=== PATIENT | male | born 1980 | race Caucasian/White ===

== ENCOUNTER 2017-11-11 19:47 | Emergency (ER) | payer SELFPAY ==
[2017-11-11] MEDS ORDERED: Sodium Chloride 0.9% 1,000 ML IV ONE (21:09)
[2017-11-11] MEDS ORDERED: Aluminum Hydroxide/Magnesium Hydroxide Susp (30 mL) PO STA (21:09)
[2017-11-11] MEDS ORDERED: Sodium Chloride 0.9% 1,000 ML ONE (21:21)
[2017-11-11] MEDS ORDERED: Aluminum Hydroxide/Magnesium Hydroxide Susp (30 mL) ONE (21:22)
[2017-11-11 21:28] LABS: BASO % 0.7 % (0.0-2.0); EOS # 0.2 K/uL (0.0-0.7); LYMPH # 3.3 K/uL (1.0-4.3); LYMPH % 45.6 % (20.0-40.0); MEAN CELL VOLUME 88.6 fL (80.0-94.0); MEAN CORPUSCULAR HEMOGLOBIN 30.3 pg (27.0-31.0); MEAN CORPUSCULAR HGB CONC 34.2 g/dL (33.0-37.0); MEAN PLATELET VOLUME 7.3 fL (7.2-11.7); MONO # 0.5 K/uL (0.0-0.8); MONO % 6.7 % (0.0-10.0); NEUT # 3.2 K/uL (1.8-7.0); NRBC % 0.2 % (0.0-2.0); RBC 4.93 Mil/uL (4.40-5.90); RED CELL DISTRIBUTION WIDTH 13.3 % (11.5-14.5); WHITE BLOOD COUNT 7.3 K/uL (4.8-10.8)
[2017-11-11 21:41] LABS: ALB/GLOB RATIO 1.4 (1.0-2.1); ALBUMIN 4.3 g/dL (3.5-5.0); ALT/SGPT 163 U/L (21-72); AST/SGOT 75 U/L (17-59); BLOOD UREA NITROGEN 15 mg/dL (9-20); CALCIUM 8.8 mg/dl (8.6-10.4); GFR NON-AFRICAN AMERICAN > 60; LIPASE 83 U/L (23-300)
[2017-11-11 23:32] VITALS: BP 129/82; PULSE 62; RESP 20; TEMP 98.4; O2SAT 96
--- NOTE | 2017-11-12 03:38 | C.PDOC ---
History Of Present Illness 37 year old male presents to the ED for evaluation of epigastric abdominal pain which began 2 days ago. Patient reports mild nausea. He states he saw his PMD who prescribed medications, from which he found no relief. Patient denies fever , chills, change in appetite or vomiting. Chief Complaint (Nursing): Abdominal Pain History Per: Patient History/Exam Limitations: no limitations Onset/Duration Of Symptoms: Days (2) Current Symptoms Are (Timing): Still Present Location Of Pain/Discomfort: Epigastric Radiation Of Pain To:: None Quality Of Discomfort: "Pain" Associated Symptoms: Nausea. denies: Fever, Chills, Vomiting Additional History Per: Patient Past Medical History Reviewed: Historical Data, Nursing Documentation, Vital Signs Vital Signs: Last Vital Signs Temp 98.4 F 11/11/17 23:31 Pulse 62 11/11/17 23:31 Resp 20 11/11/17 23:31 BP 129/82 11/11/17 23:31 Pulse Ox 96 11/12/17 03:41 - Medical History PMH: No Chronic Diseases Surgical History: No Surg Hx Family History: States: Hypertension - Social History Hx Tobacco Use: Yes Hx Alcohol Use: Yes Hx Substance Use: No - Immunization History Hx Tetanus Toxoid Vaccination: No Hx Influenza Vaccination: No Hx Pneumococcal Vaccination: No Review Of Systems Constitutional: Negative for: Fever, Chills Gastrointestinal: Positive for: Nausea, Abdominal Pain (epigastric ). Negative for: Vomiting Physical Exam - Physical Exam Appears: Non-toxic, No Acute Distress Skin: Normal Color, Warm, Dry Head: Atraumatic, Normacephalic Eye(s): bilateral: Normal Inspection Oral Mucosa: Moist Neck: Supple Chest: Symmetrical, No Deformity, No Tenderness Cardiovascular: Rhythm Regular, No Murmur Respiratory: Normal Breath Sounds, No Rales, No Rhonchi, No Wheezing Gastrointestinal/Abdominal: Soft, Tenderness (epigastric ), No Guarding, No Rebound Extremity: Normal ROM, Capillary Refill (less than 2 seconds ) Neurological/Psych: Oriented x3, Normal Speech, Normal Cognition ED Course And Treatment - Laboratory Results Result Diagrams: 11/11/17 21:24 11/11/17 21:24 O2 Sat by Pulse Oximetry: 96 (on RA) Pulse Ox Interpretation: Normal - CT Scan/US abdomen ultrasound Other Rad Studies (CT/US): Read By Radiologist, Radiology Report Reviewed CT/US Interpretation: EXAM: US Abdomen Complete. CLINICAL HISTORY: 37 years old, male; Pain; Abdominal pain; Epigastric; Additional info: Epigastric pain with elevated. lft's. TECHNIQUE: Real-time ultrasound of the abdomen ( complete) with image documentation. COMPARISON: No relevant prior studies available. FINDINGS: Liver: The liver is normal in size. Diffuse increased hepatic parenchymal echogenicity. Normal. hepatic contour. The hyperechoic mass within the right hepatic lobe measuring 3.4 cm x 2.5 cm x 3.7. cm. No intrahepatic bile duct dilation. Gallbladder: Numerous echogenic foci fill the gallbladder lumen with confluent posterior acoustic. shadowing consistent with multiple gallstones. Normal gallbladder wall thickness at 2 mm. Clinic Physician Director reports a negative sonographic Roldan's sign. No evident pericholecystic fluid. Common bile duct: Normal caliber common bile duct measuring 4 mm in diameter. No stones. No. dilation. Pancreas: Limited evaluation of the proximal pancreas is unremarkable. The pancreatic body and. tail are obscured by overlying bowel gas. Kidneys: The right kidney is normal in size and echotexture without stone or hydronephrosis. measuring 11.4 cm in length. The and left kidney is normal in size and echotexture without stone or. hydronephrosis measuring 11.8 cm in length. Spleen: The spleen is normal in size and echotexture measuring 9.2 cm in length. Aorta: Normal appearance of the imaged aorta. No aneurysm. The proximal aorta measures 2.1 cm. in AP dimension. The mid and distal aorta is not well-seen secondary to overlying bowel gas. Inferior vena cava: Normal appearance of the imaged IVC. IMPRESSION : 1. Cholelithiasis with multiple gallstones in the gallbladder lumen. No sonographic evidence of acute. cholecystitis. 2. Hepatic steatosis. 3. Hyperechoic structure within the periphery of the right hepatic lobe which may represent an area. of focal fatty sparing or hyperechoic mass. RECOMMEND dedicated hepatic MRI for further. characterization, or three-phase liver CT if there is contraindication to MR. Medical Decision Making Medical Decision Making: Impression: 37 year old male with epigastric pain Progress: Bloodwork, Abdomen US ordered and reviewed. Maalox PO, Pepcid IVP, Zofran IVP, and IV Fluids given. Patient is notified that he has gallstones in his gallbladder. Patient is advised to follow up with his PMD within 1-2 days for further evaluation. Disposition - [facility] - Disposition: HOME/ ROUTINE Disposition Time: 23:00 Condition: IMPROVED Additional Instructions: JOVANI CASTILLO, thank you for letting us take care of you today. Your provider was Jayesh Donaldson DO and you were treated for STOMACH PAINS. The emergency medical care you received today was directed at your acute symptoms. If you were prescribed any medication, please fill it and take as directed. It may take several days for your symptoms to resolve. Return to the Emergency Department if your symptoms worsen, do not improve, or if you have any other problems. Please contact your doctor or call one of the physicians/clinics you have been referred to that are listed on the Patient Visit Information form that is included in your discharge packet. Bring any paperwork you were given at discharge with you along with any medications you are taking to your follow up visit. Our treatment cannot replace ongoing medical care by a primary care provider outside of the emergency department. Thank you for allowing the [facility] team to be part of your care today. Your ultrasound showed stones in your gallbladder. Follow up with your primary care doctor in 2-3 days for re-evaluation and further management. Prescriptions: Ranitidine HCl [Zantac] 150 mg PO BID #20 tablet Instructions: Gallstones (DC) Forms: [employer] (Martiniquais) - Clinical Impression Clinical Impression: Gallstones - Scribe Statement The provider has reviewed the documentation as recorded by the Scribe (Lexis Camp) Provider Attestation: All medical record entries made by the Scribe were at my direction and personally dictated by me. I have reviewed the chart and agree that the record accurately reflects my personal performance of the history, physical exam, medical decision making, and the department course for this patient. I have also personally directed, reviewed, and agree with the discharge instructions and disposition.
--- NOTE | 2017-11-12 08:16 | US ---
Abdominal ultrasound History: Epigastric abdominal pain. Elevated liver enzymes. Comparison: None available. Technique: Real-time sonography was performed through the abdomen. Findings: Liver: 18.5 centimeters in length. Increased echogenicity of the hepatic parenchymal cortex suggestive for fatty infiltration versus hepatic parenchymal disease. Clinical correlation. Lobulated hyperechoic mass within the right hepatic lobe measuring 3.4 x 2.5 x 3.7 centimeters. No intrahepatic biliary ductal dilatation. Gallbladder: Cholelithiasis. Normal gallbladder wall thickness of 2.4 millimeters. Negative sonographic Roldan's sign. Common bile duct measures 4 millimeters, within normal limits. Limited visualization of the pancreas. Spleen measures 9.2 centimeters in length, within normal limits. Visualized aorta and IVC are grossly preserved. Mid and distal aorta not well visualized. Right kidney: 11.4 x 4.4 x 4.6 centimeters. No calculi or hydronephrosis. Left Kidney: 11.8 x 5.7 x 6.0 centimeters. No calculi or hydronephrosis. Impression: Cholelithiasis with multiple gallstones in the gallbladder lumen. Normal gallbladder wall thickness of 2.4 millimeters. Negative sonographic Roldan's sign. Increased echogenicity of the hepatic parenchymal cortex suggestive for fatty infiltration versus hepatic parenchymal disease. Clinical correlation. Lobulated hyperechoic structure/lesion within the periphery of the right hepatic lobe measuring 3.4 x 2.5 x 3.7 centimeters. This is of uncertain clinical etiology. This may represent focal hemangioma versus hyperechoic mass versus additional etiology. Further evaluation with dedicated hepatic MRI for further characterization or three-phase liver CT is recommended if clinically indicated. These findings were preliminarily reported at 10:57 p.m. on 11/11/[address] Amador Loyd from [facility].
== END 2017-11-11 23:32 | disposition home or self-care (01) ==
LOC: C.ER 19:47
DX: K80.20 Calculus of gallbladder without cholecystitis without obstruction (principal); Z72.0 Tobacco use
CPT/HCPCS: 76700; 80053; 83690; 85025; 96361; 96374; 96375; 99285; J2405; J7030

== ENCOUNTER 2018-02-10 09:51 | Emergency (ER) | payer OTHER, SELFPAY ==
[2018-02-10 10:09] VITALS: TEMP 98.5
--- NOTE | 2018-02-10 10:52 | C.PDOC ---
History Of Present Illness 37 year old male presents to the ED for evaluation of epigastric abdominal pain and diarrhea which began around 4-5 days ago. Patient states symptoms have been intermittent and anything he eats goes right through him. Patient reports he feels very bloated and gassy. history of gallstones. Otherwise, he denies fever, chills, nausea, GI bleeding, vomiting, constipation. Time Seen by Provider: 02/10/18 10:18 Chief Complaint (Nursing): Abdominal Pain History Per: Patient History/Exam Limitations: no limitations Onset/Duration Of Symptoms: Days (4-5) Current Symptoms Are (Timing): Still Present Location Of Pain/Discomfort: Epigastric Radiation Of Pain To:: None Quality Of Discomfort: "Pain", Gas Associated Symptoms: Diarrhea. denies: Fever, Chills, Nausea, Vomiting, Constipation Additional History Per: Patient Past Medical History Reviewed: Historical Data, Nursing Documentation, Vital Signs Vital Signs: Last Vital Signs Temp 98.5 F 02/10/18 10:04 Pulse 73 02/10/18 10:04 Resp 18 02/10/18 10:04 BP 124/88 02/10/18 10:04 Pulse Ox 97 02/10/18 10:04 - Medical History PMH: No Chronic Diseases Surgical History: No Surg Hx Family History: States: Hypertension - Social History Hx Tobacco Use: Yes Hx Alcohol Use: Yes Hx Substance Use: No - Immunization History Hx Tetanus Toxoid Vaccination: No Hx Influenza Vaccination: No Hx Pneumococcal Vaccination: No Review Of Systems Constitutional: Negative for: Fever, Chills Gastrointestinal: Positive for: Abdominal Pain, Diarrhea. Negative for: Nausea, Vomiting, Constipation Musculoskeletal: Positive for: Back Pain (chronic ) Physical Exam - Physical Exam Appears: Non-toxic, No Acute Distress Skin: Normal Color, Warm, Dry, No Rash Head: Atraumatic, Normacephalic Eye(s): bilateral: Normal Inspection Oral Mucosa: Moist Throat: No Erythema, No Exudate Neck: Normal ROM, Supple Chest: Symmetrical, No Deformity, No Tenderness Cardiovascular: Rhythm Regular, No Murmur Respiratory: Normal Breath Sounds, No Rales, No Rhonchi Gastrointestinal/Abdominal: Bowel Sounds (active), Soft, Tenderness (epigastric ), No Guarding, No Rebound Back: Normal Inspection, No CVA Tenderness Extremity: Normal ROM, Capillary Refill (less than 2 seconds ), No Swelling Neurological/Psych: Oriented x3, Normal Speech, Normal Cognition, Normal Motor ED Course And Treatment - Laboratory Results Result Diagrams: 02/10/18 11:09 02/10/18 11:09 O2 Sat by Pulse Oximetry: 97 (on RA) Pulse Ox Interpretation: Normal - Other Rad CXR X-Ray: Viewed By Me, Read By Radiologist Interpretation: Chest x-ray single frontal view. HISTORY: Pain. Comparison: None available. FINDINGS: No focal infiltrate or effusion. Heart size within normal limits. Tortuous ectatic aorta. Bibasilar breast and nipple shadows. Nodular density at the right lung base likely represents nipple shadow. Impression: No focal infiltrate or effusion. - CT Scan/US Abdomen US Other Rad Studies (CT/US): Read By Radiologist, Radiology Report Reviewed CT/US Interpretation: Date of service: 02/10/2018. HISTORY: epigas, RUQ pain. COMPARISON: Abdominal ultrasound performed 11/11/17. TECHNIQUE: Sonographic evaluation of the right upper quadrant of the abdomen. FINDINGS: LIVER: Measures 17.7 cm in length. Echogenic liver may be seen in setting of hepatic parenchymal disease or fatty infiltration. 3.1 x 2.8 x 3.9 cm hyperechoic focus within the right hepatic lobe, indeterminate; this finding previously measured approximately 3.4 x 2.5 x 3.7 cm. The main portal vein appears patent with normal directional flow. No intrahepatic bile duct dilatation. GALLBLADDER: Gallstones. No gallbladder wall thickening or pericholecystic edema. Negative sonographic Roldan's sign as assessed by the family law legal assistant. COMMON BILE DUCT: Measures 3 mm. PANCREAS: Not well-visualized. RIGHT KIDNEY: Measures approximately 12.4 x 4.5 x 5.1 cm. No obstructing calculus or hydronephrosis identified. AORTA: Limited visualization appears grossly unremarkable. IVC: Limited visualization appears grossly unremarkable. OTHER FINDINGS: None . IMPRESSION: Echogenic liver may be seen in setting of hepatic parenchymal disease or fatty infiltration. 3.1 x 2.8 x 3.9 cm echogenic focus within the right hepatic lobe, indeterminate. Further evaluation with dedicated three-phase MRI of the liver may be considered for further evaluation if indicated. Cholelithiasis. Medical Decision Making Medical Decision Making: Progress: Bloodwork, urinalysis, US Abdomen, CXR ordered and reviewed. Toradol IVP and IV Fluids given. On re-exam, the patient is resting comfortably and improvement of symptoms. Lungs are CTA, heart is RRR, abdomen is soft, non-tender and tolerating PO well. Follow up with the medical doctor within 1-2 days. Return if worsened. Disposition - Disposition Referrals: [facility] [Outside] Disposition: HOME/ ROUTINE Disposition Time: 14:00 Condition: STABLE Additional Instructions: Follow up with the medical doctor within 1-2 days. Return if worsened. Prescriptions: Famotidine [Pepcid] 20 mg PO BID #20 tab Naproxen [Naprosyn] 500 mg PO BID #20 tab Instructions: Gallstones Forms: [employer] (Colombian), Work Excuse Print Language: WALLISIAN - Clinical Impression Clinical Impression: Diarrhea, Gallstones - PA / EXTENDER / Resident Statement MD/DO has reviewed & agrees with the documentation as recorded. - Scribe Statement The provider has reviewed the documentation as recorded by the Scribe (Lexis Camp) All medical record entries made by the Scribe were at my direction and personally dictated by me. I have reviewed the chart and agree that the record accurately reflects my personal performance of the history, physical exam, medical decision making, and the department course for this patient. I have also personally directed, reviewed, and agree with the discharge instructions and disposition.
[2018-02-10] MEDS ORDERED: Sodium Chloride 0.9% 500 ML IV ONE ×2 (10:55→11:33)
[2018-02-10 11:14] LABS: BASO # 0.1 K/uL (0.0-0.2); BASO % 1.3 % (0.0-2.0); EOS # 0.5 K/uL (0.0-0.7); EOS % 5.5 % (0.0-4.0); HEMOGLOBIN 15.7 g/dL (12.0-18.0); LYMPH # 2.6 K/uL (1.0-4.3); LYMPH % 28.7 % (20.0-40.0); MEAN CELL VOLUME 89.6 fL (80.0-94.0); MEAN CORPUSCULAR HEMOGLOBIN 30.4 pg (27.0-31.0); MEAN CORPUSCULAR HGB CONC 33.9 g/dL (33.0-37.0); MEAN PLATELET VOLUME 7.5 fL (7.2-11.7); MONO # 0.8 K/uL (0.0-0.8); MONO % 9.1 % (0.0-10.0); NEUT % 55.4 % (50.0-75.0); NRBC % 0.1 % (0.0-2.0); RBC 5.16 Mil/uL (4.40-5.90); RED CELL DISTRIBUTION WIDTH 12.9 % (11.5-14.5); WHITE BLOOD COUNT 8.9 K/uL (4.8-10.8)
[2018-02-10 11:33] LABS: ALB/GLOB RATIO 1.4 (1.0-2.1); ALBUMIN 4.6 g/dL (3.5-5.0); ALT/SGPT 39 U/L (21-72); AST/SGOT 39 U/L (17-59); BLOOD UREA NITROGEN 15 mg/dL (9-20); CALCIUM 8.9 mg/dl (8.6-10.4); GFR NON-AFRICAN AMERICAN > 60; LIPASE 43 U/L (23-300)
--- NOTE | 2018-02-10 12:50 | RAD ---
Chest x-ray single frontal view HISTORY: Pain. Comparison: None available. FINDINGS: No focal infiltrate or effusion. Heart size within normal limits. Tortuous ectatic aorta. Bibasilar breast and nipple shadows. Nodular density at the right lung base likely represents nipple shadow. Impression: No focal infiltrate or effusion.
[2018-02-10 13:10] LABS: URINE BILIRUBIN NEGATIVE (NEGATIVE); URINE BLOOD NEGATIVE (NEGATIVE); URINE CLARITY Clear (Clear); URINE COLOR Yellow (YELLOW); URINE GLUCOSE (UA) NORMAL (Normal); URINE LEUKOCYTE ESTERASE NEG Leu/uL (Negative); URINE PROTEIN NEGATIVE (NEGATIVE); URINE UROBILINOGEN NORMAL mg/dL (0.2-1.0)
--- NOTE | 2018-02-10 13:45 | US ---
Date of service: 02/10/2018 HISTORY: epigas, RUQ pain COMPARISON: Abdominal ultrasound performed 11/11/17 TECHNIQUE: Sonographic evaluation of the right upper quadrant of the abdomen. FINDINGS: LIVER: Measures 17.7 cm in length. Echogenic liver may be seen in setting of hepatic parenchymal disease or fatty infiltration. 3.1 x 2.8 x 3.9 cm hyperechoic focus within the right hepatic lobe, indeterminate; this finding previously measured approximately 3.4 x 2.5 x 3.7 cm. The main portal vein appears patent with normal directional flow. No intrahepatic bile duct dilatation. GALLBLADDER: Gallstones. No gallbladder wall thickening or pericholecystic edema. Negative sonographic Roldan's sign as assessed by the e m assembler. COMMON BILE DUCT: Measures 3 mm. PANCREAS: Not well-visualized. RIGHT KIDNEY: Measures approximately 12.4 x 4.5 x 5.1 cm. No obstructing calculus or hydronephrosis identified. AORTA: Limited visualization appears grossly unremarkable. IVC: Limited visualization appears grossly unremarkable. OTHER FINDINGS: None . IMPRESSION: Echogenic liver may be seen in setting of hepatic parenchymal disease or fatty infiltration. 3.1 x 2.8 x 3.9 cm echogenic focus within the right hepatic lobe, indeterminate. Further evaluation with dedicated three-phase MRI of the liver may be considered for further evaluation if indicated. Cholelithiasis.
[2018-02-10 14:19] VITALS: BP 127/80; PULSE 80; RESP 16
[2018-02-10 15:38] VITALS: O2SAT 97
== END 2018-02-10 14:22 | disposition home or self-care (01) ==
LOC: C.ER 09:51
DX: K80.20 Calculus of gallbladder without cholecystitis without obstruction (principal); R19.7 Diarrhea, unspecified
CPT/HCPCS: 71045; 76705; 80053; 81001; 83690; 85025; 96374; 99285; J1885; J7040

== ENCOUNTER 2018-02-25 19:29 | Emergency (ER) | payer OTHER ==
[2018-02-25 19:40] VITALS: RESP 16
--- NOTE | 2018-02-25 20:19 | C.PDOC ---
History Of Present Illness 42 y/o male presents to the ED complaining of generalized abdominal pain with diarrhea for 2 weeks. Patient was seen here 1 week ago but has not followed up with his PMD since. He denies any fever, chills, vomiting, or dysuria. States he has diarrhea after every meal, which is watery and non-bloody. Time Seen by Provider: 02/25/18 19:46 Chief Complaint (Nursing): Abdominal Pain History Per: Patient History/Exam Limitations: no limitations Onset/Duration Of Symptoms: Days Current Symptoms Are (Timing): Still Present Associated Symptoms: Diarrhea Past Medical History Reviewed: Historical Data, Nursing Documentation, Vital Signs Vital Signs: Last Vital Signs Temp 98.2 F 02/25/18 19:37 Pulse 59 L 02/25/18 19:37 Resp 16 02/25/18 19:37 BP 131/86 02/25/18 19:37 Pulse Ox 98 02/25/18 19:37 Surgical History: No Surg Hx Family History: States: Hypertension - Social History Hx Tobacco Use: Yes Hx Alcohol Use: Yes Hx Substance Use: No - Immunization History Hx Tetanus Toxoid Vaccination: No Hx Influenza Vaccination: No Hx Pneumococcal Vaccination: No Review Of Systems Constitutional: Negative for: Fever, Chills, Sweats Eyes: Negative for: Vision Change Cardiovascular: Negative for: Palpitations Respiratory: Negative for: Shortness of Breath Gastrointestinal: Positive for: Abdominal Pain, Diarrhea. Negative for: Nausea, Vomiting, Hematochezia Genitourinary: Negative for: Dysuria, Hematuria Neurological: Negative for: Weakness, Dizziness Physical Exam - Physical Exam Appears: Non-toxic, No Acute Distress Skin: Warm, Dry Head: Atraumatic, Normacephalic Eye(s): bilateral: Normal Inspection, PERRL, EOMI Oral Mucosa: Moist Neck: Normal ROM Chest: Symmetrical Cardiovascular: Rhythm Regular, No Murmur Respiratory: Normal Breath Sounds, No Rales, No Rhonchi, No Wheezing Gastrointestinal/Abdominal: Soft, No Tenderness, No Distention, No Guarding, No Rebound Back: No CVA Tenderness Extremity: Bilateral: Atraumatic, Normal Color And Temperature Neurological/Psych: Oriented x3 ED Course And Treatment - Laboratory Results Result Diagrams: 02/25/18 20:17 02/25/18 20:17 O2 Sat by Pulse Oximetry: 98 (RA) Pulse Ox Interpretation: Normal Medical Decision Making Medical Decision Making: Impression: Abdominal pain, Diarrhea Plan: --CMP --Magnesium --Phosphorous --CBC Lab results were unremarkable. Discussed this with patient. Advised outpatient followup for further evaluation. Patient stable throughout ED course. Disposition - Disposition Disposition: HOME/ ROUTINE Disposition Time: 21:28 Condition: GOOD Additional Instructions: JOVANI CASTILLO, thank you for letting us take care of you today. Your provider was Sena Valdez MD and you were treated for STOMACH PAINS. The emergency medical care you received today was directed at your acute symptoms. If you were prescribed any medication, please fill it and take as directed. It may take several days for your symptoms to resolve. Return to the Emergency Department if your symptoms worsen, do not improve, or if you have any other problems. Please contact your doctor or call one of the physicians/clinics you have been referred to that are listed on the Patient Visit Information form that is included in your discharge packet. Bring any paperwork you were given at [facility] with you along with any medications you are taking to your follow up visit. Our treatment cannot replace ongoing medical care by a primary care provider outside of the emergency department. Thank you for allowing the [facility] team to be part of your care today. If you had an X-Ray or CT scan: A Radiologist will review the ED reading if any change in treatment is needed we will contact you. If you had a blood, urine, or wound culture: It will take several days for the results, if any change in treatment is needed we will contact you. If you had an STI test: It will take 48 hours for the results. Please call after 1 week if you have not heard back. Instructions: Diarrhea and Traveler's Diarrhea, Adult (DC) Forms: [employer] ([employer]) Print Language: CROATIAN - Clinical Impression Clinical Impression: Abdominal pain, Diarrhea - Scribe Statement The provider has reviewed the documentation as recorded by the David Montelongo Provider Attestation: All medical record entries made by the David were at my direction and personally dictated by me. I have reviewed the chart and agree that the record accurately reflects my personal performance of the history, physical exam, medical decision making, and the department course for this patient. I have also personally directed, reviewed, and agree with the discharge instructions and disposition.
[2018-02-25 20:31] LABS: BASO % 0.4 % (0.0-2.0); EOS # 0.2 K/uL (0.0-0.7); EOS % 2.2 % (0.0-4.0); LYMPH # 2.8 K/uL (1.0-4.3); LYMPH % 34.5 % (20.0-40.0); MEAN CORPUSCULAR HEMOGLOBIN 30.6 pg (27.0-31.0); MEAN CORPUSCULAR HGB CONC 33.7 g/dL (33.0-37.0); MEAN PLATELET VOLUME 8.1 fL (7.2-11.7); MONO # 0.5 K/uL (0.0-0.8); MONO % 6.7 % (0.0-10.0); NEUT # 4.5 K/uL (1.8-7.0); NEUT % 56.2 % (50.0-75.0); NRBC % 0.1 % (0.0-2.0); RBC 4.9 Mil/uL (4.40-5.90); RED CELL DISTRIBUTION WIDTH 13.1 % (11.5-14.5)
[2018-02-25 21:03] LABS: ALB/GLOB RATIO 1.5 (1.0-2.1); ALBUMIN 4.6 g/dL (3.5-5.0); ALT/SGPT 38 U/L (21-72); AST/SGOT 43 U/L (17-59); BLOOD UREA NITROGEN 22 mg/dL (9-20); CALCIUM 8.6 mg/dl (8.6-10.4); GFR NON-AFRICAN AMERICAN > 60
[2018-02-25 21:59] VITALS: BP 125/80; PULSE 60; TEMP 98.1
[2018-02-25 23:40] VITALS: O2SAT 98
== END 2018-02-25 21:53 | disposition home or self-care (01) ==
LOC: C.ER 19:29
DX: R10.84 Generalized abdominal pain (principal); R19.7 Diarrhea, unspecified

== ENCOUNTER 2018-03-16 10:40 | Observation (INO) | payer OTHER ==
--- NOTE | 2018-03-16 12:58 | RAD ---
HISTORY: burning chest/epigastric pain COMPARISON: Chest x-ray performed 02/10/18 TECHNIQUE: Chest, one view. FINDINGS: LUNGS: No focal consolidation. Please note that chest x-ray has limited sensitivity for the detection of pulmonary masses. PLEURA: No significant pleural effusion identified. No definite pneumothorax . CARDIOVASCULAR: Heart size appears within normal limits. No significant atherosclerotic calcification present. OSSEOUS STRUCTURES: No acute osseous abnormality identified. VISUALIZED UPPER ABDOMEN: Unremarkable. OTHER FINDINGS: None. IMPRESSION: No focal consolidation.
--- NOTE | 2018-03-16 13:03 | C.PDOC ---
History Of Present Illness 37 years old male presents to ED for evaluation of diarrhea that began months ago. Patient states he went to his PMD and was told all the labs are fine, however patient states symptoms were not resolved. Patient also reports associa ekta epigastric abdominal pain that radiates to the chest that began 3-4 days ago. Denies SOB, or any other complaint. Time Seen by Provider: 03/16/18 11:14 Chief Complaint (Nursing): Chest Pain History Per: Patient History/Exam Limitations: no limitations Onset/Duration Of Symptoms: Hrs Current Symptoms Are (Timing): Still Present Location Of Pain/Discomfort: Epigastric Radiation Of Pain To:: Chest Associated Symptoms: Diarrhea. denies: Fever, Chills, Nausea, Vomiting Exacerbating Factors: None Alleviating Factors: None Last Bowel Movement: Today Recent travel outside of the [place]: No Past Medical History Reviewed: Historical Data, Nursing Documentation, Vital Signs Vital Signs: Last Vital Signs Temp 98.1 F 03/16/18 10:55 Pulse 67 03/16/18 10:55 Resp 17 03/16/18 10:55 BP 127/87 03/16/18 10:55 Pulse Ox 99 03/16/18 10:55 - Medical History PMH: No Chronic Diseases Surgical History: No Surg Hx Family History: States: No Known Family Hx, Hypertension - Social History Hx Tobacco Use: Yes Hx Alcohol Use: Yes Hx Substance Use: No - Immunization History Hx Tetanus Toxoid Vaccination: No Hx Influenza Vaccination: No Hx Pneumococcal Vaccination: No Review Of Systems Constitutional: Negative for: Fever, Chills Gastrointestinal: Positive for: Abdominal Pain (Epigastric ), Diarrhea. Negative for: Nausea, Vomiting, Constipation Skin: Negative for: Rash Neurological: Negative for: Weakness, Numbness Physical Exam - Physical Exam Appears: Non-toxic, No Acute Distress Skin: Normal Color, Warm, Dry, No Rash Head: Atraumatic, Normacephalic Eye(s): bilateral: Normal Inspection, PERRL, EOMI Oral Mucosa: Moist Neck: Normal ROM, Supple Chest: Symmetrical, No Tenderness Cardiovascular: Rhythm Regular, No Murmur Respiratory: Normal Breath Sounds, No Rales, No Rhonchi, No Wheezing Gastrointestinal/Abdominal: Soft, Tenderness (Epigastric ) Extremity: Normal ROM Extremity: Bilateral: Atraumatic, Normal Color And Temperature, Normal ROM Pulses: Left Radial: Normal, Right Radial: Normal Neurological/Psych: Oriented x3, Normal Speech Gait: Steady ED Course And Treatment - Laboratory Results Result Diagrams: 03/16/18 14:29 03/16/18 14:29 O2 Sat by Pulse Oximetry: 99 (RA) Pulse Ox Interpretation: Normal - Other Rad CXR X-Ray: Viewed By Me, Read By Radiologist Interpretation: HISTORY: burning chest/epigastric pain. COMPARISON: Chest x- ray performed 02/10/18. TECHNIQUE: Chest, one view. FINDINGS: LUNGS: No focal consolidation. Please note that chest x-ray has limited sensitivity for the detection of pulmonary masses. PLEURA: No significant pleural effusion identified. No definite pneumothorax . CARDIOVASCULAR: Heart size appears within normal limits. No significant atherosclerotic calcification present. OSSEOUS STRUCTURES: No acute osseous abnormality identified. VISUALIZED UPPER ABDOMEN: Unremarkable. OTHER FINDINGS: None. IMPRESSION: No focal consolidation. - CT Scan/US Abdomen US Other Rad Studies (CT/US): Read By Radiologist, Radiology Report Reviewed CT/US Interpretation: Date of service: 03/16/2018. HISTORY: epigastric burning. COMPARISON: Limited abdominal ultrasound performed 02/10/18. TECHNIQUE: Sonographic evaluation of the right upper quadrant of the abdomen. FINDINGS: LIVER: Measures 16.7 cm in length. Echogenic liver may be seen in setting of hepatic parenchymal disease or fatty infiltration. Lobulated 3.9 x 2.2 x 3.8 cm echogenic region/mass within the right hepatic lobe, indeterminate. The main portal vein appears patent with normal directional flow. No intrahepatic bile duct dilatation. GALLBLADDER: Gallstones. Gallbladder sludge. No gallbladder wall thickening or pericholecystic edema. Negative sonographic Roldan's sign as assessed by the optical technician. COMMON BILE DUCT: Measures 3 mm. PANCREAS: Not well-visualized. RIGHT KIDNEY: Measures approximately 12.8 x 5.4 x 5.8 cm. No obstructing calculus or hydronephrosis identified. AORTA: Limited visualization appears grossly unremarkable. IVC: Limited visualization appears grossly unremarkable. OTHER FINDINGS: None . IMPRESSION: Lobulated 3.9 x 2.2 x 3.8 cm echogenic region/mass within the right hepatic lobe, indeterminate. If indicated, recommend further evaluation with three-phase dedicated cross-sectional imaging of the liver. Cholelithiasis. Echogenic liver may be seen in setting of hepatic parenchymal disease or fatty infiltration. Progress Note: Ordered EKG, blood work, CXR, urinalysis, and Abdomen US. Disposition - Disposition Disposition: HOSPITALIZED Disposition Time: 15:39 Condition: FAIR Forms: [facility] ([place]ian) - Clinical Impression Clinical Impression: Chest pain, Diarrhea, Liver mass - PA / LATHE SPOTTER / Resident Statement MD/DO has reviewed & agrees with the documentation as recorded. - Scribe Statement The provider has reviewed the documentation as recorded by the Mauricioibandre Petit All medical record entries made by the Mauricioibandre were at my direction and personally dictated by me. I have reviewed the chart and agree that the record accurately reflects my personal performance of the history, physical exam, medical decision making, and the department course for this patient. I have also personally directed, reviewed, and agree with the discharge instructions and disposition. Decision To Admit - Pt Status Changed To: Hospital Disposition Of: Observation - . Bed Request Type: Telemetry Admitting Physician: Makayla Messer Patient Diagnosis: Chest pain, Diarrhea, Liver mass
--- NOTE | 2018-03-16 13:33 | US ---
Date of service: 03/16/2018 HISTORY: epigastric burning COMPARISON: Limited abdominal ultrasound performed 02/10/18 TECHNIQUE: Sonographic evaluation of the right upper quadrant of the abdomen. FINDINGS: LIVER: Measures 16.7 cm in length. Echogenic liver may be seen in setting of hepatic parenchymal disease or fatty infiltration. Lobulated 3.9 x 2.2 x 3.8 cm echogenic region/mass within the right hepatic lobe, indeterminate. The main portal vein appears patent with normal directional flow. No intrahepatic bile duct dilatation. GALLBLADDER: Gallstones. Gallbladder sludge. No gallbladder wall thickening or pericholecystic edema. Negative sonographic Roldan's sign as assessed by the electrical products engineer. COMMON BILE DUCT: Measures 3 mm. PANCREAS: Not well-visualized. RIGHT KIDNEY: Measures approximately 12.8 x 5.4 x 5.8 cm. No obstructing calculus or hydronephrosis identified. AORTA: Limited visualization appears grossly unremarkable. IVC: Limited visualization appears grossly unremarkable. OTHER FINDINGS: None . IMPRESSION: Lobulated 3.9 x 2.2 x 3.8 cm echogenic region/mass within the right hepatic lobe, indeterminate. If indicated, recommend further evaluation with three-phase dedicated cross-sectional imaging of the liver. Cholelithiasis. Echogenic liver may be seen in setting of hepatic parenchymal disease or fatty infiltration.
[2018-03-16 14:38] LABS: INR 1.1; PROTHROMBIN TIME 11.9 SECONDS (9.7-12.2)
[2018-03-16 14:43] LABS: BASO # 0.1 K/uL (0.0-0.2); BASO % 0.6 % (0.0-2.0); EOS # 0.3 K/uL (0.0-0.7); EOS % 3.5 % (0.0-4.0); HEMOGLOBIN 16.3 g/dL (12.0-18.0); LYMPH # 2.9 K/uL (1.0-4.3); MEAN CELL VOLUME 91.1 fL (80.0-94.0); MEAN CORPUSCULAR HEMOGLOBIN 30.4 pg (27.0-31.0); MEAN CORPUSCULAR HGB CONC 33.4 g/dL (33.0-37.0); MONO # 0.5 K/uL (0.0-0.8); MONO % 5.2 % (0.0-10.0); NEUT % 57.7 % (50.0-75.0); NRBC % 0.1 % (0.0-2.0); RBC 5.37 Mil/uL (4.40-5.90); RED CELL DISTRIBUTION WIDTH 13.4 % (11.5-14.5); WHITE BLOOD COUNT 8.7 K/uL (4.8-10.8)
[2018-03-16 14:51] LABS: URINE BILIRUBIN NEGATIVE (NEGATIVE); URINE CLARITY Clear (Clear); URINE COLOR YELLOW (YELLOW); URINE GLUCOSE (UA) Normal (Normal)
[2018-03-16 14:52] LABS: URINE BLOOD NEGATIVE (NEGATIVE); URINE PROTEIN NEGATIVE (NEGATIVE)
[2018-03-16 14:53] LABS: ALB/GLOB RATIO 1.4 (1.0-2.1); ALBUMIN 4.9 g/dL (3.5-5.0); ALT/SGPT 44 U/L (21-72); AMYLASE 93 U/L (30-110); AST/SGOT 38 U/L (17-59); BLOOD UREA NITROGEN 18 mg/dL (9-20); CALCIUM 9.1 mg/dl (8.6-10.4); GFR NON-AFRICAN AMERICAN > 60; LIPASE 39 U/L (23-300); SQUAMOUS EPITHIAL < 1 /hpf (0-5); URINE LEUKOCYTE ESTERASE NEG Leu/uL (Negative); URINE UROBILINOGEN Normal mg/dL (0.2-1.0)
[2018-03-16 15:01] LABS: CK-MB 0.62 ng/mL (0.0-3.38)
--- NOTE | 2018-03-16 16:33 | CP.PCM.HP ---
<GilaTomi miranda - Last Filed: 03/16/18 17:50> History of Present Illness - History of Present Illness History of Present Illness: PGY-1 History and Physical [address]. Messer Patient is a 36 year old male with no PMHx who presents with 2 months of diarrhea and abdominal pain. Patient states that he began having diarrhea around 2 months ago and did initially go to see his primary doctor and he was given some medicine which helped with the diarrhea. He states that while medication has temporarily helped, he has continued to have diarrhea and epigastric pain and so came to the ED. The pain also radiates to the chest but not to the back or shoulders. His BMs right now are soft but not watery, non- bloody. Denies any travel outside of the country since symptoms. Does state recent antibiotic use, however he is unsure the name of the medication. Denies history hepatitis, denies illicilt/IV drug abuse, and states he is not currently sexually active. Patient denies any other cardiac symptoms including palpitations, lightheadedness, shortness of breath. Medical history: No known medical history Surgeries: Denies Allergies: NKA Social: Denies alcohol, tobacco, or drug use. Not currently sexually active. Hospitalizations: Denies Family history: No known Medications: No daily medications PMD: Dr. Vela Present on Admission - Present on Admission Any Indicators Present on Admission: No Review of Systems - Constitutional Constitutional: absent: Fatigue, Fever - EENT Eyes: Other (left eye redness/left eyelid occasional tic). absent: Blurred Vision - Cardiovascular Cardiovascular: Chest Pain (radiating from abdomen to chest). absent: Dyspnea, Edema, Pain Radiating to Arm/Neck/Jaw, Palpitations, Radiating Pain - Respiratory Respiratory: absent: Cough, Dyspnea - Gastrointestinal Gastrointestinal: Abdominal Pain (epigastric radiating to chest) - Genitourinary Genitourinary: absent: Dysuria, Flank Pain - Musculoskeletal Musculoskeletal: absent: Back Pain, Neck Pain - Neurological Neurological: absent: Dizziness, Numbness, Headaches, Sensory Deficit - Psychiatric Psychiatric: absent: Anxiety, Depression Past Patient History - Infectious Disease Hx of Infectious Diseases: None - Past Social History Smoking Status: Never Smoked - PSYCHIATRIC Hx Substance Use: No - SURGICAL HISTORY Hx Surgeries: No - ANESTHESIA Hx Anesthesia: No Hx Anesthesia Reactions: No Meds Allergies/Adverse Reactions: Allergies Allergy/AdvReac Type Severity Reaction Status Date / Time No Known Allergies Allergy Verified 03/16/18 11:01 Physical Exam - Constitutional Appears: Non-toxic, No Acute Distress - Head Exam Head Exam: ATRAUMATIC, NORMAL INSPECTION - Eye Exam Eye Exam: EOMI Additional comments: pterygium b/l - ENT Exam ENT Exam: Mucous Membranes Moist - Respiratory Exam Respiratory Exam: Clear to Auscultation Bilateral, NORMAL BREATHING PATTERN. absent: Rhonchi, Wheezes - Cardiovascular Exam Cardiovascular Exam: REGULAR RHYTHM, +S1, +S2 - GI/Abdominal Exam GI & Abdominal Exam: Normal Bowel Sounds, Soft, Tenderness (mild epigastric tenderness). absent: Distended, Hernia, Rebound, Rigid - Rectal Exam Rectal Exam: NORMAL INSPECTION. absent: Black Stool, Bloody Stool, Hemorrhoids - Extremities Exam Extremities exam: Positive for: pedal pulses present. Negative for: pedal edema, tenderness - Neurological Exam Neurological exam: Alert, CN II-XII Intact, Oriented x3 - Psychiatric Exam Psychiatric exam: Normal Affect, Normal Mood - Skin Skin Exam: Dry, Intact, Normal Color, Warm Results - Vital Signs Recent Vital Signs: Last Vital Signs Temp 98.1 F 03/16/18 10:55 Pulse 72 03/16/18 13:25 Resp 18 03/16/18 13:25 BP 126/89 03/16/18 13:25 Pulse Ox 99 03/16/18 15:40 - Labs Result Diagrams: 03/16/18 14:29 03/16/18 14:29 Labs: Laboratory Results - last 24 hr 03/16/18 03/16/18 03/16/18 14:29 14:29 14:29 WBC 8.7 RBC 5.37 Hgb 16.3 Hct 48.9 MCV 91.1 MCH 30.4 MCHC 33.4 RDW 13.4 Plt Count 382 MPV 8.0 Neut % (Auto) 57.7 Lymph % (Auto) 33.0 [place] % (Auto) 5.2 Eos % (Auto) 3.5 Baso % (Auto) 0.6 Neut # (Auto) 5.0 Lymph # (Auto) 2.9 [place] # (Auto) 0.5 Eos # (Auto) 0.3 Baso # (Auto) 0.1 PT 11.9 INR 1.1 APTT 34 Sodium Potassium Chloride Carbon Dioxide Anion Gap BUN Creatinine Est GFR ( Amer) Est GFR (Non-Af Amer) Random Glucose Calcium Magnesium Total Bilirubin AST ALT Alkaline Phosphatase Total Creatine Kinase CK-MB (Mass) Total Protein Albumin Globulin Albumin/Globulin Ratio Amylase Lipase Urine Color Yellow Urine Clarity Clear Urine pH 5.0 Ur Specific [place] 1.028 Urine Protein Negative Urine Glucose (UA) Normal Urine Ketones Negative Urine Blood Negative Urine Nitrate Negative Urine Bilirubin Negative Urine Urobilinogen Normal Ur Leukocyte Esterase Neg Urine WBC (Auto) 1 Urine RBC (Auto) 1 Ur Squamous Epith Cells < 1 03/16/18 14:29 WBC RBC Hgb Hct MCV MCH MCHC RDW Plt Count MPV Neut % (Auto) Lymph % (Auto) [place] % (Auto) Eos % (Auto) Baso % (Auto) Neut # (Auto) Lymph # (Auto) [place] # (Auto) Eos # (Auto) Baso # (Auto) PT INR APTT Sodium 139 Potassium 3.7 Chloride 101 Carbon Dioxide 24 Anion Gap 18 BUN 18 Creatinine 0.9 Est GFR ( Amer) > 60 Est GFR (Non-Af Amer) > 60 Random Glucose 91 Calcium 9.1 Magnesium 2.3 Total Bilirubin 0.7 AST 38 ALT 44 Alkaline Phosphatase 137 H Total Creatine Kinase 63 CK-MB (Mass) 0.62 Total Protein 8.3 Albumin 4.9 Globulin 3.4 Albumin/Globulin Ratio 1.4 Amylase 93 Lipase 39 Urine Color Urine Clarity Urine pH Ur Specific [place] Urine Protein Urine Glucose (UA) Urine Ketones Urine Blood Urine Nitrate Urine Bilirubin Urine Urobilinogen Ur Leukocyte Esterase Urine WBC (Auto) Urine RBC (Auto) Ur Squamous Epith Cells Assessment & Plan - Assessment and Plan (Free Text) Assessment: 37 year old male with no PMHx presents with 2 months of continuous diarrhea and abdominal pain radiating to chest with echogenic liver mass on US and mildly elevated alk phos. Plan: Diarrhea/Abdominal Pain/Echogenic liver mass US - Imaging: - -CXR 03/16/18: IMPRESSION: No focal consolidation. - -Abdominal US 03/16/18: Lobulated 3.9 x 2.2 x 3.8 cm echogenic region/mass within the right hepatic lobe, indeterminate. If indicated, recommend further evaluation with three-phase dedicated cross-sectional imaging of the liver. Cholelithiasis. Echogenic liver may be seen in setting of hepatic parenchymal disease or fatty infiltration. - CT abd/pelvis with IV and PO - f/u - No fevers or white count - H and H stable - Lipase WNL - Alk Phos 137 - Initial EKG normal sinus with no ST or T changes - Hepatitis panel - f/u - Stool Ova and parasites - f/u - Stool leukocytes - f/u - Stool culture - f/u - C diff toxin - f/u - D5/.45 NS @ 100 cc/hr - GI consult - Dr. Echols - f/u recs Assessment and Plan discussed with Dr. Gui Roman, PGY-1 <Makayla Messer V - Last Filed: 03/18/18 07:30> Results - Vital Signs Recent Vital Signs: Last Vital Signs Temp 97.9 F 03/17/18 23:40 Pulse 71 03/17/18 23:40 Resp 20 03/17/18 23:40 BP 109/70 03/17/18 23:40 Pulse Ox 96 03/17/18 23:40 - Labs Result Diagrams: 03/17/18 07:15 03/17/18 07:15 Labs: Laboratory Results - last 24 hr 03/17/18 03/17/18 03/17/18 07:15 07:15 07:15 WBC 7.7 RBC 5.12 Hgb 15.9 Hct 46.4 MCV 90.5 MCH 31.0 MCHC 34.2 RDW 13.0 Plt Count 372 MPV 7.5 Neut % (Auto) 51.3 Lymph % (Auto) 36.0 [place] % (Auto) 7.1 Eos % (Auto) 4.7 H Baso % (Auto) 0.9 Neut # (Auto) 4.0 Lymph # (Auto) 2.8 [place] # (Auto) 0.5 Eos # (Auto) 0.4 Baso # (Auto) 0.1 Sodium 137 Potassium 3.7 Chloride 99 Carbon Dioxide 27 Anion Gap 15 BUN 14 Creatinine 0.9 Est GFR ( Amer) > 60 Est GFR (Non-Af Amer) > 60 Random Glucose 96 Calcium 9.0 Total Bilirubin 0.9 AST 46 ALT 54 Alkaline Phosphatase 120 Total Protein 7.6 Albumin 4.5 Globulin 3.1 Albumin/Globulin Ratio 1.4 Hepatitis A IgM Ab Negative Hep Bs Antigen Negative Hep B Core IgM Ab Negative Hepatitis C Antibody Negative Attending/Attestation - Attestation I have personally seen and examined this patient.: Yes I have fully participated in the care of the patient.: Yes I have reviewed all pertinent clinical information: Yes Notes (Text): This is a late computer entry for March 16, 2018. Patient seen, examined, case discussed with medical planner at time of admission. Patient comes with months of chronic diarrhea reports that he has used an antibiotic and a second medication to attempt to stop diarrhea however it has not abated. Discussed with emergency room physician abdominal ultrasound noted for a loculated type of mass over the liver. Patient does not report any history of any GI disorders in the family patient denies smoking. Patient has not seen a GI doctor nor has a primary care physician. Discussed admitting orders with the resident at time of admission. We will follow up the CT abdomen pelvis with p.o. and IV contrast We will collect stool samples to rule out infectious etiology for diarrhea. We will collect hepatitis to rule out any type of infectious etiology to liver mass. We will consult GI for further assistance. Patient placed on gentle IV hydration. We will advance diet as tolerated
[2018-03-16] MEDS: Dextrose 5%/0.45% NS 1,000 ML IV SCH (18:38)
[2018-03-16] MEDS ORDERED: Iohexol 240 (50 ml) PO ONE (18:45)
[2018-03-16] MEDS ORDERED: Iodixanol 320 MG/ML 100 ML BOTTLE IV ONE (19:30)
[2018-03-16 21:22] LABS: FECAL LEUKOCYTES NEGATIVE (NEGATIVE)
[2018-03-16 22:29] LABS: C DIFF TOXIN A B NEGATIVE (NEGATIVE)
[2018-03-17 03:54] VITALS: RESP 20
[2018-03-17] MEDS: Dextrose 5%/0.45% NS 1,000 ML IV SCH ×2 (05:25→16:12)
[2018-03-17 07:27] LABS: BASO # 0.1 K/uL (0.0-0.2); BASO % 0.9 % (0.0-2.0); EOS # 0.4 K/uL (0.0-0.7); EOS % 4.7 % (0.0-4.0); HEMOGLOBIN 15.9 g/dL (12.0-18.0); LYMPH # 2.8 K/uL (1.0-4.3); MEAN CELL VOLUME 90.5 fL (80.0-94.0); MEAN CORPUSCULAR HGB CONC 34.2 g/dL (33.0-37.0); MEAN PLATELET VOLUME 7.5 fL (7.2-11.7); MONO # 0.5 K/uL (0.0-0.8); MONO % 7.1 % (0.0-10.0); NEUT % 51.3 % (50.0-75.0); RBC 5.12 Mil/uL (4.40-5.90); WHITE BLOOD COUNT 7.7 K/uL (4.8-10.8)
[2018-03-17 07:52] LABS: ALB/GLOB RATIO 1.4 (1.0-2.1); ALBUMIN 4.5 g/dL (3.5-5.0); ALT/SGPT 54 U/L (21-72); AST/SGOT 46 U/L (17-59); BLOOD UREA NITROGEN 14 mg/dL (9-20); GFR NON-AFRICAN AMERICAN > 60
[2018-03-17 08:08] LABS: HEPATITIS B SURFACE AG Negative (NEGATIVE)
[2018-03-17 08:13] LABS: HEPATITIS A IGM NEGATIVE (NEGATIVE); HEPATITIS B CORE AB NEGATIVE (NEGATIVE)
[2018-03-17 08:25] LABS: HEPATITIS C ANTIBODY NEGATIVE (NEGATIVE)
--- NOTE | 2018-03-17 10:08 | CP.PCM.PN ---
<Tomi Roman - Last Filed: 03/17/18 12:37> Subjective - Date & Time of Evaluation Date of Evaluation: 03/17/18 Time of Evaluation: 10:14 - Subjective Subjective: PGY-[address] Messer Patient seen and examined at bedside. No acute events overnight. Patient had one small bout of watery diarrhea. He states his abdominal pain has gone away since he was started on fluids. Patient would like to try advancing diet and we will advance as tolerated. Note that CT of the abdomen/pelvis with IV/PO contrast shows a poorly defined hypodense lesion - possible benign hemangioma, will require follow up multiphasic MRI for sufficient evaluation. Cholelithiasis "Limited colitis not excluded involving the splenic flexure and descending colon as per above, potentially more proximal involvement as well." We are awaiting further lab results, but so far C diff toxin, stool leukocytes, hep panel, FOBT all negative. Objective - Vital Signs/Intake and Output Vital Signs (last 24 hours): Temp Pulse Resp BP Pulse Ox 97.3 F L 74 20 118/78 96 03/17/18 08:00 03/17/18 08:00 03/17/18 08:00 03/17/18 08:00 03/17/18 08:00 Intake and Output: 03/17/18 03/17/18 06:59 18:59 Intake Total 800 Balance 800 - Medications Medications: Current Medications Dextrose/Sodium Chloride (Dextrose 5%/0.45% Ns 1000 Ml) 1,000 mls @ 100 mls/hr IV .Q10H DACIA Last Admin: 03/17/18 05:25 Dose: 100 mls/hr - Labs Labs: 03/17/18 07:15 03/17/18 07:15 PT 11.9 SECONDS (9.7-12.2) 03/16/18 14:29 INR 1.1 03/16/18 14:29 APTT 34 SECONDS (21-34) 03/16/18 14:29 - Constitutional Appears: Non-toxic, No Acute Distress - Head Exam Head Exam: ATRAUMATIC, NORMOCEPHALIC - Eye Exam Eye Exam: EOMI, Normal appearance - ENT Exam ENT Exam: Mucous Membranes Moist - Respiratory Exam Respiratory Exam: Clear to Ausculation Bilateral, NORMAL BREATHING PATTERN. absent: Rhonchi, Wheezes - Cardiovascular Exam Cardiovascular Exam: REGULAR RHYTHM, +S1, +S2 - GI/Abdominal Exam GI & Abdominal Exam: Soft, Normal Bowel Sounds. absent: Tenderness Additional comments: Improved abdominal exam - minimal to absent epigastric tenderness - Extremities Exam Extremities Exam: Normal Inspection. absent: Pedal Edema, Tenderness - Neurological Exam Neurological Exam: Alert, Awake, Oriented x3 - Psychiatric Exam Psychiatric exam: Normal Affect, Normal Mood - Skin Skin Exam: Dry, Intact, Normal Color Assessment and Plan - Assessment and Plan (Free Text) Assessment: 37 year old male with no PMHx presents with 2 months of continuous diarrhea and abdominal pain radiating to chest with echogenic liver mass on US and mildly renny vated alk phos. CT of the chest shows poorly defined hypodense lesion that will require multiphase MRI, as well as colitis. Plan: Diarrhea/Abdominal Pain/Echogenic liver mass US - Imaging: - -CXR 03/16/18: IMPRESSION: No focal consolidation. - -Abdominal US 03/16/18: Lobulated 3.9 x 2.2 x 3.8 cm echogenic region/mass within the right hepatic lobe, indeterminate. If indicated, recommend further evaluation with three-phase dedicated cross-sectional imaging of the liver. Cholelithiasis. Echogenic liver may be seen in setting of hepatic parenchymal disease or fatty infiltration. - CT abd/pelvis with IV and PO 03/16/18 1) A poorly defined hypodense lesion is seen at the R lobe liver in the periphery which appears to correspond to the same location of the hyperechoic mass on prior ultrasound exams noted above. Triple phase liver CT is required for adequate evaluation of a patent masses. Multiphasic MRI of the liver is recommended including preliminary noncontrast series followed by multiphasic postcontrast enhanced series for definitive characterization of this probable benign hemangioma. The remainder liver remains unremarkable 2) Limited colitis not excluded involving the splenic flexure and descending colon as per above, potentially more proximal involvement as well. 3) Cholelithiasis less well appreciated than seen by US likely due to fatty gallstones. - No fevers or white count - H and H stable - Lipase WNL - Alk Phos 120 - Initial EKG normal sinus with no ST or T changes - Hepatitis panel - negative - Stool Ova and parasites - f/u - Stool leukocytes - negative - Stool culture - f/u - C diff toxin - negative - D5/.45 NS @ 100 cc/hr - Clear liquid diet - GI consult - Dr. Echols - f/u recs Assessment and Plan discussed with Dr. Gui Roman, PGY-1 <Makayla Messer V - Last Filed: 03/18/18 07:34> Objective - Vital Signs/Intake and Output Vital Signs (last 24 hours): Temp Pulse Resp BP Pulse Ox 97.9 F 71 20 109/70 96 03/17/18 23:40 03/17/18 23:40 03/17/18 23:40 03/17/18 23:40 03/17/18 23:40 Intake and Output: 03/18/18 03/18/18 06:59 18:59 Intake Total 1900 Balance 1900 - Medications Medications: Current Medications Dextrose/Sodium Chloride (Dextrose 5%/0.45% Ns 1000 Ml) 1,000 mls @ 100 mls/hr IV .Q10H DACIA Last Admin: 03/18/18 02:09 Dose: 100 mls/hr - Labs Labs: 03/17/18 07:15 03/17/18 07:15 PT 11.9 SECONDS (9.7-12.2) 03/16/18 14:29 INR 1.1 03/16/18 14:29 APTT 34 SECONDS (21-34) 03/16/18 14:29 Attending/Attestation - Attestation I have personally seen and examined this patient.: Yes I have fully participated in the care of the patient.: Yes I have reviewed all pertinent clinical information, including history, physical exam and plan: Yes Notes (Text): This is a late computer entry for March 17, 2018. Patient seen, examined, case discussed with medical assistant float. Patient reports diarrhea is less, patient reports abdominal pain is resolved. CT abdomen pelvis with p.o. and IV contrast noting for poorly defined hypodense lesion seen in the right lobe liver which corresponds to the same location of the hyperechoic mass on the ultrasound. Recommended for either further evaluation by CT or multiphasic MRI. There is limited colitis but not occluding or involving the splenic flexure and descending colon. Also noted for cholelithiasis which is less appreciated on ultrasound sonography. GI has seen and evaluated patient recommended for outpatient colonoscopy and have ordered further studies as well as an MRI to characterize the liver mass. We will follow-up the MRI of the liver mass. We will initiate discharge planning and help set up patient for the [facility] where and he will need a GI referral to set up for outpatient colonoscopy. Electrolytes remained stable blood work is relatively benign. Stool leukocytes are negative C. difficile is negative stool occult blood is negative pending stool culture. Hepatitis panel negative.
--- NOTE | 2018-03-17 11:35 | CT ---
Date of service: 03/16/2018 PROCEDURE: CT Abdomen and Pelvis with contrast HISTORY: Liver Mass on US COMPARISON: Limited abdomen ultrasound 02/10/2018 and complete abdomen 11/11/2017. TECHNIQUE: Following the intravenous administration of iodinated contrast material, a CT examination of the abdomen and pelvis performed from the domes of the diaphragms to the symphysis pubis with reformatted datasets provided in axial, sagittal and coronal planes. Oral contrast was not administered as per referring physician request. Coronal and sagittal reformats were generated. Contrast dose: Visipaque 320, 100 cc Radiation dose: Total exam DLP = 963.01 mGy-cm. This CT exam was performed using one or more of the following dose reduction techniques: Automated exposure control, adjustment of the mA and/or kV according to patient size, and/or use of iterative reconstruction technique. FINDINGS: LOWER THORAX: Unremarkable. LIVER: This monophasic CT examination through the abdomen rather than multiphasic enhancement protocol demonstrates an air lucency at the periphery of the right lobe corresponding to the hyperechoic liver finding on prior ultrasound exam is noted above. This is poorly marginated and is nearly isodense to the surrounding liver liver at the phase of enhancement captured by this exam. No peripheral enhancement is appreciated at the time of the exam and this lesion cannot be differentiated from malignancy though likely represents a benign hemangioma based on prior ultrasonography. Accordingly, follow-up MRI with and without contrast is recommended including multiphasic contrast enhanced imaging through the liver. Liver otherwise appears normal in the CT exam exclusive of this right lobe lesion measuring approximately 3.1 x 2.3 x 1.9 cm, likely under measured given its poor peripheral margins. GALLBLADDER AND BILE DUCTS: Gallbladder only appears mildly distended likely radiolucent calculi in the lumen at which were more obvious in prior ultrasound exams showing extensive posterior acoustic shadowing. No suspicious acute findings related to the gallbladder with the common bile duct normal in caliber throughout. PANCREAS: Unremarkable. No gross lesion or ductal dilatation. SPLEEN: Unremarkable. ADRENALS: Unremarkable. No mass. KIDNEYS AND URETERS: No obstructive uropathy bilaterally or perinephric reaction. No radiodense urolithiasis associated bilaterally. 1.5 x 1.8 cm cyst is seen at the medial upper pole left kidney with left kidney otherwise unremarkable. VASCULATURE: Unremarkable. No aortic aneurysm. No aortic atherosclerotic calcification or mural plaque present. BOWEL: While there is no bowel obstruction throughout the small large-bowel, there is mild thickening at the left hemicolon including the splenic flexure in a pattern that may reflect infectious or inflammatory colitis. Other etiologies are possible. Clinically correlate further. No ascites or prominent pericolic reaction. APPENDIX: Upper limits normal caliber appendix (6 mm) with gas in the lumen. No acute appendicitis pattern appreciated. PERITONEUM: Unremarkable. No free fluid. No free air. LYMPH NODES: Unremarkable. No enlarged lymph nodes. BLADDER: Unremarkable. REPRODUCTIVE: Unremarkable. BONES: No acute fracture. OTHER FINDINGS: None. IMPRESSION: 1. A poorly defined hypodense lesion is seen at the right lobe liver in the periphery which appears to correspond to the same location of the hyperechoic mass on prior ultrasound exams noted above. Triple phase liver CT is required for adequate evaluation of a patent masses. Multiphasic MRI of the liver is recommended including preliminary noncontrast series followed by multiphasic postcontrast enhanced series for definitive characterization of this probable benign hemangioma. The remainder liver remains unremarkable. 2. Limited colitis not excluded involving the splenic flexure and descending colon as per above, potentially more proximal involvement as well. 3. Cholelithiasis less well appreciated than seen by ultrasonography likey due to fatty gall stones. Discordant with [facility] report 03/16/2018 09:20pm regarding liver evaluation. Findings discussed with Nurse Rincon with written down and read back verification 03/17/2017 11:20 a.m..
--- NOTE | 2018-03-17 15:03 | CP.PCM.CON ---
History of Present Illness - History of Present Illness History of Present Illness: This is a 37 year old man with diarrhea and abdominal pain. Patient was seen in the ER for diarrhea and abdominal pain on 02/10/18, 02/25/18 and 03/16/17. The diarrhea is characterized as watery, and occurs after eating. He also complained of abdominal pain in the epigastric area and then diffusely. He denies having fever and traveling recently. He thinks he was prescribed an antibiotic by his PCP. He denies having nausea, vomiting. He thinks he has lost weight over the past two months but cannot quantify the weight loss. He denies having constipation and rectal bleeding. He was evaluated in the ER, and ultrasound suggested a lobulated, hyperechoic mass in the right hepatic lobe, as well as gallstones. CT scan showed a poorly defined hypolucency in the periphery of the liver; mild thickening at the left colon; gallstones. Stool leukocytes, occult blood and C diff toxin were negative. Review of Systems - Review of Systems All systems: reviewed and no additional remarkable complaints except - Constitutional Constitutional: absent: Fatigue, Fever - Cardiovascular Cardiovascular: Chest Pain. absent: Dyspnea, Edema - Respiratory Respiratory: absent: Cough, Dyspnea - Gastrointestinal Gastrointestinal: Abdominal Pain, Diarrhea. absent: Constipation, Hematochezia, Nausea, Vomiting - Genitourinary Genitourinary: absent: Dysuria Past Patient History - Infectious Disease Hx of Infectious Diseases: None - Past Social History Smoking Status: Never Smoked - PSYCHIATRIC Hx Substance Use: No - SURGICAL HISTORY Hx Surgeries: No - ANESTHESIA Hx Anesthesia: No Hx Anesthesia Reactions: No Meds Allergies/Adverse Reactions: Allergies Allergy/AdvReac Type Severity Reaction Status Date / Time No Known Allergies Allergy Verified 03/16/18 11:01 - Medications Medications: Current Medications Dextrose/Sodium Chloride (Dextrose 5%/0.45% Ns 1000 Ml) 1,000 mls @ 100 mls/hr IV .Q10H DACIA Last Admin: 03/17/18 05:25 Dose: 100 mls/hr Physical Exam - Constitutional Appears: No Acute Distress - Head Exam Head Exam: ATRAUMATIC, NORMOCEPHALIC - Eye Exam Eye Exam: EOMI, PERRL - Neck Exam Neck exam: Negative for: Lymphadenopathy, Thyromegaly - Respiratory Exam Respiratory Exam: NORMAL BREATHING PATTERN. absent: Rales, Rhonchi, Wheezes - Cardiovascular Exam Cardiovascular Exam: REGULAR RHYTHM, +S1, +S2. absent: Gallop, Rubs, Systolic Murmur - GI/Abdominal Exam GI & Abdominal Exam: Normal Bowel Sounds, Soft. absent: Mass, Organomegaly, Tenderness - Rectal Exam Rectal Exam: Deferred - Extremities Exam Extremities exam: Negative for: calf tenderness, pedal edema Results - Vital Signs Recent Vital Signs: Last Vital Signs Temp 97.3 F L 03/17/18 08:00 Pulse 74 03/17/18 08:00 Resp 20 03/17/18 08:00 BP 118/78 03/17/18 08:00 Pulse Ox 96 03/17/18 08:00 - Labs Result Diagrams: 03/17/18 07:15 03/17/18 07:15 Labs: Laboratory Results - last 24 hr 03/16/18 03/16/18 03/16/18 14:29 17:57 18:57 WBC RBC Hgb Hct MCV MCH MCHC RDW Plt Count MPV Neut % (Auto) Lymph % (Auto) [place] % (Auto) Eos % (Auto) Baso % (Auto) Neut # (Auto) Lymph # (Auto) [place] # (Auto) Eos # (Auto) Baso # (Auto) Sodium Potassium Chloride Carbon Dioxide Anion Gap BUN Creatinine Est GFR ( Amer) Est GFR (Non-Af Amer) Random Glucose Calcium Total Bilirubin AST ALT Alkaline Phosphatase CK-MB (Mass) 0.62 Total Protein Albumin Globulin Albumin/Globulin Ratio Stool Occult Blood Negative Stool Leukocytes, Qual Negative C. difficile Ag & Toxin Negative Hepatitis A IgM Ab Hep Bs Antigen Hep B Core IgM Ab Hepatitis C Antibody 03/17/18 03/17/18 03/17/18 07:15 07:15 07:15 WBC 7.7 RBC 5.12 Hgb 15.9 Hct 46.4 MCV 90.5 MCH 31.0 MCHC 34.2 RDW 13.0 Plt Count 372 MPV 7.5 Neut % (Auto) 51.3 Lymph % (Auto) 36.0 [place] % (Auto) 7.1 Eos % (Auto) 4.7 H Baso % (Auto) 0.9 Neut # (Auto) 4.0 Lymph # (Auto) 2.8 [place] # (Auto) 0.5 Eos # (Auto) 0.4 Baso # (Auto) 0.1 Sodium 137 Potassium 3.7 Chloride 99 Carbon Dioxide 27 Anion Gap 15 BUN 14 Creatinine 0.9 Est GFR ( Amer) > 60 Est GFR (Non-Af Amer) > 60 Random Glucose 96 Calcium 9.0 Total Bilirubin 0.9 AST 46 ALT 54 Alkaline Phosphatase 120 CK-MB (Mass) Total Protein 7.6 Albumin 4.5 Globulin 3.1 Albumin/Globulin Ratio 1.4 Stool Occult Blood Stool Leukocytes, Qual C. difficile Ag & Toxin Hepatitis A IgM Ab Negative Hep Bs Antigen Negative Hep B Core IgM Ab Negative Hepatitis C Antibody Negative Assessment & Plan (1) Diarrhea Assessment and Plan: Patient has complained of diarrhea for the past two months. Although occult blood and leukocytes are negative, colonoscopy should be performed. This can be done as an outpatient. Status: Acute
--- NOTE | 2018-03-17 23:23 | CARD ---
APPROVED REPORT Date of service: 03/16/2018 EKG Measurement Heart [id number] <Conclusion> Normal sinus rhythm Normal ECG
[2018-03-18] MEDS: Dextrose 5%/0.45% NS 1,000 ML IV SCH (02:09)
--- NOTE | 2018-03-18 07:17 | CP.PCM.DIS ---
Provider - Provider Date of Admission: 03/16/18 15:40 Attending physician: Makayla Messer DO Consults: 03/16/18 17:35 Gastroenterology Consult Routine Comment: Consulting Provider: Onel Echols Consulting Physician: Onel Echols Reason for Consult: Chronic diarrhea and liver mass on US Time Spent in preparation of Discharge (in minutes): 40 Hospital Course - Lab Results Lab Results: Most Recent Lab Values WBC 7.7 K/uL (4.8-10.8) 03/17/18 07:15 RBC 5.12 Mil/uL (4.40-5.90) 03/17/18 07:15 Hgb 15.9 g/dL (12.0-18.0) 03/17/18 07:15 Hct 46.4 % (35.0-51.0) 03/17/18 07:15 MCV 90.5 fL (80.0-94.0) 03/17/18 07:15 MCH 31.0 pg (27.0-31.0) 03/17/18 07:15 MCHC 34.2 g/dL (33.0-37.0) 03/17/18 07:15 RDW 13.0 % (11.5-14.5) 03/17/18 07:15 Plt Count 372 K/uL (130-400) 03/17/18 07:15 MPV 7.5 fL (7.2-11.7) 03/17/18 07:15 Neut % (Auto) 51.3 % (50.0-75.0) 03/17/18 07:15 Lymph % (Auto) 36.0 % (20.0-40.0) 03/17/18 07:15 [place] % (Auto) 7.1 % (0.0-10.0) 03/17/18 07:15 Eos % (Auto) 4.7 % (0.0-4.0) H 03/17/18 07:15 Baso % (Auto) 0.9 % (0.0-2.0) 03/17/18 07:15 Neut # (Auto) 4.0 K/uL (1.8-7.0) 03/17/18 07:15 Lymph # (Auto) 2.8 K/uL (1.0-4.3) 03/17/18 07:15 [place] # (Auto) 0.5 K/uL (0.0-0.8) 03/17/18 07:15 Eos # (Auto) 0.4 K/uL (0.0-0.7) 03/17/18 07:15 Baso # (Auto) 0.1 K/uL (0.0-0.2) 03/17/18 07:15 PT 11.9 SECONDS (9.7-12.2) 03/16/18 14:29 INR 1.1 03/16/18 14:29 APTT 34 SECONDS (21-34) 03/16/18 14:29 Sodium 137 mmol/L (132-148) 03/17/18 07:15 Potassium 3.7 mmol/L (3.6-5.2) 03/17/18 07:15 Chloride 99 mmol/L (98-107) 03/17/18 07:15 Carbon Dioxide 27 mmol/L (22-30) 03/17/18 07:15 Anion Gap 15 (10-20) 03/17/18 07:15 BUN 14 mg/dL (9-20) 03/17/18 07:15 Creatinine 0.9 mg/dL (0.8-1.5) 03/17/18 07:15 Est GFR ( Amer) > 60 03/17/18 07:15 Est GFR (Non-Af Amer) > 60 03/17/18 07:15 Random Glucose 96 mg/dL (75-110) 03/17/18 07:15 Calcium 9.0 mg/dl (8.6-10.4) 03/17/18 07:15 Magnesium 2.3 mg/dL (1.6-2.3) 03/16/18 14:29 Total Bilirubin 0.9 mg/dL (0.2-1.3) 03/17/18 07:15 AST 46 U/L (17-59) 03/17/18 07:15 ALT 54 U/L (21-72) 03/17/18 07:15 Alkaline Phosphatase 120 U/L (38-126) 03/17/18 07:15 Total Creatine Kinase 63 U/L (55-170) 03/16/18 14:29 CK-MB (Mass) 0.62 ng/mL (0.0-3.38) 03/16/18 14:29 Total Protein 7.6 g/dL (6.3-8.3) 03/17/18 07:15 Albumin 4.5 g/dL (3.5-5.0) 03/17/18 07:15 Globulin 3.1 gm/dL (2.2-3.9) 03/17/18 07:15 Albumin/Globulin Ratio 1.4 (1.0-2.1) 03/17/18 07:15 Amylase 93 U/L (30-110) 03/16/18 14:29 Lipase 39 U/L (23-300) 03/16/18 14:29 Urine Color Yellow (YELLOW) 03/16/18 14:29 Urine Clarity Clear (Clear) 03/16/18 14:29 Urine pH 5.0 (5.0-8.0) 03/16/18 14:29 Ur Specific [place] 1.028 (1.003-1.030) 03/16/18 14:29 Urine Protein Negative mg/dL (NEGATIVE) 03/16/18 14:29 Urine Glucose (UA) Normal mg/dL (Normal) 03/16/18 14:29 Urine Ketones Negative mg/dL (NEGATIVE) 03/16/18 14:29 Urine Blood Negative (NEGATIVE) 03/16/18 14:29 Urine Nitrate Negative (NEGATIVE) 03/16/18 14:29 Urine Bilirubin Negative (NEGATIVE) 03/16/18 14:29 Urine Urobilinogen Normal mg/dL (0.2-1.0) 03/16/18 14:29 Ur Leukocyte Esterase Neg Tommy/uL (Negative) 03/16/18 14:29 Urine WBC (Auto) 1 /hpf (0-5) 03/16/18 14:29 Urine RBC (Auto) 1 /hpf (0-3) 03/16/18 14:29 Ur Squamous Epith Cells < 1 /hpf (0-5) 03/16/18 14:29 Stool Occult Blood Negative (NEGATIVE) 03/16/18 17:57 Stool Leukocytes, Qual Negative (NEGATIVE) 03/16/18 18:57 C. difficile Ag & Toxin Negative (NEGATIVE) 03/16/18 18:57 Hepatitis A IgM Ab Negative (NEGATIVE) 03/17/18 07:15 Hep Bs Antigen Negative (NEGATIVE) 03/17/18 07:15 Hep B Core IgM Ab Negative (NEGATIVE) 03/17/18 07:15 Hepatitis C Antibody Negative (NEGATIVE) 03/17/18 07:15 - Hospital Course Hospital Course: HPI: Patient is a 36 year old male with no significant past medical history who presents with 2 months of diarrhea and abdominal pain. Patient states that he began having diarrhea around 2 months ago and did initially go to see his primary doctor and he was given some medicine which helped with the diarrhea. He states that while medication has temporarily helped, he has continued to have diarrhea and epigastric pain and so came to the ED. The pain also radiates to the chest but not to the back or shoulders. His BMs right now are soft but not watery, non-bloody. Denies any travel outside of the country since symptoms. Does state recent antibiotic use, however he is unsure the name of the medication. Denies history hepatitis, denies illicit/IV drug abuse, and states he is not currently sexually active. Patient denies any other cardiac symptoms including palpitations, lightheadedness, shortness of breath. During the course of admission: Patient was started on a clear liquid diet and given IV fluids. Chest X-ray demonstrated no acute findings. Abdominal ultrasound showed an indeterminate lobulated 3.9 x 2.2 x 3.8 cm echogenic region/mass within the right hepatic lobe as well as cholelithiasis. Follow-up CT abdomen/pelvis with IV and PO contrast showed a poorly defined hypodense lesion is seen at the R lobe liver in the periphery which appears to correspond to the same location of the hyperechoic mass on prior ultrasound exam. Limited colitis not excluded involving the splenic flexure and descending colon. GI was consulted (Dr. Eugene) who recommended patient follow-up outpatient for colonoscopy, as patient has had history of chronic diarrhea. MRI abdomen was ordered, demonstrating cholelithiasis without wall thickening or pericholecystic fluid. Previous noted liver abnormality in R hepatic lobe probably represents focal fatty infiltration. No abnormal enhancement or discrete mass. Patient remained afebrile with no leukocytosis noted during hospital course. Bloodwork was stable, lipase level was within normal limits. Hepatitis panel, c. diff toxin, stool ova & parasites/leukocytes/culture all returned negative. Patient is medically cleared for discharge, as per Dr. Messer. Please follow up with [facility] within 5-7 days of discharge for continued care. Contact information has been provided below, please call to schedule appointment: [place] [address] Patient will need referral for GI at clinic visit. If symptoms worsen or recur, return to the ED immediately. The following is a summary of hospital course. For full detail, please refer to EMR. - Date & Time of H&P Date of H&P: 03/18/18 Time of H&P: 07:09 Discharge Exam - Head Exam Head Exam: ATRAUMATIC, NORMAL INSPECTION, NORMOCEPHALIC - Eye Exam Eye Exam: EOMI, Normal appearance Pupil Exam: NORMAL ACCOMODATION - ENT Exam ENT Exam: Mucous Membranes Moist, Normal Exam - Neck Exam Neck exam: Full Rom, Normal Inspection - Respiratory Exam Respiratory Exam: Clear to PA & Lateral, NORMAL BREATHING PATTERN, UNREMARKABLE. absent: Accessory Muscle Use, Rales, Rhonchi, Wheezes, Respiratory Distress, Stridor - Cardiovascular Exam Cardiovascular Exam: REGULAR RHYTHM, +S1, +S2 - GI/Abdominal Exam GI & Abdominal Exam: Normal Bowel Sounds, Soft, Unremarkable. absent: Distended, Firm, Guarding, Hernia, Rebound, Rigid, Tenderness - Extremities Exam Extremities exam: full ROM, normal capillary refill, normal inspection, pedal pulses present - Back Exam Back exam: NORMAL INSPECTION - Neurological Exam Neurological exam: Alert, CN II-XII Intact, Oriented x3 - Psychiatric Exam Psychiatric exam: Normal Affect, Normal Mood - Skin Skin Exam: Dry, Intact, Normal Color, Warm Discharge Plan - Discharge Medications Prescriptions: Ciprofloxacin HCl [Cipro] 500 mg PO BID #10 tablet Metronidazole [Flagyl] 500 mg PO BID #10 tablet - Follow Up Plan Condition: FAIR Disposition: HOME/ ROUTINE Additional Instructions: Patient is medically cleared for discharge, as per Dr. Messer. Patient is instructed take medications as prescribed. Please follow up with [facility] within 5-7 days of discharge for continued care. Contact information has been provided below, please call to schedule appointment: [place] [address] Patient will need referral for GI at clinic visit. If symptoms worsen or recur, return to the ED immediately.
--- NOTE | 2018-03-18 07:45 | CP.PCM.PN ---
Subjective - Date & Time of Evaluation Date of Evaluation: 03/18/18 Time of Evaluation: 07:42 - Subjective Subjective: Patient reports having three bowel movements which were somewhat more formed yesterday; these were accompanied by epigastric pain. Objective - Vital Signs/Intake and Output Vital Signs (last 24 hours): Temp Pulse Resp BP Pulse Ox 97.9 F 71 20 109/70 96 03/17/18 23:40 03/17/18 23:40 03/17/18 23:40 03/17/18 23:40 03/17/18 23:40 Intake and Output: 03/18/18 03/18/18 06:59 18:59 Intake Total 1900 Balance 1900 - Medications Medications: Current Medications Dextrose/Sodium Chloride (Dextrose 5%/0.45% Ns 1000 Ml) 1,000 mls @ 100 mls/hr IV .Q10H DACIA Last Admin: 03/18/18 02:09 Dose: 100 mls/hr - Labs Labs: 03/17/18 07:15 03/17/18 07:15 PT 11.9 SECONDS (9.7-12.2) 03/16/18 14:29 INR 1.1 03/16/18 14:29 APTT 34 SECONDS (21-34) 03/16/18 14:29 - Constitutional Appears: No Acute Distress - Head Exam Head Exam: ATRAUMATIC, NORMOCEPHALIC - Eye Exam Eye Exam: EOMI, PERRL - Neck Exam Neck Exam: absent: Lymphadenopathy, Thyromegaly - Respiratory Exam Respiratory Exam: NORMAL BREATHING PATTERN. absent: Rales, Rhonchi, Wheezes - Cardiovascular Exam Cardiovascular Exam: REGULAR RHYTHM, +S1, +S2. absent: Gallop, Rubs, Murmur - GI/Abdominal Exam GI & Abdominal Exam: Soft, Normal Bowel Sounds. absent: Tenderness, Organomegaly - Rectal Exam Rectal Exam: Deferred - Extremities Exam Extremities Exam: absent: Calf Tenderness, Pedal Edema Assessment and Plan (1) Diarrhea Assessment & Plan: Diarrhea has improved somewhat. Stool for Giardia antigen and qualitative fecal fat is pending. Plan is for colonoscopy as an outpatient. Status: Acute (2) Liver mass Assessment & Plan: Poorly defined mass was seen in the periphery of the right lobe on sonogram and CT scan, possibly hemangioma. MRI was recommended; the study has been ordered but not yet performed. Status: Acute
[2018-03-18 07:49] LABS: BASO # 0.1 K/uL (0.0-0.2); BASO % 0.8 % (0.0-2.0); EOS # 0.5 K/uL (0.0-0.7); EOS % 6.9 % (0.0-4.0); HEMOGLOBIN 15.3 g/dL (12.0-18.0); LYMPH % 39.1 % (20.0-40.0); MEAN CELL VOLUME 90.7 fL (80.0-94.0); MEAN CORPUSCULAR HEMOGLOBIN 31.3 pg (27.0-31.0); MEAN CORPUSCULAR HGB CONC 34.5 g/dL (33.0-37.0); MEAN PLATELET VOLUME 7.7 fL (7.2-11.7); MONO # 0.6 K/uL (0.0-0.8); MONO % 7.4 % (0.0-10.0); NEUT # 3.5 K/uL (1.8-7.0); NEUT % 45.8 % (50.0-75.0); NRBC % 0.1 % (0.0-2.0); RBC 4.89 Mil/uL (4.40-5.90); WHITE BLOOD COUNT 7.7 K/uL (4.8-10.8)
[2018-03-18 07:53] VITALS: BP 122/78; PULSE 73; TEMP 97.8
[2018-03-18 08:18] LABS: ALB/GLOB RATIO 1.4 (1.0-2.1); ALBUMIN 4.1 g/dL (3.5-5.0); ALT/SGPT 48 U/L (21-72); AST/SGOT 34 U/L (17-59); BLOOD UREA NITROGEN 10 mg/dL (9-20); CALCIUM 8.9 mg/dl (8.6-10.4); GFR NON-AFRICAN AMERICAN > 60
[2018-03-18] MEDS ORDERED: Gadodiamide 287 mg/ml 20 ml IV ONE (10:25)
--- NOTE | 2018-03-18 11:34 | MRI ---
Date of service: 03/18/2018 PROCEDURE: MRI Abdomen with and without contrast HISTORY: COMPARISON: 03/16/2018 CT scan. TECHNIQUE: Multisequence, multiplanar MR images of the abdomen with and without gadolinium contrast enhancement. FINDINGS: LIVER: Previous noted liver abnormality in the right hepatic lobe is only evident on out of phase gradient echo imaging and appears somewhat hypodense. This probably presents focal fatty infiltration. No abnormal enhancement or discrete mass is observed. GALLBLADDER: Cholelithiasis without wall thickening or pericholecystic fluid. SPLEEN: Unremarkable. PANCREAS: Unremarkable. ADRENALS: Unremarkable. KIDNEYS: 1 centimeter left upper pole renal cyst. AORTA: No aneurysm. ASCITES: None. PERITONEUM: Unremarkable. LYMPH NODES: Unremarkable. OTHER FINDINGS: None. IMPRESSION: Cholelithiasis without wall thickening or pericholecystic fluid.Previous noted liver abnormality in the right hepatic lobe is only evident on out of phase gradient echo imaging and appears somewhat hypodense. This probably presents focal fatty infiltration. No abnormal enhancement or discrete mass is observed.
[2018-03-18 18:25] VITALS: O2SAT 99
== END 2018-03-18 17:14 | disposition home or self-care (01) ==
LOC: C.ER 10:40 → C.9E 15:40 → C.6T 16:35
PROVIDERS: ADMIT Hospitalist; ATTEND Hospitalist
DX: R07.9 Chest pain, unspecified (principal); K76.9 Liver disease, unspecified; R19.7 Diarrhea, unspecified; K80.20 Calculus of gallbladder without cholecystitis without obstruction; K52.9 Noninfective gastroenteritis and colitis, unspecified
CPT/HCPCS: 36415; 71045; 74177; 74183; 76705; 80053; 80074; 81001; 82105; 82150; 82378; 82438; 82550; 82553; 82705; 83690; 83735; 83993; 84100; 84302; 84311; 85025; 85610; 85730; 86140; 87230; 87329; 89055; 93005; 96374; 99285; A9579; C9113; G0328; G0378; J7042; Q9966; Q9967

== ENCOUNTER 2018-06-06 00:18 | Inpatient (IN) | payer MEDICAID, OTHER ==
[2018-06-06] MEDS ORDERED: Sodium Chloride 0.9% 1,000 ML IV ONE (01:05)
[2018-06-06 01:25] LABS: BASO # 0.1 K/uL (0.0-0.2); BASO % 0.7 % (0.0-2.0); EOS # 0.2 K/uL (0.0-0.7); HEMOGLOBIN 15.3 g/dL (12.0-18.0); LYMPH # 3.4 K/uL (1.0-4.3); LYMPH % 34.8 % (20.0-40.0); MEAN CELL VOLUME 91.3 fL (80.0-94.0); MEAN CORPUSCULAR HEMOGLOBIN 30.7 pg (27.0-31.0); MEAN CORPUSCULAR HGB CONC 33.7 g/dL (33.0-37.0); MEAN PLATELET VOLUME 7.7 fL (7.2-11.7); MONO # 0.6 K/uL (0.0-0.8); MONO % 6.4 % (0.0-10.0); NEUT # 5.5 K/uL (1.8-7.0); NEUT % 56.1 % (50.0-75.0); RBC 4.96 Mil/uL (4.40-5.90); RED CELL DISTRIBUTION WIDTH 13.1 % (11.5-14.5); WHITE BLOOD COUNT 9.9 K/uL (4.8-10.8)
[2018-06-06 01:29] LABS: ALB/GLOB RATIO 1.5 (1.0-2.1); ALBUMIN 4.6 g/dL (3.5-5.0); ALT/SGPT 22 U/L (21-72); AST/SGOT 29 U/L (17-59); BLOOD UREA NITROGEN 22 mg/dL (9-20); CALCIUM 9.2 mg/dl (8.6-10.4); GFR NON-AFRICAN AMERICAN > 60; LIPASE 61 U/L (23-300)
[2018-06-06 01:40] LABS: URINE AMORPHOUS SEDIMENT RARE /ul (<OCC); URINE BILIRUBIN NEGATIVE (NEGATIVE); URINE BLOOD NEGATIVE (NEGATIVE); URINE CLARITY Hazy (Clear); URINE COLOR Yellow (YELLOW); URINE GLUCOSE (UA) NORMAL (Normal); URINE LEUKOCYTE ESTERASE NEG Leu/uL (Negative); URINE PROTEIN NEGATIVE (NEGATIVE); URINE UROBILINOGEN NORMAL mg/dL (0.2-1.0)
--- NOTE | 2018-06-06 01:50 | C.PDOC ---
History Of Present Illness 37 year old male, whose past medical history includes cholelithiasis, presents to the ED for evaluation of epigastric abdominal pain that has been constant for one week. Patient also reports chills. He denies fever, chest pain, shortness of breath, nausea, vomiting. Time Seen by Provider: 06/06/18 00:33 Chief Complaint (Nursing): Abdominal Pain History Per: Patient History/Exam Limitations: no limitations Onset/Duration Of Symptoms: Hrs Current Symptoms Are (Timing): Still Present Location Of Pain/Discomfort: Epigastric Associated Symptoms: Chills. denies: Vomiting, Diarrhea, Chest Pain Additional History Per: Patient Past Medical History Reviewed: Historical Data, Nursing Documentation, Vital Signs Vital Signs: Last Vital Signs Temp 97.9 F 06/06/18 01:36 Pulse 59 L 06/06/18 01:36 Resp 16 06/06/18 01:36 BP 146/89 06/06/18 01:36 Pulse Ox 100 06/06/18 01:36 - Medical History PMH: Gall Bladder Disease (Cholelithiasis) Surgical History: No Surg Hx Family History: States: Hypertension - Social History Hx Tobacco Use: Yes Hx Alcohol Use: Yes Hx Substance Use: No - Immunization History Hx Tetanus Toxoid Vaccination: No Hx Influenza Vaccination: No Hx Pneumococcal Vaccination: No Review Of Systems Constitutional: Positive for: Fever Cardiovascular: Negative for: Chest Pain Respiratory: Negative for: Shortness of Breath Gastrointestinal: Positive for: Abdominal Pain (epigastric ). Negative for: Vomiting, Diarrhea Physical Exam - Physical Exam Appears: Non-toxic, No Acute Distress Skin: Normal Color, Warm, Dry Head: Atraumatic, Normacephalic Eye(s): bilateral: Normal Inspection Oral Mucosa: Moist Neck: Supple Chest: Symmetrical, No Deformity, No Tenderness Cardiovascular: Rhythm Regular, No Murmur Respiratory: Normal Breath Sounds, No Rales, No Rhonchi, No Wheezing Gastrointestinal/Abdominal: Soft, Tenderness (epigastric and RUQ (greater in RUQ)), No Guarding, No Rebound Extremity: Normal ROM, Capillary Refill (less than 2 seconds ) Neurological/Psych: Oriented x3, Normal Speech, Normal Cognition ED Course And Treatment - Laboratory Results Result Diagrams: 06/06/18 01:14 06/06/18 01:14 Lab Results: Total Bilirubin 0.3 mg/dL (0.2-1.3) 06/06/18 01:14 AST 29 U/L (17-59) 06/06/18 01:14 ALT 22 U/L (21-72) 06/06/18 01:14 Alkaline Phosphatase 139 U/L (38-126) H D 06/06/18 01:14 Total Protein 7.6 g/dL (6.3-8.3) 06/06/18 01:14 Albumin 4.6 g/dL (3.5-5.0) 06/06/18 01:14 Globulin 3.0 gm/dL (2.2-3.9) 06/06/18 01:14 Albumin/Globulin Ratio 1.5 (1.0-2.1) 06/06/18 01:14 Lipase 61 U/L (23-300) 06/06/18 01:14 ECG Rhythm: Sinus Bradycardia Rate From EC O2 Sat by Pulse Oximetry: 100 (on RA ) Pulse Ox Interpretation: Normal - Radiology CXR: Interpreted by La CXR Interpretation: Yes: Other (negative ) - CT Scan/US US Abdomen Other Rad Studies (CT/US): Read By Radiologist, Radiology Report Reviewed CT/US Interpretation: Ultrasound of the abdomen, complete. Indication: Right upper quadrant pain. History of cholelithiasis. Comparison: 03/16/2018. Real- time ultrasound images were obtained. The liver is mildly enlarged measuring 17.3 cm with diffusely increased echogenicity suggestive of hepatic steatosis. Well defined focal area of increased focal echogenicity of the liver measuring 3.9 cm and the right hepatic lobe. This may represent focal fat infiltration and/or uncomplicated hemangioma. Nondilated common bile duct measuring 4.5 mm. Unremarkable spleen measuring 8.2 cm. Cholelithiasis. Diffuse thickening of the gallbladder measuring 4.5 mm. Sludge is noted in the gallbladder. Unremarkable kidneys. Impression: Acute calculus cholecystitis. Reassessment Condition: Improved Medical Decision Making Medical Decision Making: Progress: Bloodwork, urinalysis, CXR, EKG, and US abdomen ordered and reviewed. Morphine IVP, Zofran IVP and IV Fluids given. US abdomen ordered, Shows Acute calculus cholecystitis. 0455: Case was discussed with surgical services asst, who will come to evaluate the patient at bedside. Disposition - Disposition Disposition: HOSPITALIZED Disposition Time: 05:02 Condition: STABLE Forms: Parse (Romansh) - Clinical Impression Clinical Impression: Cholecystitis, acute - Scribe Statement The provider has reviewed the documentation as recorded by the Scribe (Lexis Camp) Provider Attestation: All medical record entries made by the Scribe were at my direction and personally dictated by me. I have reviewed the chart and agree that the record accurately reflects my personal performance of the history, physical exam, medi prashant decision making, and the department course for this patient. I have also personally directed, reviewed, and agree with the discharge instructions and disposition.
[2018-06-06] MEDS ORDERED: Potassium Chloride 20 mEq ER Tab PO STA (01:57)
[2018-06-06] MEDS ORDERED: Potassium Chloride 20 mEq ER Tab PO ONE (02:07)
--- NOTE | 2018-06-06 05:14 | CP.PCM.HP ---
History of Present Illness - History of Present Illness History of Present Illness: SURGERY H&P FOR DR. OLIAV 37M presents with abdominal pain that began yesterday. Pain is currently in the epigastric and RUQ region. He states he had pain like this last week but it is much severe now. Pain not controlled with medication. He admits to nausea and vomiting with pain. He denies fevers or chills and admits to anorexia also. PMH: Denies PSH: Denies Social: denies tobacco, but admits to alcohol use socially, denies illicit drugs Allergies: NKDA Present on Admission - Present on Admission Any Indicators Present on Admission: No Past Patient History - Infectious Disease Hx of Infectious Diseases: None - Past Social History Smoking Status: Never Smoked - GASTROINTESTINAL Hx Gall Bladder Disease: Yes (Cholelithiasis) - PSYCHIATRIC Hx Substance Use: No - SURGICAL HISTORY Hx Surgeries: No - ANESTHESIA Hx Anesthesia: No Hx Anesthesia Reactions: No Meds Allergies/Adverse Reactions: Allergies Allergy/AdvReac Type Severity Reaction Status Date / Time No Known Allergies Allergy Verified 03/16/18 11:01 Physical Exam - Constitutional Appears: Non-toxic, No Acute Distress - Eye Exam Eye Exam: EOMI, PERRL - ENT Exam ENT Exam: Mucous Membranes Moist - Respiratory Exam Respiratory Exam: Clear to Auscultation Bilateral, NORMAL BREATHING PATTERN - Cardiovascular Exam Cardiovascular Exam: REGULAR RHYTHM, +S1, +S2 - GI/Abdominal Exam GI & Abdominal Exam: Soft, Tenderness (Mod- severe epigastric/RUQ). absent: Distended, Firm, Guarding, Rebound, Rigid - Extremities Exam Extremities exam: Negative for: pedal edema, tenderness - Neurological Exam Neurological exam: Alert, Oriented x3 - Skin Skin Exam: Dry, Intact, Normal Color, Warm Results - Vital Signs Recent Vital Signs: Last Vital Signs Temp 97.9 F 06/06/18 01:36 Pulse 59 L 06/06/18 01:36 Resp 16 06/06/18 01:36 BP 146/89 06/06/18 01:36 Pulse Ox 100 06/06/18 05:02 - Labs Result Diagrams: 06/06/18 01:14 06/06/18 01:14 Labs: Laboratory Results - last 24 hr 06/06/18 06/06/18 06/06/18 01:14 01:14 01:28 WBC 9.9 RBC 4.96 Hgb 15.3 Hct 45.3 MCV 91.3 MCH 30.7 MCHC 33.7 RDW 13.1 Plt Count 384 MPV 7.7 Neut % (Auto) 56.1 Lymph % (Auto) 34.8 [place] % (Auto) 6.4 Eos % (Auto) 2.0 Baso % (Auto) 0.7 Neut # (Auto) 5.5 Lymph # (Auto) 3.4 [place] # (Auto) 0.6 Eos # (Auto) 0.2 Baso # (Auto) 0.1 Sodium 138 Potassium 3.2 L Chloride 98 Carbon Dioxide 32 H Anion Gap 11 BUN 22 H Creatinine 1.0 Est GFR ( Amer) > 60 Est GFR (Non-Af Amer) > 60 Random Glucose 119 H D Calcium 9.2 Total Bilirubin 0.3 AST 29 ALT 22 Alkaline Phosphatase 139 H D Troponin I < 0.0120 Total Protein 7.6 Albumin 4.6 Globulin 3.0 Albumin/Globulin Ratio 1.5 Lipase 61 Urine Color Yellow Urine Clarity Hazy Urine pH 6.0 Ur Specific [place] 1.018 Urine Protein Negative Urine Glucose (UA) Normal Urine Ketones Negative Urine Blood Negative Urine Nitrate Negative Urine Bilirubin Negative Urine Urobilinogen Normal Ur Leukocyte Esterase Neg Urine WBC (Auto) < 1 Urine RBC (Auto) 2 Amorphous Sediment Rare H Assessment & Plan - Assessment and Plan (Free Text) Assessment: 37M with acute cholecystitis Plan: - NPO - IVF - Pain control - Anti emetic - Pre-Op labs - Plan for Operation Further recs per Dr. Jocelin Sylvester, PGY3
[2018-06-06] MEDS ORDERED: Piperacillin/Tazobact 3.375 GM in Sodium Chloride 100 ML IVPB SCH (05:30)
[2018-06-06] MEDS: Sodium Chloride 0.9% 1,000 ML IV SCH ×3 (05:50→12:25)
[2018-06-06 06:13] LABS: INR 1.1; PROTHROMBIN TIME 12.5 SECONDS (9.7-12.2)
[2018-06-06] MEDS: HYDROmorphone 0.5 mg/0.5 ml ISec IVP PRN ×4 (08:18→20:26)
[2018-06-06 08:23] LABS: BLOOD UREA NITROGEN 14 mg/dL (9-20); GFR NON-AFRICAN AMERICAN > 60
--- NOTE | 2018-06-06 08:52 | RAD ---
Date of service: 06/06/2018 HISTORY: epigastric pain COMPARISON: Comparison made with chest radiograph 03/16/2018 TECHNIQUE: 1 view obtained. FINDINGS: LUNGS: No active pulmonary disease. PLEURA: No significant pleural effusion identified, no pneumothorax apparent. CARDIOVASCULAR: No aortic atherosclerotic calcification present. Normal cardiac size. No pulmonary vascular congestion. OSSEOUS STRUCTURES: No significant abnormalities. VISUALIZED UPPER ABDOMEN: Normal. OTHER FINDINGS: None. IMPRESSION: No active disease.
--- NOTE | 2018-06-06 09:02 | US ---
Date of service: 06/06/2018 HISTORY: RUQ pain, h/o cholelithiasis COMPARISON: None. TECHNIQUE: Grayscale imaging was performed. FINDINGS: LIVER: Measures 17.3 cm. There is mild diffuse increased echogenicity of the liver parenchyma. There is a 3.8 x 2.5 x 2.9 cm well-circumscribed round homogeneously hyperechoic lesion in the anterior right hepatic lobe.. No intrahepatic bile duct dilatation. GALLBLADDER: The gallbladder is distended, there are multiple gallstones and diffuse gallbladder thickening. No evidence for pericholecystic fluid or positive sonographic Roldan's sign COMMON BILE DUCT: Measures 4.5 mm. No stones. No dilatation. PANCREAS: Unremarkable as visualized. No mass. No ductal dilatation. RIGHT KIDNEY: Measures 12.0cm. Normal echogenicity. No calculus, mass, or hydronephrosis. LEFT KIDNEY: Measures 12.2cm. Normal echogenicity. No calculus, mass, or hydronephrosis. SPLEEN: Normal in size and contour. No mass. AORTA: No aneurysmal dilatation. IVC: Unremarkable. OTHER FINDINGS: None. IMPRESSION: 1. Distended gallbladder, diffuse wall thickening and multiple gallstones may represent acute cholecystitis in the appropriate clinical setting. Clinical follow-up is advised. 2. Mild hepatomegaly and fatty liver. 3. 3.8 x 2.5 x 2.9 cm mass in the anterior right hepatic lobe previously proven to be benign presumable focal fatty infiltration. A preliminary report was provided by [facility].
[2018-06-06] MEDS: Piperacillin/Tazobact 3.375 GM in Sodium Chloride 100 ML IVPB SCH ×3 (10:08→21:25)
[2018-06-07] MEDS: Sodium Chloride 0.9% 1,000 ML IV SCH ×4 (02:32→21:11)
[2018-06-07] MEDS: HYDROmorphone 0.5 mg/0.5 ml ISec IVP PRN (02:39)
[2018-06-07] MEDS: Piperacillin/Tazobact 3.375 GM in Sodium Chloride 100 ML IVPB SCH ×4 (03:08→21:10)
[2018-06-07 07:45] LABS: ALB/GLOB RATIO 1.3 (1.0-2.1); ALT/SGPT 317 U/L (21-72); AST/SGOT 306 U/L (17-59); BLOOD UREA NITROGEN 9 mg/dL (9-20); CALCIUM 8.4 mg/dl (8.6-10.4); GFR NON-AFRICAN AMERICAN > 60
[2018-06-07] MEDS ORDERED: Bupivacaine-Epi 0.5%-1:200,000 PF Inj ONE (09:44)
[2018-06-07] MEDS ORDERED: Gadodiamide 287 MG/ML VIAL (15ML) IV ONE (12:15)
--- NOTE | 2018-06-07 13:33 | MRI ---
MRI abdomen without/with IV contrast MRCP Indication: r/o choledocholithiasis Technique: Multiplanar, multi sequence magnetic resonance images of the abdomen were obtained without and with the administration of intravenous gadolinium using a multi phase abdomen protocol. Rotating maximum intensity projection images of the biliary system were generated. A total of 1079 images submitted for review Comparison: Abdominal ultrasound performed 06/06/18 Findings: Cholelithiasis. Gallbladder wall thickening/pericholecystic edema. There is no intrahepatic biliary ductal dilatation. The common bile duct appears within normal limits in caliber and tapers distally. The pancreatic duct appears within normal limits of caliber. No filling defects are seen in the common bile duct or pancreatic duct. Hepatomegaly. Mild hepatic steatosis. The kidneys enhance symmetrically. No hydronephrosis or obstructing calculus identified. 15 mm T2 hyperintense T1 hypo intense nonenhancing lesion within the left kidney consistent with cyst. The spleen, pancreas, and adrenal glands appear unremarkable. No bulky adenopathy identified. Limited views of the inferior thorax demonstrates bibasilar atelectasis. Impression: Cholelithiasis. Gallbladder wall thickening/pericholecystic edema. Appearance concerning for acute cholecystitis. Correlate clinically. The common bile duct appears within normal limits of caliber without focal filling defect evident. Left renal cyst. Hepatomegaly. Mild hepatic steatosis. Bibasilar atelectasis.
[2018-06-08] MEDS: Piperacillin/Tazobact 3.375 GM in Sodium Chloride 100 ML IVPB SCH ×4 (03:53→21:22)
[2018-06-08] MEDS: Sodium Chloride 0.9% 1,000 ML IV SCH ×2 (03:54→17:56)
[2018-06-08 07:37] LABS: BASO # 0.1 K/uL (0.0-0.2); BASO % 0.6 % (0.0-2.0); EOS # 0.4 K/uL (0.0-0.7); LYMPH # 2.1 K/uL (1.0-4.3); LYMPH % 15.1 % (20.0-40.0); MEAN CELL VOLUME 93.2 fL (80.0-94.0); MEAN CORPUSCULAR HEMOGLOBIN 31.5 pg (27.0-31.0); MEAN CORPUSCULAR HGB CONC 33.8 g/dL (33.0-37.0); MONO # 1.2 K/uL (0.0-0.8); MONO % 8.9 % (0.0-10.0); NEUT % 72.4 % (50.0-75.0); NRBC % 0.1 % (0.0-2.0); RBC 4.46 Mil/uL (4.40-5.90); RED CELL DISTRIBUTION WIDTH 13.2 % (11.5-14.5); WHITE BLOOD COUNT 13.9 K/uL (4.8-10.8)
[2018-06-08 07:45] LABS: ALB/GLOB RATIO 1.2 (1.0-2.1); ALBUMIN 3.7 g/dL (3.5-5.0); ALT/SGPT 172 U/L (21-72); AST/SGOT 74 U/L (17-59); BLOOD UREA NITROGEN 8 mg/dL (9-20); CALCIUM 8.4 mg/dl (8.6-10.4); GFR NON-AFRICAN AMERICAN > 60
[2018-06-08 08:18] LABS: HEPATITIS B SURFACE AG Negative (NEGATIVE)
[2018-06-08 08:24] LABS: HEPATITIS A IGM NEGATIVE (NEGATIVE)
[2018-06-08 09:10] LABS: HEPATITIS B CORE AB NEGATIVE (NEGATIVE)
[2018-06-08 09:22] LABS: HEPATITIS C ANTIBODY NEGATIVE (NEGATIVE)
[2018-06-08] MEDS ORDERED: Bupivacaine-Epi 0.5%-1:200,000 PF Inj ONE (12:21)
[2018-06-08] MEDS ORDERED: Midazolam 2 MG/2 ML VIAL ONE (12:47)
[2018-06-08] MEDS ORDERED: Succinylcholine Chloride 20 mg/ml Syr (5 ml) IV ONE (12:47)
[2018-06-08] MEDS ORDERED: Rocuronium 10 mg/ml (5 ml) ONE ×2 (12:47→13:34)
[2018-06-08] MEDS ORDERED: Propofol 10 mg/ml Inj (20 ML) ONE (12:47)
[2018-06-08] MEDS ORDERED: Neostigmine 1:1000 (1 mg/ml) Inj ONE (13:23)
--- NOTE | 2018-06-08 14:56 | PCM.SURG1 ---
Surgeon's Initial Post Op Note - Surgeon's Notes Surgeon: Dr. Monreal Reverse Engineer: Dr. Hall PGY4 Type of Anesthesia: General Endo Anesthesia Administered By: Edwin Pre-Operative Diagnosis: Acute Cholecystitis Operative Findings: same Post-Operative Diagnosis: same Operation Performed: Laparoscopic Cholecystectomy Specimen/Specimens Removed: gallbladder Estimated Blood Loss: EBL {In ML}: 100 Blood Products Given: N/A Drains Used: Hussein Post-Op Condition: Good Date of Surgery/Procedure: 06/08/18 Time of Surgery/Procedure: 14:55
[2018-06-08] MEDS ORDERED: HYDROmorphone 0.5 mg/0.5 ml ISec ONE (15:15)
[2018-06-08] MEDS: HYDROmorphone 0.5 mg/0.5 ml ISec IVP PRN ×3 (15:15→19:17)
--- NOTE | 2018-06-08 21:43 | CARD ---
APPROVED REPORT Date of service: 06/06/2018 EKG Measurement Heart [id number] <Conclusion> Sinus bradycardia Otherwise normal ECG
[2018-06-09] MEDS: HYDROmorphone 0.5 mg/0.5 ml ISec IVP PRN ×2 (00:05→03:00)
[2018-06-09] MEDS: Sodium Chloride 0.9% 1,000 ML IV SCH ×4 (00:10→22:26)
[2018-06-09] MEDS: Piperacillin/Tazobact 3.375 GM in Sodium Chloride 100 ML IVPB SCH ×4 (03:00→22:24)
[2018-06-09 07:37] LABS: BASO % 0.1 % (0.0-2.0); HEMOGLOBIN 13.4 g/dL (12.0-18.0); LYMPH # 0.6 K/uL (1.0-4.3); LYMPH % 8.3 % (20.0-40.0); MEAN CELL VOLUME 92.5 fL (80.0-94.0); MEAN CORPUSCULAR HEMOGLOBIN 31.7 pg (27.0-31.0); MEAN CORPUSCULAR HGB CONC 34.2 g/dL (33.0-37.0); MONO # 0.6 K/uL (0.0-0.8); MONO % 7.9 % (0.0-10.0); NEUT # 6.3 K/uL (1.8-7.0); NEUT % 83.7 % (50.0-75.0); PLATELET COUNT 373 K/uL (130-400); RBC 4.24 Mil/uL (4.40-5.90); RED CELL DISTRIBUTION WIDTH 13.1 % (11.5-14.5); WHITE BLOOD COUNT 7.5 K/uL (4.8-10.8)
--- NOTE | 2018-06-09 07:41 | CP.PCM.PN ---
Subjective - Date & Time of Evaluation Date of Evaluation: 06/09/18 Time of Evaluation: 07:38 - Subjective Subjective: General Surgery - DR. Monreal Pt S&E. Last night pt was noted to have a change in color of his drain output to bilious tinged fluid around 3am. Pt also was reported to have an episode of vomiting but he describes this as spitting up phlegm after drinking orange juice. He complains of acid reflux and mild abdominal pain at the incisions. He deneis any fevers/chills, Nausea/Vomiting, SOB or chest pain. Objective - Vital Signs/Intake and Output Vital Signs (last 24 hours): Temp Pulse Resp BP Pulse Ox 98.3 F 92 H 20 117/76 95 06/09/18 00:00 06/09/18 00:00 06/09/18 00:00 06/09/18 00:00 06/09/18 04:00 Intake and Output: 06/09/18 06/09/18 06:59 18:59 Intake Total 300 1210 Output Total 370 190 Balance -70 1020 - Medications Medications: Current Medications Hydromorphone HCl (Dilaudid) 1 mg IVP Q3H PRN PRN Reason: Pain, severe (8-10) Sodium Chloride (Sodium Chloride 0.9%) 1,000 mls @ 150 mls/hr IV .Q6H40M DACIA Last Admin: 06/09/18 03:30 Dose: 150 mls/hr Piperacillin Sod/Tazobactam (Sod 3.375 gm/ Sodium Chloride) 100 mls @ 200 mls/hr IVPB Q6H DACIA; Protocol Last Admin: 06/09/18 03:00 Dose: 200 mls/hr Influenza Virus Vaccine (Flucelvax Quad [id number] Syr) 60 mcg IM .ONCE ONE Stop: 06/09/18 10:01 Metoclopramide HCl (Reglan) 10 mg IVP Q8H DACIA Last Admin: 06/09/18 04:10 Dose: 10 mg Ondansetron HCl (Zofran Inj) 4 mg IVP Q4H PRN PRN Reason: Nausea/Vomiting Pantoprazole Sodium (Protonix Inj) 40 mg IVP DAILY [facility] Pneumococcal Polyvalent Vaccine (Pneumovax 23 Vaccine) 0.5 ml IM .ONCE ONE Stop: 03/28/19 10:01 - Labs Labs: 06/08/18 07:19 06/08/18 07:19 PT 12.5 SECONDS (9.7-12.2) H 06/06/18 05:51 INR 1.1 06/06/18 05:51 APTT 30 SECONDS (21-34) 06/06/18 05:51 - Constitutional Appears: No Acute Distress - Head Exam Head Exam: ATRAUMATIC, NORMAL INSPECTION, NORMOCEPHALIC - Eye Exam Eye Exam: Normal appearance - Respiratory Exam Respiratory Exam: NORMAL BREATHING PATTERN. absent: Respiratory Distress - Cardiovascular Exam Cardiovascular Exam: REGULAR RHYTHM - GI/Abdominal Exam GI & Abdominal Exam: Soft. absent: Distended, Firm, Guarding, Rigid, Tender ness, Rebound Additional comments: murtaza drain with bile tinged serous fluid - Neurological Exam Neurological Exam: Alert, Oriented x3 - Psychiatric Exam Psychiatric exam: Normal Affect, Normal Mood - Skin Skin Exam: Dry, Intact Assessment and Plan - Assessment and Plan (Free Text) Assessment: 37 yo M w/ acute cholecystits s/p lap cholecystectomy, POD 1 -HIDA scan this morning to evaluate for bile leak d/t bile tinged drainage overnight -NPO until after HIDA scan -Continue IVF -Continue Pain control prn -Protonix, SCDs DW DR Jocelin Hall PGY4
[2018-06-09 07:50] LABS: ALB/GLOB RATIO 1.2 (1.0-2.1); ALBUMIN 3.3 g/dL (3.5-5.0); ALT/SGPT 131 U/L (21-72); AST/SGOT 53 U/L (17-59); BLOOD UREA NITROGEN 13 mg/dL (9-20); CALCIUM 8.3 mg/dl (8.6-10.4); GFR NON-AFRICAN AMERICAN > 60
[2018-06-09 08:50] LABS: BANDS 9 % (0-2); LYMPHOCYTE 11 % (20-40); MONOCYTE 8 % (0-10); NEUTROPHIL 70 % (50-75); PLATELET ESTIMATE NORMAL (NORMAL); REACTIVE LYMPHOCYTES 2 % (0-0); TOTAL CELLS COUNTED 100
[2018-06-09] MEDS ORDERED: Pneumococcal 23-Valent Vaccine IM ONE (10:00)
[2018-06-09] MEDS ORDERED: Influenza Vaccine 60 mcg/0.5 mL SYR (4YR UP) IM ONE (10:00)
--- NOTE | 2018-06-09 10:34 | RAD ---
Date of service: 06/09/2018 HISTORY: bile leak; vomiting COMPARISON: CT abdomen pelvis with contrast performed 03/16/18 TECHNIQUE: Three images obtained. FINDINGS: BOWEL: Cholecystectomy clips. Nonobstructive bowel gas pattern. No definite free air. BONES: Osseous demineralization. Degenerative changes. OTHER FINDINGS: None. IMPRESSION: Cholecystectomy clips.
[2018-06-09] MEDS: HYDROmorphone 1 mg/ml ISec IVP PRN ×2 (11:46→22:33)
--- NOTE | 2018-06-09 12:02 | NM ---
Date of service: 06/09/2018 PROCEDURE: Nuclear Medicine Hepatobiliary Scan HISTORY: bile leak s/p lap kevin COMPARISON: 06/06/2018 abdominal ultrasound. 06/07/2018 MRCP. TECHNIQUE: 6.3 mCi of technetium 99m Mebrofenin was administered intravenously. Planar images of the abdomen were obtained at 5 min intervals to 60 mins. Delayed images were also obtained. FINDINGS: LIVER: Timely and homogenous uptake. COMMON BILE DUCT: identified at 15 mins. GALLBLADDER: Status post cholecystectomy. No visible bile leak. SMALL BOWEL: Identified at 20 mins. IMPRESSION: Status post cholecystectomy. No evidence of bile leak. Expected accumulation of radionuclide in the liver, secretion into the biliary system and small bowel.
--- NOTE | 2018-06-09 18:19 | CP.PCM.PN ---
Subjective - Date & Time of Evaluation Date of Evaluation: 06/09/18 Time of Evaluation: 18:16 - Subjective Subjective: patient is afebrile and ambulatory. complainng of abdominal pain. lab results are normal. my concern is the abdomen which demonstrate some guarding on pe. drainage is scanty and is serous in nature, not bilious. wii get a ct of abdomen and pelvis in am, and keep npo for now. Objective - Vital Signs/Intake and Output Vital Signs (last 24 hours): Temp Pulse Resp BP Pulse Ox 98.7 F 103 H 20 126/80 95 06/09/18 16:00 06/09/18 16:00 06/09/18 16:00 06/09/18 16:00 06/09/18 16:00 Intake and Output: 06/09/18 06/09/18 06:59 18:59 Intake Total 300 2960 Output Total 370 210 Balance -70 2750 - Medications Medications: Current Medications Hydromorphone HCl (Dilaudid) 1 mg IVP Q3H PRN PRN Reason: Pain, severe (8-10) Last Admin: 06/09/18 11:46 Dose: 1 mg Sodium Chloride (Sodium Chloride 0.9%) 1,000 mls @ 150 mls/hr IV .Q6H40M DACIA Last Admin: 06/09/18 14:28 Dose: 150 mls/hr Piperacillin Sod/Tazobactam (Sod 3.375 gm/ Sodium Chloride) 100 mls @ 200 mls/hr IVPB Q6H DACIA; Protocol Last Admin: 06/09/18 16:53 Dose: 200 mls/hr Metoclopramide HCl (Reglan) 10 mg IVP Q8H DACIA Last Admin: 06/09/18 11:44 Dose: 10 mg Ondansetron HCl (Zofran Inj) 4 mg IVP Q4H PRN PRN Reason: Nausea/Vomiting Pantoprazole Sodium (Protonix Inj) 40 mg IVP DAILY [facility] Last Admin: 06/09/18 10:12 Dose: 40 mg - Labs Labs: 06/09/18 07:18 06/09/18 07:18 PT 12.5 SECONDS (9.7-12.2) H 06/06/18 05:51 INR 1.1 06/06/18 05:51 APTT 30 SECONDS (21-34) 06/06/18 05:51
[2018-06-10] MEDS: HYDROmorphone 1 mg/ml ISec IVP PRN ×2 (01:39→15:03)
[2018-06-10] MEDS: Sodium Chloride 0.9% 1,000 ML IV SCH ×2 (03:00→04:08)
[2018-06-10] MEDS: Piperacillin/Tazobact 3.375 GM in Sodium Chloride 100 ML IVPB SCH ×4 (03:47→21:34)
--- NOTE | 2018-06-10 08:16 | CP.PCM.PN ---
Subjective - Date & Time of Evaluation Date of Evaluation: 06/10/18 Time of Evaluation: 08:13 - Subjective Subjective: General surgery - Dr. Monreal Pt S&E. ELBA. PT complains of abdominal pain around the umbilical incision. Worse with moving and urinating. He denies any fevers/chills, nausea/vomiting, sob/chest pain. Pt states he is hungry and wants to eat. Aware he is NPO for CT scan today. Drain output 40cc serosanguinous. Objective - Vital Signs/Intake and Output Vital Signs (last 24 hours): Temp Pulse Resp BP Pulse Ox 98.8 F 105 H 20 117/68 95 06/10/18 07:43 06/10/18 07:43 06/10/18 07:43 06/10/18 07:43 06/10/18 07:43 Intake and Output: 06/10/18 06/10/18 06:59 18:59 Intake Total 2200 Output Total 320 Balance 1880 - Medications Medications: Current Medications Hydromorphone HCl (Dilaudid) 1 mg IVP Q3H PRN PRN Reason: Pain, severe (8-10) Last Admin: 06/10/18 01:39 Dose: 1 mg Sodium Chloride (Sodium Chloride 0.9%) 1,000 mls @ 150 mls/hr IV .Q6H40M DACIA Last Admin: 06/10/18 04:08 Dose: 150 mls/hr Piperacillin Sod/Tazobactam (Sod 3.375 gm/ Sodium Chloride) 100 mls @ 200 mls/hr IVPB Q6H DACIA; Protocol Last Admin: 06/10/18 03:47 Dose: 200 mls/hr Metoclopramide HCl (Reglan) 10 mg IVP Q8H DACIA Last Admin: 06/10/18 03:48 Dose: 10 mg Ondansetron HCl (Zofran Inj) 4 mg IVP Q4H PRN PRN Reason: Nausea/Vomiting Last Admin: 06/10/18 01:39 Dose: 4 mg Pantoprazole Sodium (Protonix Inj) 40 mg IVP DAILY [facility] Last Admin: 06/09/18 10:12 Dose: 40 mg - Labs Labs: 06/09/18 07:18 06/09/18 07:18 PT 12.5 SECONDS (9.7-12.2) H 06/06/18 05:51 INR 1.1 06/06/18 05:51 APTT 30 SECONDS (21-34) 06/06/18 05:51 - Constitutional Appears: No Acute Distress - Head Exam Head Exam: ATRAUMATIC, NORMAL INSPECTION, NORMOCEPHALIC - Eye Exam Eye Exam: Normal appearance - Respiratory Exam Respiratory Exam: NORMAL BREATHING PATTERN. absent: Respiratory Distress - Cardiovascular Exam Cardiovascular Exam: REGULAR RHYTHM - GI/Abdominal Exam GI & Abdominal Exam: Guarding (volunatry), Soft, Tenderness (umbilical w/ ecchymosis). absent: Distended, Firm, Rigid, Mass, Rebound - Neurological Exam Neurological Exam: Alert, Awake, Oriented x3 - Psychiatric Exam Psychiatric exam: Normal Affect, Normal Mood - Skin Skin Exam: Dry, Intact Assessment and Plan - Assessment and Plan (Free Text) Assessment: 37 yo M w/ acute cholecystits s/p lap cholecystectomy, POD 2 -HIDA negative for leak -Pt still complaining of pain, will order CT scan to r/o other pathology or bowel injury -NPO until CT scan done -If CT negative will resume diet and possible DC later today -Encourage OOB and ambulation -Pain control prn -Protonix, SCDs DW DR Jocelin Hall PGY4
[2018-06-10] MEDS ORDERED: Iohexol 240 (50 ml) PO ONE (09:00)
[2018-06-10] MEDS ORDERED: Iodixanol 320 MG/ML 100 ML BOTTLE IV ONE (10:19)
--- NOTE | 2018-06-10 12:07 | CT ---
Date of service: 06/10/2018 PROCEDURE: CT Abdomen and Pelvis with contrast HISTORY: Eval for bowel perforation, collections COMPARISON: Comparison is made with the previous study dated 03/16/2018 previous MRCP images dated 06/07/2018 TECHNIQUE: Contrast dose: 100 mL of Visipaque 320 intravenously. Axial and reformatted coronal and sagittal CT images of the abdomen and pelvis were obtained after IV and oral contrast administration. Radiation dose: Total exam DLP = 1047.6 mGy-cm. This CT exam was performed using one or more of the following dose reduction techniques: Automated exposure control, adjustment of the mA and/or kV according to patient size, and/or use of iterative reconstruction technique. FINDINGS: LOWER THORAX: There are airspace consolidation seen at the lung bases likely represent atelectasis. The possibility of pneumonia or aspiration cannot be totally excluded. There is a small left pleural effusion noted. The heart is normal in size. There is small amount of contrast noted in the distal esophagus which is likely due to gastroesophageal reflux LIVER: Mild hepatomegaly with heterogeneous enhancement of the liver is again noted. Previously mentioned possible mass at the peripheral right liver lobe in the previous exam is not clearly seen in the current study. GALLBLADDER AND BILE DUCTS: Status post cholecystectomy. There is a small amount of fluid and small droplet of air noted at the gallbladder fossa. No definite CT evidence of discrete abscess formation noted in the gallbladder fossa. PANCREAS: Unremarkable. No gross lesion or ductal dilatation. SPLEEN: Unremarkable. ADRENALS: Unremarkable. No mass. KIDNEYS AND URETERS: Again noted is 1.5 centimeters cyst at the mid to upper pole left kidney. The kidneys enhance symmetrically without evidence of hydronephrosis or solid enhancing mass. VASCULATURE: Unremarkable. No aortic aneurysm. No aortic atherosclerotic calcification or mural plaque present. BOWEL: The stomach is mildly distended demonstrate diffuse wall thickening. There are amswjw-ne-csqjgykpga dilated small bowel loops at the mid and upper abdomen demonstrate ufee-ns-uebbmvtz diffuse wall thickening. Findings are nonspecific and the differential consideration includes bowel ileus versus low grade bowel obstruction. No evidence of oral contrast extravasation in the upper abdomen to suggest bowel perforation. The distal small bowel loops and the large bowel are partially collapse. APPENDIX: No evidence of appendicitis in this study. PERITONEUM: There is small amount of free fluid in the upper abdomen. There is diffuse mesenteric edema and stranding noted at the mid and upper abdomen. LYMPH NODES: Unremarkable. No enlarged lymph nodes. BLADDER: Exsy-ay-ffcizsov circumferential urinary bladder wall thickening is noted. REPRODUCTIVE: Unremarkable. BONES: No acute fracture. OTHER FINDINGS: There is a surgical drainage a extending for from the mid abdomen to gallbladder fossa. There is periumbilical subcutaneous density and small droplet of air likely represent postsurgical changes. There are also adjacent to surgical rodrigo in the left paraumbilical region. IMPRESSION: Small amount of free fluid in the mid and upper abdomen as well as in the pelvis associated with diffuse mesenteric stranding and edema. Small amount of fluid in the gallbladder fossa in addition to small droplet of air. Small droplet of air also noted anterior to the right liver lobe. Findings may represent postsurgical changes. No CT evidence of discrete abscess formation. No evidence of oral contrast extravasation to suggest bowel perforation. If clinically warranted follow-up reassessment is suggested. Bilateral lung bases atelectasis and small left pleural effusion noted.
[2018-06-11] MEDS: Piperacillin/Tazobact 3.375 GM in Sodium Chloride 100 ML IVPB SCH ×4 (04:01→21:52)
--- NOTE | 2018-06-11 07:21 | CP.PCM.PN ---
Subjective - Date & Time of Evaluation Date of Evaluation: 06/11/18 Time of Evaluation: 07:19 - Subjective Subjective: General surgery - Dr. Monreal Pt S&E. OVernight pt has been spitting up green colored sputum. He is drinking clear liquids and tolerating. He denies any nausea or vomiting but states that he has persistent phlegm. His pain is well controlled and he has ambulated in the halls. He denies any BM yet. Drain with 80cc serosanguinous drainage past 24hrs. Objective - Vital Signs/Intake and Output Vital Signs (last 24 hours): Temp Pulse Resp BP Pulse Ox 99.1 F 102 H 20 129/78 96 06/11/18 00:00 06/11/18 00:00 06/11/18 00:00 06/11/18 00:00 06/11/18 00:00 Intake and Output: 06/11/18 06/11/18 06:59 18:59 Intake Total 1450 Output Total 72 Balance 1378 - Medications Medications: Current Medications Benzocaine/Menthol (Cepacol Sore Throat) 1 sarah MT Q2H [facility] Docusate Sodium (Colace) 100 mg PO TID [facility] Piperacillin Sod/Tazobactam (Sod 3.375 gm/ Sodium Chloride) 100 mls @ 200 mls/hr IVPB Q6H [facility]; Protocol Last Admin: 06/11/18 04:01 Dose: 200 mls/hr Influenza Virus Vaccine (Flucelvax Quad 1171-5467 Syr) 60 mcg IM .ONCE ONE Stop: 06/11/18 10:01 Ketorolac Tromethamine (Toradol) 30 mg IVP Q6 PRN PRN Reason: Pain, moderate (4-7) Metoclopramide HCl (Reglan) 10 mg IVP Q8H [facility] Last Admin: 06/11/18 04:02 Dose: 10 mg Ondansetron HCl (Zofran Inj) 4 mg IVP Q4H PRN PRN Reason: Nausea/Vomiting Last Admin: 06/11/18 00:52 Dose: 4 mg Pantoprazole Sodium (Protonix Inj) 40 mg IVP DAILY [facility] Last Admin: 06/10/18 09:16 Dose: 40 mg Pneumococcal Polyvalent Vaccine (Pneumovax 23 Vaccine) 0.5 ml IM .ONCE ONE Stop: 06/11/18 10:01 - Labs Labs: 06/09/18 07:18 06/09/18 07:18 PT 12.5 SECONDS (9.7-12.2) H 06/06/18 05:51 INR 1.1 06/06/18 05:51 APTT 30 SECONDS (21-34) 06/06/18 05:51 - Constitutional Appears: No Acute Distress - Head Exam Head Exam: ATRAUMATIC, NORMAL INSPECTION, NORMOCEPHALIC - Eye Exam Eye Exam: Normal appearance - Respiratory Exam Respiratory Exam: NORMAL BREATHING PATTERN. absent: Respiratory Distress - Cardiovascular Exam Cardiovascular Exam: REGULAR RHYTHM - GI/Abdominal Exam GI & Abdominal Exam: Distended, Soft, Tenderness (periumbilical). absent: Firm, Guarding, Rigid, Rebound - Neurological Exam Neurological Exam: Alert, Oriented x3 - Psychiatric Exam Psychiatric exam: Normal Affect, Normal Mood - Skin Skin Exam: Dry, Intact Assessment and Plan - Assessment and Plan (Free Text) Assessment: 37 yo M w/ acute cholecystits s/p lap cholecystectomy, POD 3 -HIDA negative for leak -CT with post-op changes, no acute findings -Pt with persistent spitting up of green phlegm overnight -Abdominal distension and still no Bowel function -F/U Abdominal Xray to evaluate contrast progression -Suspect Ileus, Maintain NPO with ice chips, Lozanges, and Chewing Gum for now to promote bowel motility -Encourage OOB/Ambulation DW Dr Jocelin Hall PGY4
[2018-06-11] MEDS ORDERED: Benzocaine/Menthol (Cepacol) Lozenge MT PRN (07:30)
[2018-06-11] MEDS: Influenza Vaccine 60 mcg/0.5 mL SYR (4YR UP) IM ONE ×2 (10:09→10:16)
[2018-06-11] MEDS: Pneumococcal 23-Valent Vaccine IM ONE ×2 (10:09→10:16)
--- NOTE | 2018-06-11 11:12 | RAD ---
Date of service: 06/11/2018 HISTORY: eval for ileus/obstruction COMPARISON: None available. TECHNIQUE: 1 view obtained. FINDINGS: BOWEL: Slightly dilated small bowel loops may represent bowel ileus . no radiographic evidence of high-grade bowel obstruction. BONES: Normal. OTHER FINDINGS: None. IMPRESSION: Mildly dilated small bowel loops may represent bowel ileus. Follow-up exam is suggested.
[2018-06-11] MEDS: Oxycodone/Acetaminophen 5/325 mg Tab PO PRN (18:53)
[2018-06-12] MEDS: Piperacillin/Tazobact 3.375 GM in Sodium Chloride 100 ML IVPB SCH ×4 (04:00→21:43)
[2018-06-12 08:55] LABS: BASO % 0.2 % (0.0-2.0); EOS % 0.2 % (0.0-4.0); HEMOGLOBIN 13.6 g/dL (12.0-18.0); LYMPH % 5.2 % (20.0-40.0); MEAN CELL VOLUME 93.6 fL (80.0-94.0); MEAN CORPUSCULAR HEMOGLOBIN 31.4 pg (27.0-31.0); MEAN CORPUSCULAR HGB CONC 33.5 g/dL (33.0-37.0); MEAN PLATELET VOLUME 8.4 fL (7.2-11.7); MONO # 0.8 K/uL (0.0-0.8); MONO % 4.1 % (0.0-10.0); NEUT # 17.2 K/uL (1.8-7.0); NEUT % 90.3 % (50.0-75.0); RBC 4.34 Mil/uL (4.40-5.90); RED CELL DISTRIBUTION WIDTH 13.6 % (11.5-14.5)
[2018-06-12 08:57] LABS: AST/SGOT 50 U/L (17-59); PLATELET COUNT 479 K/uL (130-400); WHITE BLOOD COUNT 19.1 K/uL (4.8-10.8)
[2018-06-12 08:58] LABS: ALBUMIN 2.9 g/dL (3.5-5.0); ALT/SGPT 46 U/L (21-72); BLOOD UREA NITROGEN 20 mg/dL (9-20); CALCIUM 7.8 mg/dl (8.6-10.4); GFR NON-AFRICAN AMERICAN > 60
--- NOTE | 2018-06-12 09:34 | CP.PCM.DIS ---
Provider - Provider Date of Admission: 06/09/18 14:39 Attending physician: Danie Monreal MD Hospital Course - Lab Results Lab Results: Micro Results 06/08/18 15:54 Bile Gram Stain - Final 06/08/18 15:54 Bile Body Fluid Culture - Final No growth. 06/06/18 05:15 Blood Blood Culture - Final NO GROWTH AFTER 5 DAYS 06/06/18 05:15 Blood Gram Stain - Final TEST NOT PERFORMED 06/06/18 05:15 Blood Blood Culture - Final NO GROWTH AFTER 5 DAYS 06/06/18 05:15 Blood Gram Stain - Final TEST NOT PERFORMED Most Recent Lab Values WBC 19.1 K/uL (4.8-10.8) H D 06/12/18 08:15 RBC 4.34 Mil/uL (4.40-5.90) L 06/12/18 08:15 Hgb 13.6 g/dL (12.0-18.0) 06/12/18 08:15 Hct 40.6 % (35.0-51.0) 06/12/18 08:15 MCV 93.6 fL (80.0-94.0) 06/12/18 08:15 MCH 31.4 pg (27.0-31.0) H 06/12/18 08:15 MCHC 33.5 g/dL (33.0-37.0) 06/12/18 08:15 RDW 13.6 % (11.5-14.5) 06/12/18 08:15 Plt Count 479 K/uL (130-400) H D 06/12/18 08:15 MPV 8.4 fL (7.2-11.7) 06/12/18 08:15 Neut % (Auto) 90.3 % (50.0-75.0) H 06/12/18 08:15 Lymph % (Auto) 5.2 % (20.0-40.0) L 06/12/18 08:15 [place] % (Auto) 4.1 % (0.0-10.0) 06/12/18 08:15 Eos % (Auto) 0.2 % (0.0-4.0) 06/12/18 08:15 Baso % (Auto) 0.2 % (0.0-2.0) 06/12/18 08:15 Neut # (Auto) 17.2 K/uL (1.8-7.0) H 06/12/18 08:15 Lymph # (Auto) 1.0 K/uL (1.0-4.3) 06/12/18 08:15 [place] # (Auto) 0.8 K/uL (0.0-0.8) 06/12/18 08:15 Eos # (Auto) 0.0 K/uL (0.0-0.7) 06/12/18 08:15 Baso # (Auto) 0.0 K/uL (0.0-0.2) 06/12/18 08:15 Neutrophils % (Manual) 70 % (50-75) 06/09/18 07:18 Band Neutrophils % 9 % (0-2) H 06/09/18 07:18 Lymphocytes % (Manual) 11 % (20-40) L 06/09/18 07:18 Reactive Lymphs % 2 % (0-0) H 06/09/18 07:18 Monocytes % (Manual) 8 % (0-10) 06/09/18 07:18 Platelet Estimate Normal (NORMAL) 06/09/18 07:18 RBC Morphology Normal 06/09/18 07:18 PT 12.5 SECONDS (9.7-12.2) H 06/06/18 05:51 INR 1.1 06/06/18 05:51 APTT 30 SECONDS (21-34) 06/06/18 05:51 Sodium 134 mmol/L (132-148) 06/12/18 08:15 Potassium 3.8 mmol/L (3.6-5.2) 06/12/18 08:15 Chloride 99 mmol/L (98-107) 06/12/18 08:15 Carbon Dioxide 25 mmol/L (22-30) 06/12/18 08:15 Anion Gap 14 (10-20) 06/12/18 08:15 BUN 20 mg/dL (9-20) 06/12/18 08:15 Creatinine 0.9 mg/dL (0.8-1.5) 06/12/18 08:15 Est GFR ( Amer) > 60 06/12/18 08:15 Est GFR (Non-Af Amer) > 60 06/12/18 08:15 POC Glucose (mg/dL) 117 mg/dL (65-110) H 06/10/18 16:13 Random Glucose 98 mg/dL (75-110) D 06/12/18 08:15 Calcium 7.8 mg/dl (8.6-10.4) L 06/12/18 08:15 Phosphorus 3.3 mg/dL (2.5-4.5) 06/12/18 08:15 Magnesium 2.5 mg/dL (1.6-2.3) H 06/12/18 08:15 Total Bilirubin 1.7 mg/dL (0.2-1.3) H 06/12/18 08:15 AST 50 U/L (17-59) 06/12/18 08:15 ALT 46 U/L (21-72) 06/12/18 08:15 Alkaline Phosphatase 249 U/L (38-126) H D 06/12/18 08:15 Troponin I < 0.0120 ng/mL (0.00-0.120) 06/06/18 01:14 Total Protein 5.7 g/dL (6.3-8.3) L 06/12/18 08:15 Albumin 2.9 g/dL (3.5-5.0) L 06/12/18 08:15 Globulin 2.8 gm/dL (2.2-3.9) 06/12/18 08:15 Albumin/Globulin Ratio 1.0 (1.0-2.1) 06/12/18 08:15 Lipase 61 U/L (23-300) 06/06/18 01:14 Urine Color Yellow (YELLOW) 06/06/18 01:28 Urine Clarity Hazy (Clear) 06/06/18 01:28 Urine pH 6.0 (5.0-8.0) 06/06/18 01:28 Ur Specific [place] 1.018 (1.003-1.030) 06/06/18 01:28 Urine Protein Negative mg/dL (NEGATIVE) 06/06/18 01:28 Urine Glucose (UA) Normal mg/dL (Normal) 06/06/18 01:28 Urine Ketones Negative mg/dL (NEGATIVE) 06/06/18 01:28 Urine Blood Negative (NEGATIVE) 06/06/18 01:28 Urine Nitrate Negative (NEGATIVE) 06/06/18 01:28 Urine Bilirubin Negative (NEGATIVE) 06/06/18 01:28 Urine Urobilinogen Normal mg/dL (0.2-1.0) 06/06/18 01:28 Ur Leukocyte Esterase Neg Tommy/uL (Negative) 06/06/18 01:28 Urine WBC (Auto) < 1 /hpf (0-5) 06/06/18 01:28 Urine RBC (Auto) 2 /hpf (0-3) 06/06/18 01:28 Amorphous Sediment Rare /ul (<OCC) H 06/06/18 01:28 Hepatitis A IgM Ab Negative (NEGATIVE) 06/08/18 07:19 Hep Bs Antigen Negative (NEGATIVE) 06/08/18 07:19 Hep B Core IgM Ab Negative (NEGATIVE) 06/08/18 07:19 Hepatitis C Antibody Negative (NEGATIVE) 06/08/18 07:19 Discharge Exam - Head Exam Head Exam: ATRAUMATIC, NORMAL INSPECTION, NORMOCEPHALIC Discharge Plan - Follow Up Plan Condition: STABLE Disposition: HOME/ ROUTINE Instructions: Hair-Castaneda Drain, Cholecystectomy, Laparoscopic Surgery, Cholecystitis (DC), Cholecystitis (GEN) Additional Instructions: Follow up w/ Dr. Monreal in 7-10 days, call to make an appointment Pt may take Tylenol/Ibuprofen for pain No dietary restrictions No heavy lifting for 4-6weeks (nothing heavier than 10lbs) Pt may shower however do not scrub/soak incisions No pools, tubs, baths Monitor drain output, Dr. Monreal will remove the drain in the office Call Dr. Monreal, return to the ED if fever >101, redness, swelling, drainage of incisions Referrals: Danie Monreal MD [Staff Provider] -
[2018-06-12 10:43] LABS: BANDS 9 % (0-2); LYMPHOCYTE 15 % (20-40); MONOCYTE 3 % (0-10); NEUTROPHIL 72 % (50-75); PLASMACYTES 1 (0-0); PLATELET ESTIMATE SLIGHTLY INCREASED (NORMAL); TOTAL CELLS COUNTED 100
--- NOTE | 2018-06-12 12:05 | CP.PCM.PN ---
Subjective - Date & Time of Evaluation Date of Evaluation: 06/12/18 Time of Evaluation: 10:00 - Subjective Subjective: General Surgery Dr. Monreal Pt seen and examined @bedside. No acute events overnight. Pt has no complaints this AM. denies F/C, N/V, D/C. tolerating CLD. (+)Flatus (-)BM Hussein 40mL x24hrs Objective - Vital Signs/Intake and Output Vital Signs (last 24 hours): Temp Pulse Resp BP Pulse Ox 98.0 F 77 20 121/74 95 06/12/18 08:00 06/12/18 08:00 06/12/18 08:00 06/12/18 08:00 06/12/18 08:00 Intake and Output: 06/12/18 06/12/18 06:59 18:59 Intake Total 615 Output Total 40 Balance 575 - Medications Medications: Current Medications Benzocaine/Menthol (Cepacol Sore Throat) 1 sarah MT Q2H PRN PRN Reason: Sore Throat Docusate Sodium (Colace) 100 mg PO TID [facility] Last Admin: 06/12/18 09:51 Dose: 100 mg Piperacillin Sod/Tazobactam (Sod 3.375 gm/ Sodium Chloride) 100 mls @ 200 mls/hr IVPB Q6H [facility]; Protocol Last Admin: 06/12/18 09:58 Dose: 200 mls/hr Ketorolac Tromethamine (Toradol) 30 mg IVP Q6 PRN PRN Reason: Pain, moderate (4-7) Last Admin: 06/11/18 22:45 Dose: 30 mg Metoclopramide HCl (Reglan) 10 mg IVP Q8H [facility] Last Admin: 06/12/18 04:00 Dose: 10 mg Ondansetron HCl (Zofran Inj) 4 mg IVP Q4H PRN PRN Reason: Nausea/Vomiting Last Admin: 06/11/18 00:52 Dose: 4 mg Oxycodone/Acetaminophen (Percocet 5/325 Mg Tab) 1 tab PO Q6H PRN PRN Reason: Pain, severe (8-10) Stop: 06/14/18 18:44 Last Admin: 06/11/18 18:53 Dose: 1 tab Pantoprazole Sodium (Protonix Inj) 40 mg IVP DAILY [facility] Last Admin: 06/12/18 09:51 Dose: 40 mg - Labs Labs: 06/12/18 08:15 06/12/18 08:15 PT 12.5 SECONDS (9.7-12.2) H 06/06/18 05:51 INR 1.1 06/06/18 05:51 APTT 30 SECONDS (21-34) 06/06/18 05:51 - Constitutional Appears: Non-toxic, No Acute Distress - Head Exam Head Exam: NORMAL INSPECTION - Eye Exam Eye Exam: Normal appearance - ENT Exam ENT Exam: Mucous Membranes Moist - Respiratory Exam Respiratory Exam: NORMAL BREATHING PATTERN. absent: Accessory Muscle Use, Respiratory Distress - Cardiovascular Exam Cardiovascular Exam: REGULAR RHYTHM. absent: Bradycardia, Tachycardia - GI/Abdominal Exam GI & Abdominal Exam: Soft, Tenderness (appropriate TTP). absent: Distended, Firm, Guarding, Rigid Additional comments: incisions c/d/i hussein in place - Extremities Exam Extremities Exam: Normal Inspection - Neurological Exam Neurological Exam: Alert, Awake, Oriented x3 - Psychiatric Exam Psychiatric exam: Normal Affect, Normal Mood - Skin Skin Exam: Dry, Intact, Normal Color, Warm Assessment and Plan - Assessment and Plan (Free Text) Assessment: 37 y/o M w/ acute cholecystits POD#4 s/p lap cholecystectomy, w/ worsening leukocytosis Plan: - HIDA negative for leak - CT with post-op changes, no acute findings - ADAT - bowel regimen - cont Lozanges, and Chewing Gum to promote bowel motility - Encourage OOB/Ambulation - aggressive IS use Pt discussed w/ Dr Jocelin Shankar DO PGY3
--- NOTE | 2018-06-12 15:32 | OP ---
PROCEDURE DATE: 06/08/2018 SURGEON: Danie Monreal MD CLERK GENERAL OFFICE: Fatou Hall DO, PGY-4 ANESTHESIA: General. PREOPERATIVE DIAGNOSIS: Acute cholecystitis. POSTOPERATIVE DIAGNOSIS: Acute on chronic cholecystitis. OPERATION PERFORMED: Laparoscopic cholecystectomy. INDICATIONS FOR OPERATION: This is a 37-year-old male who presented to the hospital on 06/06/2018 with right upper quadrant abdominal pain, was found to have acute cholecystitis with elevated liver enzymes. He was worked up to find that there was no stones in the common bile duct and the liver enzymes gradually trended down in the following two days. He was then taken to the operating room for laparoscopic cholecystectomy. DESCRIPTION OF PROCEDURE: The patient was placed on the operating table in the supine position. General anesthesia was induced. A timeout was completed, verifying correct patient, procedure, site, positioning, and special equipment prior to beginning the procedure. Nasogastric tube was placed. The abdomen was prepped and draped in usual sterile fashion. An incision was made in the natural skin line, just below the umbilicus. The fascia was elevated in the Veress needle inserted. Appropriate position was confirmed and the abdomen was insufflated with carbon dioxide to a pressure of 15 mmHg. The patient tolerated the insufflation well. A 10-mm trocar was then inserted. The laparoscope was inserted and the abdomen inspected. No injuries from initial trocar placement were noted. Additional trocar was then inserted in the following locations. A 5-mm trocar in the epigastrium and a 5-mm trocar in the right costal margin. The abdomen was inspected and no abnormalities were found. Table was placed in a reverse Trendelenburg position with the right side up. Dense adhesions between the gallbladder and omentum were bluntly dissected down using the suction car customizer. The dome of the gallbladder was grasped with an atraumatic grasper and passed through the lateral port and retracted over the dome of the liver. Further dissection was continued down the length of the gallbladder dividing the omentum from the gallbladder using blunt dissection. The gallbladder was acutely inflamed and the wall of the gallbladder was hemorrhagic. Bleeding was controlled using electrocautery. Upon attempting to re-grasp the gallbladder, it was found to be quite distended, and therefore, the Veress needle was placed through the skin and using a 50 mL syringe, approximately 70 mL of dark bile was suctioned from the gallbladder and sent for culture. The gallbladder was then re-grasped towards the infundibulum with an atraumatic grasper and retracted towards the right lower quadrant, exposing the region of Calot's triangle. The peritoneum overlying the gallbladder infundibulum was gently dissected until the cystic duct was visualized. The cystic duct and cystic artery were identified and circumferentially dissected. An additional branch of the artery was found posteriorly and was also circumferentially dissected. The cystic duct and cystic arteries were triply clipped and divided close to the gallbladder. The gallbladder was then dissected from its peritoneal attachments by electrocautery. Hemostasis was checked, and the gallbladder and contained stones were placed into the endoscopic retrieval bag through the umbilical port. Further irrigation was performed through the liver bed and right upper quadrant with saline and hemostasis was obtained. There was no evidence of bleeding from the gallbladder fossa or cystic artery or leakage of bile from the cystic duct. A closed suction drain was placed in the gallbladder fossa and brought out through the lateral port site. Attention was then directed towards the gallbladder, which at this time was within the endoscopic retrieval bag, just beneath the umbilical port and within the abdomen. The umbilical port was extended in an attempt to remove the gallbladder from the abdomen. The gallbladder was quite large and the incision was extended an additional approximately 2 to 3 cm on each side. The bag was torn in the process; however, the gallbladder was able to be removed entirely shortly thereafter through the umbilical incision. The fascia of the umbilical incision was then closed with a running 0-Vicryl suture. All trocars were removed. The abdomen was allowed to collapse. The skin was closed with subcuticular sutures of 4-0 Monocryl and topical skin adhesive was applied. The nasogastric tube was removed. The patient tolerated the procedure well and was taken to the postanesthesia care unit in stable condition. Fatou Hall DO Danie Monreal MD
[2018-06-12] MEDS: Oxycodone/Acetaminophen 5/325 mg Tab PO PRN (17:21)
[2018-06-13] MEDS: Oxycodone/Acetaminophen 5/325 mg Tab PO PRN ×3 (01:05→18:12)
[2018-06-13] MEDS: Piperacillin/Tazobact 3.375 GM in Sodium Chloride 100 ML IVPB SCH ×2 (03:26→09:34)
[2018-06-13 07:29] LABS: BASO # 0.1 K/uL (0.0-0.2); BASO % 0.4 % (0.0-2.0); EOS # 0.3 K/uL (0.0-0.7); EOS % 1.2 % (0.0-4.0); HEMOGLOBIN 11.7 g/dL (12.0-18.0); LYMPH # 1.2 K/uL (1.0-4.3); LYMPH % 4.6 % (20.0-40.0); MEAN CORPUSCULAR HEMOGLOBIN 30.4 pg (27.0-31.0); MEAN CORPUSCULAR HGB CONC 33.1 g/dL (33.0-37.0); MEAN PLATELET VOLUME 8.1 fL (7.2-11.7); MONO # 2.4 K/uL (0.0-0.8); MONO % 9.1 % (0.0-10.0); NEUT # 22.3 K/uL (1.8-7.0); NEUT % 84.7 % (50.0-75.0); PLATELET COUNT 422 K/uL (130-400); RBC 3.86 Mil/uL (4.40-5.90); RED CELL DISTRIBUTION WIDTH 13.6 % (11.5-14.5)
[2018-06-13 07:31] LABS: WHITE BLOOD COUNT 26.3 K/uL (4.8-10.8)
[2018-06-13 07:42] LABS: ALB/GLOB RATIO 0.9 (1.0-2.1); ALBUMIN 2.6 g/dL (3.5-5.0); ALT/SGPT 50 U/L (21-72); AST/SGOT 42 U/L (17-59); BLOOD UREA NITROGEN 15 mg/dL (9-20); CALCIUM 7.5 mg/dl (8.6-10.4); GFR NON-AFRICAN AMERICAN > 60
--- NOTE | 2018-06-13 07:56 | CP.PCM.PN ---
Subjective - Date & Time of Evaluation Date of Evaluation: 06/13/18 Time of Evaluation: 07:15 - Subjective Subjective: General Surgery progress note for Dr. Monreal Patient seen and examined this am at bedside. Pt states he is feeling well, abdominal pain improved and denies n/v, f/c. Pt states he has been able to move around his room and has been using the incentive spirometer. 80 cc seropurulent fluid out over 24 hrs. endorses soft BM and flatus. Utilized retail training manager to discuss results of imaging and plan going forward with the patient and his fathe r. All questions answered. Objective - Vital Signs/Intake and Output Vital Signs (last 24 hours): Temp Pulse Resp BP Pulse Ox 98.4 F 104 H 20 130/82 95 06/13/18 00:00 06/13/18 00:00 06/13/18 00:00 06/13/18 00:00 06/13/18 00:00 Intake and Output: 06/13/18 06/13/18 06:59 18:59 Intake Total 590 Output Total 440 Balance 150 - Medications Medications: Current Medications Benzocaine/Menthol (Cepacol Sore Throat) 1 sarah MT Q2H PRN PRN Reason: Sore Throat Docusate Sodium (Colace) 100 mg PO TID [facility] Last Admin: 06/12/18 17:21 Dose: 100 mg Piperacillin Sod/Tazobactam (Sod 3.375 gm/ Sodium Chloride) 100 mls @ 200 mls/h r IVPB Q6H [facility]; Protocol Last Admin: 06/13/18 03:26 Dose: 200 mls/hr Metoclopramide HCl (Reglan) 10 mg IVP Q8H [facility] Last Admin: 06/13/18 03:26 Dose: 10 mg Ondansetron HCl (Zofran Inj) 4 mg IVP Q4H PRN PRN Reason: Nausea/Vomiting Last Admin: 06/11/18 00:52 Dose: 4 mg Oxycodone/Acetaminophen (Percocet 5/325 Mg Tab) 1 tab PO Q6H PRN PRN Reason: Pain, severe (8-10) Stop: 06/14/18 18:44 Last Admin: 06/13/18 06:53 Dose: 1 tab Pantoprazole Sodium (Protonix Inj) 40 mg IVP DAILY [facility] Last Admin: 06/12/18 09:51 Dose: 40 mg - Labs Labs: 06/13/18 07:09 06/13/18 07:09 PT 12.5 SECONDS (9.7-12.2) H 06/06/18 05:51 INR 1.1 06/06/18 05:51 APTT 30 SECONDS (21-34) 06/06/18 05:51 - Constitutional Appears: Well, Non-toxic, No Acute Distress - Head Exam Head Exam: ATRAUMATIC, NORMOCEPHALIC - Eye Exam Eye Exam: EOMI - ENT Exam ENT Exam: Mucous Membranes Moist - Respiratory Exam Respiratory Exam: NORMAL BREATHING PATTERN - Cardiovascular Exam Cardiovascular Exam: REGULAR RHYTHM - GI/Abdominal Exam GI & Abdominal Exam: Soft. absent: Guarding, Tenderness, Rebound Additional comments: incisions cdi, drain site dressing saturated with bile tinged fluid, dressing changed, drain site clean without erythema - Neurological Exam Neurological Exam: Alert, Awake, Oriented x3 - Psychiatric Exam Psychiatric exam: Normal Affect, Normal Mood - Skin Skin Exam: Dry, Intact, Normal Color, Warm Assessment and Plan - Assessment and Plan (Free Text) Assessment: 37 M with no significant PMH s/p laparoscopic cholecystetomy POD5, WBC increased to 26 and CXR with LLL infiltrate Plan: - stool, urine, sputum and blood cultures ordered - CT a/p with PO ordered - abx switched to Rocephin and flagyl - encourage ambulation and IS use - electrolytes repleted - pt seen and discussed with Dr. Jocelin Luther, PGY 1
--- NOTE | 2018-06-13 09:21 | RAD ---
Date of service: 06/13/2018 HISTORY: leukocystosis post-op COMPARISON: No prior. FINDINGS: LUNGS: Worsening confluent consolidative opacification in the left mid to lower lung zone. PLEURA: Small to moderate left pleural effusion. CARDIOVASCULAR: Enlarged ectatic aorta. Cardiomegaly. OSSEOUS STRUCTURES: No significant abnormalities. VISUALIZED UPPER ABDOMEN: Normal. OTHER FINDINGS: None. IMPRESSION: New consolidative opacity in the left mid to lower lung zone with associated left pleural effusion.
[2018-06-13] MEDS ORDERED: Azithromycin 500 MG in Sodium Chloride 0.9% 250 ML IVPB SCH (10:00)
[2018-06-13] MEDS ORDERED: Potassium Chloride 20 mEq ER Tab PO ONE (10:00)
[2018-06-13 11:55] LABS: BANDS 7 % (0-2); EOSINOPHIL 3 % (0-4); LYMPHOCYTE 4 % (20-40); MONOCYTE 4 % (0-10); NEUTROPHIL 82 % (50-75); TOTAL CELLS COUNTED 100
[2018-06-13 11:56] LABS: PLATELET ESTIMATE NORMAL (NORMAL)
[2018-06-13] MEDS ORDERED: Iohexol 240 (50 ml) PO ONE ×2 (14:45)
[2018-06-13] MEDS: Simethicone 80 mg Chewtab PO PRN (14:52)
[2018-06-13] MEDS ORDERED: Sodium Chloride 0.9% 1,000 ML IV SCH (16:00)
--- NOTE | 2018-06-13 18:58 | CT ---
Date of service: 06/13/2018 PROCEDURE: CT Abdomen and Pelvis with contrast HISTORY: r/o abdominal pathology source COMPARISON: 06/10/2018. CT abdomen and pelvis. 06/09/2018 a paddle biliary scan to assess the possibility of bile leak following cholecystectomy. TECHNIQUE: Intravenous contrast dose: Radiation dose: Total exam DLP = <inf_radiation_dlp> mGy-cm. This CT exam was performed using one or more of the following dose reduction techniques: Automated exposure control, adjustment of the mA and/or kV according to patient size, and/or use of iterative reconstruction technique. FINDINGS: LOWER THORAX: Persistent atelectasis both lower lobes left greater than right. Trace right pleural effusion. LIVER: Unremarkable. No gross lesion or ductal dilatation. GALLBLADDER AND BILE DUCTS: Status post cholecystectomy. No abnormality is seen in the gallbladder fossa. Surgical drain identified entering the abdominal cavity inferior to the liver. PANCREAS: Unremarkable. No gross lesion or ductal dilatation. SPLEEN: Unremarkable. ADRENALS: Unremarkable. No mass. KIDNEYS AND URETERS: Unremarkable. No hydronephrosis. No solid mass. VASCULATURE: Unremarkable. No aortic aneurysm. No atherosclerotic calcification or mural plaque present. BOWEL: Interval improvement in dilatation of small bowel. Contrast noted in isolated bowel which appears to have herniated through the rectus muscle to the left of the midline. A small focal extravasation or leak is not excluded but not likely based on overall appearance and affected similar findings were seen previously. APPENDIX: Unremarkable appendix. PERITONEUM: Increase in intra-abdominal fluid primarily upper abdomen, right upper quadrant extending to the left of the midline, left upper quadrant. Mean Hounsfield unit values of fluid in the pelvis are considerably higher than that seen in the abdomen suggesting complex or perhaps debris/hemorrhagic fluid. Similar findings noted on the prior study with respect to the composition of fluid both in the abdomen and the pelvis. Inflammatory changes the peritoneum suggests a component of peritonitis. These are similar to that seen previously LYMPH NODES: Unremarkable. No enlarged lymph nodes. BLADDER: Thickening of the wall of the bladder again identified suggesting cystitis. REPRODUCTIVE: Unremarkable. BONES: No acute fracture. OTHER FINDINGS: None. IMPRESSION: 1. Increase in volume of intra-abdominal and pelvic ascites. 2. Streaking of the peritoneal fat and mesentery consistent with infectious/inflammatory process. 3. Stable position of surgical drain status post cholecystectomy. No accumulation of fluid in the gallbladder fossa identified. 4. Interval improvement in distention of small bowel seen previously. 5. Stable thickening of the bladder wall. 6. Redemonstration of isolated loop of small bowel herniating through the rectus muscle periumbilical location to the left of the midline. This appears at the site of surgical clips. Less likely consideration would be focal extravasation of contrast.
[2018-06-13] MEDS: metroNIDAZOLE IV 500 mg/100 ml 500 MG/100 ML BAG IVPB SCH (20:19)
[2018-06-14] MEDS: metroNIDAZOLE IV 500 mg/100 ml 500 MG/100 ML BAG IVPB SCH ×3 (00:16→16:41)
[2018-06-14] MEDS: Oxycodone/Acetaminophen 5/325 mg Tab PO PRN ×4 (00:23→22:55)
[2018-06-14 07:24] LABS: BASO % 0.2 % (0.0-2.0); EOS # 0.4 K/uL (0.0-0.7); EOS % 1.5 % (0.0-4.0); HEMOGLOBIN 12.3 g/dL (12.0-18.0); LYMPH # 1.4 K/uL (1.0-4.3); LYMPH % 5.1 % (20.0-40.0); MEAN CELL VOLUME 92.8 fL (80.0-94.0); MEAN CORPUSCULAR HEMOGLOBIN 30.9 pg (27.0-31.0); MEAN CORPUSCULAR HGB CONC 33.4 g/dL (33.0-37.0); MEAN PLATELET VOLUME 8.3 fL (7.2-11.7); MONO # 2.1 K/uL (0.0-0.8); NEUT # 22.8 K/uL (1.8-7.0); NEUT % 85.2 % (50.0-75.0); NRBC % 0.1 % (0.0-2.0); PLATELET COUNT 478 K/uL (130-400); RBC 3.97 Mil/uL (4.40-5.90); RED CELL DISTRIBUTION WIDTH 13.8 % (11.5-14.5); WHITE BLOOD COUNT 26.7 K/uL (4.8-10.8)
[2018-06-14 08:15] LABS: ALBUMIN 2.8 g/dL (3.5-5.0); ALT/SGPT 34 U/L (21-72); AST/SGOT 40 U/L (17-59); BLOOD UREA NITROGEN 11 mg/dL (9-20); CALCIUM 7.7 mg/dl (8.6-10.4); GFR NON-AFRICAN AMERICAN > 60
[2018-06-14 09:04] LABS: BANDS 2 % (0-2); EOSINOPHIL 1 % (0-4); LYMPHOCYTE 7 % (20-40); MONOCYTE 8 % (0-10); MYELOCYTE 2 % (0-0); NEUTROPHIL 80 % (50-75); TOTAL CELLS COUNTED 100
[2018-06-14 09:05] LABS: PLATELET ESTIMATE SLIGHTLY INCREASED (NORMAL)
[2018-06-14 09:11] LABS: HYPOCHROMIC SLIGHT; POLYCHROMIC SLIGHT
[2018-06-14] MEDS: Piperacillin/Tazobact 3.375 GM in Sodium Chloride 100 ML IVPB SCH ×3 (10:18→20:54)
--- NOTE | 2018-06-14 10:41 | PCM.IRP ---
History of Present Illness - History of Present Illness History of Present Illness: IR requested to evaluate abdominal collections. CT reviewed. Pt has at least 5 small pockets of fluid collection within his abdomen. None of these collections are complex or organized to suggest abscess. Objective - Vital Signs/Intake and Output Vital Signs (last 24 hours): Vital Signs - 24 hr 06/13/18 06/14/18 06/14/18 16:00 00:00 08:02 Temperature 98.8 F 98.3 F 97.7 F Pulse Rate 101 H 100 H 77 Respiratory 20 20 20 Rate Blood Pressure 136/79 130/80 124/80 O2 Sat by Pulse 20 L 94 L 97 Oximetry Intake and Output (last 12 hours): Intake & Output 06/13/18 06/14/18 06/14/18 18:59 06:59 18:59 Intake Total 1975 Output Total 40 Balance 1935 Intake: Intake, IV Amount 1175 Right Antecubital 1175 Oral 800 Output: Drainage 40 Medial Abdomen 40 Other: # Voids Urine, Voided 2 # Bowel Movements 2 - Medications Medications: Current Medications Benzocaine/Menthol (Cepacol Sore Throat) 1 sarah MT Q2H PRN PRN Reason: Sore Throat Docusate Sodium (Colace) 100 mg PO TID [facility] Last Admin: 06/14/18 10:19 Dose: 100 mg Metronidazole (Flagyl) 500 mg in 100 mls @ 100 mls/hr IVPB Q8H [facility]; Protocol Last Admin: 06/14/18 08:39 Dose: 100 mls/hr Piperacillin Sod/Tazobactam (Sod 3.375 gm/ Sodium Chloride) 100 mls @ 200 mls/hr IVPB Q6H [facility]; Protocol Last Admin: 06/14/18 10:18 Dose: 200 mls/hr Metoclopramide HCl (Reglan) 10 mg IVP Q8H [facility] Last Admin: 06/14/18 03:38 Dose: 10 mg Ondansetron HCl (Zofran Inj) 4 mg IVP Q4H PRN PRN Reason: Nausea/Vomiting Last Admin: 06/11/18 00:52 Dose: 4 mg Oxycodone/Acetaminophen (Percocet 5/325 Mg Tab) 1 tab PO Q6H PRN PRN Reason: Pain, severe (8-10) Stop: 04/02/19 18:44 Last Admin: 06/14/18 06:17 Dose: 1 tab Pantoprazole Sodium (Protonix Inj) 40 mg IVP DAILY [facility] Last Admin: 06/14/18 10:19 Dose: 40 mg Simethicone (Mylicon Chew Tab) 80 mg PO DAILY PRN PRN Reason: GI distress Last Admin: 06/13/18 14:52 Dose: 80 mg - Labs Labs (last 24 hours): Laboratory Results - last 24 hr 06/13/18 06/14/18 06/14/18 07:09 07:04 07:04 WBC 26.7 H RBC 3.97 L Hgb 12.3 Hct 36.8 MCV 92.8 MCH 30.9 MCHC 33.4 RDW 13.8 Plt Count 478 H MPV 8.3 Neut % (Auto) 85.2 H Lymph % (Auto) 5.1 L Bertie % (Auto) 8.0 Eos % (Auto) 1.5 Baso % (Auto) 0.2 Neut # (Auto) 22.8 H Lymph # (Auto) 1.4 Bertie # (Auto) 2.1 H Eos # (Auto) 0.4 Baso # (Auto) 0.0 Neutrophils % (Manual) 82 H 80 H Band Neutrophils % 7 H 2 Lymphocytes % (Manual) 4 L 7 L Monocytes % (Manual) 4 8 Eosinophils % (Manual) 3 1 Myelocytes % 2 H Platelet Estimate Normal Slightly increased H RBC Morphology Normal Polychromasia Slight Hypochromasia (manual) Slight Sodium 129 L Potassium 3.7 Chloride 94 L Carbon Dioxide 28 Anion Gap 11 BUN 11 Creatinine 0.7 L Est GFR ( Amer) > 60 Est GFR (Non-Af Amer) > 60 Random Glucose 87 Calcium 7.7 L Phosphorus 2.7 Magnesium 2.4 H Total Bilirubin 0.9 AST 40 ALT 34 Alkaline Phosphatase 249 H Total Protein 5.6 L Albumin 2.8 L Globulin 2.8 Albumin/Globulin Ratio 1.0
--- NOTE | 2018-06-14 11:49 | CP.PCM.PN ---
Subjective - Date & Time of Evaluation Date of Evaluation: 06/14/18 Time of Evaluation: 06:35 - Subjective Subjective: Surgery Progress note- Dr. Monreal Patient seen and examined. Abdominal pain improved. Tolerating regular diet. + Flatus and BM. Hussein drain in place 80cc serosang fluid. CT scan yesterday showed small pockets of fluid collection. Left lower lobe infiltrate. Denies fevers, chills, chest pain, shortness of breath. Objective - Vital Signs/Intake and Output Vital Signs (last 24 hours): Temp Pulse Resp BP Pulse Ox 97.7 F 77 20 124/80 97 06/14/18 08:02 06/14/18 08:02 06/14/18 08:02 06/14/18 08:02 06/14/18 08:02 Intake and Output: 06/14/18 06/14/18 06:59 18:59 Intake Total 1975 Output Total 40 Balance 1935 - Medications Medications: Current Medications Benzocaine/Menthol (Cepacol Sore Throat) 1 sarah MT Q2H PRN PRN Reason: Sore Throat Docusate Sodium (Colace) 100 mg PO TID [facility] Last Admin: 06/14/18 10:19 Dose: 100 mg Metronidazole (Flagyl) 500 mg in 100 mls @ 100 mls/hr IVPB Q8H [facility]; Protocol Last Admin: 06/14/18 08:39 Dose: 100 mls/hr Piperacillin Sod/Tazobactam (Sod 3.375 gm/ Sodium Chloride) 100 mls @ 200 mls/hr IVPB Q6H [facility]; Protocol Last Admin: 06/14/18 10:18 Dose: 200 mls/hr Sodium Chloride (Sodium Chloride 0.9%) 1,000 mls @ 100 mls/hr IV .Q10H [facility] Metoclopramide HCl (Reglan) 10 mg IVP Q8H [facility] Last Admin: 06/14/18 11:46 Dose: 10 mg Ondansetron HCl (Zofran Inj) 4 mg IVP Q4H PRN PRN Reason: Nausea/Vomiting Last Admin: 06/11/18 00:52 Dose: 4 mg Oxycodone/Acetaminophen (Percocet 5/325 Mg Tab) 1 tab PO Q6H PRN PRN Reason: Pain, severe (8-10) Stop: 06/14/18 18:44 Last Admin: 06/14/18 06:17 Dose: 1 tab Pantoprazole Sodium (Protonix Inj) 40 mg IVP DAILY [facility] Last Admin: 06/14/18 10:19 Dose: 40 mg Simethicone (Mylicon Chew Tab) 80 mg PO DAILY PRN PRN Reason: GI distress Last Admin: 06/13/18 14:52 Dose: 80 mg - Labs Labs: 06/14/18 07:04 06/14/18 07:04 PT 12.5 SECONDS (9.7-12.2) H 06/06/18 05:51 INR 1.1 06/06/18 05:51 APTT 30 SECONDS (21-34) 06/06/18 05:51 - Constitutional Appears: Non-toxic, No Acute Distress - Head Exam Head Exam: ATRAUMATIC - Eye Exam Eye Exam: EOMI. absent: Scleral icterus - ENT Exam ENT Exam: Mucous Membranes Moist - Respiratory Exam Respiratory Exam: NORMAL BREATHING PATTERN. absent: Accessory Muscle Use, Respiratory Distress - Cardiovascular Exam Cardiovascular Exam: REGULAR RHYTHM. absent: Bradycardia, Tachycardia - GI/Abdominal Exam GI & Abdominal Exam: Soft, Tenderness (midly tender to deep palpation over incisions). absent: Distended, Firm, Guarding, Rigid - Extremities Exam Extremities Exam: absent: Calf Tenderness - Neurological Exam Neurological Exam: Alert, Awake, Oriented x3 - Psychiatric Exam Psychiatric exam: Normal Affect - Skin Skin Exam: Intact, Warm Assessment and Plan - Assessment and Plan (Free Text) Assessment: 37M s/p lap kevin pod #6, with increasing leukocytosis Plan: - repeat CBC - start on NS for hyponatremia - c/w Abx; will consult ID - for fluid will consult IR for possible drainage - will review CT scan - discussed w/ Surgical attending PGY2
--- NOTE | 2018-06-14 15:05 | CP.PCM.CON ---
History of Present Illness - History of Present Illness History of Present Illness: dictated Past Patient History - Infectious Disease Hx of Infectious Diseases: None - Past Medical History & Family History Past Medical History?: Yes - Past Social History Smoking Status: Never Smoked - MUSCULOSKELETAL/RHEUMATOLOGICAL Hx Falls: No - GASTROINTESTINAL Hx Gall Bladder Disease: Yes (Cholelithiasis) - PSYCHIATRIC Hx Substance Use: No - SURGICAL HISTORY Hx Surgeries: No - ANESTHESIA Hx Anesthesia: No Hx Anesthesia Reactions: No Meds Home Medications: Home Medication List Medication Instructions Recorded Confirmed Type Acetaminophen [Tylenol 325mg tab] 975 mg PO Q8 tab 06/12/18 Rx Docusate [Colace] 100 mg PO TID cap 06/12/18 Rx Allergies/Adverse Reactions: Allergies Allergy/AdvReac Type Severity Reaction Status Date / Time No Known Allergies Allergy Verified 03/16/18 11:01 - Medications Medications: Current Medications Benzocaine/Menthol (Cepacol Sore Throat) 1 sarah MT Q2H PRN PRN Reason: Sore Throat Docusate Sodium (Colace) 100 mg PO TID [facility] Last Admin: 06/14/18 13:59 Dose: 100 mg Metronidazole (Flagyl) 500 mg in 100 mls @ 100 mls/hr IVPB Q8H [facility]; Protocol Last Admin: 06/14/18 08:39 Dose: 100 mls/hr Piperacillin Sod/Tazobactam (Sod 3.375 gm/ Sodium Chloride) 100 mls @ 200 mls/hr IVPB Q6H [facility]; Protocol Last Admin: 06/14/18 10:18 Dose: 200 mls/hr Sodium Chloride (Sodium Chloride 0.9%) 1,000 mls @ 100 mls/hr IV .Q10H [facility] Vancomycin/Sodium Chloride (Vancomycin 1 Gm/Ns 200 Ml) 1 gm in 200 mls @ 133 mls/hr IVPB Q12H [facility]; Protocol Stop: 06/19/18 16:01 Metoclopramide HCl (Reglan) 10 mg IVP Q8H [facility] Last Admin: 06/14/18 11:46 Dose: 10 mg Ondansetron HCl (Zofran Inj) 4 mg IVP Q4H PRN PRN Reason: Nausea/Vomiting Last Admin: 06/11/18 00:52 Dose: 4 mg Oxycodone/Acetaminophen (Percocet 5/325 Mg Tab) 1 tab PO Q6H PRN PRN Reason: Pain, severe (8-10) Stop: 06/14/18 18:44 Last Admin: 06/14/18 06:17 Dose: 1 tab Pantoprazole Sodium (Protonix Inj) 40 mg IVP DAILY [facility] Last Admin: 06/14/18 10:19 Dose: 40 mg Simethicone (Mylicon Chew Tab) 80 mg PO DAILY PRN PRN Reason: GI distress Last Admin: 06/13/18 14:52 Dose: 80 mg Results - Vital Signs Recent Vital Signs: Last Vital Signs Temp 97.7 F 06/14/18 08:02 Pulse 77 06/14/18 08:02 Resp 20 06/14/18 08:02 BP 124/80 06/14/18 08:02 Pulse Ox 97 06/14/18 08:02 - Labs Result Diagrams: 06/14/18 07:04 06/14/18 07:04 Labs: Laboratory Results - last 24 hr 06/14/18 06/14/18 07:04 07:04 WBC 26.7 H RBC 3.97 L Hgb 12.3 Hct 36.8 MCV 92.8 MCH 30.9 MCHC 33.4 RDW 13.8 Plt Count 478 H MPV 8.3 Neut % (Auto) 85.2 H Lymph % (Auto) 5.1 L Lander % (Auto) 8.0 Eos % (Auto) 1.5 Baso % (Auto) 0.2 Neut # (Auto) 22.8 H Lymph # (Auto) 1.4 Lander # (Auto) 2.1 H Eos # (Auto) 0.4 Baso # (Auto) 0.0 Neutrophils % (Manual) 80 H Band Neutrophils % 2 Lymphocytes % (Manual) 7 L Monocytes % (Manual) 8 Eosinophils % (Manual) 1 Myelocytes % 2 H Platelet Estimate Slightly increased H Polychromasia Slight Hypochromasia (manual) Slight Sodium 129 L Potassium 3.7 Chloride 94 L Carbon Dioxide 28 Anion Gap 11 BUN 11 Creatinine 0.7 L Est GFR ( Amer) > 60 Est GFR (Non-Af Amer) > 60 Random Glucose 87 Calcium 7.7 L Phosphorus 2.7 Magnesium 2.4 H Total Bilirubin 0.9 AST 40 ALT 34 Alkaline Phosphatase 249 H Total Protein 5.6 L Albumin 2.8 L Globulin 2.8 Albumin/Globulin Ratio 1.0
[2018-06-14] MEDS ORDERED: Potassium Chloride 20 mEq ER Tab PO ONE (16:35)
[2018-06-14] MEDS ORDERED: Potassium & Sodium Phosphate PO ONE (16:35)
[2018-06-14] MEDS: Sodium Chloride 0.9% 1,000 ML IV SCH ×2 (16:45→21:46)
[2018-06-14] MEDS: Vancomycin 1 gm/NS 200 ml 1 GM/200 ML BAG IVPB SCH (17:50)
[2018-06-15] MEDS: metroNIDAZOLE IV 500 mg/100 ml 500 MG/100 ML BAG IVPB SCH ×3 (00:44→17:39)
[2018-06-15] MEDS: Piperacillin/Tazobact 3.375 GM in Sodium Chloride 100 ML IVPB SCH ×3 (02:00→21:41)
[2018-06-15] MEDS: Vancomycin 1 gm/NS 200 ml 1 GM/200 ML BAG IVPB SCH ×2 (03:17→16:25)
[2018-06-15] MEDS: Oxycodone/Acetaminophen 5/325 mg Tab PO PRN ×2 (04:34→17:38)
--- NOTE | 2018-06-15 06:02 | CON ---
DATE: 06/14/2018 INFECTIOUS DISEASE CONSULTATION REQUESTED BY: Danie Monreal MD HISTORY OF PRESENT ILLNESS: This patient is a 37-year-old male. He was admitted on 06/06/2018. He came in with epigastric and right upper quadrant pain. He has had this kind of pain one week ago, but this time it was very severe. He said he drank two beers at that day and started to have pain. He admitted to nausea and vomiting. He had no fever. No chills. He drinks on weekends six to seven beers, almost doing that for 10 years. He denies any drug abuse. 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 He is not allergic to any medicine. I was called in because of severe leukocytosis. He was on Rocephin before which was discontinued. He is started on Zosyn and Flagyl, and I have added vancomycin at this time. He has no past medical history. He has no pneumonia in past. SOCIAL HISTORY: Negative for smoking. He smoked occasionally one cigarette per day few years ago. Denies any substance abuse. PAST SURGICAL HISTORY: Denies any surgeries. No anesthesia in the past. ALLERGIES: HE IS NOT ALLERGIC TO ANY MEDICINE. He did say he does not have a girlfriend, but he was sexually active with a male member day before coming to this hospital, and he said this was his first encounter and he used a protection condom. As I asked him about his HIV status, he says three months ago he did do a HIV test which was negative. REVIEW OF SYSTEMS: At this time, he does feel little warm. Denies any headache. Denies any nausea or vomiting. He did tolerate foods. He said he is passing flatus and he did have a BM. He went for a CAT scan. He does complain of mild abdominal pain which is expected at this time. He does complain when he takes a deep breath, it hurts in his epigastrium. He knows he has to do incentive spirometry.he denies urinary symptoms He denies any urinary complaints. Denies any bowel complaints. Does have mild abdominal pain. Has some breathing difficulty. He has never had pneumonia in the past. He did not get a flu shot. PHYSICAL EXAMINATION: VITAL SIGNS: I find his T-max is 99.6 most of the time; it today was 99, so he is afebrile. Heart rate of 106, blood pressure 105/68, respirations are 20, and saturation 94%. GENERAL: He is awake and alert, oriented x3. HEENT: Head is atraumatic, normocephalic. Pupils are reacting to light. Tongue is dry. NECK: Supple. JVP is flat. CHEST WALL: Symmetrical. No crackles or rales heard. Decreased breath sounds on left lung base. HEART: S1 and S2 are regular. No murmurs appreciated. ABDOMEN: He has a marked induration on the lower abdomen with ecchymosis, and skin appears battered because of ecchymosis although it is not warm to touch, but does have signs of inflammation. He also has a TONY drain. Otherwise the abdomen, bowel sounds are present. EXTREMITIES: Have no edema, clubbing or cyanosis. TONY drain has serosanguineous fluid. LABORATORY DATA: Labs are noted. Labs show that the white count has increased. He had 7.5 on 06/09/2018; it was 19.1 on 06/12/2018; on 06/13/2018, it was 26.3; and now it is 26.7. Hemoglobin 12.3, hematocrit 36.8, platelet count is 478. Neutrophils are 85. Bands are 2. He had 9 bands earlier yesterday. Sodium remains low at 129, potassium 3.7, chlorides are 94, so he is hyponatremic. BUN is 11, creatinine 0.7, calcium is 7.7, magnesium is 2.4. His alk phos is 249, albumin is 2.8, so LFTs are not that bad. AST is normal, ALT is normal. On his further reports, he had an abdominal and a pelvic CT done at 0411 hours yesterday which shows increased volume of intra-abdominal and pelvic ascites, streaking of peritoneal fat in mesentery consistent with infectious or inflammatory process, stable position of surgical drains, status post cholecystectomy, no accumulation of fluid in the gallbladder fossa, interval improvement of distention of small bowel seen previously, stable thickening of the bladder wall, and then re-demonstration of isolated loop of small bowel herniating through the rectus muscle periumbilical location to the left of the midline. There is a small bowel herniation. This appears to be at the site of the surgical clip, less likely consideration would be focal extravasation of contrast. We do not know if he is having herniation of small bowel and may be forming adhesions, but he did have a bowel movement that I understood. Chest x-ray shows new consolidative opacity in left mid to lower lung zone with associated left pleural effusion, so he has a new consolidation on left lung with pleural effusion. IMPRESSION: He has postoperative pneumonia with effusion. Also has some ascites. I noted the note from Dr. Gar which shows there are five small pockets of fluid collection, none of these collections are complex organized to suggest abscess. PLAN: So at this time, we will continue with broad-spectrum IV antibiotics. Repeat the labs tomorrow. Repeat ESR. We will get a HIV test. As I discussed with him, hepatitis profile was done. I think they did the hepatitis profile A and B. B surface antigen, B core IgM, and hep C are negative. The patient is hyponatremic and still has high alkaline phosphatase and with findings of pneumonia with effusion and we will follow. Also get an ESR tomorrow and also get CPK level as he has diffuse area of skin inflammation and infection to rule out panniculitis. We will follow. Vernon Hendricks MD MTDD
[2018-06-15 07:02] LABS: BASO # 0.1 K/uL (0.0-0.2); BASO % 0.2 % (0.0-2.0); EOS # 0.5 K/uL (0.0-0.7); EOS % 1.9 % (0.0-4.0); HEMOGLOBIN 11.6 g/dL (12.0-18.0); LYMPH # 0.9 K/uL (1.0-4.3); LYMPH % 3.7 % (20.0-40.0); MEAN CELL VOLUME 92.6 fL (80.0-94.0); MEAN CORPUSCULAR HEMOGLOBIN 30.5 pg (27.0-31.0); MEAN CORPUSCULAR HGB CONC 32.9 g/dL (33.0-37.0); MEAN PLATELET VOLUME 8.2 fL (7.2-11.7); MONO # 1.7 K/uL (0.0-0.8); MONO % 6.9 % (0.0-10.0); NEUT # 21.7 K/uL (1.8-7.0); NEUT % 87.3 % (50.0-75.0); PLATELET COUNT 484 K/uL (130-400); RBC 3.81 Mil/uL (4.40-5.90); RED CELL DISTRIBUTION WIDTH 13.6 % (11.5-14.5); WHITE BLOOD COUNT 24.9 K/uL (4.8-10.8)
[2018-06-15 07:39] LABS: ALB/GLOB RATIO 0.9 (1.0-2.1); ALBUMIN 2.5 g/dL (3.5-5.0); ALT/SGPT 29 U/L (21-72); AST/SGOT 32 U/L (17-59); BLOOD UREA NITROGEN 8 mg/dL (9-20); CALCIUM 7.3 mg/dl (8.6-10.4); GFR NON-AFRICAN AMERICAN > 60
[2018-06-15] MEDS ORDERED: Potassium Chloride 20 mEq ER Tab PO ONE (08:15)
[2018-06-15 08:50] LABS: BANDS 6 % (0-2); EOSINOPHIL 2 % (0-4); LYMPHOCYTE 8 % (20-40); MONOCYTE 6 % (0-10); NEUTROPHIL 78 % (50-75); TOTAL CELLS COUNTED 100
[2018-06-15 08:51] LABS: PLATELET ESTIMATE INCREASED (NORMAL)
[2018-06-15 08:52] LABS: HYPOCHROMIC SLIGHT; POLYCHROMIC SLIGHT
[2018-06-15 10:27] LABS: ERYTHROCYTE SEDIMENTATION RATE 55 mm/hr (0-15)
--- NOTE | 2018-06-15 11:41 | CP.PCM.PN ---
Subjective - Date & Time of Evaluation Date of Evaluation: 06/15/18 Time of Evaluation: 11:39 - Subjective Subjective: large but non tender perumbilical massisprobably a hematoma not a hernia, as evienced by a large ecchymosis around the area. no surgical interventiom at prsent Objective - Vital Signs/Intake and Output Vital Signs (last 24 hours): Temp Pulse Resp BP Pulse Ox 98.9 F 90 20 144/88 95 06/15/18 07:00 06/15/18 07:00 06/15/18 07:00 06/15/18 07:00 06/15/18 07:00 Intake and Output: 06/15/18 06/15/18 06:59 18:59 Intake Total 2250 Output Total 1045 Balance 1205 - Medications Medications: Current Medications Benzocaine/Menthol (Cepacol Sore Throat) 1 sarah MT Q2H PRN PRN Reason: Sore Throat Docusate Sodium (Colace) 100 mg PO TID [facility] Last Admin: 06/15/18 09:42 Dose: 100 mg Enoxaparin Sodium (Lovenox) 30 mg SC DAILY [facility] Metronidazole (Flagyl) 500 mg in 100 mls @ 100 mls/hr IVPB Q8H [facility]; Protocol Last Admin: 06/15/18 09:42 Dose: 100 mls/hr Piperacillin Sod/Tazobactam (Sod 3.375 gm/ Sodium Chloride) 100 mls @ 200 mls/hr IVPB Q6H [facility]; Protocol Last Admin: 06/15/18 11:25 Dose: 200 mls/hr Sodium Chloride (Sodium Chloride 0.9%) 1,000 mls @ 100 mls/hr IV .Q10H [facility] Last Admin: 06/14/18 21:46 Dose: Not Given Vancomycin/Sodium Chloride (Vancomycin 1 Gm/Ns 200 Ml) 1 gm in 200 mls @ 133 mls/hr IVPB Q12H [facility]; Protocol Stop: 06/19/18 16:01 Last Admin: 06/15/18 03:17 Dose: 133 mls/hr Metoclopramide HCl (Reglan) 10 mg IVP Q8H [facility] Last Admin: 06/15/18 03:17 Dose: 10 mg Ondansetron HCl (Zofran Inj) 4 mg IVP Q4H PRN PRN Reason: Nausea/Vomiting Last Admin: 06/11/18 00:52 Dose: 4 mg Oxycodone/Acetaminophen (Percocet 5/325 Mg Tab) 1 tab PO Q4H PRN PRN Reason: Pain, moderate (4-7) Stop: 06/17/18 21:20 Last Admin: 06/15/18 04:34 Dose: 1 tab Pantoprazole Sodium (Protonix Inj) 40 mg IVP DAILY [facility] Last Admin: 06/15/18 09:42 Dose: 40 mg Simethicone (Mylicon Chew Tab) 80 mg PO DAILY PRN PRN Reason: GI distress Last Admin: 06/13/18 14:52 Dose: 80 mg - Labs Labs: 06/15/18 06:30 06/15/18 06:30 PT 12.5 SECONDS (9.7-12.2) H 06/06/18 05:51 INR 1.1 06/06/18 05:51 APTT 30 SECONDS (21-34) 06/06/18 05:51
[2018-06-15] MEDS: Sodium Chloride 0.9% 1,000 ML IV SCH (12:30)
[2018-06-15] MEDS ORDERED: Enoxaparin 40 mg Syringe SC SCH (16:00)
[2018-06-15] MEDS: Enoxaparin 40 mg Syringe SC SCH (17:38)
[2018-06-16] MEDS: Oxycodone/Acetaminophen 5/325 mg Tab PO PRN ×4 (00:04→23:12)
[2018-06-16] MEDS: metroNIDAZOLE IV 500 mg/100 ml 500 MG/100 ML BAG IVPB SCH ×3 (00:15→18:03)
[2018-06-16] MEDS: Piperacillin/Tazobact 3.375 GM in Sodium Chloride 100 ML IVPB SCH ×2 (02:57→02:59)
[2018-06-16 06:22] LABS: BASO # 0.1 K/uL (0.0-0.2); BASO % 0.2 % (0.0-2.0); EOS # 0.3 K/uL (0.0-0.7); EOS % 0.8 % (0.0-4.0); HEMOGLOBIN 12.2 g/dL (12.0-18.0); LYMPH % 2.7 % (20.0-40.0); MEAN CELL VOLUME 90.9 fL (80.0-94.0); MEAN CORPUSCULAR HEMOGLOBIN 30.8 pg (27.0-31.0); MEAN CORPUSCULAR HGB CONC 33.8 g/dL (33.0-37.0); MEAN PLATELET VOLUME 8.1 fL (7.2-11.7); MONO # 1.9 K/uL (0.0-0.8); MONO % 5.1 % (0.0-10.0); NEUT % 91.2 % (50.0-75.0); PLATELET COUNT 518 K/uL (130-400); RBC 3.96 Mil/uL (4.40-5.90); RED CELL DISTRIBUTION WIDTH 13.6 % (11.5-14.5)
[2018-06-16 06:32] LABS: WHITE BLOOD COUNT 37.3 K/uL (4.8-10.8)
[2018-06-16 06:38] LABS: ALB/GLOB RATIO 0.9 (1.0-2.1); ALBUMIN 2.7 g/dL (3.5-5.0); ALT/SGPT 45 U/L (21-72); AST/SGOT 80 U/L (17-59); BLOOD UREA NITROGEN 8 mg/dL (9-20); CALCIUM 7.4 mg/dl (8.6-10.4); GFR NON-AFRICAN AMERICAN > 60
[2018-06-16 08:38] LABS: BANDS 8 % (0-2); EOSINOPHIL 2 % (0-4); LYMPHOCYTE 2 % (20-40); MONOCYTE 5 % (0-10); NEUTROPHIL 83 % (50-75); PLATELET ESTIMATE INCREASED (NORMAL); TOTAL CELLS COUNTED 100
[2018-06-16] MEDS: Meropenem 1 GM in Sodium Chloride 0.9% 100 ML IVPB SCH ×2 (08:49→16:41)
[2018-06-16] MEDS ORDERED: Fluconazole IV 200mg/100 ml NS 100 ML IVPB SCH ×2 (10:00→13:00)
[2018-06-16 10:04] LABS: URINE BILIRUBIN NEGATIVE (NEGATIVE); URINE BLOOD NEGATIVE (NEGATIVE); URINE CLARITY Hazy (Clear); URINE COLOR Amber (YELLOW); URINE GLUCOSE (UA) NORMAL (Normal); URINE LEUKOCYTE ESTERASE TRACE Leu/uL (Negative); URINE PROTEIN NEGATIVE (NEGATIVE)
[2018-06-16] MEDS ORDERED: Sodium Chloride 0.9% 1,000 ML IV ONE (10:14)
[2018-06-16] MEDS: Enoxaparin 40 mg Syringe SC SCH ×2 (10:24→11:00)
--- NOTE | 2018-06-16 11:13 | CP.PCM.PN ---
Subjective - Date & Time of Evaluation Date of Evaluation: 06/16/18 Time of Evaluation: 11:10 - Subjective Subjective: Progress Note for Dr. Monreal Patient seen and examined at bedside. He states he is feeling better today, but has lower extremity swelling. He is tolerating diet, passing stool and flatus without issues. Hussein output 60cc x24 hours Objective - Vital Signs/Intake and Output Vital Signs (last 24 hours): Temp Pulse Resp BP Pulse Ox 98.4 F 105 H 20 122/76 94 L 06/16/18 07:05 06/16/18 07:05 06/16/18 07:05 06/16/18 07:05 06/16/18 07:05 Intake and Output: 06/16/18 06/16/18 06:59 18:59 Intake Total 1500 600 Output Total 820 870 Balance 680 -270 - Medications Medications: Current Medications Benzocaine/Menthol (Cepacol Sore Throat) 1 sarah MT Q2H PRN PRN Reason: Sore Throat Docusate Sodium (Colace) 100 mg PO TID [facility] Last Admin: 06/16/18 10:25 Dose: 100 mg Enoxaparin Sodium (Lovenox) 40 mg SC DAILY [facility] Last Admin: 06/16/18 10:24 Dose: 40 mg Metronidazole (Flagyl) 500 mg in 100 mls @ 100 mls/hr IVPB Q8H [facility]; Protocol Last Admin: 06/16/18 00:15 Dose: 100 mls/hr Fluconazole 100 mg/ (Miscellaneous) 50 mls @ 100 mls/hr IVPB DAILY [facility]; Protocol Meropenem 1 gm/ Sodium (Chloride) 100 mls @ 100 mls/hr IVPB Q8H [facility]IA; Protocol Last Admin: 06/16/18 08:49 Dose: 100 mls/hr Vancomycin HCl 1,000 mg/ (Sodium Chloride) 250 mls @ 166.6 mls/hr IVPB Q12H [facility]IA ; Protocol Sodium Chloride (Sodium Chloride 0.9%) 1,000 mls @ 125 mls/hr IV .Q8H ONE Stop: 06/16/18 18:13 Metoclopramide HCl (Reglan) 10 mg IVP Q8H [facility]IA Last Admin: 06/16/18 04:37 Dose: 10 mg Ondansetron HCl (Zofran Inj) 4 mg IVP Q4H PRN PRN Reason: Nausea/Vomiting Last Admin: 06/11/18 00:52 Dose: 4 mg Oxycodone/Acetaminophen (Percocet 5/325 Mg Tab) 1 tab PO Q4H PRN PRN Reason: Pain, moderate (4-7) Stop: 06/17/18 21:20 Last Admin: 06/16/18 07:18 Dose: 1 tab Pantoprazole Sodium (Protonix Inj) 40 mg IVP DAILY [facility] Last Admin: 06/16/18 10:28 Dose: 40 mg Simethicone (Mylicon Chew Tab) 80 mg PO DAILY PRN PRN Reason: GI distress Last Admin: 06/13/18 14:52 Dose: 80 mg - Labs Labs: 06/16/18 06:10 06/16/18 06:10 PT 12.5 SECONDS (9.7-12.2) H 06/06/18 05:51 INR 1.1 06/06/18 05:51 APTT 30 SECONDS (21-34) 06/06/18 05:51 - Constitutional Appears: No Acute Distress - Head Exam Head Exam: ATRAUMATIC, NORMOCEPHALIC - Eye Exam Eye Exam: EOMI - ENT Exam ENT Exam: Mucous Membranes Moist - Neck Exam Neck Exam: Full ROM - Respiratory Exam Respiratory Exam: NORMAL BREATHING PATTERN - Cardiovascular Exam Cardiovascular Exam: REGULAR RHYTHM, +S1, +S2 - GI/Abdominal Exam GI & Abdominal Exam: Soft Additional comments: Large nontender periumbilical mass likely hematoma Hussein with serosanguineous output - Extremities Exam Extremities Exam: Pedal Edema - Neurological Exam Neurological Exam: Alert, Awake, Oriented x3 Assessment and Plan - Assessment and Plan (Free Text) Assessment: 37 year old male status post lap cholecystectomy POD 8, with worsening leuko cytosis Plan: Lower extremity dopplers prelim negative Repeat CT chest/abdomen/pelvis with contrast ordered and pending Lipase 507 serum lactic acid 2.1, WNL Antibiotics as per ID Wiper Blender consulted for hyponatremia ICU consulted for leukocytosis, and hyponatremia Not ICU candidate at this time. Ashley Tovar, PGY1
[2018-06-16 11:37] LABS: LIPASE 507 U/L (23-300)
--- NOTE | 2018-06-16 12:09 | CP.PCM.CON ---
<Gretchen Galdamez - Last Filed: 06/16/18 16:52> History of Present Illness - History of Present Illness History of Present Illness: ICU consult note for Dr. Camp Patient is a 37 year old male s/p lap cholecystectomy 2/2 acute cholecystitis, POD #8. ICU consulted for further evaluation of worsening leukocytosis and hyponatremia. Per reports, patient's surgery was complicated during GB extracti on. Currently patient reports abdominal pain well controlled with medication PRN. Patient tolerating liquid diet without nausea, confirms flatus/BMs. Patient complains of shallow breaths 2/2 abdominal distension. Patient reported an episode of dizziness with ambulation this morning, prompting him to stay in bed. Review of Systems - Constitutional Constitutional: absent: Anorexia - Cardiovascular Cardiovascular: Lightheadedness. absent: Chest Pain - Respiratory Respiratory: absent: Pain on Inspiration - Gastrointestinal Gastrointestinal: Abdominal Pain. absent: Constipation, Nausea, Vomiting Additional comments: Distension Past Patient History - Infectious Disease Hx of Infectious Diseases: None - Past Medical History & Family History Past Medical History?: Yes - Past Social History Smoking Status: Never Smoked - MUSCULOSKELETAL/RHEUMATOLOGICAL Hx Falls: No - GASTROINTESTINAL Hx Gall Bladder Disease: Yes (Cholelithiasis) - PSYCHIATRIC Hx Substance Use: No - SURGICAL HISTORY Hx Surgeries: No - ANESTHESIA Hx Anesthesia: No Hx Anesthesia Reactions: No Meds Home Medications: Home Medication List Medication Instructions Recorded Confirmed Type Acetaminophen [Tylenol 325mg tab] 975 mg PO Q8 tab 06/12/18 Rx Docusate [Colace] 100 mg PO TID cap 06/12/18 Rx Allergies/Adverse Reactions: Allergies Allergy/AdvReac Type Severity Reaction Status Date / Time No Known Allergies Allergy Verified 03/16/18 11:01 - Medications Medications: Current Medications Benzocaine/Menthol (Cepacol Sore Throat) 1 sarah MT Q2H PRN PRN Reason: Sore Throat Docusate Sodium (Colace) 100 mg PO TID [facility] Last Admin: 06/16/18 10:25 Dose: 100 mg Enoxaparin Sodium (Lovenox) 40 mg SC DAILY [facility] Last Admin: 06/16/18 10:24 Dose: 40 mg Metronidazole (Flagyl) 500 mg in 100 mls @ 100 mls/hr IVPB Q8H [facility]; Protocol Last Admin: 06/16/18 00:15 Dose: 100 mls/hr Fluconazole 100 mg/ (Miscellaneous) 50 mls @ 100 mls/hr IVPB DAILY [facility]; Protocol Meropenem 1 gm/ Sodium (Chloride) 100 mls @ 100 mls/hr IVPB Q8H [facility]; Protocol Last Admin: 06/16/18 08:49 Dose: 100 mls/hr Vancomycin HCl 1,000 mg/ (Sodium Chloride) 250 mls @ 166.6 mls/hr IVPB Q12H [facility]; Protocol Sodium Chloride (Sodium Chloride 0.9%) 1,000 mls @ 125 mls/hr IV .Q8H ONE Stop: 06/16/18 18:13 Metoclopramide HCl (Reglan) 10 mg IVP Q8H [facility] Last Admin: 06/16/18 04:37 Dose: 10 mg Ondansetron HCl (Zofran Inj) 4 mg IVP Q4H PRN PRN Reason: Nausea/Vomiting Last Admin: 06/11/18 00:52 Dose: 4 mg Oxycodone/Acetaminophen (Percocet 5/325 Mg Tab) 1 tab PO Q4H PRN PRN Reason: Pain, moderate (4-7) Stop: 06/17/18 21:20 Last Admin: 06/16/18 07:18 Dose: 1 tab Pantoprazole Sodium (Protonix Inj) 40 mg IVP DAILY [facility] Last Admin: 06/16/18 10:28 Dose: 40 mg Simethicone (Mylicon Chew Tab) 80 mg PO DAILY PRN PRN Reason: GI distress Last Admin: 06/13/18 14:52 Dose: 80 mg Physical Exam - Constitutional Appears: Non-toxic, No Acute Distress - Head Exam Head Exam: ATRAUMATIC, NORMAL INSPECTION, NORMOCEPHALIC - Eye Exam Eye Exam: EOMI - ENT Exam ENT Exam: Mucous Membranes Moist, Normal Exam - Neck Exam Neck exam: Positive for: Normal Inspection - Respiratory Exam Respiratory Exam: NORMAL BREATHING PATTERN. absent: Respiratory Distress - Cardiovascular Exam Cardiovascular Exam: Tachycardia, REGULAR RHYTHM - GI/Abdominal Exam GI & Abdominal Exam: Soft. absent: Tenderness Additional comments: Suprapubic hematoma. Periumbilical mass Right murtaza with SS/purulent drainage - Extremities Exam Extremities exam: Positive for: pedal edema - Neurological Exam Neurological exam: Alert, Oriented x3 - Psychiatric Exam Psychiatric exam: Normal Affect, Normal Mood - Skin Skin Exam: Dry, Normal Color, Warm Results - Vital Signs Recent Vital Signs: Last Vital Signs Temp 98.4 F 06/16/18 07:05 Pulse 105 H 06/16/18 07:05 Resp 20 06/16/18 07:05 BP 122/76 06/16/18 07:05 Pulse Ox 94 L 06/16/18 07:05 - Labs Result Diagrams: 06/16/18 06:10 06/16/18 06:10 Labs: Laboratory Results - last 24 hr 06/16/18 06/16/18 06/16/18 06:10 06:10 08:21 WBC 37.3 H* RBC 3.96 L Hgb 12.2 Hct 36.0 MCV 90.9 MCH 30.8 MCHC 33.8 RDW 13.6 Plt Count 518 H MPV 8.1 Neut % (Auto) 91.2 H Lymph % (Auto) 2.7 L Potter % (Auto) 5.1 Eos % (Auto) 0.8 Baso % (Auto) 0.2 Neut # (Auto) 34.0 H Lymph # (Auto) 1.0 Potter # (Auto) 1.9 H Eos # (Auto) 0.3 Baso # (Auto) 0.1 Neutrophils % (Manual) 83 H Band Neutrophils % 8 H Lymphocytes % (Manual) 2 L Monocytes % (Manual) 5 Eosinophils % (Manual) 2 Platelet Estimate Increased H RBC Morphology Normal D-Dimer, Quantitative Sodium 126 L Potassium 3.6 Chloride 96 L Carbon Dioxide 23 Anion Gap 11 BUN 8 L Creatinine 0.6 L Est GFR ( Amer) > 60 Est GFR (Non-Af Amer) > 60 POC Glucose (mg/dL) 161 H Random Glucose 93 Lactic Acid Calcium 7.4 L Phosphorus 2.8 Magnesium 2.2 Total Bilirubin 0.9 AST 80 H D ALT 45 Alkaline Phosphatase 361 H D Total Protein 5.5 L Albumin 2.7 L Globulin 2.9 Albumin/Globulin Ratio 0.9 L Lipase 507 H Urine Color Urine Clarity Urine pH Ur Specific Alto Urine Protein Urine Glucose (UA) Urine Ketones Urine Blood Urine Nitrate Urine Bilirubin Urine Urobilinogen Ur Leukocyte Esterase Urine WBC (Auto) Urine RBC (Auto) Hyaline Casts Urine Osmolality Ur Random Sodium Ur Random Potassium 06/16/18 06/16/18 06/16/18 09:46 09:46 09:46 WBC RBC Hgb Hct MCV MCH MCHC RDW Plt Count MPV Neut % (Auto) Lymph % (Auto) Potter % (Auto) Eos % (Auto) Baso % (Auto) Neut # (Auto) Lymph # (Auto) Potter # (Auto) Eos # (Auto) Baso # (Auto) Neutrophils % (Manual) Band Neutrophils % Lymphocytes % (Manual) Monocytes % (Manual) Eosinophils % (Manual) Platelet Estimate RBC Morphology D-Dimer, Quantitative Sodium Potassium Chloride Carbon Dioxide Anion Gap BUN Creatinine Est GFR ( Amer) Est GFR (Non-Af Amer) POC Glucose (mg/dL) Random Glucose Lactic Acid Calcium Phosphorus Magnesium Total Bilirubin AST ALT Alkaline Phosphatase Total Protein Albumin Globulin Albumin/Globulin Ratio Lipase Urine Color Mckenna Urine Clarity Hazy Urine pH 6.0 Ur Specific Alto 1.020 Urine Protein Negative Urine Glucose (UA) Normal Urine Ketones 1+ H Urine Blood Negative Urine Nitrate Negative Urine Bilirubin Negative Urine Urobilinogen 2.0 Ur Leukocyte Esterase Trace Urine WBC (Auto) 2 Urine RBC (Auto) 1 Hyaline Casts 3-5 H Urine Osmolality 629 Ur Random Sodium 39 Ur Random Potassium 38.6 06/16/18 06/16/18 11:06 11:06 WBC RBC Hgb Hct MCV MCH MCHC RDW Plt Count MPV Neut % (Auto) Lymph % (Auto) Potter % (Auto) Eos % (Auto) Baso % (Auto) Neut # (Auto) Lymph # (Auto) Potter # (Auto) Eos # (Auto) Baso # (Auto) Neutrophils % (Manual) Band Neutrophils % Lymphocytes % (Manual) Monocytes % (Manual) Eosinophils % (Manual) Platelet Estimate RBC Morphology D-Dimer, Quantitative 3849 H Sodium Potassium Chloride Carbon Dioxide Anion Gap BUN Creatinine Est GFR ( Amer) Est GFR (Non-Af Amer) POC Glucose (mg/dL) Random Glucose Lactic Acid 2.1 Calcium Phosphorus Magnesium Total Bilirubin AST ALT Alkaline Phosphatase Total Protein Albumin Globulin Albumin/Globulin Ratio Lipase Urine Color Urine Clarity Urine pH Ur Specific Alto Urine Protein Urine Glucose (UA) Urine Ketones Urine Blood Urine Nitrate Urine Bilirubin Urine Urobilinogen Ur Leukocyte Esterase Urine WBC (Auto) Urine RBC (Auto) Hyaline Casts Urine Osmolality Ur Random Sodium Ur Random Potassium Assessment & Plan - Assessment and Plan (Free Text) Assessment: Patient is a 37 year old male s/p lap kevin, POD #8 Plan: Sepsis Leukocytosis 37.3; HR 105; mesenteric/peritoneal fat stranding on A/P CT Lactate WNL Hemodynamically stable Abx per ID Recommend repeat CT Hyponatremia Per nephro ICU management not indicated at this time Discussed w/ Dr. Camp -Gretchen Galdamez, PGY-1 <José Miguel Camp - Last Filed: 06/16/18 17:18> Meds - Medications Medications: Current Medications Benzocaine/Menthol (Cepacol Sore Throat) 1 sarah MT Q2H PRN PRN Reason: Sore Throat Docusate Sodium (Colace) 100 mg PO TID [facility] Last Admin: 06/16/18 14:32 Dose: 100 mg Enoxaparin Sodium (Lovenox) 40 mg SC DAILY [facility] Last Admin: 06/16/18 11:00 Dose: 40 mg Metronidazole (Flagyl) 500 mg in 100 mls @ 100 mls/hr IVPB Q8H [facility]; Protocol Last Admin: 06/16/18 10:00 Dose: 100 mls/hr Fluconazole 100 mg/ (Miscellaneous) 50 mls @ 100 mls/hr IVPB DAILY [facility]; Protocol Meropenem 1 gm/ Sodium (Chloride) 100 mls @ 100 mls/hr IVPB Q8H [facility]; Protocol Last Admin: 06/16/18 16:41 Dose: 100 mls/hr Sodium Chloride (Sodium Chloride 0.9%) 1,000 mls @ 125 mls/hr IV .Q8H ONE Stop: 06/16/18 18:13 Last Admin: 06/16/18 10:45 Dose: 125 mls/hr Vancomycin HCl 1,000 mg/ (Sodium Chloride) 250 mls @ 166.6 mls/hr IVPB Q12H [facility]; Protocol Metoclopramide HCl (Reglan) 10 mg IVP Q8H [facility] Last Admin: 06/16/18 12:23 Dose: 10 mg Ondansetron HCl (Zofran Inj) 4 mg IVP Q4H PRN PRN Reason: Nausea/Vomiting Last Admin: 06/11/18 00:52 Dose: 4 mg Oxycodone/Acetaminophen (Percocet 5/325 Mg Tab) 1 tab PO Q4H PRN PRN Reason: Pain, moderate (4-7) Stop: 06/17/18 21:20 Last Admin: 06/16/18 07:18 Dose: 1 tab Pantoprazole Sodium (Protonix Inj) 40 mg IVP DAILY [facility] Last Admin: 06/16/18 10:28 Dose: 40 mg Simethicone (Mylicon Chew Tab) 80 mg PO DAILY PRN PRN Reason: GI distress Last Admin: 06/13/18 14:52 Dose: 80 mg Results - Vital Signs Recent Vital Signs: Last Vital Signs Temp 99.6 F 06/16/18 16:00 Pulse 111 H 06/16/18 16:00 Resp 20 06/16/18 16:00 BP 122/74 06/16/18 16:00 Pulse Ox 97 06/16/18 16:00 - Labs Result Diagrams: 06/16/18 06:10 06/16/18 06:10 Labs: Laboratory Results - last 24 hr 06/15/18 06/16/18 06/16/18 06:30 06:10 06:10 WBC 37.3 H* RBC 3.96 L Hgb 12.2 Hct 36.0 MCV 90.9 MCH 30.8 MCHC 33.8 RDW 13.6 Plt Count 518 H MPV 8.1 Neut % (Auto) 91.2 H Lymph % (Auto) 2.7 L Potter % (Auto) 5.1 Eos % (Auto) 0.8 Baso % (Auto) 0.2 Neut # (Auto) 34.0 H Lymph # (Auto) 1.0 Potter # (Auto) 1.9 H Eos # (Auto) 0.3 Baso # (Auto) 0.1 Neutrophils % (Manual) 83 H Band Neutrophils % 8 H Lymphocytes % (Manual) 2 L Monocytes % (Manual) 5 Eosinophils % (Manual) 2 Platelet Estimate Increased H RBC Morphology Normal D-Dimer, Quantitative Sodium 126 L Potassium 3.6 Chloride 96 L Carbon Dioxide 23 Anion Gap 11 BUN 8 L Creatinine 0.6 L Est GFR ( Amer) > 60 Est GFR (Non-Af Amer) > 60 POC Glucose (mg/dL) Random Glucose 93 Serum Osmolality Lactic Acid Calcium 7.4 L Phosphorus 2.8 Magnesium 2.2 Total Bilirubin 0.9 AST 80 H D ALT 45 Alkaline Phosphatase 361 H D Total Protein 5.5 L Albumin 2.7 L Globulin 2.9 Albumin/Globulin Ratio 0.9 L Lipase 507 H Urine Color Urine Clarity Urine pH Ur Specific Alto Urine Protein Urine Glucose (UA) Urine Ketones Urine Blood Urine Nitrate Urine Bilirubin Urine Urobilinogen Ur Leukocyte Esterase Urine WBC (Auto) Urine RBC (Auto) Hyaline Casts Urine Osmolality Ur Random Sodium Ur Random Potassium HIV 1&2 Ag/Ab, 4th Gen Nonreactive Ur L.pneumophila Ag 06/16/18 06/16/18 06/16/18 08:21 09:46 09:46 WBC RBC Hgb Hct MCV MCH MCHC RDW Plt Count MPV Neut % (Auto) Lymph % (Auto) Potter % (Auto) Eos % (Auto) Baso % (Auto) Neut # (Auto) Lymph # (Auto) Potter # (Auto) Eos # (Auto) Baso # (Auto) Neutrophils % (Manual) Band Neutrophils % Lymphocytes % (Manual) Monocytes % (Manual) Eosinophils % (Manual) Platelet Estimate RBC Morphology D-Dimer, Quantitative Sodium Potassium Chloride Carbon Dioxide Anion Gap BUN Creatinine Est GFR ( Amer) Est GFR (Non-Af Amer) POC Glucose (mg/dL) 161 H Random Glucose Serum Osmolality Lactic Acid Calcium Phosphorus Magnesium Total Bilirubin AST ALT Alkaline Phosphatase Total Protein Albumin Globulin Albumin/Globulin Ratio Lipase Urine Color Mckenna Urine Clarity Hazy Urine pH 6.0 Ur Specific Alto 1.020 Urine Protein Negative Urine Glucose (UA) Normal Urine Ketones 1+ H Urine Blood Negative Urine Nitrate Negative Urine Bilirubin Negative Urine Urobilinogen 2.0 Ur Leukocyte Esterase Trace Urine WBC (Auto) 2 Urine RBC (Auto) 1 Hyaline Casts 3-5 H Urine Osmolality Ur Random Sodium Ur Random Potassium HIV 1&2 Ag/Ab, 4th Gen Ur L.pneumophila Ag Negative 06/16/18 06/16/18 06/16/18 09:46 09:46 11:06 WBC RBC Hgb Hct MCV MCH MCHC RDW Plt Count MPV Neut % (Auto) Lymph % (Auto) Potter % (Auto) Eos % (Auto) Baso % (Auto) Neut # (Auto) Lymph # (Auto) Potter # (Auto) Eos # (Auto) Baso # (Auto) Neutrophils % (Manual) Band Neutrophils % Lymphocytes % (Manual) Monocytes % (Manual) Eosinophils % (Manual) Platelet Estimate RBC Morphology D-Dimer, Quantitative 3849 H Sodium Potassium Chloride Carbon Dioxide Anion Gap BUN Creatinine Est GFR ( Amer) Est GFR (Non-Af Amer) POC Glucose (mg/dL) Random Glucose Serum Osmolality Lactic Acid Calcium Phosphorus Magnesium Total Bilirubin AST ALT Alkaline Phosphatase Total Protein Albumin Globulin Albumin/Globulin Ratio Lipase Urine Color Urine Clarity Urine pH Ur Specific Alto Urine Protein Urine Glucose (UA) Urine Ketones Urine Blood Urine Nitrate Urine Bilirubin Urine Urobilinogen Ur Leukocyte Esterase Urine WBC (Auto) Urine RBC (Auto) Hyaline Casts Urine Osmolality 629 Ur Random Sodium 39 Ur Random Potassium 38.6 HIV 1&2 Ag/Ab, 4th Gen Ur L.pneumophila Ag 06/16/18 06/16/18 11:06 13:54 WBC RBC Hgb Hct MCV MCH MCHC RDW Plt Count MPV Neut % (Auto) Lymph % (Auto) Potter % (Auto) Eos % (Auto) Baso % (Auto) Neut # (Auto) Lymph # (Auto) Potter # (Auto) Eos # (Auto) Baso # (Auto) Neutrophils % (Manual) Band Neutrophils % Lymphocytes % (Manual) Monocytes % (Manual) Eosinophils % (Manual) Platelet Estimate RBC Morphology D-Dimer, Quantitative Sodium Potassium Chloride Carbon Dioxide Anion Gap BUN Creatinine Est GFR ( Amer) Est GFR (Non-Af Amer) POC Glucose (mg/dL) Random Glucose Serum Osmolality 264 L Lactic Acid 2.1 Calcium Phosphorus Magnesium Total Bilirubin AST ALT Alkaline Phosphatase Total Protein Albumin Globulin Albumin/Globulin Ratio Lipase Urine Color Urine Clarity Urine pH Ur Specific Alto Urine Protein Urine Glucose (UA) Urine Ketones Urine Blood Urine Nitrate Urine Bilirubin Urine Urobilinogen Ur Leukocyte Esterase Urine WBC (Auto) Urine RBC (Auto) Hyaline Casts Urine Osmolality Ur Random Sodium Ur Random Potassium HIV 1&2 Ag/Ab, 4th Gen Ur L.pneumophila Ag Assessment & Plan - Assessment and Plan (Free Text) Plan: Patient seen and examined at bedside. PAtient remains afebrile, not in shock, not hypotensive. (+)flatus, (+)BM abd:soft slight tenderness near endoscopy site -lactic normal -continue abx as per ID -Patient will benefit from tele monitoring -Patient remains hemodynamically stable -continue gentle hydration -Please call ICU if patient's clinical status worsens. - Date & Time Date: 06/16/18 Time: 17:18
--- NOTE | 2018-06-16 13:29 | CP.PCM.PN ---
Subjective - Date & Time of Evaluation Date of Evaluation: 06/16/18 Time of Evaluation: 13:25 - Subjective Subjective: dictated Objective - Vital Signs/Intake and Output Vital Signs (last 24 hours): Temp Pulse Resp BP Pulse Ox 98.4 F 105 H 20 122/76 94 L 06/16/18 07:05 06/16/18 07:05 06/16/18 07:05 06/16/18 07:05 06/16/18 07:05 Intake and Output: 06/16/18 06/16/18 06:59 18:59 Intake Total 1500 600 Output Total 820 870 Balance 680 -270 - Medications Medications: Current Medications Benzocaine/Menthol (Cepacol Sore Throat) 1 sarah MT Q2H PRN PRN Reason: Sore Throat Docusate Sodium (Colace) 100 mg PO TID [facility] Last Admin: 06/16/18 10:25 Dose: 100 mg Enoxaparin Sodium (Lovenox) 40 mg SC DAILY [facility] Last Admin: 06/16/18 11:00 Dose: 40 mg Metronidazole (Flagyl) 500 mg in 100 mls @ 100 mls/hr IVPB Q8H [facility]; Protocol Last Admin: 06/16/18 10:00 Dose: 100 mls/hr Fluconazole 100 mg/ (Miscellaneous) 50 mls @ 100 mls/hr IVPB DAILY [facility]; Protocol Meropenem 1 gm/ Sodium (Chloride) 100 mls @ 100 mls/hr IVPB Q8H [facility]; Protocol Last Admin: 06/16/18 08:49 Dose: 100 mls/hr Vancomycin HCl 1,000 mg/ (Sodium Chloride) 250 mls @ 166.6 mls/hr IVPB Q12H [facility]; Protocol Sodium Chloride (Sodium Chloride 0.9%) 1,000 mls @ 125 mls/hr IV .Q8H ONE Stop: 06/16/18 18:13 Last Admin: 06/16/18 10:45 Dose: 125 mls/hr Fluconazole (Diflucan Iv 200 Mg/100 Ml Ns) 100 mls @ 100 mls/hr IVPB DAILY [facility]; Protocol Stop: 06/16/18 13:59 Metoclopramide HCl (Reglan) 10 mg IVP Q8H [facility] Last Admin: 06/16/18 12:23 Dose: 10 mg Ondansetron HCl (Zofran Inj) 4 mg IVP Q4H PRN PRN Reason: Nausea/Vomiting Last Admin: 06/11/18 00:52 Dose: 4 mg Oxycodone/Acetaminophen (Percocet 5/325 Mg Tab) 1 tab PO Q4H PRN PRN Reason: Pain, moderate (4-7) Stop: 06/17/18 21:20 Last Admin: 06/16/18 07:18 Dose: 1 tab Pantoprazole Sodium (Protonix Inj) 40 mg IVP DAILY [facility] Last Admin: 06/16/18 10:28 Dose: 40 mg Simethicone (Mylicon Chew Tab) 80 mg PO DAILY PRN PRN Reason: GI distress Last Admin: 06/13/18 14:52 Dose: 80 mg - Labs Labs: 06/16/18 06:10 06/16/18 06:10 PT 12.5 SECONDS (9.7-12.2) H 06/06/18 05:51 INR 1.1 06/06/18 05:51 APTT 30 SECONDS (21-34) 06/06/18 05:51
[2018-06-16] MEDS ORDERED: Iohexol 240 (50 ml) PO ONE (14:00)
[2018-06-16] MEDS ORDERED: Iodixanol 320 MG/ML 100 ML BOTTLE IV ONE (15:50)
--- NOTE | 2018-06-16 15:57 | PN ---
DATE: 06/16/2018 INFECTIOUS DISEASE FOLLOWUP SUBJECTIVE: Yesterday, his white count was coming down however, today the resident Rc who is rotating through Surgery, reported to me that his white count has gone up and so I came to see him and we made some changes in the IV antibiotics, vancomycin was somehow discontinued, so I renewed it. He has no problems with the antibiotics. He did say that this morning he was a little dizzy and nauseous. His T-max is 99.8 and this happened yesterday. He does complain of abdominal pain which is 4/10. He is waiting to get CAT scans done as his white count went up dramatically. He did have two BMs yesterday. He said they were normal and he has no leg pains. Does complain of mild abdominal pain. He does say that when he takes a deep breath, abdomen hurts and otherwise he is comfortable at this time. I told him to be n.p.o. as he is going for a CT scan and not to take the food and his medication list we have added. He is on Colace, Lovenox was added on 06/15/2018, fluconazole we just added, he is going to get the first dose today. He is on Merrem now 1 g every 8 hours ordered at 08:30 this morning and he is on Reglan, Flagyl, Zofran, Percocet for pain, Protonix, Mylicon, sodium chloride. Vancomycin was discontinued, we added it back at this time. The Zosyn was discontinued and changed to meropenem, as the white count has increased, on my recommendation. PHYSICAL EXAMINATION: VITAL SIGNS: Today he is afebrile. Incidentally he has been afebrile all along, heart rate is 105, blood pressure 122.76, respirations are 20, saturation 94%. On examination, vitals are stable except that he is a little tachycardic. GENERAL: He is alert, oriented x3. He denies any nausea and vomiting. HEENT: Head is atraumatic, normocephalic. Tongue is still dry. He is getting IV fluids. NECK: Supple. LUNGS: Clear. Decreased breath sounds bilaterally on both bases, especially left. HEART: S1, S2 is tachy. ABDOMEN: Remains at this time mild distention and no guarding, no rigidity. He has severe induration and ecchymosis in the lower abdomen which seems to be less indurated, but there is some induration at the lower skin and where they have introduced the trocar, there is some induration around that surgical scar. EXTREMITIES: Remain without edema and swelling. LABORATORY DATA: Labs are noted. White count is 37.3, hemoglobin 12.2, hematocrit 36, platelet count is 518, bands are 8 today, and platelets have increased. His D-dimers were 38, 49. We ordered Dopplers also so that he do a complete workup. UA came out to be WBC 2, RBC 1, hyaline cast 3-5. Nephrology has been called in and I also did a urine osmolality which is 629 and serum osmolality needs to be done. Lactic acid is 2.1. Also ordered HIV test which is nonreactive. Urine Legionella is negative. I also ordered a procalcitonin level. His hepatitis profile is negative. So at this time the other reports, we had Dopplers and he is going to get abdominal CT done again and we have called in an ICU eval as his white count is also increasing. He did have effusion on the left lung last time with pneumonia developing. We will need to see what the pay station department manager recommends and at this time, waiting for the CT scan. note from 06/15/2018 is noted. He writes large but not tender periumbilical mass, probably a hematoma not a hernia as evident by a large ecchymosis around the area and no surgical intervention. But at this time since white count has gone up, we are waiting for further results and to continue all these antibiotics at this time. Repeating the septic workup again and incentive spirometry and also in follow-up procalcitonin level. Surprisingly, the patient is not having that much reaction; he is not having any fevers in spite of having this high white count, so I am wondering if he is developing C diff also. If he continues to have, we will see what the CT scan reveals and there is Flagyl on board for now, so we will follow. IMPRESSION: Postop leukocytosis with hematoma, ecchymosis of the lower abdominal wall and status post abdominal surgery with left lung infiltrate and effusion. Vernon Hendricks MD [facility] # [id number]
[2018-06-16] MEDS: Sodium Chloride 0.9% 1,000 ML IV SCH (23:11)
[2018-06-17] MEDS: Meropenem 1 GM in Sodium Chloride 0.9% 100 ML IVPB SCH ×3 (00:15→18:05)
[2018-06-17] MEDS: metroNIDAZOLE IV 500 mg/100 ml 500 MG/100 ML BAG IVPB SCH ×3 (01:48→17:05)
[2018-06-17] MEDS: Oxycodone/Acetaminophen 5/325 mg Tab PO PRN (03:48)
[2018-06-17 07:28] LABS: BASO # 0.1 K/uL (0.0-0.2); BASO % 0.3 % (0.0-2.0); EOS # 0.2 K/uL (0.0-0.7); EOS % 0.5 % (0.0-4.0); HEMOGLOBIN 11.2 g/dL (12.0-18.0); LYMPH # 1.2 K/uL (1.0-4.3); MEAN CELL VOLUME 91.8 fL (80.0-94.0); MEAN CORPUSCULAR HGB CONC 33.8 g/dL (33.0-37.0); MEAN PLATELET VOLUME 8.4 fL (7.2-11.7); MONO # 1.5 K/uL (0.0-0.8); MONO % 3.9 % (0.0-10.0); NEUT # 36.5 K/uL (1.8-7.0); NEUT % 92.3 % (50.0-75.0); PLATELET COUNT 526 K/uL (130-400); RBC 3.61 Mil/uL (4.40-5.90); RED CELL DISTRIBUTION WIDTH 13.9 % (11.5-14.5)
[2018-06-17 07:40] LABS: WHITE BLOOD COUNT 39.5 K/uL (4.8-10.8)
[2018-06-17 07:55] LABS: ALB/GLOB RATIO 0.8 (1.0-2.1); ALBUMIN 2.3 g/dL (3.5-5.0); ALT/SGPT 63 U/L (21-72); AST/SGOT 80 U/L (17-59); BLOOD UREA NITROGEN 7 mg/dL (9-20); GFR NON-AFRICAN AMERICAN > 60
[2018-06-17 08:39] LABS: BANDS 7 % (0-2); EOSINOPHIL 1 % (0-4); LYMPHOCYTE 2 % (20-40); MONOCYTE 2 % (0-10); NEUTROPHIL 87 % (50-75); REACTIVE LYMPHOCYTES 1 % (0-0); TOTAL CELLS COUNTED 100
[2018-06-17 08:40] LABS: ANISOCYTOSIS SLIGHT; HYPOCHROMIC SLIGHT; LARGE PLATELETS PRESENT; PLATELET ESTIMATE INCREASED (NORMAL); POIKILOCYTOSIS SLIGHT
[2018-06-17] MEDS: Sodium Chloride 0.9% 1,000 ML IV SCH ×3 (10:01→22:23)
[2018-06-17] MEDS: Fluconazole IV 200mg/100 ml NS 100 MG in Premixed IV 1 EA IVPB SCH (10:30)
[2018-06-17] MEDS ORDERED: Midazolam 2 MG/2 ML VIAL ONE (10:44)
[2018-06-17] MEDS ORDERED: Propofol 10 mg/ml Inj (20 ML) ONE (10:44)
[2018-06-17] MEDS ORDERED: Succinylcholine Chloride 20 mg/ml Syr (5 ml) IV ONE (10:45)
[2018-06-17] MEDS ORDERED: Rocuronium 10 mg/ml (10 ml) ONE (11:00)
[2018-06-17] MEDS ORDERED: Neostigmine 1:1000 (1 mg/ml) Inj ONE (12:02)
[2018-06-17] MEDS ORDERED: Dexamethasone 4 mg/1 ml IVP PRN (12:46)
[2018-06-17] MEDS: HYDROmorphone 0.5 mg/0.5 ml ISec IVP PRN ×6 (12:47→22:28)
[2018-06-17] MEDS ORDERED: HYDROmorphone 0.5 mg/0.5 ml ISec ONE (12:48)
[2018-06-17] MEDS ORDERED: Lactated Ringer's 1,000 ML IV SCH (13:00)
--- NOTE | 2018-06-17 13:16 | VASCLAB ---
Date of service: 06/16/2018 PROCEDURE: Lower Extremity Venous Duplex Exam. HISTORY: LE swelling. PRIORS: None. TECHNIQUE: Bilateral common femoral, femoral, popliteal and posterior tibial, peroneal and great saphenous veins were evaluated. Flow was assessed with color Doppler, compressibility, assessment of phasic flow and augmentation response. Report prepared by Dhaval Wong, BS, RVT FINDINGS: RIGHT: 1. Common Femoral Vein: 1.1. Compressibility - Fully compressible: Thrombus - None : Flow - Phasic: Augmentation -Normal: Reflux - None. 2. Femoral Vein: 2.1. Compressibility - Fully compressible: Thrombus - None : Flow - Phasic: Augmentation -Normal: Reflux - None. 3. Popliteal Vein: 3.1. Compressibility - Fully compressible: Thrombus - None : Flow - Phasic: Augmentation -Normal: Reflux - None. 4. Posterior Tibial Vein: 4.1. Compressibility - Fully compressible: Thrombus - None: Flow - Phasic: Augmentation -Normal: Reflux - None. 5. Peroneal Vein: 5.1. Compressibility - Fully compressible: Thrombus - None: Flow - Phasic: Augmentation -Normal: Reflux - None. 6. Great Saphenous Vein: 6.1. Compressibility - Fully compressible: Thrombus - None: Flow - Phasic: Augmentation - Normal: Reflux - None. LEFT: 1. Common Femoral Vein: 1.1. Compressibility - Fully compressible: Thrombus - None: Flow - Phasic: Augmentation -Normal: Reflux - None. 2. Femoral Vein: 2.1. Compressibility - Fully compressible: Thrombus - None: Flow - Phasic: Augmentation -Normal: Reflux - None. 3. Popliteal Vein: 3.1. Compressibility - Fully compressible: Thrombus - None : Flow - Phasic: Augmentation -Normal: Reflux - None. 4. Posterior Tibial Vein: 4.1. Compressibility - Fully compressible: Thrombus - None: Flow - Phasic: Augmentation -Normal: Reflux - None. 5. Peroneal Vein: 5.1. Compressibility - Fully compressible: Thrombus - None: Flow - Phasic: Augmentation -Normal: Reflux - None. 6. Great Saphenous Vein: 6.1. Compressibility - Fully compressible: Thrombus - None: Flow - Phasic: Augmentation - Normal: Reflux - None. OTHER FINDINGS: None significant. IMPRESSION: Right: No evidence of deep or superficial vein thrombosis of the right lower extremity. Normal valve function noted of the right side. Left: No evidence of deep or superficial vein thrombosis of the left lower extremity. Normal valve function noted of the left side.
--- NOTE | 2018-06-17 13:38 | PCM.SURG1 ---
Surgeon's Initial Post Op Note - Surgeon's Notes Surgeon: Dr. Monreal Warp Scouring Vat Tender: Dr. Greco, Dr. Luther Type of Anesthesia: General Endo Pre-Operative Diagnosis: intra-abdominal sepsis Operative Findings: intra-abdominal abscesses, subcutaneous abscess and sucus, bowel perforation as well as bowel incorporation into prior fascial closure Post-Operative Diagnosis: bowel perforation, intra-abdominal abscesses Operation Performed: exploratory laparotomy, lysis of dense adhesions, evacuation of intra-abdominal and subcutaneous abscesses, staple enterorrhaphy of a large small bowel perforation, abdominal wash out with Aricept irrigation Specimen/Specimens Removed: portion of small bowel Estimated Blood Loss: EBL {In ML}: 100 Blood Products Given: N/A Drains Used: No Drains Date of Surgery/Procedure: 06/17/18 Time of Surgery/Procedure: 12:30
[2018-06-17 13:57] LABS: BASO # 0.1 K/uL (0.0-0.2); BASO % 0.2 % (0.0-2.0); EOS # 0.1 K/uL (0.0-0.7); EOS % 0.3 % (0.0-4.0); HEMOGLOBIN 11.3 g/dL (12.0-18.0); LYMPH # 0.8 K/uL (1.0-4.3); LYMPH % 2.2 % (20.0-40.0); MEAN CELL VOLUME 90.9 fL (80.0-94.0); MEAN CORPUSCULAR HGB CONC 32.9 g/dL (33.0-37.0); MEAN PLATELET VOLUME 7.9 fL (7.2-11.7); MONO # 1.5 K/uL (0.0-0.8); MONO % 4.1 % (0.0-10.0); NEUT # 33.8 K/uL (1.8-7.0); NEUT % 93.2 % (50.0-75.0); PLATELET COUNT 548 K/uL (130-400); RBC 3.76 Mil/uL (4.40-5.90); RED CELL DISTRIBUTION WIDTH 13.9 % (11.5-14.5); WHITE BLOOD COUNT 36.3 K/uL (4.8-10.8)
[2018-06-17 14:18] LABS: BANDS 8 % (0-2); LYMPHOCYTE 2 % (20-40); MONOCYTE 4 % (0-10); NEUTROPHIL 85 % (50-75); PLATELET ESTIMATE INCREASED (NORMAL); REACTIVE LYMPHOCYTES 1 % (0-0); TOTAL CELLS COUNTED 100
[2018-06-17 14:19] LABS: LARGE PLATELETS PRESENT
--- NOTE | 2018-06-17 14:26 | CT ---
Date of service: 06/16/2018 PROCEDURE: CT Chest, Abdomen and Pelvis with intravenous contrast HISTORY: r/o abd path, r/o pna COMPARISON: None available. TECHNIQUE: IV dose administered: 100 mL Visipaque 320 Radiation dose: Total exam DLP = 1159.16 mGy-cm. This CT exam was performed using one or more of the following dose reduction techniques: Automated exposure control, adjustment of the mA and/or kV according to patient size, and/or use of iterative reconstruction technique. FINDINGS: CT CHEST WITH CONTRAST: LUNGS: Bilateral lower lobe subsegmental atelectasis, left greater than right. Small left pleural effusion. No right pleural effusion. MEDIASTINUM: Mild elevation of the left hemidiaphragm. There is some shift of the heart and mediastinum towards the right side. LYMPH NODES: Unremarkable. PLEURA: Small left pleural effusion. No pneumothorax. BONES: Unremarkable. OTHER FINDINGS: None. CT ABDOMEN AND PELVIS: LIVER: The liver is normal in size. There is a collection of low-density material along the left lateral aspect of the left hepatic lobe. Given the speed with which this has appeared since the examination of 06/10/2018, this likely represents loculated ascites, likely secondary to adhesions from prior surgery. No biliary ductal dilatation. Smooth contour. GALLBLADDER AND BILE DUCTS: Cholecystectomy. Trace fluid in gallbladder fossa. PANCREAS: Unremarkable. No gross lesion or ductal dilatation. SPLEEN: Normal size. The contour of the spleen is abnormal as it is being compressed from multiple sites by loculated fluid likely a result of intraperitoneal adhesions. Alternatively, this could represent mucin but the repeatedly with which this has appeared since examination of 06/10/2018 suggests that this is unlikely. ADRENALS: Unremarkable. No mass. KIDNEYS AND URETERS: Stable 1.7 cm rounded low-density mass in the upper pole left kidney. No other mass. No calculus or hydronephrosis. VASCULATURE: There is atherosclerotic calcification of the abdominal aorta. No aortic aneurysm. BOWEL: No bowel obstruction. There is a loop of small bowel adjacent to the left anterior abdominal wall. Adjacent to this loop of bowel there is soft tissue density with a small amorphous collection of oral contrast material extending into the abdominal wall, consistent with a fistula or sinus tract arising from this loop of small bowel. There is a surgical clips seen precisely at the site of this collection. Possible small abscess in this location. There is gas seen in the most inferior aspect of this soft tissue density along the anterior abdominal wall. APPENDIX: Normal appendix. PERITONEUM: Loculated fluid collections in the upper abdomen with mass effect upon the left lobe of the liver and upon the spleen in a fashion suggesting a possible subcapsular component. However, more likely, since this extends beyond the confines of the affected viscera, these represent loculated collections secondary to intraperitoneal adhesions. There is a small collection along the anterior aspect of the left hepatic lobe. There is a collection along the left anterior abdominal wall. There are several mesenteric collections. There is no generalized ascites. There is a surgical drain in the right abdomen. LYMPH NODES: Shotty retroperitoneal and pelvic lymph nodes. No significant bulky retroperitoneal or pelvic lymphadenopathy. BLADDER: Unremarkable. REPRODUCTIVE: Normal prostate BONES: No acute fracture. OTHER FINDINGS: None. IMPRESSION: Bilateral lower lobe subsegmental atelectasis, left greater than right. Small left pleural effusion. Elevated left hemidiaphragm with mild shift of heart and mediastinum towards the right. Tense loculated fluid collections in the upper abdomen adjacent to the liver, around the spleen, along the left anterior abdominal wall and multiple smaller mesenteric collections are identified. These are likely loculated collections secondary to intra-abdominal adhesions. Unlikely that these represent abscesses. There is a sinus tract or fistula from a loop of small bowel along the left anterior abdominal wall with associated soft tissue density extending into the left rectus muscle and a small amount of gas, likely reflecting an acute infectious process, possibly phlegmon or abscess. These findings were discussed by telephone with Dr. Alexander ross at 2:10 p.m. on 06/17/2018. The preliminary findings for this examination were reported by [facility] at 8:07 p.m. on 06/16/2018. There is discordance of this report with the preliminary findings. Unlikely that these fluid collections in the peritoneal cavity represent abscesses. Sinus tract or fistula in the left anterior abdominal wall rather than herniated small bowel loop. No evidence of gastroenteritis.
[2018-06-17 14:34] LABS: ALB/GLOB RATIO 0.9 (1.0-2.1); ALBUMIN 2.4 g/dL (3.5-5.0); ALT/SGPT 57 U/L (21-72); AST/SGOT 83 U/L (17-59); BLOOD UREA NITROGEN 8 mg/dL (9-20); CALCIUM 7.1 mg/dl (8.6-10.4); GFR NON-AFRICAN AMERICAN > 60
[2018-06-17] MEDS: HYDROmorphone 1 mg/ml ISec IVP PRN (20:39)
[2018-06-18] MEDS: Meropenem 1 GM in Sodium Chloride 0.9% 100 ML IVPB SCH ×3 (00:55→17:07)
[2018-06-18] MEDS: metroNIDAZOLE IV 500 mg/100 ml 500 MG/100 ML BAG IVPB SCH ×3 (02:17→17:08)
[2018-06-18] MEDS: HYDROmorphone 0.5 mg/0.5 ml ISec IVP PRN (05:26)
[2018-06-18] MEDS: Sodium Chloride 0.9% 1,000 ML IV SCH ×3 (07:05→22:14)
[2018-06-18 07:08] LABS: BASO # 0.1 K/uL (0.0-0.2); BASO % 0.2 % (0.0-2.0); EOS # 0.1 K/uL (0.0-0.7); EOS % 0.2 % (0.0-4.0); LYMPH # 1.4 K/uL (1.0-4.3); LYMPH % 3.6 % (20.0-40.0); MEAN CELL VOLUME 91.6 fL (80.0-94.0); MEAN CORPUSCULAR HEMOGLOBIN 30.4 pg (27.0-31.0); MEAN CORPUSCULAR HGB CONC 33.1 g/dL (33.0-37.0); MEAN PLATELET VOLUME 8.6 fL (7.2-11.7); MONO # 1.8 K/uL (0.0-0.8); MONO % 4.6 % (0.0-10.0); NEUT # 35.6 K/uL (1.8-7.0); NEUT % 91.4 % (50.0-75.0); PLATELET COUNT 576 K/uL (130-400); RBC 3.61 Mil/uL (4.40-5.90)
[2018-06-18 07:30] LABS: ALB/GLOB RATIO 0.8 (1.0-2.1); ALBUMIN 2.2 g/dL (3.5-5.0); ALT/SGPT 44 U/L (21-72); AST/SGOT 56 U/L (17-59); BLOOD UREA NITROGEN 9 mg/dL (9-20); CALCIUM 6.7 mg/dl (8.6-10.4); GFR NON-AFRICAN AMERICAN > 60
[2018-06-18] MEDS: HYDROmorphone 1 mg/ml ISec IVP PRN ×3 (08:24→20:16)
--- NOTE | 2018-06-18 08:47 | CP.PCM.PN ---
Subjective - Date & Time of Evaluation Date of Evaluation: 06/18/18 Time of Evaluation: 06:55 - Subjective Subjective: General Surgery progress note for Dr. Monreal Patient seen and examined this am. states he feels much better than prior to surgery. UOP adequate overnight, no fevers. Pt otherwise denies BUENROSTRO, CP, SOB, n/v, f/c. Objective - Vital Signs/Intake and Output Vital Signs (last 24 hours): Temp Pulse Resp BP Pulse Ox 98.4 F 119 H 20 115/81 95 06/17/18 23:15 06/17/18 23:47 06/17/18 23:15 06/17/18 23:15 06/17/18 23:15 - Medications Medications: Current Medications Benzocaine/Menthol (Cepacol Sore Throat) 1 sarah MT Q2H PRN PRN Reason: Sore Throat Docusate Sodium (Colace) 100 mg PO TID [facility] Last Admin: 06/17/18 20:36 Dose: 100 mg Enoxaparin Sodium (Lovenox) 40 mg SC DAILY [facility] Hydromorphone HCl (Dilaudid) 0.5 mg IVP Q4H PRN PRN Reason: Pain, moderate (4-7) Last Admin: 06/18/18 05:26 Dose: 0.5 mg Hydromorphone HCl (Dilaudid) 1 mg IVP Q4H PRN PRN Reason: Pain, severe (8-10) Last Admin: 06/18/18 08:24 Dose: 1 mg Metronidazole (Flagyl) 500 mg in 100 mls @ 100 mls/hr IVPB Q8H [facility]; Protocol Last Admin: 06/18/18 02:17 Dose: 100 mls/hr Fluconazole 100 mg/ (Miscellaneous) 50 mls @ 100 mls/hr IVPB DAILY [facility]; Protocol Last Admin: 06/17/18 10:30 Dose: 100 mls Meropenem 1 gm/ Sodium (Chloride) 100 mls @ 100 mls/hr IVPB Q8H [facility]; Protocol Last Admin: 06/18/18 00:55 Dose: 100 mls/hr Sodium Chloride (Sodium Chloride 0.9%) 1,000 mls @ 125 mls/hr IV .Q8H [facility] Last Admin: 06/18/18 07:05 Dose: 125 mls/hr Vancomycin HCl 1,000 mg/ (Sodium Chloride) 250 mls @ 166.6 mls/hr IVPB Q12H [facility]; Protocol Last Admin: 06/18/18 07:03 Dose: 166.6 mls/hr Lactated Ringer's (Lactated Ringer's) 1,000 mls @ 100 mls/hr IV .Q10H [facility] Last Admin: 06/18/18 00:18 Dose: Not Given Metoclopramide HCl (Reglan) 10 mg IVP Q8H [facility] Last Admin: 06/18/18 04:22 Dose: 10 mg Ondansetron HCl (Zofran Inj) 4 mg IVP Q4H PRN PRN Reason: Nausea/Vomiting Last Admin: 06/11/18 00:52 Dose: 4 mg Pantoprazole Sodium (Protonix Inj) 40 mg IVP DAILY [facility] Last Admin: 06/17/18 10:09 Dose: Not Given Simethicone (Mylicon Chew Tab) 80 mg PO DAILY PRN PRN Reason: GI distress Last Admin: 06/13/18 14:52 Dose: 80 mg - Labs Labs: 06/18/18 06:54 06/18/18 06:54 PT 12.5 SECONDS (9.7-12.2) H 06/06/18 05:51 INR 1.1 06/06/18 05:51 APTT 30 SECONDS (21-34) 06/06/18 05:51 - Constitutional Appears: Well, Non-toxic, No Acute Distress - Head Exam Head Exam: ATRAUMATIC, NORMOCEPHALIC - Eye Exam Eye Exam: EOMI - ENT Exam ENT Exam: Mucous Membranes Moist - Respiratory Exam Respiratory Exam: NORMAL BREATHING PATTERN - Cardiovascular Exam Cardiovascular Exam: REGULAR RHYTHM - GI/Abdominal Exam GI & Abdominal Exam: Soft, Tenderness (appropriate). absent: Guarding Additional comments: dressings cdi over incision, dressing ocer prior drain site with moderate strikethrough - Extremities Exam Extremities Exam: absent: Calf Tenderness, Pedal Edema - Neurological Exam Neurological Exam: Alert, Awake, Oriented x3 - Psychiatric Exam Psychiatric exam: Normal Affect, Normal Mood - Skin Skin Exam: Dry, Intact, Normal Color, Warm Assessment and Plan - Assessment and Plan (Free Text) Assessment: 37 yr old male s/p Laparoscopic cholecystectomy 06/08, POD 10 and exploratory laparotomy POD 1 for fluid collections in abdomen and persistent leukocytosis Plan: - CBC, CMP this am - continue abx per ID recs - d/c barker - electrolytes repleted - encourage OOBTC - encourage IS use - encourage work with PT - will discuss with Dr. Jocelin Luther, PGY1
[2018-06-18] MEDS: Simethicone 80 mg Chewtab PO PRN (09:27)
[2018-06-18] MEDS: Potassium Chloride 20 mEq ER Tab PO SCH (09:27)
[2018-06-18] MEDS ORDERED: Enoxaparin 40 mg Syringe SC SCH (10:00)
[2018-06-18 10:41] LABS: BANDS 2 % (0-2); LYMPHOCYTE 7 % (20-40); MONOCYTE 5 % (0-10); NEUTROPHIL 86 % (50-75); TOTAL CELLS COUNTED 100
[2018-06-18 10:42] LABS: ANISOCYTOSIS SLIGHT; LARGE PLATELETS PRESENT; PLATELET ESTIMATE INCREASED (NORMAL)
[2018-06-18 10:43] LABS: HYPOCHROMIC SLIGHT; POLYCHROMIC SLIGHT
[2018-06-18 10:44] LABS: GIANT PLATELETS PRESENT
[2018-06-18 10:45] LABS: TOXIC GRANULATION PRESENT
[2018-06-18] MEDS: Fluconazole IV 200mg/100 ml NS 100 MG in Premixed IV 1 EA IVPB SCH (12:16)
--- NOTE | 2018-06-18 14:04 | CP.PCM.PN ---
Subjective - Date & Time of Evaluation Date of Evaluation: 06/18/18 Time of Evaluation: 14:03 - Subjective Subjective: Markedly distended and tympaniticwill julio npo for now and give some peristaltic agents Objective - Vital Signs/Intake and Output Vital Signs (last 24 hours): Temp Pulse Resp BP Pulse Ox 98.2 F 111 H 20 145/76 95 06/18/18 09:50 06/18/18 09:46 06/18/18 09:46 06/18/18 09:46 06/18/18 09:46 - Medications Medications: Current Medications Benzocaine/Menthol (Cepacol Sore Throat) 1 sarah MT Q2H PRN PRN Reason: Sore Throat Docusate Sodium (Colace) 100 mg PO TID [facility] Last Admin: 06/18/18 09:27 Dose: 100 mg Enoxaparin Sodium (Lovenox) 40 mg SC DAILY [facility] Last Admin: 06/18/18 09:28 Dose: 40 mg Hydromorphone HCl (Dilaudid) 0.5 mg IVP Q4H PRN PRN Reason: Pain, moderate (4-7) Last Admin: 06/18/18 05:26 Dose: 0.5 mg Hydromorphone HCl (Dilaudid) 1 mg IVP Q4H PRN PRN Reason: Pain, severe (8-10) Last Admin: 06/18/18 13:58 Dose: 1 mg Metronidazole (Flagyl) 500 mg in 100 mls @ 100 mls/hr IVPB Q8H [facility]; Protocol Last Admin: 06/18/18 10:55 Dose: 100 mls/hr Fluconazole 100 mg/ (Miscellaneous) 50 mls @ 100 mls/hr IVPB DAILY [facility]; Protocol Last Admin: 06/18/18 12:16 Dose: 100 mls/hr Meropenem 1 gm/ Sodium (Chloride) 100 mls @ 100 mls/hr IVPB Q8H [facility]; Protocol Last Admin: 06/18/18 09:25 Dose: 100 mls/hr Sodium Chloride (Sodium Chloride 0.9%) 1,000 mls @ 125 mls/hr IV .Q8H [facility] Last Admin: 06/18/18 07:05 Dose: 125 mls/hr Vancomycin HCl 1,000 mg/ (Sodium Chloride) 250 mls @ 166.6 mls/hr IVPB Q12H [facility]; Protocol Last Admin: 06/18/18 07:03 Dose: 166.6 mls/hr Metoclopramide HCl (Reglan) 10 mg IVP Q8H [facility] Last Admin: 06/18/18 12:25 Dose: 10 mg Ondansetron HCl (Zofran Inj) 4 mg IVP Q4H PRN PRN Reason: Nausea/Vomiting Last Admin: 06/11/18 00:52 Dose: 4 mg Pantoprazole Sodium (Protonix Inj) 40 mg IVP DAILY [facility] Last Admin: 06/18/18 09:27 Dose: 40 mg Potassium Chloride (K-Dur 20 Meq Er Tab) 40 meq PO DAILY [facility] Last Admin: 06/18/18 09:27 Dose: 40 meq Simethicone (Mylicon Chew Tab) 80 mg PO DAILY PRN PRN Reason: GI distress Last Admin: 06/18/18 09:27 Dose: 80 mg - Labs Labs: 06/18/18 06:54 06/18/18 06:54 PT 12.5 SECONDS (9.7-12.2) H 06/06/18 05:51 INR 1.1 06/06/18 05:51 APTT 30 SECONDS (21-34) 06/06/18 05:51
--- NOTE | 2018-06-18 14:38 | CP.PCM.PN ---
Subjective - Date & Time of Evaluation Date of Evaluation: 06/18/18 Time of Evaluation: 14:25 - Subjective Subjective: dictated Objective - Vital Signs/Intake and Output Vital Signs (last 24 hours): Temp Pulse Resp BP Pulse Ox 98.2 F 111 H 20 145/76 95 06/18/18 09:50 06/18/18 09:46 06/18/18 09:46 06/18/18 09:46 06/18/18 09:46 - Medications Medications: Current Medications Benzocaine/Menthol (Cepacol Sore Throat) 1 sarah MT Q2H PRN PRN Reason: Sore Throat Docusate Sodium (Colace) 100 mg PO TID [facility] Last Admin: 06/18/18 09:27 Dose: 100 mg Enoxaparin Sodium (Lovenox) 40 mg SC DAILY [facility] Last Admin: 06/18/18 09:28 Dose: 40 mg Hydromorphone HCl (Dilaudid) 0.5 mg IVP Q4H PRN PRN Reason: Pain, moderate (4-7) Last Admin: 06/18/18 05:26 Dose: 0.5 mg Hydromorphone HCl (Dilaudid) 1 mg IVP Q4H PRN PRN Reason: Pain, severe (8-10) Last Admin: 06/18/18 13:58 Dose: 1 mg Metronidazole (Flagyl) 500 mg in 100 mls @ 100 mls/hr IVPB Q8H [facility]; Protocol Last Admin: 06/18/18 10:55 Dose: 100 mls/hr Fluconazole 100 mg/ (Miscellaneous) 50 mls @ 100 mls/hr IVPB DAILY [facility]; Protocol Last Admin: 06/18/18 12:16 Dose: 100 mls/hr Meropenem 1 gm/ Sodium (Chloride) 100 mls @ 100 mls/hr IVPB Q8H [facility]; Protocol Last Admin: 06/18/18 09:25 Dose: 100 mls/hr Sodium Chloride (Sodium Chloride 0.9%) 1,000 mls @ 125 mls/hr IV .Q8H [facility] Last Admin: 06/18/18 07:05 Dose: 125 mls/hr Vancomycin HCl 1,400 mg/ (Sodium Chloride) 250 mls @ 166.6 mls/hr IVPB Q12H [facility]; Protocol Metoclopramide HCl (Reglan) 10 mg IVP Q8H [facility] Last Admin: 06/18/18 12:25 Dose: 10 mg Ondansetron HCl (Zofran Inj) 4 mg IVP Q4H PRN PRN Reason: Nausea/Vomiting Last Admin: 06/11/18 00:52 Dose: 4 mg Pantoprazole Sodium (Protonix Inj) 40 mg IVP DAILY [facility] Last Admin: 06/18/18 09:27 Dose: 40 mg Potassium Chloride (K-Dur 20 Meq Er Tab) 40 meq PO DAILY [facility] Last Admin: 06/18/18 09:27 Dose: 40 meq Simethicone (Mylicon Chew Tab) 80 mg PO DAILY PRN PRN Reason: GI distress Last Admin: 06/18/18 09:27 Dose: 80 mg - Labs Labs: 06/18/18 06:54 06/18/18 06:54 PT 12.5 SECONDS (9.7-12.2) H 06/06/18 05:51 INR 1.1 06/06/18 05:51 APTT 30 SECONDS (21-34) 06/06/18 05:51
--- NOTE | 2018-06-18 14:53 | RAD ---
Date of service: 06/18/2018 HISTORY: Post op COMPARISON: Comparison is made with 06/13/2018 TECHNIQUE: 1 view obtained. FINDINGS: LUNGS: Persistent hazy opacity at the left lower lung may represent atelectasis or infiltrate. PLEURA: Left pleural effusion is again noted. CARDIOVASCULAR: No aortic atherosclerotic calcification present. Normal cardiac size. No pulmonary vascular congestion. OSSEOUS STRUCTURES: No significant abnormalities. VISUALIZED UPPER ABDOMEN: Normal. OTHER FINDINGS: None. IMPRESSION: Persistent opacity at the left lower lung associated with left pleural effusion.
[2018-06-18] MEDS ORDERED: Iohexol 240 (50 ml) PO ONE (19:52)
[2018-06-18] MEDS ORDERED: Iodixanol 320 MG/ML 100 ML BOTTLE IV ONE (21:33)
--- NOTE | 2018-06-18 21:40 | CP.PCM.PN ---
Subjective - Date & Time of Evaluation Date of Evaluation: 06/18/18 Time of Evaluation: 21:38 - Subjective Subjective: marked distention remains. large amount of ilious drainage from wound suggestind anastomotic leak. will cancel ct scan and schedule for urgent laparotomy Objective - Vital Signs/Intake and Output Vital Signs (last 24 hours): Temp Pulse Resp BP Pulse Ox 99.4 F 115 H 22 120/70 96 06/18/18 15:00 06/18/18 18:57 06/18/18 15:00 06/18/18 15:00 06/18/18 15:00 - Medications Medications: Current Medications Benzocaine/Menthol (Cepacol Sore Throat) 1 sarah MT Q2H PRN PRN Reason: Sore Throat Docusate Sodium (Colace) 100 mg PO TID [facility] Last Admin: 06/18/18 17:21 Dose: Not Given Enoxaparin Sodium (Lovenox) 40 mg SC DAILY [facility] Last Admin: 06/18/18 09:28 Dose: 40 mg Hydromorphone HCl (Dilaudid) 0.5 mg IVP Q4H PRN PRN Reason: Pain, moderate (4-7) Last Admin: 06/18/18 05:26 Dose: 0.5 mg Hydromorphone HCl (Dilaudid) 1 mg IVP Q4H PRN PRN Reason: Pain, severe (8-10) Last Admin: 06/18/18 20:16 Dose: 1 mg Metronidazole (Flagyl) 500 mg in 100 mls @ 100 mls/hr IVPB Q8H [facility]; Protocol Last Admin: 06/18/18 17:08 Dose: 100 mls/hr Fluconazole 100 mg/ (Miscellaneous) 50 mls @ 100 mls/hr IVPB DAILY [facility]; Protocol Last Admin: 06/18/18 12:16 Dose: 100 mls/hr Meropenem 1 gm/ Sodium (Chloride) 100 mls @ 100 mls/hr IVPB Q8H [facility]; Protocol Last Admin: 06/18/18 17:07 Dose: 100 mls/hr Sodium Chloride (Sodium Chloride 0.9%) 1,000 mls @ 125 mls/hr IV .Q8H [facility] Last Admin: 06/18/18 14:49 Dose: Not Given Vancomycin HCl 1,400 mg/ (Sodium Chloride) 500 mls @ 166.6 mls/hr IVPB Q12H [facility]; Protocol Last Admin: 06/18/18 20:23 Dose: 166.6 mls/hr Ondansetron HCl (Zofran Inj) 4 mg IVP Q4H PRN PRN Reason: Nausea/Vomiting Last Admin: 06/18/18 20:21 Dose: 4 mg Pantoprazole Sodium (Protonix Inj) 40 mg IVP DAILY [facility] Last Admin: 06/18/18 09:27 Dose: 40 mg Potassium Chloride (K-Dur 20 Meq Er Tab) 40 meq PO DAILY [facility] Last Admin: 06/18/18 09:27 Dose: 40 meq Simethicone (Mylicon Chew Tab) 80 mg PO DAILY PRN PRN Reason: GI distress Last Admin: 06/18/18 09:27 Dose: 80 mg - Labs Labs: 06/18/18 06:54 06/18/18 06:54 PT 12.5 SECONDS (9.7-12.2) H 06/06/18 05:51 INR 1.1 06/06/18 05:51 APTT 30 SECONDS (21-34) 06/06/18 05:51
[2018-06-18 22:10] LABS: ARTERIAL BLOOD GAS HCO3 21.1 mmol/L (21-28); ARTERIAL BLOOD GAS O2 SAT 99.7 % (95-98); ARTERIAL BLOOD GAS PCO2 23 mm/Hg (35-45); ARTERIAL BLOOD GAS PH 7.47 (7.35-7.45); ARTERIAL BLOOD GAS PO2 114 mm/Hg (80-100); ARTERIAL BLOOD GAS TCO2 17.4 mmol/L (22-28)
--- NOTE | 2018-06-18 22:16 | PN ---
DATE: 06/18/2018 INFECTIOUS DISEASE FOLLOWUP NOTE. SUBJECTIVE: I called in yesterday and found out that he was in the OR. He was operated yesterday. He had operative findings, which are written here by Dr. Luther as intra-abdominal abscesses, subcutaneous abscess, bowel perforation as well as bowel incorporation into prior fascial closure and bowel perforation. Postoperative diagnosis is intra-abdominal abscesses. He had accelerated labs with lysis of dense adhesions, evacuation of intra-abdominal and subcutaneous abscesses, of large small bowel perforation, abdominal washout with Irrisept irrigation. So, these are what I read from the postop note. The patient was seen today. The nurse called me. He had a temp of 100.2. Hence, I went to see him. He is on four antibiotics at this time. He denied any pain when I saw him, but he was concerned about abdominal distention. His pain was controlled with the pain medications. He was seen by Dr. Monreal earlier. PHYSICAL EXAMINATION: VITAL SIGNS: His T-max was 100.2 today, heart rate of 120, blood pressure 120/70, and respirations 22. HEENT: Head is atraumatic and normocephalic. NECK: Supple. LUNGS: Clear, but decreased breath sounds on both bases. HEART: S1 and S2, tachycardic. ABDOMEN: Remains distended. There is no TONY drain now. There is a surgical scar, midline with a dressing. Abdomen remains distended. Bowel sounds, I could not hear much. EXTREMITIES: Have no edema, clubbing, or cyanosis. He did have Venodyne boots on. LABORATORY DATA: Labs noted. Labs show white count is 39, hemoglobin 11, hematocrit 33.1, platelet count is 576, it remains elevated, and his neutrophils are 86 and bands were 2 today. The wound culture came on yeast species. Blood culture is negative. Urine culture is negative from 06/16/2018 and 06/17/2018. The cultures are showing yeast species, but on gram stain, it was polymorphic wbcs, moderate yeast, few . So, he did have perforation. He is on antibiotics. His LFTs show AST is 56, ALT is 44, and alk phos is 231. ASSESSMENT AND PLAN: So, at this time, we will continue present antibiotics, hoping for him to recuperate well. He did have intra-abdominal abscesses and intestinal perforation and is status post laparoscopic cholecystectomy. He did have subcutaneous edema of his abdominal wall and distention. We will follow and repeat the labs tomorrow and need to be followed closely by surgical team. Vernon Hendricks MD
[2018-06-18] MEDS ORDERED: Sodium Chloride 0.9% 1,000 ML IV ONE ×2 (23:00→23:10)
[2018-06-18] MEDS ORDERED: Lactated Ringer's 1,000 ML IV ONE (23:15)
[2018-06-19] MEDS ORDERED: Midazolam 2 MG/2 ML VIAL ONE (00:13)
[2018-06-19 00:41] LABS: PROTHROMBIN TIME 21.5 SECONDS (9.7-12.2)
--- NOTE | 2018-06-19 01:11 | PCM.SURG1 ---
Surgeon's Initial Post Op Note - Surgeon's Notes Surgeon: Dr. Monreal Letter Carrier: Amina PGY2 Type of Anesthesia: General Endo Anesthesia Administered By: Dr. Leger Pre-Operative Diagnosis: Sepsis, suspected anastomotic leak Operative Findings: anastomotic leak, bilious intraperitoneal fluids, inflammed small bowel and colon Post-Operative Diagnosis: Anastomotic leak, sepsis Operation Performed: exploratory laparotomy, resection of previous small bowel anastomosis, primary small bowel anastomosis, lysis of adhesions, washout Specimen/Specimens Removed: small bowel Estimated Blood Loss: EBL {In ML}: 150 Blood Products Given: N/A Drains Used: No Drains Post-Op Condition: Fair Date of Surgery/Procedure: 06/19/18 Time of Surgery/Procedure: 01:24
[2018-06-19] MEDS ORDERED: Sodium Chloride 0.9% 1,000 ML IV ONE (01:12)
[2018-06-19 01:25] LABS: BLOOD UREA NITROGEN 13 mg/dL (9-20); GFR NON-AFRICAN AMERICAN > 60
[2018-06-19] MEDS ORDERED: Propofol 10 mg/ml Inj (20 ML) IV ONE (01:33)
[2018-06-19] MEDS: Propofol 10 mg/ml 1,000 MG/100 ML VIAL IV PRN ×3 (01:45→11:34)
[2018-06-19] MEDS: Meropenem 1 GM in Sodium Chloride 0.9% 100 ML IVPB SCH ×3 (03:00→15:58)
[2018-06-19] MEDS: metroNIDAZOLE IV 500 mg/100 ml 500 MG/100 ML BAG IVPB SCH ×3 (03:00→19:23)
--- NOTE | 2018-06-19 03:16 | CP.PCM.CON ---
History of Present Illness - History of Present Illness History of Present Illness: 37 y/o male admitted 06/06/18 with abdominal pain.Had laparoscopic Cholecystectomy 06/08 .Surgery complicated during GB extraction.s/p surgery for bowel perforation and intra-abdominal abscesses 06/17/18.Taken to OR 06/18/18 for anastomotic leak,exploratory laparotomy, resection of previous small bowel anastomosis, primary small bowel anastomosis, lysis of adhesions, washout.Intubated transferred to ICU. patient sedated Review of Systems - Review of Systems Review of Systems: sedated Past Patient History - Infectious Disease Hx of Infectious Diseases: None - Past Medical History & Family History Past Medical History?: Yes - Past Social History Smoking Status: Never Smoked - MUSCULOSKELETAL/RHEUMATOLOGICAL Hx Falls: No - GASTROINTESTINAL Hx Gall Bladder Disease: Yes (Cholelithiasis) - PSYCHIATRIC Hx Substance Use: No - SURGICAL HISTORY Hx Surgeries: No - ANESTHESIA Hx Anesthesia: No Hx Anesthesia Reactions: No Meds Home Medications: Home Medication List Medication Instructions Recorded Confirmed Type RX: Acetaminophen [Tylenol 325mg 975 mg PO Q8 tab 06/12/18 Rx tab] RX: Docusate [Colace] 100 mg PO TID cap 06/12/18 Rx Allergies/Adverse Reactions: Allergies Allergy/AdvReac Type Severity Reaction Status Date / Time No Known Allergies Allergy Verified 03/16/18 11:01 - Medications Medications: Current Medications Docusate Sodium (Colace) 100 mg PO TID [facility] Last Admin: 06/18/18 17:21 Dose: Not Given Enoxaparin Sodium (Lovenox) 40 mg SC DAILY [facility] Last Admin: 06/18/18 09:28 Dose: 40 mg Hydromorphone HCl (Dilaudid) 1 mg IVP Q4H PRN PRN Reason: Pain, severe (8-10) Last Admin: 06/18/18 20:16 Dose: 1 mg Metronidazole (Flagyl) 500 mg in 100 mls @ 100 mls/hr IVPB Q8H [facility]; Protocol Last Admin: 06/18/18 17:08 Dose: 100 mls/hr Fluconazole 100 mg/ (Miscellaneous) 50 mls @ 100 mls/hr IVPB DAILY [facility]; Protocol Last Admin: 06/18/18 12:16 Dose: 100 mls/hr Meropenem 1 gm/ Sodium (Chloride) 100 mls @ 100 mls/hr IVPB Q8H [facility]; Protocol Last Admin: 06/18/18 17:07 Dose: 100 mls/hr Sodium Chloride (Sodium Chloride 0.9%) 1,000 mls @ 125 mls/hr IV .Q8H [facility] Last Admin: 06/18/18 22:14 Dose: Not Given Vancomycin HCl 1,400 mg/ (Sodium Chloride) 500 mls @ 166.6 mls/hr IVPB Q12H [facility]; Protocol Last Admin: 06/18/18 20:23 Dose: 166.6 mls/hr Calcium Gluconate 2,000 mg/ (Sodium Chloride) 270 mls @ 90 mls/hr IVPB ONCE ONE Stop: 06/19/18 04:11 Propofol (Diprivan) 1,000 mg in 100 mls @ 2.313 mls/hr IV .Q24H [facility]; Protocol PRN Reason: TITRATE PER MD ORDER Last Titration: 06/19/18 02:51 Dose: 45 mcg/kg/min, 20.82 mls/hr Fentanyl Citrate 2,500 mcg/ (Sodium Chloride) 250 mls @ 15.42 mls/hr IV .[id number] [facility]; Protocol Last Admin: 06/19/18 02:44 Dose: 2 mcg/kg/hr, 15.42 mls/hr Ondansetron HCl (Zofran Inj) 4 mg IVP Q4H PRN PRN Reason: Nausea/Vomiting Last Admin: 06/18/18 20:21 Dose: 4 mg Pantoprazole Sodium (Protonix Inj) 40 mg IVP DAILY [facility] Last Admin: 06/18/18 09:27 Dose: 40 mg Potassium Chloride (K-Dur 20 Meq Er Tab) 40 meq PO DAILY [facility] Last Admin: 06/18/18 09:27 Dose: 40 meq Simethicone (Mylicon Chew Tab) 80 mg PO DAILY PRN PRN Reason: GI distress Last Admin: 06/18/18 09:27 Dose: 80 mg Physical Exam - Constitutional Additional comments: Orally intubated,sedated - Head Exam Head Exam: ATRAUMATIC, NORMAL INSPECTION, NORMOCEPHALIC - Eye Exam Eye Exam: absent: Scleral icterus Pupil Exam: Miosis - ENT Exam ENT Exam: Mucous Membranes Moist - Neck Exam Neck exam: Positive for: Normal Inspection - Respiratory Exam Respiratory Exam: Clear to Auscultation Bilateral - Cardiovascular Exam Cardiovascular Exam: REGULAR RHYTHM. absent: JVD - GI/Abdominal Exam GI & Abdominal Exam: Firm. absent: Normal Bowel Sounds Additional comments: dressing with drains - Extremities Exam Extremities exam: Positive for: normal inspection, pedal pulses present Additional comments: trace bilateral leg edema - Skin Skin Exam: Normal Color, Warm Results - Vital Signs Recent Vital Signs: Last Vital Signs Temp 100.0 F H 06/18/18 19:00 Pulse 115 H 06/18/18 19:00 Resp 20 06/18/18 19:00 BP 120/80 06/18/18 19:00 Pulse Ox 96 06/18/18 19:00 - Labs Result Diagrams: 06/19/18 03:31 06/19/18 00:24 Labs: Laboratory Results - last 24 hr 06/18/18 06/18/18 06/18/18 06:54 06:54 11:25 WBC 39.0 H* RBC 3.61 L Hgb 11.0 L Hct 33.1 L MCV 91.6 MCH 30.4 MCHC 33.1 RDW 14.0 Plt Count 576 H MPV 8.6 Neut % (Auto) 91.4 H Lymph % (Auto) 3.6 L [place] % (Auto) 4.6 Eos % (Auto) 0.2 Baso % (Auto) 0.2 Neut # (Auto) 35.6 H Lymph # (Auto) 1.4 [place] # (Auto) 1.8 H Eos # (Auto) 0.1 Baso # (Auto) 0.1 Neutrophils % (Manual) 86 H Band Neutrophils % 2 Lymphocytes % (Manual) 7 L Monocytes % (Manual) 5 Toxic Granulation Present Platelet Estimate Increased H Large Platelets Present Giant Platelets Present Polychromasia Slight Hypochromasia (manual) Slight Anisocytosis (manual) Slight PT INR APTT Puncture Site pCO2 pO2 HCO3 ABG pH ABG Total CO2 ABG O2 Saturation ABG Base Excess Abe Test ABG Potassium Glucose Lactate Sodium 126 L Potassium 3.5 L Chloride 95 L Carbon Dioxide 25 Anion Gap 9 L BUN 9 Creatinine 0.6 L Est GFR ( Amer) > 60 Est GFR (Non-Af Amer) > 60 Random Glucose 93 Calcium 6.7 L Phosphorus 2.6 Magnesium 2.2 Total Bilirubin 0.4 AST 56 ALT 44 Alkaline Phosphatase 231 H D Total Protein 4.8 L Albumin 2.2 L Globulin 2.6 Albumin/Globulin Ratio 0.8 L Arterial Blood Potassium Vancomycin Peak 10.2 L 06/18/18 06/19/18 06/19/18 22:04 00:24 00:24 WBC RBC Hgb Hct MCV MCH MCHC RDW Plt Count MPV Neut % (Auto) Lymph % (Auto) [place] % (Auto) Eos % (Auto) Baso % (Auto) Neut # (Auto) Lymph # (Auto) [place] # (Auto) Eos # (Auto) Baso # (Auto) Neutrophils % (Manual) Band Neutrophils % Lymphocytes % (Manual) Monocytes % (Manual) Toxic Granulation Platelet Estimate Large Platelets Giant Platelets Polychromasia Hypochromasia (manual) Anisocytosis (manual) PT 21.5 H INR 2.0 APTT 31 Puncture Site Lr pCO2 23 L pO2 114 H HCO3 21.1 ABG pH 7.47 H ABG Total CO2 17.4 L ABG O2 Saturation 99.7 H ABG Base Excess -5.0 L Abe Test ABG Potassium 2.9 L Glucose 92 Lactate 1.4 Sodium 135.0 127 L Potassium 3.9 Chloride 110.0 H 102 Carbon Dioxide 22 Anion Gap 7 L BUN 13 Creatinine 0.6 L Est GFR ( Amer) > 60 Est GFR (Non-Af Amer) > 60 Random Glucose 104 Calcium 6.0 L* Phosphorus Magnesium Total Bilirubin AST ALT Alkaline Phosphatase Total Protein Albumin Globulin Albumin/Globulin Ratio Arterial Blood Potassium 2.9 L Vancomycin Peak - Imaging and Cardiology Chest x-ray Status: Image reviewed by me Assessment & Plan - Assessment and Plan (Free Text) Assessment: Patient is a 37 year old male s/p kayla schwarze, POD #11,repair of anatomotic leak 4/6 Sepsis Leukocytosis 39 Hemodynamically stable Abx per ID Electrolyte imbalance-Hyponatremia/Hypocalcemia calcium replaced,f/u lytes Anemia Hb 9.7,decreased from 11 f/u Hb Coagulopathy INR 2,received 2 units FFP
[2018-06-19 03:34] LABS: BASO # 0.1 K/uL (0.0-0.2); BASO % 0.3 % (0.0-2.0); EOS % 0.1 % (0.0-4.0); HEMOGLOBIN 9.7 g/dL (12.0-18.0); LYMPH # 1.6 K/uL (1.0-4.3); LYMPH % 4.2 % (20.0-40.0); MEAN CELL VOLUME 91.3 fL (80.0-94.0); MEAN CORPUSCULAR HEMOGLOBIN 30.7 pg (27.0-31.0); MEAN CORPUSCULAR HGB CONC 33.6 g/dL (33.0-37.0); MEAN PLATELET VOLUME 8.1 fL (7.2-11.7); MONO # 1.7 K/uL (0.0-0.8); MONO % 4.4 % (0.0-10.0); NEUT # 35.3 K/uL (1.8-7.0); PLATELET COUNT 519 K/uL (130-400); RBC 3.14 Mil/uL (4.40-5.90); RED CELL DISTRIBUTION WIDTH 13.9 % (11.5-14.5)
[2018-06-19 03:42] LABS: WHITE BLOOD COUNT 38.8 K/uL (4.8-10.8)
[2018-06-19 04:29] LABS: BANDS 1 % (0-2); LYMPHOCYTE 3 % (20-40); MONOCYTE 4 % (0-10); NEUTROPHIL 92 % (50-75); PLATELET ESTIMATE NORMAL (NORMAL); TOTAL CELLS COUNTED 100
[2018-06-19 06:30] LABS: ARTERIAL BLOOD GAS HCO3 24.3 mmol/L (21-28); ARTERIAL BLOOD GAS HEMOGLOBIN 8.6 g/dL (11.7-17.4); ARTERIAL BLOOD GAS O2 SAT 100.1 % (95-98); ARTERIAL BLOOD GAS PCO2 34 mm/Hg (35-45); ARTERIAL BLOOD GAS PH 7.44 (7.35-7.45); ARTERIAL BLOOD GAS PO2 181 mm/Hg (80-100); ARTERIAL BLOOD GAS TCO2 24.1 mmol/L (22-28)
[2018-06-19] MEDS: Sodium Chloride 0.9% 1,000 ML IV SCH (07:00)
[2018-06-19 07:50] LABS: ALB/GLOB RATIO 0.8 (1.0-2.1); ALBUMIN 1.8 g/dL (3.5-5.0); ALT/SGPT 28 U/L (21-72); AST/SGOT 33 U/L (17-59); BLOOD UREA NITROGEN 13 mg/dL (9-20); CALCIUM 6.5 mg/dl (8.6-10.4); GFR NON-AFRICAN AMERICAN > 60
[2018-06-19] MEDS: Potassium Chloride 20 mEq ER Tab PO SCH (09:45)
[2018-06-19] MEDS: Acetaminophen 650mg/20.3ml solution UD PO PRN ×2 (09:45→16:45)
[2018-06-19 09:53] LABS: INR 1.5; PROTHROMBIN TIME 16.9 SECONDS (9.7-12.2)
--- NOTE | 2018-06-19 10:52 | RAD ---
Date of service: 06/19/2018 HISTORY: intubated COMPARISON: Comparison is made with 06/18/2018 TECHNIQUE: 1 view obtained. FINDINGS: LUNGS: Diffuse haziness in the left chest likely due to left pleural effusion. Opacity at the left lung base is noted likely atelectasis. The right lung is clear. The ET tube tip is seen above the jonathan. PLEURA: Suspicious for left pleural effusion. CARDIOVASCULAR: No aortic atherosclerotic calcification present. Normal cardiac size. Mild pulmonary vascular congestion. OSSEOUS STRUCTURES: No significant abnormalities. VISUALIZED UPPER ABDOMEN: NG tube seen extending to the abdomen. OTHER FINDINGS: None. IMPRESSION: Interval mild improvement in the left lung since the previous exam.
[2018-06-19] MEDS: Lactated Ringer's 1,000 ML IV SCH (11:35)
[2018-06-19] MEDS: Fluconazole IV 200mg/100 ml NS 100 MG in Premixed IV 1 EA IVPB SCH (12:42)
--- NOTE | 2018-06-19 13:59 | CP.PCM.PN ---
Subjective - Date & Time of Evaluation Date of Evaluation: 06/19/18 Time of Evaluation: 13:57 - Subjective Subjective: General Surgery Note for Dr. Monreal Patient seen and examined this AM. Patient is s/p ex-lap SBR and primary anastomosis POD#0. Patient had bile coming from [facility] last night and was taken to OR. patient remained intubated after procedure. patient had 2100cc in barker. Hussein drain put out ~ 50cc of serosanguinous fluid. Objective - Vital Signs/Intake and Output Vital Signs (last 24 hours): Temp Pulse Resp BP Pulse Ox 99.6 F 109 H 22 113/64 96 06/19/18 12:00 06/19/18 13:00 06/19/18 13:00 06/19/18 12:52 06/19/18 13:00 Intake and Output: 06/19/18 06/19/18 06:59 18:59 Intake Total 3835.4 1252.6 Output Total 1090 325 Balance 2745.4 927.6 - Medications Medications: Current Medications Acetaminophen (Tylenol 650mg/20.3ml Solution Ud) 650 mg PO Q6 PRN PRN Reason: Temperature Last Admin: 06/19/18 09:45 Dose: 650 mg Hydromorphone HCl (Dilaudid) 1 mg IVP Q4H PRN PRN Reason: Pain, severe (8-10) Last Admin: 06/18/18 20:16 Dose: 1 mg Metronidazole (Flagyl) 500 mg in 100 mls @ 100 mls/hr IVPB Q8H [facility]; Protocol Last Admin: 06/19/18 13:26 Dose: 100 mls/hr Fluconazole 100 mg/ (Miscellaneous) 50 mls @ 100 mls/hr IVPB DAILY [facility]; Protocol Last Admin: 06/19/18 12:42 Dose: 100 mls/hr Meropenem 1 gm/ Sodium (Chloride) 100 mls @ 100 mls/hr IVPB Q8H [facility]; Protocol Last Admin: 06/19/18 08:34 Dose: 100 mls/hr Vancomycin HCl 1,400 mg/ (Sodium Chloride) 500 mls @ 166.6 mls/hr IVPB Q12H [facility]; Protocol Last Admin: 06/19/18 08:19 Dose: 166.6 mls/hr Propofol (Diprivan) 1,000 mg in 100 mls @ 2.313 mls/hr IV .Q24H [facility]; Protocol PRN Reason: TITRATE PER MD ORDER Last Titration: 06/19/18 13:29 Dose: 5 mcg/kg/min, 2.313 mls/hr Fentanyl Citrate 2,500 mcg/ (Sodium Chloride) 250 mls @ 15.42 mls/hr IV .[id number] [facility]; Protocol Last Titration: 06/19/18 12:44 Dose: 3.1 mcg/kg/hr, 23.9 mls/hr Lactated Ringer's (Lactated Ringer's) 1,000 mls @ 75 mls/hr IV .[id number] [facility] Last Admin: 06/19/18 11:35 Dose: 75 mls/hr Ondansetron HCl (Zofran Inj) 4 mg IVP Q4H PRN PRN Reason: Nausea/Vomiting Last Admin: 06/18/18 20:21 Dose: 4 mg Pantoprazole Sodium (Protonix Inj) 40 mg IVP DAILY [facility] Last Admin: 06/19/18 11:21 Dose: 40 mg Potassium Chloride (K-Dur 20 Meq Er Tab) 40 meq PO DAILY [facility] Last Admin: 06/19/18 09:45 Dose: 40 meq - Labs Labs: 06/19/18 03:31 06/19/18 07:04 PT 16.9 SECONDS (9.7-12.2) H 06/19/18 09:34 INR 1.5 D 06/19/18 09:34 APTT 31 SECONDS (21-34) 06/19/18 09:34 - Constitutional Appears: Other (intubated and sedate) - Head Exam Head Exam: ATRAUMATIC, NORMOCEPHALIC - Eye Exam Eye Exam: EOMI, Normal appearance Pupil Exam: PERRL - ENT Exam Additional comments: ETT in place NGT in place - Respiratory Exam Additional comments: intubated and on PRVC - Cardiovascular Exam Cardiovascular Exam: Tachycardia - GI/Abdominal Exam GI & Abdominal Exam: Distended, Soft Additional comments: midline incision with rodrigo, dressing clean and dry hussein drain in place - Extremities Exam Extremities Exam: Normal Capillary Refill - Neurological Exam Neurological Exam: Altered Additional comments: [id number] - Psychiatric Exam Psychiatric exam: Flat Affect - Skin Skin Exam: Dry, Intact, Warm Assessment and Plan - Assessment and Plan (Free Text) Assessment: 37 M s/p ex-lap SBR and primary anastomosis after anastomotic leak Plan: -NGT to suction -Strict I's & O's -IVF -IV abx -pain control -Sedation -wean from vent -possible thoracentesis -Parenteral nutrition -serial abd exams -monitor drain output color -Discussed with Dr. Jocelin Huynh PGY2
[2018-06-19 14:44] LABS: INR 1.7; PROTHROMBIN TIME 18.1 SECONDS (9.7-12.2)
--- NOTE | 2018-06-19 17:25 | PCM.PROC ---
Procedures Attestation:: I certify that I have explained the specified Operation(s) or Procedure(s), risks, benefits and reasonable alternatives to the Patient and/or other person responsible. The opportunity was given to ask questions and all questions answered - Central Line Placement Right Internal Jugular Triple Lumen Catheter Aseptic technique was employed throughout the procedure: Hand Hygiene done prior to procedure, Full sterile barriers (mask, hair cover, sterile gown, sterile gloves), Full body sterile drape, Chloraprep Antiseptic: 30 second prep for IJ or SC sites CVP Time Out Performed: Yes Pt. Placed on Pulse Ox Monitor: Yes Central Line Prep: Chlorhexidine-Alcohol Combination Local Anesthesia Used: Lidocaine 1% Amount of Anesthesia Used (mls): 3 Ultrasound Used for Placement: Yes Central Line Lumen Inserted: triple Central Line Length: 16 cm Post Procedure: Sutured in Place, Good Blood Return, All Ports Aspirated, Flushed, Capped, Sterile Dressing Applied Secured by: Suture Post procedure dressing: Clear vapor permeable, Chlorhexidine disc (Biopatch) Post Procedure X-Ray: Yes Patient Tolerated Procedure: No Complications Immediate Complications: None
--- NOTE | 2018-06-19 18:05 | RAD ---
Date of service: 06/19/2018 HISTORY: s/p TLC placement COMPARISON: Comparison is made with 06/19/2018 TECHNIQUE: 1 view obtained. FINDINGS: LUNGS: Interval worsening of diffuse hazy opacity at the left chest likely due to large pleural effusion. The ET tube is seen at appropriate position. The right lung is small in size likely due to partial atelectasis. PLEURA: Suspicious for large left pleural effusion. CARDIOVASCULAR: No aortic atherosclerotic calcification present. Normal cardiac size. Possible [id number] pulmonary vascular congestion. OSSEOUS STRUCTURES: No significant abnormalities. VISUALIZED UPPER ABDOMEN: Normal. OTHER FINDINGS: Right jugular central line seen in place. NG tube extending to the stomach. IMPRESSION: As above.
[2018-06-19] MEDS: Micafungin 100 MG in Sodium Chloride 0.9% 100 ML IV SCH (23:01)
[2018-06-20] MEDS: Lactated Ringer's 1,000 ML IV SCH (00:47)
[2018-06-20] MEDS: metroNIDAZOLE IV 500 mg/100 ml 500 MG/100 ML BAG IVPB SCH ×3 (00:47→16:43)
[2018-06-20] MEDS: Acetaminophen 650mg/20.3ml solution UD PO PRN (01:21)
[2018-06-20 06:16] LABS: ARTERIAL BLOOD GAS HCO3 24.1 mmol/L (21-28); ARTERIAL BLOOD GAS HEMOGLOBIN 10.4 g/dL (11.7-17.4); ARTERIAL BLOOD GAS O2 SAT 98.5 % (95-98); ARTERIAL BLOOD GAS PCO2 42 mm/Hg (35-45); ARTERIAL BLOOD GAS PH 7.37 (7.35-7.45); ARTERIAL BLOOD GAS PO2 85 mm/Hg (80-100); ARTERIAL BLOOD GAS TCO2 25.6 mmol/L (22-28)
[2018-06-20 06:21] LABS: BASO # 0.1 K/uL (0.0-0.2); BASO % 0.3 % (0.0-2.0); EOS # 0.2 K/uL (0.0-0.7); EOS % 0.4 % (0.0-4.0); HEMOGLOBIN 8.4 g/dL (12.0-18.0); LYMPH # 1.9 K/uL (1.0-4.3); LYMPH % 4.4 % (20.0-40.0); MEAN CELL VOLUME 92.6 fL (80.0-94.0); MEAN CORPUSCULAR HEMOGLOBIN 29.9 pg (27.0-31.0); MEAN CORPUSCULAR HGB CONC 32.2 g/dL (33.0-37.0); MEAN PLATELET VOLUME 8.2 fL (7.2-11.7); MONO # 2.1 K/uL (0.0-0.8); MONO % 4.8 % (0.0-10.0); NEUT # 39.4 K/uL (1.8-7.0); NEUT % 90.1 % (50.0-75.0); PLATELET COUNT 538 K/uL (130-400); RBC 2.82 Mil/uL (4.40-5.90); RED CELL DISTRIBUTION WIDTH 14.3 % (11.5-14.5)
[2018-06-20 06:25] LABS: WHITE BLOOD COUNT 43.8 K/uL (4.8-10.8)
[2018-06-20 06:39] LABS: ALB/GLOB RATIO 0.8 (1.0-2.1); ALBUMIN 2.1 g/dL (3.5-5.0); ALT/SGPT 30 U/L (21-72); AST/SGOT 46 U/L (17-59); BLOOD UREA NITROGEN 10 mg/dL (9-20); CALCIUM 6.4 mg/dl (8.6-10.4); GFR NON-AFRICAN AMERICAN > 60
--- NOTE | 2018-06-20 07:33 | CP.PCM.PN ---
Subjective - Date & Time of Evaluation Date of Evaluation: 06/20/18 Time of Evaluation: 07:32 - Subjective Subjective: Surgery: Dr. Monreal Patient remains intubated overnight. Patient febrile to 102F, responds to tylenol. Micofungin added per ID. Per nursing, urine 1865cc/24hr, NGT 400cc 24/hr, TONY 200cc/24hrs. Objective - Vital Signs/Intake and Output Vital Signs (last 24 hours): Temp Pulse Resp BP Pulse Ox 97.8 F 114 H 13 93/71 L 96 06/20/18 04:00 06/20/18 06:00 06/20/18 06:00 06/20/18 06:00 06/20/18 06:00 Intake and Output: 06/20/18 06/20/18 06:59 18:59 Intake Total 2673.5 0 Output Total 1675 Balance 998.5 0 - Medications Medications: Current Medications Acetaminophen (Tylenol 650mg/20.3ml Solution Ud) 650 mg PO Q6 PRN PRN Reason: Temperature Last Admin: 06/20/18 01:21 Dose: 650 mg Enoxaparin Sodium (Lovenox) 40 mg SC DAILY [facility] Hydromorphone HCl (Dilaudid) 1 mg IVP Q4H PRN PRN Reason: Pain, severe (8-10) Last Admin: 06/18/18 20:16 Dose: 1 mg Metronidazole (Flagyl) 500 mg in 100 mls @ 100 mls/hr IVPB Q8H [facility]; Protocol Last Admin: 06/20/18 00:47 Dose: 100 mls/hr Meropenem 1 gm/ Sodium (Chloride) 100 mls @ 100 mls/hr IVPB Q8H [facility]; Protocol Last Admin: 06/20/18 00:00 Dose: 100 mls/hr Vancomycin HCl 1,400 mg/ (Sodium Chloride) 500 mls @ 166.6 mls/hr IVPB Q12H [facility]; Protocol Last Admin: 06/20/18 07:14 Dose: 166.6 mls/hr Propofol (Diprivan) 1,000 mg in 100 mls @ 2.313 mls/hr IV .Q24H [facility]; Protocol PRN Reason: TITRATE PER MD ORDER Last Titration: 06/19/18 14:26 Dose: 0 mcg/kg/min, 0 mls/hr Fentanyl Citrate 2,500 mcg/ (Sodium Chloride) 250 mls @ 15.42 mls/hr IV .[id number] [facility]; Protocol Last Titration: 06/20/18 07:30 Dose: 4 mcg/kg/hr, 30.84 mls/hr Lactated Ringer's (Lactated Ringer's) 1,000 mls @ 75 mls/hr IV .[id number] [facility] Last Admin: 06/20/18 00:47 Dose: Not Given Micafungin Sodium 100 mg/ (Sodium Chloride) 100 mls @ 100 mls/hr IV Q24H [facility]; Protocol Last Admin: 06/19/18 23:01 Dose: 100 mls/hr Metoclopramide HCl (Reglan) 10 mg IVP Q6 [facility] Stop: 06/21/18 06:01 Ondansetron HCl (Zofran Inj) 4 mg IVP Q4H PRN PRN Reason: Nausea/Vomiting Last Admin: 06/18/18 20:21 Dose: 4 mg Pantoprazole Sodium (Protonix Inj) 40 mg IVP DAILY [facility] Last Admin: 06/19/18 11:21 Dose: 40 mg Potassium Chloride (K-Dur 20 Meq Er Tab) 40 meq PO DAILY [facility] Last Admin: 06/19/18 09:45 Dose: 40 meq - Labs Labs: 06/20/18 06:15 06/20/18 06:14 PT 18.1 SECONDS (9.7-12.2) H 06/19/18 14:28 INR 1.7 06/19/18 14:28 APTT 29 SECONDS (21-34) 06/19/18 14:28 - Constitutional Appears: No Acute Distress - Head Exam Head Exam: ATRAUMATIC, NORMOCEPHALIC Additional comments: ETT and NGT in place - Eye Exam Eye Exam: EOMI, Normal appearance - ENT Exam ENT Exam: Mucous Membranes Dry - Respiratory Exam Respiratory Exam: NORMAL BREATHING PATTERN Additional comments: Mechanical vent: 500/12/60/5 - Cardiovascular Exam Cardiovascular Exam: Tachycardia, REGULAR RHYTHM - GI/Abdominal Exam GI & Abdominal Exam: Distended. absent: Guarding Additional comments: incision with serous drainage from wound, retention suture and rodrigo in place Hussein in the suprapubic region, serous output some erythema around the wound near periumbilical site - Extremities Exam Extremities Exam: Normal Inspection. absent: Calf Tenderness - Neurological Exam Neurological Exam: Alert, Awake Additional comments: [id number] - Psychiatric Exam Psychiatric exam: Normal Affect - Skin Skin Exam: Dry, Warm Assessment and Plan - Assessment and Plan (Free Text) Assessment: 37 y/o male with intra-abdominal sepsis s/p ex lap x2 for bowel injury POD2 Plan: -start trickle feeds to promote gut immunity, do not advance past 10cc/hr -cont abx per ID -am labs -cont IVFs -vent management per ICU, wean to extubate -add reglan to promote gut mobilization -CXR: Left effusion, possible IR drainage today -start DVT ppx after procedure -cont A line for BP monitoring -cont barker for strict Is&Os -NGT for tube feeds, check residuals Q4hr and flush with 10cc sterile water Q4hr -monitor hussein output -appreciate linux consultant recs -d/w Dr. Jocelin Bustos PGY4
[2018-06-20] MEDS: Meropenem 1 GM in Sodium Chloride 0.9% 100 ML IVPB SCH ×4 (08:25→23:45)
--- NOTE | 2018-06-20 08:28 | RAD ---
Date of service: 06/20/2018 HISTORY: ETT COMPARISON: Portable chest 06/19/2018. TECHNIQUE: 1 view obtained. FINDINGS: LUNGS: Endotracheal and NG tube are not significantly changed as well as right central venous line. Limited patchy airspace disease in the right perihilar region with remainder of the right lung clear. Hazy opacity at the left hemithorax likely reflects mild pleural effusion with no air bronchograms appreciable test indicate diffuse infiltrate. Retrocardiac atelectasis or infiltrate persists at the left base. PLEURA: Mild left pleural effusion unchanged. No right pleural effusion or pneumothorax bilaterally. CARDIOVASCULAR: No aortic atherosclerotic calcification present. Stable cardiac size. No pulmonary vascular congestion. OSSEOUS STRUCTURES: No significant abnormalities. VISUALIZED UPPER ABDOMEN: Normal. OTHER FINDINGS: None. IMPRESSION: Improved aeration at the right lung with minimal residual patchy density at the right perihilar region with mild left pleural effusion unchanged as well as left basilar consolidation or atelectasis. No pulmonary vascular congestion.
[2018-06-20 08:29] LABS: ANISOCYTOSIS SLIGHT; BANDS 2 % (0-2); HYPOCHROMIC SLIGHT; LYMPHOCYTE 3 % (20-40); MONOCYTE 6 % (0-10); NEUTROPHIL 88 % (50-75); PLATELET ESTIMATE INCREASED (NORMAL); POIKILOCYTOSIS SLIGHT; REACTIVE LYMPHOCYTES 1 % (0-0); TOTAL CELLS COUNTED 100
[2018-06-20 08:31] LABS: LARGE PLATELETS PRESENT; TARGET CELLS SLIGHT
[2018-06-20] MEDS ORDERED: Dextrose 5%/0.9% NS 1,000 ML IV ONE (09:52)
[2018-06-20] MEDS ORDERED: Enoxaparin 40 mg Syringe SC SCH ×2 (10:00→17:45)
[2018-06-20] MEDS ORDERED: Lidocaine Hydrochloride 10 ML INJ ONE (10:59)
--- NOTE | 2018-06-20 11:18 | CP.PCM.PN ---
Subjective - Date & Time of Evaluation Date of Evaluation: 06/20/18 Time of Evaluation: 11:00 - Subjective Subjective: dictated Objective - Vital Signs/Intake and Output Vital Signs (last 24 hours): Temp Pulse Resp BP Pulse Ox 101.9 F H 116 H 13 124/71 98 06/20/18 08:00 06/20/18 10:00 06/20/18 10:00 06/20/18 09:52 06/20/18 10:00 Intake and Output: 06/20/18 06/20/18 06:59 18:59 Intake Total 2673.5 328.9 Output Total 1675 400 Balance 998.5 -71.1 - Medications Medications: Current Medications Enoxaparin Sodium (Lovenox) 40 mg SC DAILY [facility] Hydromorphone HCl (Dilaudid) 1 mg IVP Q4H PRN PRN Reason: Pain, severe (8-10) Last Admin: 06/18/18 20:16 Dose: 1 mg Metronidazole (Flagyl) 500 mg in 100 mls @ 100 mls/hr IVPB Q8H [facility]; Protocol Last Admin: 06/20/18 08:26 Dose: 100 mls/hr Meropenem 1 gm/ Sodium (Chloride) 100 mls @ 100 mls/hr IVPB Q8H [facility]; Protocol Last Admin: 06/20/18 08:25 Dose: 100 mls/hr Vancomycin HCl 1,400 mg/ (Sodium Chloride) 500 mls @ 166.6 mls/hr IVPB Q12H [facility]; Protocol Last Admin: 06/20/18 07:14 Dose: 166.6 mls/hr Propofol (Diprivan) 1,000 mg in 100 mls @ 2.313 mls/hr IV .Q24H [facility]; Protocol PRN Reason: TITRATE PER MD ORDER Last Titration: 06/19/18 14:26 Dose: 0 mcg/kg/min, 0 mls/hr Fentanyl Citrate 2,500 mcg/ (Sodium Chloride) 250 mls @ 15.42 mls/hr IV .[id number] [facility]; Protocol Last Titration: 06/20/18 10:00 Dose: 2 mcg/kg/hr, 15.42 mls/hr Micafungin Sodium 100 mg/ (Sodium Chloride) 100 mls @ 100 mls/hr IV Q24H [facility]; Protocol Last Admin: 06/19/18 23:01 Dose: 100 mls/hr Acetaminophen (Ofirmev) 100 mls @ 400 mls/hr IV Q6H [facility] Stop: 06/21/18 06:14 Dextrose/Sodium Chloride (Dextrose 5%/0.9% Ns 1000 Ml) 1,000 mls @ 75 mls/hr IV .[id number] [facility] Stop: 06/20/18 23:11 Last Admin: 06/20/18 10:27 Dose: 75 mls/hr Pantoprazole Sodium (Protonix Inj) 40 mg IVP DAILY [facility] Last Admin: 06/20/18 09:07 Dose: 40 mg - Labs Labs: 06/20/18 06:15 06/20/18 06:14 PT 18.1 SECONDS (9.7-12.2) H 06/19/18 14:28 INR 1.7 06/19/18 14:28 APTT 29 SECONDS (21-34) 06/19/18 14:28
[2018-06-20] MEDS ORDERED: Acetaminophen IV 1,000 MG in Premixed IV 1 EA IV SCH (12:00)
[2018-06-20] MEDS: ACETAMINOPHEN 1000 MG/100 ML IV SCH ×3 (12:08→23:32)
--- NOTE | 2018-06-20 12:21 | CP.CCUPN ---
CCU Subjective - Physician Review Subjective (Free Text): 06/20/18 13:25 Patient seen and examined at bedside, patient awake on vent, communicating with pad and paper. Patient offered additional propofol sedation, but he prefers to be awake at the moment. Denies chest pain, dizziness, n/v/d. Fever 101.9 tmax overnight. CCU Objective - Vital Signs / Intake & Output Vital Signs (Last 4 hours): Vital Signs Temp Pulse Resp BP BP Pulse Ox 06/20/18 12:00 101.7 F H 110 H 12 99 06/20/18 11:52 117 H 16 129/69 99 06/20/18 11:00 115 H 12 98 06/20/18 10:52 116 H 15 120/73 98 06/20/18 10:00 116 H 13 94/78 L 98 06/20/18 09:52 120 H 13 124/71 98 06/20/18 09:00 116 H 9 L 107/74 99 06/20/18 08:52 119 H 14 107/74 98 Intake and Output (Last 8hrs): Intake & Output 06/19/18 06/20/18 06/20/18 22:59 06:59 14:59 Intake Total 1254.2 1946.5 509.7 Output Total 905 1070 700 Balance 349.2 876.5 -190.3 Weight 169 lb 12.095 oz 170 lb Intake: IV 87.2 500 75 Intake, IV Amount 1167.0 1446.5 434.7 Left Wrist 294.0 346.5 Right Forearm 873 1100 Right Medial Port 350 Internal Jugular Right Proximal Port 84.7 Internal Jugular Oral 0 Output: Gastric Amount 300 100 Left Nares 300 100 Drainage 60 40 Medial Abdomen 60 40 Urine 545 930 700 Urethral (Dennison) 545 930 700 Emesis 0 Other: # Bowel Movements 0 - Physical Exam Head: Positive for: Atraumatic, Normocephalic, Other (NGT and ETT in place\) Pupils: Positive for: PERRL Extroacular Muscles: Positive for: EOMI Mouth: Positive for: Moist Mucous Membranes Neck: Positive for: Normal Range of Motion Respiratory/Chest: Positive for: Clear to Auscultation, Other (trach, on vent). Negative for: Accessory Muscle Use Cardiovascular: Positive for: Regular Rate and Rhythm, Normal S1, S2 Abdomen: Positive for: Other (Serous drainage from wound with dressings in place, c/d/i. Serous drainage from murtaza drain.) Lower Extremity: Positive for: NORMAL PULSES. Negative for: Edema Neurological: Positive for: GCS=15, CN II-XII Intact Skin: Positive for: Dry, Normal Color - Medications Active Medications: Active Medications Generic Name Dose Route Start Last Admin Trade Name Freq PRN Reason Stop Dose Admin Enoxaparin Sodium 40 mg 06/21/18 10:00 Lovenox SC DAILY DACIA Hydromorphone HCl 1 mg 06/17/18 12:30 06/18/18 20:16 Dilaudid IVP 1 mg Q4H PRN Administration Pain, severe (8-10) Metronidazole 500 mg in 100 mls @ 100 mls/hr 06/13/18 17:00 06/20/18 08:26 Flagyl IVPB 100 mls/hr Q8H DACIA Administration Protocol Meropenem 1 gm/ Sodium 100 mls @ 100 mls/hr 06/16/18 08:30 06/20/18 08:25 Chloride IVPB 100 mls/hr Q8H [facility]IA Administration Protocol Vancomycin HCl 1,400 mg/ 500 mls @ 166.6 mls/hr 06/18/18 19:00 06/20/18 07:14 Sodium Chloride IVPB 166.6 mls/hr Q12H [facility]IA Administration Protocol Propofol 1,000 mg in 100 mls @ 2.313 mls/hr 06/19/18 01:15 06/19/18 14:26 Diprivan IV 0 mcg/kg/min .Q24H PRN 0 mls/hr TITRATE PER MD ORDER Titration Protocol 5 MCG/KG/MIN Fentanyl Citrate 2,500 mcg/ 250 mls @ 15.42 mls/hr 06/19/18 02:30 06/20/18 10:00 Sodium Chloride IV 2 mcg/kg/hr .[id number] DACIA 15.42 mls/hr Titration Protocol 2 MCG/KG/HR Micafungin Sodium 100 mg/ 100 mls @ 100 mls/hr 06/19/18 21:45 06/19/18 23:01 Sodium Chloride IV 100 mls/hr Q24H [facility]IA Administration Protocol Acetaminophen 100 mls @ 400 mls/hr 06/20/18 12:00 06/20/18 12:08 Ofirmev IV 06/21/18 06:14 400 mls/hr Q6H [facility]IA Administration Dextrose/Sodium Chloride 1,000 mls @ 75 mls/hr 06/20/18 09:52 06/20/18 10:27 Dextrose 5%/0.9% Ns 1000 Ml IV 06/20/18 23:11 75 mls/hr .[id number] Administration Pantoprazole Sodium 40 mg 06/09/18 10:00 06/20/18 09:07 Protonix Inj IVP 40 mg DAILY DACIA Administration - Patient Studies Lab Studies: Microbiology Studies 06/16/18 10:15 Blood Culture - Preliminary Blood-Venous NO GROWTH AFTER 4 DAYS 06/16/18 09:00 Blood Culture - Preliminary Blood-Venous NO GROWTH AFTER 4 DAYS 06/17/18 15:33 Gram Stain - Final Abdomen Wound Culture - Final Liliana Albicans Lab Studies 06/20/18 06/20/18 06/20/18 Range/Units 06:15 06:14 05:20 WBC 43.8 H* (4.8-10.8) K/uL RBC 2.82 L (4.40-5.90) Mil/uL Hgb 8.4 L (12.0-18.0) g/dL Hct 26.1 L (35.0-51.0) % MCV 92.6 (80.0-94.0) fL MCH 29.9 (27.0-31.0) pg MCHC 32.2 L (33.0-37.0) g/dL RDW 14.3 (11.5-14.5) % Plt Count 538 H (130-400) K/uL MPV 8.2 (7.2-11.7) fL Neut % (Auto) 90.1 H (50.0-75.0) % Lymph % (Auto) 4.4 L (20.0-40.0) % Shannon % (Auto) 4.8 (0.0-10.0) % Eos % (Auto) 0.4 (0.0-4.0) % Baso % (Auto) 0.3 (0.0-2.0) % Neut # (Auto) 39.4 H (1.8-7.0) K/uL Lymph # (Auto) 1.9 (1.0-4.3) K/uL Shannon # (Auto) 2.1 H (0.0-0.8) K/uL Eos # (Auto) 0.2 (0.0-0.7) K/uL Baso # (Auto) 0.1 (0.0-0.2) K/uL Neutrophils % (Manual) 88 H (50-75) % Band Neutrophils % 2 (0-2) % Lymphocytes % (Manual) 3 L (20-40) % Reactive Lymphs % 1 H (0-0) % Monocytes % (Manual) 6 (0-10) % Platelet Estimate Increased H (NORMAL) Large Platelets Present Hypochromasia (manual) Slight Poikilocytosis (manual Slight Anisocytosis (manual) Slight Target Cells Slight PT (9.7-12.2) SECONDS INR APTT (21-34) SECONDS Puncture Site Mariana pCO2 42 (35-45) mm/Hg pO2 85 (80-100) mm/Hg HCO3 24.1 (21-28) mmol/L ABG pH 7.37 (7.35-7.45) ABG Total CO2 25.6 (22-28) mmol/L ABG O2 Saturation 98.5 H (95-98) % ABG Base Excess -1.0 (-2.0-3.0) mmol/L ABG Hemoglobin 10.4 L (11.7-17.4) g/dL ABG Carboxyhemoglobin 1.7 H (0.5-1.5) % POC ABG HHb (Measured) 1.5 (0.0-5.0) % ABG Methemoglobin 1.1 (0.0-3.0) % Abe Test Na A-a O2 Difference 290.0 mm/Hg Respiratory Index 3.4 Hgb O2 Saturation 95.7 (95.0-98.0) % Vent Mode Prvc Mechanical Rate 12 FiO2 60.0 % Tidal Volume 500 PEEP 5 Sodium 134 (132-148) mmol/L Potassium 4.0 (3.6-5.2) mmol/L Chloride 103 (98-107) mmol/L Carbon Dioxide 25 (22-30) mmol/L Anion Gap 11 (10-20) BUN 10 (9-20) mg/dL Creatinine 0.7 L (0.8-1.5) mg/dL Est GFR ( Amer) > 60 Est GFR (Non-Af Amer) > 60 Random Glucose 62 L D (75-110) mg/dL Calcium 6.4 L (8.6-10.4) mg/dl Phosphorus 2.7 (2.5-4.5) mg/dL Magnesium 2.4 H (1.6-2.3) mg/dL Total Bilirubin 0.4 (0.2-1.3) mg/dL AST 46 (17-59) U/L ALT 30 (21-72) U/L Alkaline Phosphatase 152 H D (38-126) U/L Total Protein 4.6 L (6.3-8.3) g/dL Albumin 2.1 L (3.5-5.0) g/dL Globulin 2.5 (2.2-3.9) gm/dL Albumin/Globulin Ratio 0.8 L (1.0-2.1) 06/19/18 Range/Units 14:28 WBC (4.8-10.8) K/uL RBC (4.40-5.90) Mil/uL Hgb (12.0-18.0) g/dL Hct (35.0-51.0) % MCV (80.0-94.0) fL MCH (27.0-31.0) pg MCHC (33.0-37.0) g/dL RDW (11.5-14.5) % Plt Count (130-400) K/uL MPV (7.2-11.7) fL Neut % (Auto) (50.0-75.0) % Lymph % (Auto) (20.0-40.0) % Shannon % (Auto) (0.0-10.0) % Eos % (Auto) (0.0-4.0) % Baso % (Auto) (0.0-2.0) % Neut # (Auto) (1.8-7.0) K/uL Lymph # (Auto) (1.0-4.3) K/uL Shannon # (Auto) (0.0-0.8) K/uL Eos # (Auto) (0.0-0.7) K/uL Baso # (Auto) (0.0-0.2) K/uL Neutrophils % (Manual) (50-75) % Band Neutrophils % (0-2) % Lymphocytes % (Manual) (20-40) % Reactive Lymphs % (0-0) % Monocytes % (Manual) (0-10) % Platelet Estimate (NORMAL) Large Platelets Hypochromasia (manual) Poikilocytosis (manual Anisocytosis (manual) Target Cells PT 18.1 H (9.7-12.2) SECONDS INR 1.7 APTT 29 (21-34) SECONDS Puncture Site pCO2 (35-45) mm/Hg pO2 (80-100) mm/Hg HCO3 (21-28) mmol/L ABG pH (7.35-7.45) ABG Total CO2 (22-28) mmol/L ABG O2 Saturation (95-98) % ABG Base Excess (-2.0-3.0) mmol/L ABG Hemoglobin (11.7-17.4) g/dL ABG Carboxyhemoglobin (0.5-1.5) % POC ABG HHb (Measured) (0.0-5.0) % ABG Methemoglobin (0.0-3.0) % Abe Test A-a O2 Difference mm/Hg Respiratory Index Hgb O2 Saturation (95.0-98.0) % Vent Mode Mechanical Rate FiO2 % Tidal Volume PEEP Sodium (132-148) mmol/L Potassium (3.6-5.2) mmol/L Chloride (98-107) mmol/L Carbon Dioxide (22-30) mmol/L Anion Gap (10-20) BUN (9-20) mg/dL Creatinine (0.8-1.5) mg/dL Est GFR ( Amer) Est GFR (Non-Af Amer) Random Glucose (75-110) mg/dL Calcium (8.6-10.4) mg/dl Phosphorus (2.5-4.5) mg/dL Magnesium (1.6-2.3) mg/dL Total Bilirubin (0.2-1.3) mg/dL AST (17-59) U/L ALT (21-72) U/L Alkaline Phosphatase (38-126) U/L Total Protein (6.3-8.3) g/dL Albumin (3.5-5.0) g/dL Globulin (2.2-3.9) gm/dL Albumin/Globulin Ratio (1.0-2.1) Laboratory Results - last 24 hr 06/19/18 06/20/18 06/20/18 14:28 05:20 06:14 WBC RBC Hgb Hct MCV MCH MCHC RDW Plt Count MPV Neut % (Auto) Lymph % (Auto) Shannon % (Auto) Eos % (Auto) Baso % (Auto) Neut # (Auto) Lymph # (Auto) Shannon # (Auto) Eos # (Auto) Baso # (Auto) Neutrophils % (Manual) Band Neutrophils % Lymphocytes % (Manual) Reactive Lymphs % Monocytes % (Manual) Platelet Estimate Large Platelets Hypochromasia (manual) Poikilocytosis (manual Anisocytosis (manual) Target Cells PT 18.1 H INR 1.7 APTT 29 Puncture Site Mariana pCO2 42 pO2 85 HCO3 24.1 ABG pH 7.37 ABG Total CO2 25.6 ABG O2 Saturation 98.5 H ABG Base Excess -1.0 ABG Hemoglobin 10.4 L ABG Carboxyhemoglobin 1.7 H POC ABG HHb (Measured) 1.5 ABG Methemoglobin 1.1 Abe Test Na A-a O2 Difference 290.0 Respiratory Index 3.4 Hgb O2 Saturation 95.7 Vent Mode Prvc Mechanical Rate 12 FiO2 60.0 Tidal Volume 500 PEEP 5 Sodium 134 Potassium 4.0 Chloride 103 Carbon Dioxide 25 Anion Gap 11 BUN 10 Creatinine 0.7 L Est GFR ( Amer) > 60 Est GFR (Non-Af Amer) > 60 Random Glucose 62 L D Calcium 6.4 L Phosphorus 2.7 Magnesium 2.4 H Total Bilirubin 0.4 AST 46 ALT 30 Alkaline Phosphatase 152 H D Total Protein 4.6 L Albumin 2.1 L Globulin 2.5 Albumin/Globulin Ratio 0.8 L 06/20/18 06:15 WBC 43.8 H* RBC 2.82 L Hgb 8.4 L Hct 26.1 L MCV 92.6 MCH 29.9 MCHC 32.2 L RDW 14.3 Plt Count 538 H MPV 8.2 Neut % (Auto) 90.1 H Lymph % (Auto) 4.4 L Shannon % (Auto) 4.8 Eos % (Auto) 0.4 Baso % (Auto) 0.3 Neut # (Auto) 39.4 H Lymph # (Auto) 1.9 Shannon # (Auto) 2.1 H Eos # (Auto) 0.2 Baso # (Auto) 0.1 Neutrophils % (Manual) 88 H Band Neutrophils % 2 Lymphocytes % (Manual) 3 L Reactive Lymphs % 1 H Monocytes % (Manual) 6 Platelet Estimate Increased H Large Platelets Present Hypochromasia (manual) Slight Poikilocytosis (manual Slight Anisocytosis (manual) Slight Target Cells Slight PT INR APTT Puncture Site pCO2 pO2 HCO3 ABG pH ABG Total CO2 ABG O2 Saturation ABG Base Excess ABG Hemoglobin ABG Carboxyhemoglobin POC ABG HHb (Measured) ABG Methemoglobin Abe Test A-a O2 Difference Respiratory Index Hgb O2 Saturation Vent Mode Mechanical Rate FiO2 Tidal Volume PEEP Sodium Potassium Chloride Carbon Dioxide Anion Gap BUN Creatinine Est GFR ( Amer) Est GFR (Non-Af Amer) Random Glucose Calcium Phosphorus Magnesium Total Bilirubin AST ALT Alkaline Phosphatase Total Protein Albumin Globulin Albumin/Globulin Ratio Radiology Impressions: Radiology Impressions Chest X-Ray 06/19/18 17:24 IMPRESSION: As above. Chest X-Ray 06/20/18 06:00 IMPRESSION: Improved aeration at the right lung with minimal residual patchy density at the right perihilar region with mild left pleural effusion unchanged as well as left basilar consolidation or atelectasis. No pulmonary vascular congestion. Fingerstick Blood Sugar Results: 85 Review of Systems - Review of Systems All systems: reviewed and no additional remarkable complaints except Critical Care Progress Note - Nutrition Nutrition: Nutrition Category Date Time Status NPO Diet [DIET] Diets 06/18/18 Lunch Active Assessment/Plan - Assessment and Plan (Free Text) Assessment: Patient is a 37 year old male s/p lap kevin complicated by perforation/abscess formation POD #11, repair of anastomotic leak 4/6 Neuro -A and O x3 -Communicating with pen/paper Cardiovascular -BP stable 120s/70s -Monitor for signs of shock -Consistently mildly tachycardic, pulse stable 110s Pulm -Intubated, on vent -Continue vent management -Wean with goal to extubate GI S/p repair of anastomotic leak on 4/6 POD #2, Lap kevin complicated by perforation/abscess formation with Dr. Monreal -Surgery following, Dr. Monreal - f/u recs -Monitor for BMs -Trickle feeds started -Dennison in place Heme Anemia -Hgb 8.4 decreased from 11 -f/u Hb Coagulopathy -INR 1.7, sp FFP x 2 units Nephro -Monitor Is and Os -Dennison in place Endo -Accuchecks ACHS -D5/.9 NS @ 75 ID Sepsis 2/2 Intrabdominal Infection -Leukocytosis 39 -Fever tmax 101.9 overnight -Hemodynamically stable -Abx per ID -Abd wound culture +Liliana Abx -Micofungin, Vanc, Flagyl Electrolyte imbalance-Hyponatremia/Hypocalcemia -Ca improved --> 6.4 -Monitor CMP PPx -DVT: Lovenox 40 mg SC daily -GI: Protonix 40 mg IV daily -Intubated, on vent -Tube feed management per surgery. Trickle feeds started. Assessment and plan d/w Dr. Kalani Roman, PGY-1
--- NOTE | 2018-06-20 14:50 | PN ---
DATE: 06/20/2018 SUBJECTIVE: Events noted. The patient had another surgery done over the weekend because of the leak from the anastomotic site. Now, he is intubated. He is in ICU. His white count has jumped to 43.8 today but he is awake, able to communicate with his signs as he is intubated, alert. He denies any abdominal pain. He is on pain medications at this time. PHYSICAL EXAMINATION: VITAL SIGNS: T-max is 102 today, so he is still febrile. Pulse is 119, saturations 97%, respirations are on the ventilator. He has an NG tube to suction which is draining bile at this time. His vitals are otherwise stable. HEAD: Atraumatic, normocephalic. He has a right internal jugular triple-lumen, intubated, NG tube. NECK: Supple. LUNGS: Coarse breath sounds otherwise clear. HEART: S1, S2, remains tachy. ABDOMEN: Distended with surgical scar, now has a TONY drain which has serous fluid in it. Bowel sounds are absent at this time. EXTREMITIES: Remain with Venodyne boots. LABORATORY DATA: Noted. Labs show white count is 43.8, hemoglobin 8.4, hematocrit 26.1, platelet count is 538. Hemoglobin was 9.7 yesterday, has dropped to 8.4. ABG is noted which is at 7.37, pO2 is 25.6, saturation 98.5. Bicarb is 24.1, creatinine is 0.7, BUN is 10, calcium is 6.4 is low, alk phos is 152, AST and ALT are all normal at this time. X-ray was done. X-ray shows improved aeration at the right lung with minimal residual patchy density of the right perihilar region with mid left pleural effusion unchanged as well as minimal residual patchy density at right perihilar region with mild left pleural effusion unchanged as well as left basilar consolidation or atelectasis, no pulmonary vascular congestion. His cultures came out, now the wound has Liliana albicans. Yesterday, it was yielding yeast and since he was febrile, I had changed it to Mycamine. Blood cultures have been negative. Urine culture is negative. Blood venous is negative. So, at this time, he has had another laparotomy, but he is now with respiratory failure but awake. He is on 4 antibiotics. Bands are 2. We will renew meropenem 1 g every 8 hours and continue Flagyl, Mycamine and vancomycin and we will try to get a vancomycin random trough in a.m. If remains high, we will need to see surgical input on this and his lungs, he probably has atelectatic changes as he did have distended abdominal recently and is status post multiple surgeries on the abdomen. Vernon Hendricks MD
--- NOTE | 2018-06-20 18:21 | CARD ---
APPROVED REPORT Date of service: 06/19/2018 EKG Measurement Heart [id number] <Conclusion> Sinus tachycardia Otherwise normal ECG
[2018-06-20] MEDS: Dextrose 5%/0.9% NS 1,000 ML IV SCH (19:39)
[2018-06-20] MEDS: Micafungin 100 MG in Sodium Chloride 0.9% 100 ML IV SCH (21:56)
[2018-06-21] MEDS: metroNIDAZOLE IV 500 mg/100 ml 500 MG/100 ML BAG IVPB SCH ×3 (00:58→17:51)
[2018-06-21 06:01] LABS: BASO % 0.1 % (0.0-2.0); EOS # 0.3 K/uL (0.0-0.7); EOS % 0.9 % (0.0-4.0); HEMOGLOBIN 8.3 g/dL (12.0-18.0); LYMPH # 1.2 K/uL (1.0-4.3); MEAN CELL VOLUME 92.1 fL (80.0-94.0); MEAN CORPUSCULAR HEMOGLOBIN 30.6 pg (27.0-31.0); MEAN CORPUSCULAR HGB CONC 33.2 g/dL (33.0-37.0); MEAN PLATELET VOLUME 8.2 fL (7.2-11.7); MONO # 1.2 K/uL (0.0-0.8); MONO % 3.8 % (0.0-10.0); NEUT # 27.8 K/uL (1.8-7.0); NEUT % 91.2 % (50.0-75.0); PLATELET COUNT 577 K/uL (130-400); RBC 2.71 Mil/uL (4.40-5.90); RED CELL DISTRIBUTION WIDTH 14.1 % (11.5-14.5); WHITE BLOOD COUNT 30.5 K/uL (4.8-10.8)
[2018-06-21 06:22] LABS: ALB/GLOB RATIO 0.8 (1.0-2.1); ALBUMIN 2.2 g/dL (3.5-5.0); ALT/SGPT 20 U/L (21-72); AST/SGOT 40 U/L (17-59); BLOOD UREA NITROGEN 8 mg/dL (9-20); CALCIUM 6.8 mg/dl (8.6-10.4); GFR NON-AFRICAN AMERICAN > 60
[2018-06-21 06:23] LABS: ARTERIAL BLOOD GAS HCO3 28.4 mmol/L (21-28); ARTERIAL BLOOD GAS HEMOGLOBIN 8.1 g/dL (11.7-17.4); ARTERIAL BLOOD GAS O2 SAT 100.1 % (95-98); ARTERIAL BLOOD GAS PCO2 39 mm/Hg (35-45); ARTERIAL BLOOD GAS PH 7.47 (7.35-7.45); ARTERIAL BLOOD GAS PO2 114 mm/Hg (80-100); ARTERIAL BLOOD GAS TCO2 29.6 mmol/L (22-28)
[2018-06-21] MEDS: ACETAMINOPHEN 1000 MG/100 ML IV SCH (06:23)
[2018-06-21] MEDS: Meropenem 1 GM in Sodium Chloride 0.9% 100 ML IVPB SCH ×3 (07:57→23:43)
--- NOTE | 2018-06-21 07:59 | CP.PCM.PN ---
Subjective - Date & Time of Evaluation Date of Evaluation: 06/21/18 Time of Evaluation: 07:25 - Subjective Subjective: Surgery: Dr. Monreal Patient remains intubated overnight. Afebrile overnight, tachycardia improved significantly. GCS 11T. Per nursing, urine 2925cc/24hr, NGT 75cc 24/hr, TONY 20cc/24hrs. Objective - Vital Signs/Intake and Output Vital Signs (last 24 hours): Temp Pulse Resp BP Pulse Ox 99.2 F 91 H 19 116/66 97 06/21/18 04:00 06/21/18 07:00 06/21/18 07:00 06/21/18 07:02 06/21/18 07:00 Intake and Output: 06/21/18 06/21/18 06:59 18:59 Intake Total 1730.1 267.7 Output Total 1370 100 Balance 360.1 167.7 - Medications Medications: Current Medications Enoxaparin Sodium (Lovenox) 40 mg SC DAILY [facility]IA Hydromorphone HCl (Dilaudid) 1 mg IVP Q4H PRN PRN Reason: Pain, severe (8-10) Last Admin: 06/18/18 20:16 Dose: 1 mg Metronidazole (Flagyl) 500 mg in 100 mls @ 100 mls/hr IVPB Q8H DACIA; Protocol Last Admin: 06/21/18 00:58 Dose: 100 mls/hr Meropenem 1 gm/ Sodium (Chloride) 100 mls @ 100 mls/hr IVPB Q8H [facility]IA; Protocol Last Admin: 06/20/18 23:45 Dose: 100 mls/hr Vancomycin HCl 1,400 mg/ (Sodium Chloride) 500 mls @ 166.6 mls/hr IVPB Q12H [facility]IA; Protocol Last Admin: 06/21/18 07:01 Dose: 166.6 mls/hr Propofol (Diprivan) 1,000 mg in 100 mls @ 2.313 mls/hr IV .Q24H PRN; Protocol PRN Reason: TITRATE PER MD ORDER Last Titration: 06/19/18 14:26 Dose: 0 mcg/kg/min, 0 mls/hr Fentanyl Citrate 2,500 mcg/ (Sodium Chloride) 250 mls @ 15.42 mls/hr IV .Q16 H13M DACIA; Protocol Last Admin: 06/21/18 06:25 Dose: 1 mcg/kg/hr, 7.71 mls/hr Micafungin Sodium 100 mg/ (Sodium Chloride) 100 mls @ 100 mls/hr IV Q24H [facility]; Protocol Last Admin: 06/20/18 21:56 Dose: 100 mls/hr Dextrose/Sodium Chloride (Dextrose 5%/0.9% Ns 1000 Ml) 1,000 mls @ 75 mls/hr IV .[id number] [facility] Last Admin: 06/20/18 19:39 Dose: Not Given Pantoprazole Sodium (Protonix Inj) 40 mg IVP DAILY [facility] Last Admin: 06/20/18 09:07 Dose: 40 mg - Labs Labs: 06/21/18 05:52 06/21/18 05:52 PT 18.1 SECONDS (9.7-12.2) H 06/19/18 14:28 INR 1.7 06/19/18 14:28 APTT 29 SECONDS (21-34) 06/19/18 14:28 - Constitutional Appears: Well, Non-toxic, No Acute Distress - Head Exam Head Exam: ATRAUMATIC, NORMOCEPHALIC - Eye Exam Eye Exam: EOMI - ENT Exam ENT Exam: Mucous Membranes Moist - Respiratory Exam Respiratory Exam: NORMAL BREATHING PATTERN Additional comments: intubated - Cardiovascular Exam Cardiovascular Exam: REGULAR RHYTHM. absent: Tachycardia (HR 88) - GI/Abdominal Exam GI & Abdominal Exam: Soft, Tenderness (appropriate midline incisional tenderne ss). absent: Guarding Additional comments: midline incision with retention sutures in place is clean and intact with serous drainage on dressings, dressings changed this am at bedside. - Extremities Exam Extremities Exam: Pedal Edema. absent: Calf Tenderness - Neurological Exam Neurological Exam: Alert (GCS 11T), Awake - Psychiatric Exam Psychiatric exam: Normal Affect, Normal Mood - Skin Skin Exam: Dry, Normal Color, Warm Assessment and Plan - Assessment and Plan (Free Text) Assessment: 37 y/o male with intra-abdominal sepsis s/p ex lap x2 for bowel injury POD3 Plan: -continue trickle feeds, monitor for bowel function -cont abx per ID -am labs -cont IVFs -vent management per ICU, wean to extubate -continue reglan to promote gut mobilization -CXR: improvement in left pleural effusion, possible IR drainage today -resume DVT ppx after procedure -cont A line for BP monitoring -cont barker for strict Is&Os -NGT for tube feeds, check residuals Q4hr and flush with 10cc sterile water Q4hr -monitor murtaza output -appreciate advisor consultant recs -d/w Dr. Jocelin Luther, PGY 1
[2018-06-21 08:25] LABS: BANDS 7 % (0-2); LYMPHOCYTE 3 % (20-40); MONOCYTE 2 % (0-10); NEUTROPHIL 88 % (50-75); TOTAL CELLS COUNTED 100
[2018-06-21 08:26] LABS: PLATELET ESTIMATE INCREASED (NORMAL)
[2018-06-21 08:27] LABS: ANISOCYTOSIS SLIGHT; HYPOCHROMIC SLIGHT; POIKILOCYTOSIS SLIGHT
[2018-06-21] MEDS ORDERED: Potassium Phosphate 15 MMOLE in Sodium Chloride 0.9% 250 ML IV ONE (09:29)
[2018-06-21] MEDS: Dextrose 5%/0.9% NS 1,000 ML IV SCH ×2 (09:41→13:25)
[2018-06-21] MEDS ORDERED: Enoxaparin 40 mg Syringe SC SCH (10:00)
--- NOTE | 2018-06-21 11:17 | RAD ---
Date of service: 06/21/2018 HISTORY: on vent COMPARISON: 06/20/2018 TECHNIQUE: 1 view obtained. FINDINGS: LUNGS: Extensive left-sided opacity sparing the apex. This is improved compared to the prior examination. Possible dependent pleural effusion with or without additional superimposed consolidation. Follow-up advised. No abnormal right-sided opacity. PLEURA: Moderate left pleural effusion. No right pleural effusion. No pneumothorax. CARDIOVASCULAR: ETT, NG tube and right IJ central venous catheter unchanged. Normal cardiac size. No pulmonary vascular congestion. OSSEOUS STRUCTURES: No significant abnormalities. VISUALIZED UPPER ABDOMEN: Normal. OTHER FINDINGS: None. IMPRESSION: Moderate left pleural effusion. Cannot exclude superimposed left-sided consolidation. Lines and tubes unchanged.
--- NOTE | 2018-06-21 11:52 | CP.CCUPN ---
<Tomi Roman - Last Filed: 06/21/18 11:54> CCU Subjective - Physician Review Subjective (Free Text): 06/20/18 13:25 Patient seen and examined at bedside, patient awake on vent. Denies chest pain, dizziness, n/v/d. Fever 100.3 tmax overnight. Patient improving clinically. CCU Objective - Vital Signs / Intake & Output Vital Signs (Last 4 hours): Vital Signs Temp Pulse Resp BP Pulse Ox 06/21/18 10:00 87 15 95 06/21/18 09:01 84 17 118/72 98 06/21/18 09:00 86 13 99 06/21/18 08:01 91 H 17 115/72 96 06/21/18 08:00 100.3 F H 92 H 18 96 Intake and Output (Last 8hrs): Intake & Output 06/20/18 06/21/18 06/21/18 22:59 06:59 14:59 Intake Total 1417.0 954.3 572.4 Output Total 785 970 225 Balance 632.0 -15.7 347.4 Weight 202 lb 6.15 oz Intake: IV 175 27 Intake, IV Amount 1152.0 844.3 515.4 Right Medial Port 1075 775 500 Internal Jugular Right Proximal Port 77.0 69.3 15.4 Internal Jugular Tube Feeding 80 90 20 Other 10 20 10 Output: Drainage 10 10 Medial Abdomen 10 10 Urine 775 960 225 Urethral (Dennison) 775 960 225 Other: # Bowel Movements 0 0 0 - Physical Exam Head: Positive for: Atraumatic, Normocephalic, Other (NGT and ETT in place\) Pupils: Positive for: PERRL Extroacular Muscles: Positive for: EOMI Mouth: Positive for: Moist Mucous Membranes Neck: Positive for: Normal Range of Motion Respiratory/Chest: Positive for: Clear to Auscultation, Other (trach, on vent). Negative for: Accessory Muscle Use Cardiovascular: Positive for: Regular Rate and Rhythm, Normal S1, S2 Abdomen: Positive for: Other (Serous drainage from wound with dressings in place, c/d/i. Serous drainage from murtaza drain.) Lower Extremity: Positive for: NORMAL PULSES. Negative for: Edema Neurological: Positive for: GCS=15, CN II-XII Intact Skin: Positive for: Dry, Normal Color Psychiatric: Positive for: Alert, Oriented x 3 - Medications Active Medications: Active Medications Generic Name Dose Route Start Last Admin Trade Name Freq PRN Reason Stop Dose Admin Enoxaparin Sodium 40 mg 06/21/18 10:00 Lovenox SC DAILY DACIA Hydromorphone HCl 1 mg 06/17/18 12:30 06/18/18 20:16 Dilaudid IVP 1 mg Q4H PRN Administration Pain, severe (8-10) Metronidazole 500 mg in 100 mls @ 100 mls/hr 06/13/18 17:00 06/21/18 09:18 Flagyl IVPB 100 mls/hr Q8H DACIA Administration Protocol Meropenem 1 gm/ Sodium 100 mls @ 100 mls/hr 06/16/18 08:30 06/21/18 07:57 Chloride IVPB 100 mls/hr Q8H DACIA Administration Protocol Vancomycin HCl 1,400 mg/ 500 mls @ 166.6 mls/hr 06/18/18 19:00 06/21/18 07:01 Sodium Chloride IVPB 166.6 mls/hr Q12H DACIA Administration Protocol Fentanyl Citrate 2,500 mcg/ 250 mls @ 15.42 mls/hr 06/19/18 02:30 06/21/18 10:02 Sodium Chloride IV 0 mcg/kg/hr .[id number] DACIA 0 mls/hr Titration Protocol 2 MCG/KG/HR Micafungin Sodium 100 mg/ 100 mls @ 100 mls/hr 06/19/18 21:45 06/20/18 21:56 Sodium Chloride IV 100 mls/hr Q24H DACIA Administration Protocol Dextrose/Sodium Chloride 1,000 mls @ 75 mls/hr 06/20/18 19:00 06/21/18 09:41 Dextrose 5%/0.9% Ns 1000 Ml IV Not Given .[id number] DACIA Potassium Phosphate 15 mmole/ 255 mls @ 63 mls/hr 06/21/18 09:29 06/21/18 10:06 Sodium Chloride IV 06/21/18 13:27 63 mls/hr ONCE ONE Administration Pantoprazole Sodium 40 mg 06/09/18 10:00 06/21/18 10:03 Protonix Inj IVP 40 mg DAILY [facility] Administration - Patient Studies Lab Studies: Microbiology Studies 06/16/18 10:15 Blood Culture - Final Blood-Venous NO GROWTH AFTER 5 DAYS Gram Stain - Final TEST NOT PERFORMED 06/16/18 09:00 Blood Culture - Final Blood-Venous NO GROWTH AFTER 5 DAYS Gram Stain - Final TEST NOT PERFORMED 06/17/18 15:33 Gram Stain - Final Abdomen Wound Culture - Final Liliana Albicans Lab Studies 06/21/18 06/21/18 06/21/18 Range/Units 05:52 05:52 05:21 WBC 30.5 H (4.8-10.8) K/uL RBC 2.71 L (4.40-5.90) Mil/uL Hgb 8.3 L (12.0-18.0) g/dL Hct 24.9 L (35.0-51.0) % MCV 92.1 (80.0-94.0) fL MCH 30.6 (27.0-31.0) pg MCHC 33.2 (33.0-37.0) g/dL RDW 14.1 (11.5-14.5) % Plt Count 577 H (130-400) K/uL MPV 8.2 (7.2-11.7) fL Neut % (Auto) 91.2 H (50.0-75.0) % Lymph % (Auto) 4.0 L (20.0-40.0) % Lanier % (Auto) 3.8 (0.0-10.0) % Eos % (Auto) 0.9 (0.0-4.0) % Baso % (Auto) 0.1 (0.0-2.0) % Neut # (Auto) 27.8 H (1.8-7.0) K/uL Lymph # (Auto) 1.2 (1.0-4.3) K/uL Lanier # (Auto) 1.2 H (0.0-0.8) K/uL Eos # (Auto) 0.3 (0.0-0.7) K/uL Baso # (Auto) 0.0 (0.0-0.2) K/uL Neutrophils % (Manual) 88 H (50-75) % Band Neutrophils % 7 H (0-2) % Lymphocytes % (Manual) 3 L (20-40) % Monocytes % (Manual) 2 (0-10) % Platelet Estimate Increased H (NORMAL) Hypochromasia (manual) Slight Poikilocytosis (manual Slight Anisocytosis (manual) Slight Puncture Site Rb pCO2 39 (35-45) mm/Hg pO2 114 H (80-100) mm/Hg HCO3 28.4 H (21-28) mmol/L ABG pH 7.47 H (7.35-7.45) ABG Total CO2 29.6 H (22-28) mmol/L ABG O2 Saturation 100.1 H (95-98) % ABG Base Excess 4.4 H (-2.0-3.0) mmol/L ABG Hemoglobin 8.1 L (11.7-17.4) g/dL ABG Carboxyhemoglobin 1.9 H (0.5-1.5) % POC ABG HHb (Measured) -0.1 L (0.0-5.0) % ABG Methemoglobin 1.3 (0.0-3.0) % Abe Test Na A-a O2 Difference 265.0 mm/Hg Respiratory Index 2.3 Hgb O2 Saturation 96.9 (95.0-98.0) % Vent Mode Prvc Mechanical Rate 12 FiO2 60.0 % Tidal Volume 500 PEEP 5 Sodium 134 (132-148) mmol/L Potassium 3.6 (3.6-5.2) mmol/L Chloride 101 (98-107) mmol/L Carbon Dioxide 31 H (22-30) mmol/L Anion Gap 6 L (10-20) BUN 8 L (9-20) mg/dL Creatinine 0.5 L (0.8-1.5) mg/dL Est GFR ( Amer) > 60 Est GFR (Non-Af Amer) > 60 Random Glucose 95 D (75-110) mg/dL Calcium 6.8 L (8.6-10.4) mg/dl Phosphorus 1.9 L (2.5-4.5) mg/dL Magnesium 2.4 H (1.6-2.3) mg/dL Total Bilirubin 0.4 (0.2-1.3) mg/dL AST 40 (17-59) U/L ALT 20 L D (21-72) U/L Alkaline Phosphatase 171 H (38-126) U/L Total Protein 4.9 L (6.3-8.3) g/dL Albumin 2.2 L (3.5-5.0) g/dL Globulin 2.7 (2.2-3.9) gm/dL Albumin/Globulin Ratio 0.8 L (1.0-2.1) Vancomycin Trough (5.0-10.0) ug/mL 06/20/18 Range/Units 16:59 WBC (4.8-10.8) K/uL RBC (4.40-5.90) Mil/uL Hgb (12.0-18.0) g/dL Hct (35.0-51.0) % MCV (80.0-94.0) fL MCH (27.0-31.0) pg MCHC (33.0-37.0) g/dL RDW (11.5-14.5) % Plt Count (130-400) K/uL MPV (7.2-11.7) fL Neut % (Auto) (50.0-75.0) % Lymph % (Auto) (20.0-40.0) % Lanier % (Auto) (0.0-10.0) % Eos % (Auto) (0.0-4.0) % Baso % (Auto) (0.0-2.0) % Neut # (Auto) (1.8-7.0) K/uL Lymph # (Auto) (1.0-4.3) K/uL Lanier # (Auto) (0.0-0.8) K/uL Eos # (Auto) (0.0-0.7) K/uL Baso # (Auto) (0.0-0.2) K/uL Neutrophils % (Manual) (50-75) % Band Neutrophils % (0-2) % Lymphocytes % (Manual) (20-40) % Monocytes % (Manual) (0-10) % Platelet Estimate (NORMAL) Hypochromasia (manual) Poikilocytosis (manual Anisocytosis (manual) Puncture Site pCO2 (35-45) mm/Hg pO2 (80-100) mm/Hg HCO3 (21-28) mmol/L ABG pH (7.35-7.45) ABG Total CO2 (22-28) mmol/L ABG O2 Saturation (95-98) % ABG Base Excess (-2.0-3.0) mmol/L ABG Hemoglobin (11.7-17.4) g/dL ABG Carboxyhemoglobin (0.5-1.5) % POC ABG HHb (Measured) (0.0-5.0) % ABG Methemoglobin (0.0-3.0) % Abe Test A-a O2 Difference mm/Hg Respiratory Index Hgb O2 Saturation (95.0-98.0) % Vent Mode Mechanical Rate FiO2 % Tidal Volume PEEP Sodium (132-148) mmol/L Potassium (3.6-5.2) mmol/L Chloride (98-107) mmol/L Carbon Dioxide (22-30) mmol/L Anion Gap (10-20) BUN (9-20) mg/dL Creatinine (0.8-1.5) mg/dL Est GFR ( Amer) Est GFR (Non-Af Amer) Random Glucose (75-110) mg/dL Calcium (8.6-10.4) mg/dl Phosphorus (2.5-4.5) mg/dL Magnesium (1.6-2.3) mg/dL Total Bilirubin (0.2-1.3) mg/dL AST (17-59) U/L ALT (21-72) U/L Alkaline Phosphatase (38-126) U/L Total Protein (6.3-8.3) g/dL Albumin (3.5-5.0) g/dL Globulin (2.2-3.9) gm/dL Albumin/Globulin Ratio (1.0-2.1) Vancomycin Trough 5.5 (5.0-10.0) ug/mL Laboratory Results - last 24 hr 06/20/18 06/21/18 06/21/18 16:59 05:21 05:52 WBC 30.5 H RBC 2.71 L Hgb 8.3 L Hct 24.9 L MCV 92.1 MCH 30.6 MCHC 33.2 RDW 14.1 Plt Count 577 H MPV 8.2 Neut % (Auto) 91.2 H Lymph % (Auto) 4.0 L Lanier % (Auto) 3.8 Eos % (Auto) 0.9 Baso % (Auto) 0.1 Neut # (Auto) 27.8 H Lymph # (Auto) 1.2 Lanier # (Auto) 1.2 H Eos # (Auto) 0.3 Baso # (Auto) 0.0 Neutrophils % (Manual) 88 H Band Neutrophils % 7 H Lymphocytes % (Manual) 3 L Monocytes % (Manual) 2 Platelet Estimate Increased H Hypochromasia (manual) Slight Poikilocytosis (manual Slight Anisocytosis (manual) Slight Puncture Site Rb pCO2 39 pO2 114 H HCO3 28.4 H ABG pH 7.47 H ABG Total CO2 29.6 H ABG O2 Saturation 100.1 H ABG Base Excess 4.4 H ABG Hemoglobin 8.1 L ABG Carboxyhemoglobin 1.9 H POC ABG HHb (Measured) -0.1 L ABG Methemoglobin 1.3 Abe Test Na A-a O2 Difference 265.0 Respiratory Index 2.3 Hgb O2 Saturation 96.9 Vent Mode Prvc Mechanical Rate 12 FiO2 60.0 Tidal Volume 500 PEEP 5 Sodium Potassium Chloride Carbon Dioxide Anion Gap BUN Creatinine Est GFR ( Amer) Est GFR (Non-Af Amer) Random Glucose Calcium Phosphorus Magnesium Total Bilirubin AST ALT Alkaline Phosphatase Total Protein Albumin Globulin Albumin/Globulin Ratio Vancomycin Trough 5.5 06/21/18 05:52 WBC RBC Hgb Hct MCV MCH MCHC RDW Plt Count MPV Neut % (Auto) Lymph % (Auto) Lanier % (Auto) Eos % (Auto) Baso % (Auto) Neut # (Auto) Lymph # (Auto) Lanier # (Auto) Eos # (Auto) Baso # (Auto) Neutrophils % (Manual) Band Neutrophils % Lymphocytes % (Manual) Monocytes % (Manual) Platelet Estimate Hypochromasia (manual) Poikilocytosis (manual Anisocytosis (manual) Puncture Site pCO2 pO2 HCO3 ABG pH ABG Total CO2 ABG O2 Saturation ABG Base Excess ABG Hemoglobin ABG Carboxyhemoglobin POC ABG HHb (Measured) ABG Methemoglobin Abe Test A-a O2 Difference Respiratory Index Hgb O2 Saturation Vent Mode Mechanical Rate FiO2 Tidal Volume PEEP Sodium 134 Potassium 3.6 Chloride 101 Carbon Dioxide 31 H Anion Gap 6 L BUN 8 L Creatinine 0.5 L Est GFR ( Amer) > 60 Est GFR (Non-Af Amer) > 60 Random Glucose 95 D Calcium 6.8 L Phosphorus 1.9 L Magnesium 2.4 H Total Bilirubin 0.4 AST 40 ALT 20 L D Alkaline Phosphatase 171 H Total Protein 4.9 L Albumin 2.2 L Globulin 2.7 Albumin/Globulin Ratio 0.8 L Vancomycin Trough Radiology Impressions: Radiology Impressions Chest X-Ray 06/21/18 06:00 IMPRESSION: Moderate left pleural effusion. Cannot exclude superimposed left-sided consolidation. Lines and tubes unchanged. Fingerstick Blood Sugar Results: 97 Review of Systems - Review of Systems All systems: reviewed and no additional remarkable complaints except Critical Care Progress Note - Nutrition Nutrition: Nutrition Category Date Time Status NPO Diet [DIET] Diets 06/18/18 Lunch Active Assessment/Plan - Assessment and Plan (Free Text) Assessment: Patient is a 37 year old male s/p lap kevin complicated by perforation/abscess formation POD #12, repair of anastomotic leak 4/6 Neuro -A and O x3 Cardiovascular -BP stable 120s/70s -Monitor for signs of shock -Consistently mildly tachycardic, pulse stable 110s Pulm -Intubated, on vent -Continue vent management -Weaning, for potential extubation GI S/p repair of anastomotic leak on 4/6 POD #2, Lap kevin complicated by perforation/abscess formation with Dr. Monreal -Surgery following, Dr. Monreal - f/u recs -BM today -Trickle feeds started -Dennison in place Heme Anemia -Hgb 8.3 -Continue trending Coagulopathy -INR 1.7, sp FFP x 2 units Nephro -Monitor Is and Os -Dennison in place Hypokalemia -Repleted -Monitor lytes Endo -Accuchecks ACHS -D5/.9 NS @ 75 ID Sepsis 2/2 Intrabdominal Infection -Leukocytosis 39 -Fever tmax 101.9 overnight -Hemodynamically stable -Abx per ID -Abd wound culture +Liliana Abx -Micofungin, Vanc, Flagyl PPx -DVT: Lovenox 40 mg SC daily -GI: Protonix 40 mg IV daily -Intubated, on vent -Tube feed management per surgery. Trickle feeds started. Assessment and plan d/w Dr. Lamberto Roman, PGY-1 <Migue Orantes S - Last Filed: 06/21/18 18:10> CCU Subjective - Physician Review Critical Care Time Spent (in minutes): 45 CCU Objective - Vital Signs / Intake & Output Vital Signs (Last 4 hours): Vital Signs Temp Pulse Resp BP Pulse Ox 06/21/18 17:02 113/75 06/21/18 17:00 94 H 15 94 L 06/21/18 16:02 91 H 18 122/77 95 06/21/18 16:00 99 F 06/21/18 15:02 93 H 13 118/72 95 06/21/18 15:00 94 H 17 95 Intake and Output (Last 8hrs): Intake & Output 06/21/18 06/21/18 06/21/18 06:59 14:59 22:59 Intake Total 954.3 1398.1 280 Output Total 970 1085 150 Balance -15.7 313.1 130 Weight 202 lb 6.15 oz Intake: IV 27 Intake, IV Amount 844.3 1271.1 250 Right Medial Port 775 1000 250 Internal Jugular Right Proximal Port 69.3 271.1 Internal Jugular Tube Feeding 90 80 30 Other 20 20 Output: Drainage 10 Medial Abdomen 10 Urine 960 1085 150 Urethral (Dennison) 960 1085 150 Other: # Bowel Movements 0 0 1 - Medications Active Medications: Active Medications Generic Name Dose Route Start Last Admin Trade Name Freq PRN Reason Stop Dose Admin Enoxaparin Sodium 40 mg 06/21/18 10:00 Lovenox SC DAILY DACIA Hydromorphone HCl 1 mg 06/17/18 12:30 06/21/18 16:45 Dilaudid IVP 1 mg Q4H PRN Administration Pain, severe (8-10) Metronidazole 500 mg in 100 mls @ 100 mls/hr 06/13/18 17:00 06/21/18 17:51 Flagyl IVPB 100 mls/hr Q8H DACIA Administration Protocol Meropenem 1 gm/ Sodium 100 mls @ 100 mls/hr 06/16/18 08:30 06/21/18 16:44 Chloride IVPB 100 mls/hr Q8H DACIA Administration Protocol Vancomycin HCl 1,400 mg/ 500 mls @ 166.6 mls/hr 06/18/18 19:00 06/21/18 07:01 Sodium Chloride IVPB 166.6 mls/hr Q12H DACIA Administration Protocol Fentanyl Citrate 2,500 mcg/ 250 mls @ 15.42 mls/hr 06/19/18 02:30 06/21/18 10:02 Sodium Chloride IV 0 mcg/kg/hr .[id number] DACIA 0 mls/hr Titration Protocol 2 MCG/KG/HR Micafungin Sodium 100 mg/ 100 mls @ 100 mls/hr 06/19/18 21:45 06/20/18 21:56 Sodium Chloride IV 100 mls/hr Q24H DACIA Administration Protocol Dextrose/Sodium Chloride 1,000 mls @ 75 mls/hr 06/20/18 19:00 06/21/18 13:25 Dextrose 5%/0.9% Ns 1000 Ml IV 75 mls/hr .[id number] DACIA Administration Pantoprazole Sodium 40 mg 06/09/18 10:00 06/21/18 10:03 Protonix Inj IVP 40 mg DAILY DACIA Administration - Patient Studies Lab Studies: Microbiology Studies 06/19/18 04:45 MRSA Culture (Admit) - Final Nose MRSA NOT DETECTED 06/16/18 10:15 Blood Culture - Final Blood-Venous NO GROWTH AFTER 5 DAYS Gram Stain - Final TEST NOT PERFORMED 06/16/18 09:00 Blood Culture - Final Blood-Venous NO GROWTH AFTER 5 DAYS Gram Stain - Final TEST NOT PERFORMED Lab Studies 06/21/18 06/21/18 06/21/18 Range/Units 11:25 11:17 05:52 WBC (4.8-10.8) K/uL RBC (4.40-5.90) Mil/uL Hgb (12.0-18.0) g/dL Hct (35.0-51.0) % MCV (80.0-94.0) fL MCH (27.0-31.0) pg MCHC (33.0-37.0) g/dL RDW (11.5-14.5) % Plt Count (130-400) K/uL MPV (7.2-11.7) fL Neut % (Auto) (50.0-75.0) % Lymph % (Auto) (20.0-40.0) % Lanier % (Auto) (0.0-10.0) % Eos % (Auto) (0.0-4.0) % Baso % (Auto) (0.0-2.0) % Neut # (Auto) (1.8-7.0) K/uL Lymph # (Auto) (1.0-4.3) K/uL Lanier # (Auto) (0.0-0.8) K/uL Eos # (Auto) (0.0-0.7) K/uL Baso # (Auto) (0.0-0.2) K/uL Neutrophils % (Manual) (50-75) % Band Neutrophils % (0-2) % Lymphocytes % (Manual) (20-40) % Monocytes % (Manual) (0-10) % Platelet Estimate (NORMAL) Hypochromasia (manual) Poikilocytosis (manual Anisocytosis (manual) Puncture Site pCO2 (35-45) mm/Hg pO2 (80-100) mm/Hg HCO3 (21-28) mmol/L ABG pH (7.35-7.45) ABG Total CO2 (22-28) mmol/L ABG O2 Saturation (95-98) % ABG Base Excess (-2.0-3.0) mmol/L ABG Hemoglobin (11.7-17.4) g/dL ABG Carboxyhemoglobin (0.5-1.5) % POC ABG HHb (Measured) (0.0-5.0) % ABG Methemoglobin (0.0-3.0) % Abe Test A-a O2 Difference mm/Hg Respiratory Index Hgb O2 Saturation (95.0-98.0) % Vent Mode Mechanical Rate FiO2 % Tidal Volume PEEP Sodium 134 (132-148) mmol/L Potassium 3.6 (3.6-5.2) mmol/L Chloride 101 (98-107) mmol/L Carbon Dioxide 31 H (22-30) mmol/L Anion Gap 6 L (10-20) BUN 8 L (9-20) mg/dL Creatinine 0.5 L (0.8-1.5) mg/dL Est GFR ( Amer) > 60 Est GFR (Non-Af Amer) > 60 POC Glucose (mg/dL) 112 H (65-110) mg/dL Random Glucose 95 D (75-110) mg/dL Calcium 6.8 L (8.6-10.4) mg/dl Phosphorus 1.9 L (2.5-4.5) mg/dL Magnesium 2.4 H (1.6-2.3) mg/dL Total Bilirubin 0.4 (0.2-1.3) mg/dL AST 40 (17-59) U/L ALT 20 L D (21-72) U/L Alkaline Phosphatase 171 H (38-126) U/L Total Protein 4.9 L (6.3-8.3) g/dL Albumin 2.2 L (3.5-5.0) g/dL Globulin 2.7 (2.2-3.9) gm/dL Albumin/Globulin Ratio 0.8 L (1.0-2.1) C. difficile Ag & Toxin Negative (NEGATIVE) 06/21/18 06/21/18 Range/Units 05:52 05:21 WBC 30.5 H (4.8-10.8) K/uL RBC 2.71 L (4.40-5.90) Mil/uL Hgb 8.3 L (12.0-18.0) g/dL Hct 24.9 L (35.0-51.0) % MCV 92.1 (80.0-94.0) fL MCH 30.6 (27.0-31.0) pg MCHC 33.2 (33.0-37.0) g/dL RDW 14.1 (11.5-14.5) % Plt Count 577 H (130-400) K/uL MPV 8.2 (7.2-11.7) fL Neut % (Auto) 91.2 H (50.0-75.0) % Lymph % (Auto) 4.0 L (20.0-40.0) % Lanier % (Auto) 3.8 (0.0-10.0) % Eos % (Auto) 0.9 (0.0-4.0) % Baso % (Auto) 0.1 (0.0-2.0) % Neut # (Auto) 27.8 H (1.8-7.0) K/uL Lymph # (Auto) 1.2 (1.0-4.3) K/uL Lanier # (Auto) 1.2 H (0.0-0.8) K/uL Eos # (Auto) 0.3 (0.0-0.7) K/uL Baso # (Auto) 0.0 (0.0-0.2) K/uL Neutrophils % (Manual) 88 H (50-75) % Band Neutrophils % 7 H (0-2) % Lymphocytes % (Manual) 3 L (20-40) % Monocytes % (Manual) 2 (0-10) % Platelet Estimate Increased H (NORMAL) Hypochromasia (manual) Slight Poikilocytosis (manual Slight Anisocytosis (manual) Slight Puncture Site Rb pCO2 39 (35-45) mm/Hg pO2 114 H (80-100) mm/Hg HCO3 28.4 H (21-28) mmol/L ABG pH 7.47 H (7.35-7.45) ABG Total CO2 29.6 H (22-28) mmol/L ABG O2 Saturation 100.1 H (95-98) % ABG Base Excess 4.4 H (-2.0-3.0) mmol/L ABG Hemoglobin 8.1 L (11.7-17.4) g/dL ABG Carboxyhemoglobin 1.9 H (0.5-1.5) % POC ABG HHb (Measured) -0.1 L (0.0-5.0) % ABG Methemoglobin 1.3 (0.0-3.0) % Abe Test Na A-a O2 Difference 265.0 mm/Hg Respiratory Index 2.3 Hgb O2 Saturation 96.9 (95.0-98.0) % Vent Mode Prvc Mechanical Rate 12 FiO2 60.0 % Tidal Volume 500 PEEP 5 Sodium (132-148) mmol/L Potassium (3.6-5.2) mmol/L Chloride (98-107) mmol/L Carbon Dioxide (22-30) mmol/L Anion Gap (10-20) BUN (9-20) mg/dL Creatinine (0.8-1.5) mg/dL Est GFR ( Amer) Est GFR (Non-Af Amer) POC Glucose (mg/dL) (65-110) mg/dL Random Glucose (75-110) mg/dL Calcium (8.6-10.4) mg/dl Phosphorus (2.5-4.5) mg/dL Magnesium (1.6-2.3) mg/dL Total Bilirubin (0.2-1.3) mg/dL AST (17-59) U/L ALT (21-72) U/L Alkaline Phosphatase (38-126) U/L Total Protein (6.3-8.3) g/dL Albumin (3.5-5.0) g/dL Globulin (2.2-3.9) gm/dL Albumin/Globulin Ratio (1.0-2.1) C. difficile Ag & Toxin (NEGATIVE) Laboratory Results - last 24 hr 06/21/18 06/21/18 06/21/18 05:21 05:52 05:52 WBC 30.5 H RBC 2.71 L Hgb 8.3 L Hct 24.9 L MCV 92.1 MCH 30.6 MCHC 33.2 RDW 14.1 Plt Count 577 H MPV 8.2 Neut % (Auto) 91.2 H Lymph % (Auto) 4.0 L Lanier % (Auto) 3.8 Eos % (Auto) 0.9 Baso % (Auto) 0.1 Neut # (Auto) 27.8 H Lymph # (Auto) 1.2 Lanier # (Auto) 1.2 H Eos # (Auto) 0.3 Baso # (Auto) 0.0 Neutrophils % (Manual) 88 H Band Neutrophils % 7 H Lymphocytes % (Manual) 3 L Monocytes % (Manual) 2 Platelet Estimate Increased H Hypochromasia (manual) Slight Poikilocytosis (manual Slight Anisocytosis (manual) Slight Puncture Site Rb pCO2 39 pO2 114 H HCO3 28.4 H ABG pH 7.47 H ABG Total CO2 29.6 H ABG O2 Saturation 100.1 H ABG Base Excess 4.4 H ABG Hemoglobin 8.1 L ABG Carboxyhemoglobin 1.9 H POC ABG HHb (Measured) -0.1 L ABG Methemoglobin 1.3 Abe Test Na A-a O2 Difference 265.0 Respiratory Index 2.3 Hgb O2 Saturation 96.9 Vent Mode Prvc Mechanical Rate 12 FiO2 60.0 Tidal Volume 500 PEEP 5 Sodium 134 Potassium 3.6 Chloride 101 Carbon Dioxide 31 H Anion Gap 6 L BUN 8 L Creatinine 0.5 L Est GFR ( Amer) > 60 Est GFR (Non-Af Amer) > 60 POC Glucose (mg/dL) Random Glucose 95 D Calcium 6.8 L Phosphorus 1.9 L Magnesium 2.4 H Total Bilirubin 0.4 AST 40 ALT 20 L D Alkaline Phosphatase 171 H Total Protein 4.9 L Albumin 2.2 L Globulin 2.7 Albumin/Globulin Ratio 0.8 L C. difficile Ag & Toxin 06/21/18 06/21/18 11:17 11:25 WBC RBC Hgb Hct MCV MCH MCHC RDW Plt Count MPV Neut % (Auto) Lymph % (Auto) Lanier % (Auto) Eos % (Auto) Baso % (Auto) Neut # (Auto) Lymph # (Auto) Lanier # (Auto) Eos # (Auto) Baso # (Auto) Neutrophils % (Manual) Band Neutrophils % Lymphocytes % (Manual) Monocytes % (Manual) Platelet Estimate Hypochromasia (manual) Poikilocytosis (manual Anisocytosis (manual) Puncture Site pCO2 pO2 HCO3 ABG pH ABG Total CO2 ABG O2 Saturation ABG Base Excess ABG Hemoglobin ABG Carboxyhemoglobin POC ABG HHb (Measured) ABG Methemoglobin Abe Test A-a O2 Difference Respiratory Index Hgb O2 Saturation Vent Mode Mechanical Rate FiO2 Tidal Volume PEEP Sodium Potassium Chloride Carbon Dioxide Anion Gap BUN Creatinine Est GFR ( Amer) Est GFR (Non-Af Amer) POC Glucose (mg/dL) 112 H Random Glucose Calcium Phosphorus Magnesium Total Bilirubin AST ALT Alkaline Phosphatase Total Protein Albumin Globulin Albumin/Globulin Ratio C. difficile Ag & Toxin Negative Radiology Impressions: Radiology Impressions Chest X-Ray 06/21/18 06:00 IMPRESSION: Moderate left pleural effusion. Cannot exclude superimposed left-sided consolidation. Lines and tubes unchanged. Critical Care Progress Note - Nutrition Nutrition: Nutrition Category Date Time Status NPO Diet [DIET] Diets 06/18/18 Lunch Active Attending/Attestation - Attestation I have personally seen and examined this patient.: Yes I have fully participated in the care of the patient.: Yes I have reviewed all pertinent clinical information: Yes Notes (Text): 06/21/18 18:09 Patient seen and examined in the intensive care unit. Case discussed with housestaff in the morning rounds. Patient extubated after weaning trial Continue antibiotics Follow-up chest x-ray for left pleural effusion Comfortable post extubation
--- NOTE | 2018-06-21 15:12 | CP.PCM.PN ---
Subjective - Date & Time of Evaluation Date of Evaluation: 06/21/18 Time of Evaluation: 15:00 - Subjective Subjective: dictated Objective - Vital Signs/Intake and Output Vital Signs (last 24 hours): Temp Pulse Resp BP Pulse Ox 99.5 F 99 H 24 120/70 96 06/21/18 12:00 06/21/18 12:01 06/21/18 12:01 06/21/18 12:01 06/21/18 12:01 Intake and Output: 06/21/18 06/21/18 06:59 18:59 Intake Total 1730.1 1156.1 Output Total 1370 730 Balance 360.1 426.1 - Medications Medications: Current Medications Enoxaparin Sodium (Lovenox) 40 mg SC DAILY DACIA Hydromorphone HCl (Dilaudid) 1 mg IVP Q4H PRN PRN Reason: Pain, severe (8-10) Last Admin: 06/18/18 20:16 Dose: 1 mg Metronidazole (Flagyl) 500 mg in 100 mls @ 100 mls/hr IVPB Q8H DACIA; Protocol Last Admin: 06/21/18 09:18 Dose: 100 mls/hr Meropenem 1 gm/ Sodium (Chloride) 100 mls @ 100 mls/hr IVPB Q8H DACIA; Protocol Last Admin: 06/21/18 07:57 Dose: 100 mls/hr Vancomycin HCl 1,400 mg/ (Sodium Chloride) 500 mls @ 166.6 mls/hr IVPB Q12H DACIA; Protocol Last Admin: 06/21/18 07:01 Dose: 166.6 mls/hr Fentanyl Citrate 2,500 mcg/ (Sodium Chloride) 250 mls @ 15.42 mls/hr IV .[id number] DACIA; Protocol Last Titration: 06/21/18 10:02 Dose: 0 mcg/kg/hr, 0 mls/hr Micafungin Sodium 100 mg/ (Sodium Chloride) 100 mls @ 100 mls/hr IV Q24H DACIA; Protocol Last Admin: 06/20/18 21:56 Dose: 100 mls/hr Dextrose/Sodium Chloride (Dextrose 5%/0.9% Ns 1000 Ml) 1,000 mls @ 75 mls/hr IV .[id number] DACIA Last Admin: 06/21/18 13:25 Dose: 75 mls/hr Pantoprazole Sodium (Protonix Inj) 40 mg IVP DAILY DACIA Last Admin: 06/21/18 10:03 Dose: 40 mg - Labs Labs: 06/21/18 05:52 06/21/18 05:52 PT 18.1 SECONDS (9.7-12.2) H 06/19/18 14:28 INR 1.7 06/19/18 14:28 APTT 29 SECONDS (21-34) 06/19/18 14:28
[2018-06-21] MEDS: HYDROmorphone 1 mg/ml ISec IVP PRN ×2 (16:45→23:40)
[2018-06-21] MEDS: Micafungin 100 MG in Sodium Chloride 0.9% 100 ML IV SCH (22:05)
[2018-06-22] MEDS: metroNIDAZOLE IV 500 mg/100 ml 500 MG/100 ML BAG IVPB SCH ×3 (00:24→17:11)
[2018-06-22] MEDS: Dextrose 5%/0.9% NS 1,000 ML IV SCH ×2 (00:24→13:09)
--- NOTE | 2018-06-22 03:34 | PN ---
DATE: 06/21/2018 SUBJECTIVE: The patient is more alert. He remains intubated. He was having diarrhea so we are going to send for C. diff. He has just been put on feedings and tolerating them. He is more awake, and he says that he is having liquidy bowel movement because he is only taking liquid diet. Remains more alert. OBJECTIVE: VITAL SIGNS: He does remain febrile, still had a T-max of 100.3 overnight, and heart rate remains 98. Respirations are 23, and remains intubated. HEENT: Head is atraumatic, normocephalic. NECK: Supple. ABDOMEN: He denies abdominal pain at this time. Soft. There is a surgical scar with a TONY drain at this time, and serous drainage from wound with dressings, and there is serous drainage in the Hussein drain. LUNGS: Clear. HEART: S1, S2, regular. EXTREMITIES: Have no edema, otherwise. GENERAL: He is alert, oriented. Abdominal wound had a dressing and had Hussein drain, but I am not sure if the wound has any drainage. We will evaluate with the resident tomorrow. Labs are noted. White count has dropped to 30.5, hemoglobin 8.3, hematocrit 24.9, platelet count is 577. He is following medical or surgical instrument maker along with the team so his white count is coming down. However, at this time, I would continue all the antibiotics and ordered stool for C. diff as he is having diarrhea, and if his white count comes down further, then we will see if we can deescalate them but he has had this multiple abdominal surgeries at this time and has had significantly high leukocytosis with sepsis and had intra-abdominal abscesses, anastomotic leaks, so it is better to cover. Vernon Hendricks MD
[2018-06-22 06:10] LABS: BASO # 0.1 K/uL (0.0-0.2); BASO % 0.5 % (0.0-2.0); EOS # 0.4 K/uL (0.0-0.7); EOS % 1.6 % (0.0-4.0); HEMOGLOBIN 8.3 g/dL (12.0-18.0); LYMPH # 1.4 K/uL (1.0-4.3); LYMPH % 5.8 % (20.0-40.0); MEAN CELL VOLUME 91.5 fL (80.0-94.0); MEAN CORPUSCULAR HEMOGLOBIN 30.5 pg (27.0-31.0); MEAN CORPUSCULAR HGB CONC 33.3 g/dL (33.0-37.0); MEAN PLATELET VOLUME 8.1 fL (7.2-11.7); MONO # 1.3 K/uL (0.0-0.8); MONO % 5.3 % (0.0-10.0); NEUT # 20.6 K/uL (1.8-7.0); NEUT % 86.8 % (50.0-75.0); NRBC % 0.1 % (0.0-2.0); PLATELET COUNT 590 K/uL (130-400); RBC 2.71 Mil/uL (4.40-5.90); RED CELL DISTRIBUTION WIDTH 14.3 % (11.5-14.5); WHITE BLOOD COUNT 23.7 K/uL (4.8-10.8)
[2018-06-22 06:25] LABS: ALB/GLOB RATIO 0.7 (1.0-2.1); ALBUMIN 2.2 g/dL (3.5-5.0); ALT/SGPT 27 U/L (21-72); AST/SGOT 35 U/L (17-59); BLOOD UREA NITROGEN 7 mg/dL (9-20); GFR NON-AFRICAN AMERICAN > 60
[2018-06-22] MEDS: Meropenem 1 GM in Sodium Chloride 0.9% 100 ML IVPB SCH ×3 (07:48→23:30)
[2018-06-22 08:04] LABS: ANISOCYTOSIS SLIGHT; BANDS 3 % (0-2); BASOPHIL 1 % (0-2); LYMPHOCYTE 5 % (20-40); MONOCYTE 5 % (0-10); NEUTROPHIL 86 % (50-75); PLATELET ESTIMATE INCREASED (NORMAL); POIKILOCYTOSIS SLIGHT; TOTAL CELLS COUNTED 100
[2018-06-22 08:05] LABS: HYPOCHROMIC SLIGHT; TARGET CELLS SLIGHT
--- NOTE | 2018-06-22 08:33 | RAD ---
Date of service: 06/22/2018 HISTORY: ett on vent COMPARISON: Portable chest 06/21/2018. TECHNIQUE: 1 view obtained. FINDINGS: LUNGS: Endotracheal tube has been removed apparently. Nasogastric tube is unchanged with right central venous line also stable in position. Mild left pleural effusion persists with underlying airspace disease not excluded. None is appreciated at the right. No pneumothorax bilaterally. PLEURA: As above. CARDIOVASCULAR: No aortic atherosclerotic calcification present. Normal cardiac size. No pulmonary vascular congestion. OSSEOUS STRUCTURES: No significant abnormalities. VISUALIZED UPPER ABDOMEN: Normal. OTHER FINDINGS: None. IMPRESSION: Stable limited left pleural effusion with underlying airspace disease not excluded at the left base. Remaining lung aldana clear. No pulmonary vascular congestion. Tubes and catheter stable.
[2018-06-22] MEDS ORDERED: Potassium Phosphate 30 MMOLE in Sodium Chloride 0.9% 250 ML IV ONE (09:00)
[2018-06-22] MEDS ORDERED: Potassium & Sodium Phosphate PO ONE (09:00)
[2018-06-22] MEDS: HYDROmorphone 1 mg/ml ISec IVP PRN ×2 (11:20→19:40)
[2018-06-22] MEDS: Enoxaparin 40 mg Syringe SC SCH (13:07)
--- NOTE | 2018-06-22 13:30 | CP.CCUPN ---
<Tomi Roman - Last Filed: 06/22/18 13:50> CCU Subjective - Physician Review Subjective (Free Text): PGY-[address] Crenshaw Patient seen and examined at bedside. Extubated yesterday evening and placed on venti-mask with patient tolerating overnight. Today patient weaned to NC at 5L and currently he is tolerating with no complaints. Patient denies abdominal pain, but states having some cold sweats. Denies fevers, headache, dizziness, n/v/d, shortness of breath. CCU Objective - Vital Signs / Intake & Output Vital Signs (Last 4 hours): Vital Signs Temp Pulse Resp BP Pulse Ox 06/22/18 13:01 93 H 15 129/79 95 06/22/18 13:00 93 H 21 95 06/22/18 12:01 85 17 116/77 96 06/22/18 12:00 98.3 F 90 16 96 06/22/18 11:01 99 H 20 128/75 97 06/22/18 10:14 96 H 16 133/86 96 06/22/18 10:02 93 H 15 130/75 06/22/18 10:00 92 H 13 Intake and Output (Last 8hrs): Intake & Output 06/21/18 06/22/18 06/22/18 22:59 06:59 14:59 Intake Total 1051 925 940 Output Total 349 575 4842 Balance 91 225 -260 Weight 191 lb 12.835 oz Intake: Intake, IV Amount 951 825 750 Right Medial Port 951 825 750 Internal Jugular Tube Feeding 80 80 70 Other 20 20 120 Output: Drainage 10 Medial Abdomen 10 Urine [phone] Urethral (Dennison) 550 Urine, Voided [phone] Other: # Bowel Movements 1 1 1 - Physical Exam Head: Positive for: Atraumatic, Normocephalic, Other (NGT and ETT in place\) Pupils: Positive for: PERRL Extroacular Muscles: Positive for: EOMI Mouth: Positive for: Moist Mucous Membranes Neck: Positive for: Normal Range of Motion Respiratory/Chest: Positive for: Clear to Auscultation, Other (nasal canula). Negative for: Accessory Muscle Use Cardiovascular: Positive for: Regular Rate and Rhythm, Normal S1, S2 Abdomen: Positive for: Other (Serous drainage from wound with dressings in place, c/d/i. Serous drainage from murtaza drain.) Lower Extremity: Positive for: NORMAL PULSES. Negative for: Edema Neurological: Positive for: GCS=15, CN II-XII Intact Skin: Positive for: Dry, Normal Color Psychiatric: Positive for: Alert, Oriented x 3 - Medications Active Medications: Active Medications Generic Name Dose Route Start Last Admin Trade Name Freq PRN Reason Stop Dose Admin Enoxaparin Sodium 40 mg 06/22/18 13:00 06/22/18 13:07 Lovenox SC 40 mg DAILY DACIA Administration Hydromorphone HCl 1 mg 06/17/18 12:30 06/22/18 11:20 Dilaudid IVP 1 mg Q4H PRN Administration Pain, severe (8-10) Metronidazole 500 mg in 100 mls @ 100 mls/hr 06/13/18 17:00 06/22/18 08:51 Flagyl IVPB 100 mls/hr Q8H DACIA Administration Protocol Meropenem 1 gm/ Sodium 100 mls @ 100 mls/hr 06/16/18 08:30 06/22/18 07:48 Chloride IVPB 100 mls/hr Q8H DACIA Administration Protocol Vancomycin HCl 1,400 mg/ 500 mls @ 166.6 mls/hr 06/18/18 19:00 06/22/18 06:00 Sodium Chloride IVPB 166.6 mls/hr Q12H DACIA Administration Protocol Micafungin Sodium 100 mg/ 100 mls @ 100 mls/hr 06/19/18 21:45 06/21/18 22:05 Sodium Chloride IV 100 mls/hr Q24H DACIA Administration Protocol Dextrose/Sodium Chloride 1,000 mls @ 75 mls/hr 06/20/18 19:00 06/22/18 13:09 Dextrose 5%/0.9% Ns 1000 Ml IV 75 mls/hr .[id number] DACIA Administration Pantoprazole Sodium 40 mg 06/09/18 10:00 06/22/18 09:08 Protonix Inj IVP 40 mg DAILY DACIA Administration - Patient Studies Lab Studies: Microbiology Studies 06/21/18 11:25 Stool Culture - Preliminary Stool Gram Negative Leonardo 06/19/18 04:45 MRSA Culture (Admit) - Final Nose MRSA NOT DETECTED 06/16/18 10:15 Blood Culture - Final Blood-Venous NO GROWTH AFTER 5 DAYS Gram Stain - Final TEST NOT PERFORMED 06/16/18 09:00 Blood Culture - Final Blood-Venous NO GROWTH AFTER 5 DAYS Gram Stain - Final TEST NOT PERFORMED Lab Studies 06/22/18 06/22/18 06/22/18 Range/Units 06:43 05:54 05:52 WBC 23.7 H (4.8-10.8) K/uL RBC 2.71 L (4.40-5.90) Mil/uL Hgb 8.3 L (12.0-18.0) g/dL Hct 24.8 L (35.0-51.0) % MCV 91.5 (80.0-94.0) fL MCH 30.5 (27.0-31.0) pg MCHC 33.3 (33.0-37.0) g/dL RDW 14.3 (11.5-14.5) % Plt Count 590 H (130-400) K/uL MPV 8.1 (7.2-11.7) fL Neut % (Auto) 86.8 H (50.0-75.0) % Lymph % (Auto) 5.8 L (20.0-40.0) % [place] % (Auto) 5.3 (0.0-10.0) % Eos % (Auto) 1.6 (0.0-4.0) % Baso % (Auto) 0.5 (0.0-2.0) % Neut # (Auto) 20.6 H (1.8-7.0) K/uL Lymph # (Auto) 1.4 (1.0-4.3) K/uL [place] # (Auto) 1.3 H (0.0-0.8) K/uL Eos # (Auto) 0.4 (0.0-0.7) K/uL Baso # (Auto) 0.1 (0.0-0.2) K/uL Neutrophils % (Manual) 86 H (50-75) % Band Neutrophils % 3 H (0-2) % Lymphocytes % (Manual) 5 L (20-40) % Monocytes % (Manual) 5 (0-10) % Basophils % (Manual) 1 (0-2) % Platelet Estimate Increased H (NORMAL) Hypochromasia (manual) Slight Poikilocytosis (manual Slight Anisocytosis (manual) Slight Target Cells Slight Sodium 132 (132-148) mmol/L Potassium 3.1 L (3.6-5.2) mmol/L Chloride 101 (98-107) mmol/L Carbon Dioxide 28 (22-30) mmol/L Anion Gap 5 L (10-20) BUN 7 L (9-20) mg/dL Creatinine 0.4 L (0.8-1.5) mg/dL Est GFR ( Amer) > 60 Est GFR (Non-Af Amer) > 60 POC Glucose (mg/dL) 103 (65-110) mg/dL Random Glucose 102 (75-110) mg/dL Calcium 7.0 L (8.6-10.4) mg/dl Phosphorus 1.9 L (2.5-4.5) mg/dL Magnesium 2.2 (1.6-2.3) mg/dL Total Bilirubin 0.5 (0.2-1.3) mg/dL AST 35 (17-59) U/L ALT 27 (21-72) U/L Alkaline Phosphatase 221 H D (38-126) U/L Total Protein 5.2 L (6.3-8.3) g/dL Albumin 2.2 L (3.5-5.0) g/dL Globulin 3.0 (2.2-3.9) gm/dL Albumin/Globulin Ratio 0.7 L (1.0-2.1) C. difficile Ag & Toxin (NEGATIVE) 06/21/18 06/21/18 06/21/18 Range/Units 23:54 18:09 11:25 WBC (4.8-10.8) K/uL RBC (4.40-5.90) Mil/uL Hgb (12.0-18.0) g/dL Hct (35.0-51.0) % MCV (80.0-94.0) fL MCH (27.0-31.0) pg MCHC (33.0-37.0) g/dL RDW (11.5-14.5) % Plt Count (130-400) K/uL MPV (7.2-11.7) fL Neut % (Auto) (50.0-75.0) % Lymph % (Auto) (20.0-40.0) % [place] % (Auto) (0.0-10.0) % Eos % (Auto) (0.0-4.0) % Baso % (Auto) (0.0-2.0) % Neut # (Auto) (1.8-7.0) K/uL Lymph # (Auto) (1.0-4.3) K/uL [place] # (Auto) (0.0-0.8) K/uL Eos # (Auto) (0.0-0.7) K/uL Baso # (Auto) (0.0-0.2) K/uL Neutrophils % (Manual) (50-75) % Band Neutrophils % (0-2) % Lymphocytes % (Manual) (20-40) % Monocytes % (Manual) (0-10) % Basophils % (Manual) (0-2) % Platelet Estimate (NORMAL) Hypochromasia (manual) Poikilocytosis (manual Anisocytosis (manual) Target Cells Sodium (132-148) mmol/L Potassium (3.6-5.2) mmol/L Chloride (98-107) mmol/L Carbon Dioxide (22-30) mmol/L Anion Gap (10-20) BUN (9-20) mg/dL Creatinine (0.8-1.5) mg/dL Est GFR ( Amer) Est GFR (Non-Af Amer) POC Glucose (mg/dL) 116 H 122 H (65-110) mg/dL Random Glucose (75-110) mg/dL Calcium (8.6-10.4) mg/dl Phosphorus (2.5-4.5) mg/dL Magnesium (1.6-2.3) mg/dL Total Bilirubin (0.2-1.3) mg/dL AST (17-59) U/L ALT (21-72) U/L Alkaline Phosphatase (38-126) U/L Total Protein (6.3-8.3) g/dL Albumin (3.5-5.0) g/dL Globulin (2.2-3.9) gm/dL Albumin/Globulin Ratio (1.0-2.1) C. difficile Ag & Toxin Negative (NEGATIVE) Laboratory Results - last 24 hr 06/21/18 06/21/18 06/21/18 11:25 18:09 23:54 WBC RBC Hgb Hct MCV MCH MCHC RDW Plt Count MPV Neut % (Auto) Lymph % (Auto) [place] % (Auto) Eos % (Auto) Baso % (Auto) Neut # (Auto) Lymph # (Auto) [place] # (Auto) Eos # (Auto) Baso # (Auto) Neutrophils % (Manual) Band Neutrophils % Lymphocytes % (Manual) Monocytes % (Manual) Basophils % (Manual) Platelet Estimate Hypochromasia (manual) Poikilocytosis (manual Anisocytosis (manual) Target Cells Sodium Potassium Chloride Carbon Dioxide Anion Gap BUN Creatinine Est GFR ( Amer) Est GFR (Non-Af Amer) POC Glucose (mg/dL) 122 H 116 H Random Glucose Calcium Phosphorus Magnesium Total Bilirubin AST ALT Alkaline Phosphatase Total Protein Albumin Globulin Albumin/Globulin Ratio C. difficile Ag & Toxin Negative 06/22/18 06/22/18 06/22/18 05:52 05:54 06:43 WBC 23.7 H RBC 2.71 L Hgb 8.3 L Hct 24.8 L MCV 91.5 MCH 30.5 MCHC 33.3 RDW 14.3 Plt Count 590 H MPV 8.1 Neut % (Auto) 86.8 H Lymph % (Auto) 5.8 L [place] % (Auto) 5.3 Eos % (Auto) 1.6 Baso % (Auto) 0.5 Neut # (Auto) 20.6 H Lymph # (Auto) 1.4 [place] # (Auto) 1.3 H Eos # (Auto) 0.4 Baso # (Auto) 0.1 Neutrophils % (Manual) 86 H Band Neutrophils % 3 H Lymphocytes % (Manual) 5 L Monocytes % (Manual) 5 Basophils % (Manual) 1 Platelet Estimate Increased H Hypochromasia (manual) Slight Poikilocytosis (manual Slight Anisocytosis (manual) Slight Target Cells Slight Sodium 132 Potassium 3.1 L Chloride 101 Carbon Dioxide 28 Anion Gap 5 L BUN 7 L Creatinine 0.4 L Est GFR ( Amer) > 60 Est GFR (Non-Af Amer) > 60 POC Glucose (mg/dL) 103 Random Glucose 102 Calcium 7.0 L Phosphorus 1.9 L Magnesium 2.2 Total Bilirubin 0.5 AST 35 ALT 27 Alkaline Phosphatase 221 H D Total Protein 5.2 L Albumin 2.2 L Globulin 3.0 Albumin/Globulin Ratio 0.7 L C. difficile Ag & Toxin Radiology Impressions: Radiology Impressions Chest X-Ray 06/22/18 07:39 IMPRESSION: Stable limited left pleural effusion with underlying airspace disease not excluded at the left base. Remaining lung aldana clear. No pulmonary vascular congestion. Tubes and catheter stable. Fingerstick Blood Sugar Results: 113 Review of Systems - Review of Systems All systems: reviewed and no additional remarkable complaints except Critical Care Progress Note - Nutrition Nutrition: Nutrition Category Date Time Status NPO Diet [DIET] Diets 06/18/18 Lunch Active Assessment/Plan - Assessment and Plan (Free Text) Assessment: Patient is a 37 year old male s/p lap kevin complicated by perforation/abscess formation POD #13, repair of anastomotic leak 4/ Neuro -A and O x3 Cardiovascular -BP stable 120s/70s -Monitor for signs of shock -Consistently mildly tachycardic, pulse stable 110s Pulm -Intubated and placed on venti-mask initially -Weaned off venti mask to NC on 5L 02, saturating well and comfortable on NC -Continue to monitor respiratory status GI S/p repair of anastomotic leak on 4/6 POD #2, Lap keivn complicated by perforation/abscess formation with Dr. Monreal -Surgery following, Dr. Monreal - f/u recs -Tolerating trickle feeds -Diet management per surgery team -Dennison removed -Continue to monitor daily output Heme Anemia -Hgb 8.3 -Continue trending Coagulopathy -INR 1.7, sp FFP x 2 units Nephro -Monitor Is and Os -Dennison in place Hypokalemia -Repleted -Monitor lytes Endo -Accuchecks ACHS -D5/.9 NS @ 75 ID Sepsis 2/2 Intrabdominal Infection -Leukocytosis improving -Afebrile overnight -Hemodynamically stable -Abx per ID -Abd wound culture +Liliana Abx -Micofungin, Vanc, Flagyl, Meropenem PPx -DVT: Lovenox 40 mg SC daily -GI: Protonix 40 mg IV daily -Dietary management per surgery Assessment and plan d/w Dr. Den Roman, PGY-1 <Joao Crenshaw - Last Filed: 06/22/18 17:36> CCU Objective - Vital Signs / Intake & Output Vital Signs (Last 4 hours): Vital Signs Temp Pulse Resp BP Pulse Ox 06/22/18 17:00 101 H 23 06/22/18 16:02 91 H 19 124/75 97 06/22/18 16:00 98.1 F 93 H 13 96 06/22/18 15:01 95 H 14 124/76 98 06/22/18 15:00 92 H 15 97 06/22/18 14:01 97 H 17 120/78 98 06/22/18 14:00 94 H 26 H 98 Intake and Output (Last 8hrs): Intake & Output 06/22/18 06/22/18 06/22/18 06:59 14:59 22:59 Intake Total 925 1025 285 Output Total 700 1200 250 Balance 225 -175 35 Weight 191 lb 12.835 oz Intake: Intake, IV Amount 825 825 275 Right Medial Port 825 825 275 Internal Jugular Tube Feeding 80 80 10 Other 20 120 Output: Urine 700 1200 250 Urine, Voided 700 1200 250 Other: # Bowel Movements 1 1 1 - Medications Active Medications: Active Medications Generic Name Dose Route Start Last Admin Trade Name Mohanq PRN Reason Stop Dose Admin Enoxaparin Sodium 40 mg 06/22/18 13:00 06/22/18 13:07 Lovenox SC 40 mg DAILY DACIA Administration Hydromorphone HCl 1 mg 06/17/18 12:30 06/22/18 11:20 Dilaudid IVP 1 mg Q4H PRN Administration Pain, severe (8-10) Metronidazole 500 mg in 100 mls @ 100 mls/hr 06/13/18 17:00 06/22/18 17:11 Flagyl IVPB 100 mls/hr Q8H DACIA Administration Protocol Meropenem 1 gm/ Sodium 100 mls @ 100 mls/hr 06/16/18 08:30 06/22/18 16:12 Chloride IVPB 100 mls/hr Q8H DACIA Administration Protocol Vancomycin HCl 1,400 mg/ 500 mls @ 166.6 mls/hr 06/18/18 19:00 06/22/18 06:00 Sodium Chloride IVPB 166.6 mls/hr Q12H DACIA Administration Protocol Micafungin Sodium 100 mg/ 100 mls @ 100 mls/hr 06/19/18 21:45 06/21/18 22:05 Sodium Chloride IV 100 mls/hr Q24H DACIA Administration Protocol Dextrose/Sodium Chloride 1,000 mls @ 75 mls/hr 06/20/18 19:00 06/22/18 13:09 Dextrose 5%/0.9% Ns 1000 Ml IV 75 mls/hr .[id number] DACIA Administration Pantoprazole Sodium 40 mg 06/09/18 10:00 06/22/18 09:08 Protonix Inj IVP 40 mg DAILY DACIA Administration - Patient Studies Lab Studies: Microbiology Studies 06/21/18 11:25 Stool Culture - Preliminary Stool Gram Negative Leonardo 06/19/18 04:45 MRSA Culture (Admit) - Final Nose MRSA NOT DETECTED Lab Studies 06/22/18 06/22/18 06/22/18 Range/Units 06:43 05:54 05:52 WBC 23.7 H (4.8-10.8) K/uL RBC 2.71 L (4.40-5.90) Mil/uL Hgb 8.3 L (12.0-18.0) g/dL Hct 24.8 L (35.0-51.0) % MCV 91.5 (80.0-94.0) fL MCH 30.5 (27.0-31.0) pg MCHC 33.3 (33.0-37.0) g/dL RDW 14.3 (11.5-14.5) % Plt Count 590 H (130-400) K/uL MPV 8.1 (7.2-11.7) fL Neut % (Auto) 86.8 H (50.0-75.0) % Lymph % (Auto) 5.8 L (20.0-40.0) % [place] % (Auto) 5.3 (0.0-10.0) % Eos % (Auto) 1.6 (0.0-4.0) % Baso % (Auto) 0.5 (0.0-2.0) % Neut # (Auto) 20.6 H (1.8-7.0) K/uL Lymph # (Auto) 1.4 (1.0-4.3) K/uL [place] # (Auto) 1.3 H (0.0-0.8) K/uL Eos # (Auto) 0.4 (0.0-0.7) K/uL Baso # (Auto) 0.1 (0.0-0.2) K/uL Neutrophils % (Manual) 86 H (50-75) % Band Neutrophils % 3 H (0-2) % Lymphocytes % (Manual) 5 L (20-40) % Monocytes % (Manual) 5 (0-10) % Basophils % (Manual) 1 (0-2) % Platelet Estimate Increased H (NORMAL) Hypochromasia (manual) Slight Poikilocytosis (manual Slight Anisocytosis (manual) Slight Target Cells Slight Sodium 132 (132-148) mmol/L Potassium 3.1 L (3.6-5.2) mmol/L Chloride 101 (98-107) mmol/L Carbon Dioxide 28 (22-30) mmol/L Anion Gap 5 L (10-20) BUN 7 L (9-20) mg/dL Creatinine 0.4 L (0.8-1.5) mg/dL Est GFR ( Amer) > 60 Est GFR (Non-Af Amer) > 60 POC Glucose (mg/dL) 103 (65-110) mg/dL Random Glucose 102 (75-110) mg/dL Calcium 7.0 L (8.6-10.4) mg/dl Phosphorus 1.9 L (2.5-4.5) mg/dL Magnesium 2.2 (1.6-2.3) mg/dL Total Bilirubin 0.5 (0.2-1.3) mg/dL AST 35 (17-59) U/L ALT 27 (21-72) U/L Alkaline Phosphatase 221 H D (38-126) U/L Total Protein 5.2 L (6.3-8.3) g/dL Albumin 2.2 L (3.5-5.0) g/dL Globulin 3.0 (2.2-3.9) gm/dL Albumin/Globulin Ratio 0.7 L (1.0-2.1) 06/21/18 06/21/18 Range/Units 23:54 18:09 WBC (4.8-10.8) K/uL RBC (4.40-5.90) Mil/uL Hgb (12.0-18.0) g/dL Hct (35.0-51.0) % MCV (80.0-94.0) fL MCH (27.0-31.0) pg MCHC (33.0-37.0) g/dL RDW (11.5-14.5) % Plt Count (130-400) K/uL MPV (7.2-11.7) fL Neut % (Auto) (50.0-75.0) % Lymph % (Auto) (20.0-40.0) % [place] % (Auto) (0.0-10.0) % Eos % (Auto) (0.0-4.0) % Baso % (Auto) (0.0-2.0) % Neut # (Auto) (1.8-7.0) K/uL Lymph # (Auto) (1.0-4.3) K/uL [place] # (Auto) (0.0-0.8) K/uL Eos # (Auto) (0.0-0.7) K/uL Baso # (Auto) (0.0-0.2) K/uL Neutrophils % (Manual) (50-75) % Band Neutrophils % (0-2) % Lymphocytes % (Manual) (20-40) % Monocytes % (Manual) (0-10) % Basophils % (Manual) (0-2) % Platelet Estimate (NORMAL) Hypochromasia (manual) Poikilocytosis (manual Anisocytosis (manual) Target Cells Sodium (132-148) mmol/L Potassium (3.6-5.2) mmol/L Chloride (98-107) mmol/L Carbon Dioxide (22-30) mmol/L Anion Gap (10-20) BUN (9-20) mg/dL Creatinine (0.8-1.5) mg/dL Est GFR ( Amer) Est GFR (Non-Af Amer) POC Glucose (mg/dL) 116 H 122 H (65-110) mg/dL Random Glucose (75-110) mg/dL Calcium (8.6-10.4) mg/dl Phosphorus (2.5-4.5) mg/dL Magnesium (1.6-2.3) mg/dL Total Bilirubin (0.2-1.3) mg/dL AST (17-59) U/L ALT (21-72) U/L Alkaline Phosphatase (38-126) U/L Total Protein (6.3-8.3) g/dL Albumin (3.5-5.0) g/dL Globulin (2.2-3.9) gm/dL Albumin/Globulin Ratio (1.0-2.1) Laboratory Results - last 24 hr 06/21/18 06/21/18 06/22/18 18:09 23:54 05:52 WBC RBC Hgb Hct MCV MCH MCHC RDW Plt Count MPV Neut % (Auto) Lymph % (Auto) [place] % (Auto) Eos % (Auto) Baso % (Auto) Neut # (Auto) Lymph # (Auto) [place] # (Auto) Eos # (Auto) Baso # (Auto) Neutrophils % (Manual) Band Neutrophils % Lymphocytes % (Manual) Monocytes % (Manual) Basophils % (Manual) Platelet Estimate Hypochromasia (manual) Poikilocytosis (manual Anisocytosis (manual) Target Cells Sodium 132 Potassium 3.1 L Chloride 101 Carbon Dioxide 28 Anion Gap 5 L BUN 7 L Creatinine 0.4 L Est GFR ( Amer) > 60 Est GFR (Non-Af Amer) > 60 POC Glucose (mg/dL) 122 H 116 H Random Glucose 102 Calcium 7.0 L Phosphorus 1.9 L Magnesium 2.2 Total Bilirubin 0.5 AST 35 ALT 27 Alkaline Phosphatase 221 H D Total Protein 5.2 L Albumin 2.2 L Globulin 3.0 Albumin/Globulin Ratio 0.7 L 06/22/18 06/22/18 05:54 06:43 WBC 23.7 H RBC 2.71 L Hgb 8.3 L Hct 24.8 L MCV 91.5 MCH 30.5 MCHC 33.3 RDW 14.3 Plt Count 590 H MPV 8.1 Neut % (Auto) 86.8 H Lymph % (Auto) 5.8 L [place] % (Auto) 5.3 Eos % (Auto) 1.6 Baso % (Auto) 0.5 Neut # (Auto) 20.6 H Lymph # (Auto) 1.4 [place] # (Auto) 1.3 H Eos # (Auto) 0.4 Baso # (Auto) 0.1 Neutrophils % (Manual) 86 H Band Neutrophils % 3 H Lymphocytes % (Manual) 5 L Monocytes % (Manual) 5 Basophils % (Manual) 1 Platelet Estimate Increased H Hypochromasia (manual) Slight Poikilocytosis (manual Slight Anisocytosis (manual) Slight Target Cells Slight Sodium Potassium Chloride Carbon Dioxide Anion Gap BUN Creatinine Est GFR ( Amer) Est GFR (Non-Af Amer) POC Glucose (mg/dL) 103 Random Glucose Calcium Phosphorus Magnesium Total Bilirubin AST ALT Alkaline Phosphatase Total Protein Albumin Globulin Albumin/Globulin Ratio Radiology Impressions: Radiology Impressions Chest X-Ray 06/22/18 07:39 IMPRESSION: Stable limited left pleural effusion with underlying airspace disease not excluded at the left base. Remaining lung aldana clear. No pulmonary vascular congestion. Tubes and catheter stable. Critical Care Progress Note - Nutrition Nutrition: Nutrition Category Date Time Status Liquid Diet [DIET] Diets 06/22/18 Dinner Active Attending/Attestation - Attestation I have personally seen and examined this patient.: Yes I have fully participated in the care of the patient.: Yes I have reviewed all pertinent clinical information: Yes Notes (Text): 06/22/18 17:33 I have seen and examined the patient. Medical records, lab studies, and imaging were reviewed by me and a management plan was formulated on multidisciplinary rounds with resident Dr. Roman. I agree with their documented assessment and plan. Patient is doing better clinically. Extubated, breathing well on 5L nasal canula. On broad spectrum abx for biliary/fecal peritonitis s/p cholecystectomy (c/b GB rupture and subsequent leaking enterotomy) & SB resection with primary anastamosis. Started on liquid diet today as per Surgery team. Critical Care Time 35 minutes. Multi-disciplinary rounds were performed with house staff, nursing, speech therapy, respiratory therapy, pharmacy and nutrition with integrated input from the primary team/attending and other consulting services. The documented time is cumulative and includes review of patient data/exams/labs/chart review and examination of the patient on rounds and throughout the day; time is exclusive of any procedures or teaching time.
--- NOTE | 2018-06-22 15:39 | CP.PCM.PN ---
Subjective - Date & Time of Evaluation Date of Evaluation: 06/22/18 Time of Evaluation: 10:30 - Subjective Subjective: Surgery Progress Note- Dr. Monreal Patient seen and examined at bedside. Extubated this AM to venti mask. OOB into chair. + BM and flatus. On trickle feeds. Denies fevers, chills, nausea, vomiting Objective - Vital Signs/Intake and Output Vital Signs (last 24 hours): Temp Pulse Resp BP Pulse Ox 98.3 F 95 H 14 124/76 98 06/22/18 12:00 06/22/18 15:01 06/22/18 15:01 06/22/18 15:01 06/22/18 15:01 Intake and Output: 06/22/18 06/22/18 06:59 18:59 Intake Total 1576 1110 Output Total 1100 1200 Balance 476 -90 - Medications Medications: Current Medications Enoxaparin Sodium (Lovenox) 40 mg SC DAILY DACIA Last Admin: 06/22/18 13:07 Dose: 40 mg Hydromorphone HCl (Dilaudid) 1 mg IVP Q4H PRN PRN Reason: Pain, severe (8-10) Last Admin: 06/22/18 11:20 Dose: 1 mg Metronidazole (Flagyl) 500 mg in 100 mls @ 100 mls/hr IVPB Q8H DACIA; Protocol Last Admin: 06/22/18 08:51 Dose: 100 mls/hr Meropenem 1 gm/ Sodium (Chloride) 100 mls @ 100 mls/hr IVPB Q8H DACIA; Protocol Last Admin: 06/22/18 07:48 Dose: 100 mls/hr Vancomycin HCl 1,400 mg/ (Sodium Chloride) 500 mls @ 166.6 mls/hr IVPB Q12H DACIA; Protocol Last Admin: 06/22/18 06:00 Dose: 166.6 mls/hr Micafungin Sodium 100 mg/ (Sodium Chloride) 100 mls @ 100 mls/hr IV Q24H DACIA; Protocol Last Admin: 06/21/18 22:05 Dose: 100 mls/hr Dextrose/Sodium Chloride (Dextrose 5%/0.9% Ns 1000 Ml) 1,000 mls @ 75 mls/hr IV .[id number] DACIA Last Admin: 06/22/18 13:09 Dose: 75 mls/hr Pantoprazole Sodium (Protonix Inj) 40 mg IVP DAILY DACIA Last Admin: 06/22/18 09:08 Dose: 40 mg - Labs Labs: 06/22/18 05:54 06/22/18 05:52 PT 18.1 SECONDS (9.7-12.2) H 06/19/18 14:28 INR 1.7 06/19/18 14:28 APTT 29 SECONDS (21-34) 06/19/18 14:28 - Constitutional Appears: Non-toxic, No Acute Distress - Head Exam Head Exam: ATRAUMATIC - Eye Exam Eye Exam: EOMI. absent: Scleral icterus - ENT Exam ENT Exam: Mucous Membranes Moist - Respiratory Exam Respiratory Exam: NORMAL BREATHING PATTERN. absent: Accessory Muscle Use, Respiratory Distress - Cardiovascular Exam Cardiovascular Exam: REGULAR RHYTHM. absent: Bradycardia, Tachycardia - GI/Abdominal Exam GI & Abdominal Exam: Soft. absent: Distended, Guarding, Rigid, Tenderness Additional comments: midline dressing changed. Hussein minimal output serous NGT in place - Neurological Exam Neurological Exam: Alert, Awake, Oriented x3 - Psychiatric Exam Psychiatric exam: Normal Affect - Skin Skin Exam: Intact, Warm Assessment and Plan - Assessment and Plan (Free Text) Assessment: 37M s/p lap kevin hospital course complicated by intra-abdominal sepsis s/p ex lap x2 for bowel injury Plan: Pain control PRN Keep O2 > 92% Aggressive Incentive spirometer use Start CLD; Clamp NGT chemical DVT ppx OOB and ambulate Monitor I/O d/w Dr. Monreal surgical attending [facility] PGY2
[2018-06-22] MEDS ORDERED: oxyCODONE 5 mg Immediate Release Tab PO PRN (20:30)
[2018-06-22] MEDS: Micafungin 100 MG in Sodium Chloride 0.9% 100 ML IV SCH (21:28)
[2018-06-23] MEDS: Dextrose 5%/0.9% NS 1,000 ML IV SCH ×2 (00:36→13:08)
[2018-06-23] MEDS: metroNIDAZOLE IV 500 mg/100 ml 500 MG/100 ML BAG IVPB SCH ×3 (00:37→16:46)
[2018-06-23 06:13] LABS: BASO # 0.1 K/uL (0.0-0.2); BASO % 0.6 % (0.0-2.0); EOS # 0.3 K/uL (0.0-0.7); EOS % 1.7 % (0.0-4.0); HEMOGLOBIN 8.7 g/dL (12.0-18.0); LYMPH # 1.5 K/uL (1.0-4.3); LYMPH % 7.7 % (20.0-40.0); MEAN CELL VOLUME 90.3 fL (80.0-94.0); MEAN CORPUSCULAR HEMOGLOBIN 30.3 pg (27.0-31.0); MEAN CORPUSCULAR HGB CONC 33.6 g/dL (33.0-37.0); MONO # 1.2 K/uL (0.0-0.8); MONO % 6.1 % (0.0-10.0); NEUT % 83.9 % (50.0-75.0); PLATELET COUNT 583 K/uL (130-400); RBC 2.85 Mil/uL (4.40-5.90); RED CELL DISTRIBUTION WIDTH 14.1 % (11.5-14.5); WHITE BLOOD COUNT 19.1 K/uL (4.8-10.8)
[2018-06-23 06:40] LABS: ALB/GLOB RATIO 0.8 (1.0-2.1); ALBUMIN 2.3 g/dL (3.5-5.0); ALT/SGPT 20 U/L (21-72); AST/SGOT 41 U/L (17-59); BLOOD UREA NITROGEN 5 mg/dL (9-20); CALCIUM 6.9 mg/dl (8.6-10.4); GFR NON-AFRICAN AMERICAN > 60
[2018-06-23] MEDS: Meropenem 1 GM in Sodium Chloride 0.9% 100 ML IVPB SCH ×3 (07:47→23:42)
[2018-06-23 08:23] LABS: BANDS 3 % (0-2); EOSINOPHIL 1 % (0-4); LYMPHOCYTE 7 % (20-40); MONOCYTE 5 % (0-10); NEUTROPHIL 83 % (50-75); PLATELET ESTIMATE INCREASED (NORMAL); REACTIVE LYMPHOCYTES 1 % (0-0); TOTAL CELLS COUNTED 100
[2018-06-23 08:24] LABS: HYPOCHROMIC SLIGHT; TARGET CELLS SLIGHT
[2018-06-23] MEDS ORDERED: Potassium Phosphate 20 MMOLE in Sodium Chloride 0.9% 250 ML IV ONE (08:45)
[2018-06-23] MEDS: Enoxaparin 40 mg Syringe SC SCH (09:16)
[2018-06-23] MEDS ORDERED: Potassium Chloride 20 mEq ER Tab PO STA (10:05)
--- NOTE | 2018-06-23 14:10 | CP.CCUPN ---
<Tomi Roman - Last Filed: 06/23/18 14:06> CCU Subjective - Physician Review Subjective (Free Text): PGY-[address] Vera Patient seen and examined at bedside. Patient tolerating nasal canula O2. Patient tolerating advanced liquid diet. Patient denies n/v/d, abdominal pain, d izziness. Afebrile overnight. CCU Objective - Vital Signs / Intake & Output Vital Signs (Last 4 hours): Vital Signs Temp Pulse Resp BP Pulse Ox 06/23/18 13:01 94 H 19 120/74 94 L 06/23/18 13:00 94 H 14 96 06/23/18 12:03 100 H 18 120/75 06/23/18 12:00 99.3 F 102 H 25 H 06/23/18 11:01 97 H 24 06/23/18 11:00 94 H 18 121/83 97 Intake and Output (Last 8hrs): Intake & Output 06/22/18 06/23/18 06/23/18 22:59 06:59 14:59 Intake Total 1226 710 737.5 Output Total 660 1205 450 Balance 566 -495 287.5 Weight 185 lb 14.4 oz Intake: Intake, IV Amount 766 650 687.5 Right Medial Port 766 650 687.5 Internal Jugular Oral 450 60 50 Tube Feeding 10 Output: Drainage 10 5 Medial Abdomen 10 5 Urine 650 1200 450 Urine, Voided 650 1200 450 Stool 0 Other: # Voids Urine, Voided 0 # Bowel Movements 1 1 0 - Physical Exam Head: Positive for: Atraumatic, Normocephalic, Other (NGT and ETT in place\) Pupils: Positive for: PERRL Extroacular Muscles: Positive for: EOMI Mouth: Positive for: Moist Mucous Membranes Neck: Positive for: Normal Range of Motion Respiratory/Chest: Positive for: Clear to Auscultation, Other (nasal canula). Negative for: Accessory Muscle Use Cardiovascular: Positive for: Regular Rate and Rhythm, Normal S1, S2 Abdomen: Positive for: Other (Serous drainage from wound with dressings in place, c/d/i. Serous drainage from murtaza drain.) Lower Extremity: Positive for: NORMAL PULSES. Negative for: Edema Neurological: Positive for: GCS=15, CN II-XII Intact Skin: Positive for: Dry, Normal Color Psychiatric: Positive for: Alert, Oriented x 3 - Medications Active Medications: Active Medications Generic Name Dose Route Start Last Admin Trade Name Freq PRN Reason Stop Dose Admin Acetaminophen 650 mg 06/23/18 00:00 06/23/18 13:04 Tylenol 325mg Tab PO 650 mg Q6 DACIA Administration Enoxaparin Sodium 40 mg 06/22/18 13:00 06/23/18 09:16 Lovenox SC 40 mg DAILY DACIA Administration Hydromorphone HCl 1 mg 06/17/18 12:30 06/22/18 19:40 Dilaudid IVP 1 mg Q4H PRN Administration Pain, severe (8-10) Metronidazole 500 mg in 100 mls @ 100 mls/hr 06/13/18 17:00 06/23/18 08:14 Flagyl IVPB 100 mls/hr Q8H DACIA Administration Protocol Meropenem 1 gm/ Sodium 100 mls @ 100 mls/hr 06/16/18 08:30 06/23/18 07:47 Chloride IVPB 100 mls/hr Q8H DACIA Administration Protocol Micafungin Sodium 100 mg/ 100 mls @ 100 mls/hr 06/19/18 21:45 06/22/18 21:28 Sodium Chloride IV 100 mls/hr Q24H DACIA Administration Protocol Dextrose/Sodium Chloride 1,000 mls @ 75 mls/hr 06/20/18 19:00 06/23/18 13:08 Dextrose 5%/0.9% Ns 1000 Ml IV 75 mls/hr .[id number] DACIA Administration Oxycodone HCl 5 mg 06/22/18 20:30 Oxycodone Immediate Release Tab PO Q6 PRN Pain, moderate (4-7) Pantoprazole Sodium 40 mg 06/09/18 10:00 06/23/18 09:15 Protonix Inj IVP 40 mg DAILY DACIA Administration Potassium Chloride 20 meq 06/23/18 16:00 K-Dur 20 Meq Er Tab PO 06/23/18 16:01 ONCE ONE - Patient Studies Lab Studies: Microbiology Studies 06/21/18 11:25 Stool Culture - Final Stool NO SALMONELLA, SHIGELLA OR CAMPYLOBACTER ISOLATED. Lab Studies 06/23/18 06/23/18 06/23/18 Range/Units 11:46 06:02 06:02 WBC 19.1 H (4.8-10.8) K/uL RBC 2.85 L (4.40-5.90) Mil/uL Hgb 8.7 L (12.0-18.0) g/dL Hct 25.8 L (35.0-51.0) % MCV 90.3 (80.0-94.0) fL MCH 30.3 (27.0-31.0) pg MCHC 33.6 (33.0-37.0) g/dL RDW 14.1 (11.5-14.5) % Plt Count 583 H (130-400) K/uL MPV 8.0 (7.2-11.7) fL Neut % (Auto) 83.9 H (50.0-75.0) % Lymph % (Auto) 7.7 L (20.0-40.0) % [place] % (Auto) 6.1 (0.0-10.0) % Eos % (Auto) 1.7 (0.0-4.0) % Baso % (Auto) 0.6 (0.0-2.0) % Neut # (Auto) 16.0 H (1.8-7.0) K/uL Lymph # (Auto) 1.5 (1.0-4.3) K/uL [place] # (Auto) 1.2 H (0.0-0.8) K/uL Eos # (Auto) 0.3 (0.0-0.7) K/uL Baso # (Auto) 0.1 (0.0-0.2) K/uL Neutrophils % (Manual) 83 H (50-75) % Band Neutrophils % 3 H (0-2) % Lymphocytes % (Manual) 7 L (20-40) % Reactive Lymphs % 1 H (0-0) % Monocytes % (Manual) 5 (0-10) % Eosinophils % (Manual) 1 (0-4) % Platelet Estimate Increased H (NORMAL) Hypochromasia (manual) Slight Target Cells Slight Sodium 133 (132-148) mmol/L Potassium 2.8 L (3.6-5.2) mmol/L Chloride 101 (98-107) mmol/L Carbon Dioxide 29 (22-30) mmol/L Anion Gap 6 L (10-20) BUN 5 L (9-20) mg/dL Creatinine 0.4 L (0.8-1.5) mg/dL Est GFR ( Amer) > 60 Est GFR (Non-Af Amer) > 60 POC Glucose (mg/dL) 129 H (65-110) mg/dL Random Glucose 98 (75-110) mg/dL Calcium 6.9 L (8.6-10.4) mg/dl Phosphorus 2.4 L (2.5-4.5) mg/dL Magnesium 2.1 (1.6-2.3) mg/dL Total Bilirubin 0.4 (0.2-1.3) mg/dL AST 41 (17-59) U/L ALT 20 L D (21-72) U/L Alkaline Phosphatase 238 H (38-126) U/L Total Protein 5.4 L (6.3-8.3) g/dL Albumin 2.3 L (3.5-5.0) g/dL Globulin 3.1 (2.2-3.9) gm/dL Albumin/Globulin Ratio 0.8 L (1.0-2.1) C. difficile Ag & Toxin (NEGATIVE) 06/23/18 06/22/18 06/22/18 Range/Units 05:20 23:47 23:18 WBC (4.8-10.8) K/uL RBC (4.40-5.90) Mil/uL Hgb (12.0-18.0) g/dL Hct (35.0-51.0) % MCV (80.0-94.0) fL MCH (27.0-31.0) pg MCHC (33.0-37.0) g/dL RDW (11.5-14.5) % Plt Count (130-400) K/uL MPV (7.2-11.7) fL Neut % (Auto) (50.0-75.0) % Lymph % (Auto) (20.0-40.0) % [place] % (Auto) (0.0-10.0) % Eos % (Auto) (0.0-4.0) % Baso % (Auto) (0.0-2.0) % Neut # (Auto) (1.8-7.0) K/uL Lymph # (Auto) (1.0-4.3) K/uL [place] # (Auto) (0.0-0.8) K/uL Eos # (Auto) (0.0-0.7) K/uL Baso # (Auto) (0.0-0.2) K/uL Neutrophils % (Manual) (50-75) % Band Neutrophils % (0-2) % Lymphocytes % (Manual) (20-40) % Reactive Lymphs % (0-0) % Monocytes % (Manual) (0-10) % Eosinophils % (Manual) (0-4) % Platelet Estimate (NORMAL) Hypochromasia (manual) Target Cells Sodium (132-148) mmol/L Potassium (3.6-5.2) mmol/L Chloride (98-107) mmol/L Carbon Dioxide (22-30) mmol/L Anion Gap (10-20) BUN (9-20) mg/dL Creatinine (0.8-1.5) mg/dL Est GFR ( Amer) Est GFR (Non-Af Amer) POC Glucose (mg/dL) 108 113 H (65-110) mg/dL Random Glucose (75-110) mg/dL Calcium (8.6-10.4) mg/dl Phosphorus (2.5-4.5) mg/dL Magnesium (1.6-2.3) mg/dL Total Bilirubin (0.2-1.3) mg/dL AST (17-59) U/L ALT (21-72) U/L Alkaline Phosphatase (38-126) U/L Total Protein (6.3-8.3) g/dL Albumin (3.5-5.0) g/dL Globulin (2.2-3.9) gm/dL Albumin/Globulin Ratio (1.0-2.1) C. difficile Ag & Toxin Negative (NEGATIVE) 06/22/18 06/22/18 Range/Units 17:29 11:26 WBC (4.8-10.8) K/uL RBC (4.40-5.90) Mil/uL Hgb (12.0-18.0) g/dL Hct (35.0-51.0) % MCV (80.0-94.0) fL MCH (27.0-31.0) pg MCHC (33.0-37.0) g/dL RDW (11.5-14.5) % Plt Count (130-400) K/uL MPV (7.2-11.7) fL Neut % (Auto) (50.0-75.0) % Lymph % (Auto) (20.0-40.0) % [place] % (Auto) (0.0-10.0) % Eos % (Auto) (0.0-4.0) % Baso % (Auto) (0.0-2.0) % Neut # (Auto) (1.8-7.0) K/uL Lymph # (Auto) (1.0-4.3) K/uL [place] # (Auto) (0.0-0.8) K/uL Eos # (Auto) (0.0-0.7) K/uL Baso # (Auto) (0.0-0.2) K/uL Neutrophils % (Manual) (50-75) % Band Neutrophils % (0-2) % Lymphocytes % (Manual) (20-40) % Reactive Lymphs % (0-0) % Monocytes % (Manual) (0-10) % Eosinophils % (Manual) (0-4) % Platelet Estimate (NORMAL) Hypochromasia (manual) Target Cells Sodium (132-148) mmol/L Potassium (3.6-5.2) mmol/L Chloride (98-107) mmol/L Carbon Dioxide (22-30) mmol/L Anion Gap (10-20) BUN (9-20) mg/dL Creatinine (0.8-1.5) mg/dL Est GFR ( Amer) Est GFR (Non-Af Amer) POC Glucose (mg/dL) 110 113 H (65-110) mg/dL Random Glucose (75-110) mg/dL Calcium (8.6-10.4) mg/dl Phosphorus (2.5-4.5) mg/dL Magnesium (1.6-2.3) mg/dL Total Bilirubin (0.2-1.3) mg/dL AST (17-59) U/L ALT (21-72) U/L Alkaline Phosphatase (38-126) U/L Total Protein (6.3-8.3) g/dL Albumin (3.5-5.0) g/dL Globulin (2.2-3.9) gm/dL Albumin/Globulin Ratio (1.0-2.1) C. difficile Ag & Toxin (NEGATIVE) Laboratory Results - last 24 hr 06/22/18 06/22/18 06/22/18 11:26 17:29 23:18 WBC RBC Hgb Hct MCV MCH MCHC RDW Plt Count MPV Neut % (Auto) Lymph % (Auto) [place] % (Auto) Eos % (Auto) Baso % (Auto) Neut # (Auto) Lymph # (Auto) [place] # (Auto) Eos # (Auto) Baso # (Auto) Neutrophils % (Manual) Band Neutrophils % Lymphocytes % (Manual) Reactive Lymphs % Monocytes % (Manual) Eosinophils % (Manual) Platelet Estimate Hypochromasia (manual) Target Cells Sodium Potassium Chloride Carbon Dioxide Anion Gap BUN Creatinine Est GFR ( Amer) Est GFR (Non-Af Amer) POC Glucose (mg/dL) 113 H 110 Random Glucose Calcium Phosphorus Magnesium Total Bilirubin AST ALT Alkaline Phosphatase Total Protein Albumin Globulin Albumin/Globulin Ratio C. difficile Ag & Toxin Negative 06/22/18 06/23/18 06/23/18 23:47 05:20 06:02 WBC 19.1 H RBC 2.85 L Hgb 8.7 L Hct 25.8 L MCV 90.3 MCH 30.3 MCHC 33.6 RDW 14.1 Plt Count 583 H MPV 8.0 Neut % (Auto) 83.9 H Lymph % (Auto) 7.7 L [place] % (Auto) 6.1 Eos % (Auto) 1.7 Baso % (Auto) 0.6 Neut # (Auto) 16.0 H Lymph # (Auto) 1.5 [place] # (Auto) 1.2 H Eos # (Auto) 0.3 Baso # (Auto) 0.1 Neutrophils % (Manual) 83 H Band Neutrophils % 3 H Lymphocytes % (Manual) 7 L Reactive Lymphs % 1 H Monocytes % (Manual) 5 Eosinophils % (Manual) 1 Platelet Estimate Increased H Hypochromasia (manual) Slight Target Cells Slight Sodium Potassium Chloride Carbon Dioxide Anion Gap BUN Creatinine Est GFR ( Amer) Est GFR (Non-Af Amer) POC Glucose (mg/dL) 113 H 108 Random Glucose Calcium Phosphorus Magnesium Total Bilirubin AST ALT Alkaline Phosphatase Total Protein Albumin Globulin Albumin/Globulin Ratio C. difficile Ag & Toxin 06/23/18 06/23/18 06:02 11:46 WBC RBC Hgb Hct MCV MCH MCHC RDW Plt Count MPV Neut % (Auto) Lymph % (Auto) [place] % (Auto) Eos % (Auto) Baso % (Auto) Neut # (Auto) Lymph # (Auto) [place] # (Auto) Eos # (Auto) Baso # (Auto) Neutrophils % (Manual) Band Neutrophils % Lymphocytes % (Manual) Reactive Lymphs % Monocytes % (Manual) Eosinophils % (Manual) Platelet Estimate Hypochromasia (manual) Target Cells Sodium 133 Potassium 2.8 L Chloride 101 Carbon Dioxide 29 Anion Gap 6 L BUN 5 L Creatinine 0.4 L Est GFR ( Amer) > 60 Est GFR (Non-Af Amer) > 60 POC Glucose (mg/dL) 129 H Random Glucose 98 Calcium 6.9 L Phosphorus 2.4 L Magnesium 2.1 Total Bilirubin 0.4 AST 41 ALT 20 L D Alkaline Phosphatase 238 H Total Protein 5.4 L Albumin 2.3 L Globulin 3.1 Albumin/Globulin Ratio 0.8 L C. difficile Ag & Toxin Fingerstick Blood Sugar Results: 129 Review of Systems - Review of Systems All systems: reviewed and no additional remarkable complaints except Critical Care Progress Note - Nutrition Nutrition: Nutrition Category Date Time Status Liquid Diet [DIET] Diets 06/22/18 Dinner Active Assessment/Plan - Assessment and Plan (Free Text) Assessment: Patient is a 37 year old male s/p lap kevin complicated by perforation/abscess formation POD #14, repair of anastomotic leak 4/ Neuro -A and O x3 Cardiovascular -BP stable 120s/70s -Monitor for signs of shock -Consistently mildly tachycardic, pulse stable 100s Pulm -Weaned off venti mask to NC on 5L 02, continues saturating well and comfortable on NC -Continue to monitor respiratory status GI S/p repair of anastomotic leak on 46 POD #5, Lap kevin complicated by perforation/abscess formation with Dr. Monreal -Surgery following, Dr. Monreal - f/u recs -Advanced to PO liquid diet - patient tolerating -Diet management per surgery team -Dennison removed -Continue to monitor daily output Heme Anemia -Hgb stable -Continue trending -Improving Leukocytosis 2/2 intrabdominal infection Coagulopathy -INR 1.7, sp FFP x 2 units -Continue to monitor Nephro -Monitor Is and Os -Dennison in place Hypokalemia -Repleted -Monitor lytes Endo -Accuchecks ACHS -D5/.9 NS @ 75 ID Sepsis 2/2 Intrabdominal Infection -Leukocytosis improving -Afebrile overnight -Hemodynamically stable -Abx per ID -Abd wound culture +Liliana Abx -Micofungin, Vanc, Flagyl, Meropenem PPx -DVT: Lovenox 40 mg SC daily -GI: Protonix 40 mg IV daily -Dietary management per surgery Assessment and plan d/w Dr. Chuy Roman, PGY-1 <Carmine Vera M - Last Filed: 06/27/18 20:25> CCU Objective - Medications Active Medications: Active Medications Generic Name Dose Route Start Last Admin Trade Name Freq PRN Reason Stop Dose Admin Acetaminophen 650 mg 06/23/18 00:00 06/27/18 18:50 Tylenol 325mg Tab PO 650 mg Q6 DACIA Administration Enoxaparin Sodium 40 mg 06/22/18 13:00 06/27/18 09:53 Lovenox SC 40 mg DAILY DACIA Administration Metronidazole 500 mg in 100 mls @ 100 mls/hr 06/26/18 10:00 06/27/18 18:29 Flagyl IVPB 100 mls/hr Q8H DACIA Administration Protocol Meropenem 1 gm/ Sodium 100 mls @ 100 mls/hr 06/26/18 12:00 06/27/18 12:31 Chloride IVPB 100 mls/hr Q8H DACIA Administration Protocol Micafungin Sodium 100 mg/ 100 mls @ 100 mls/hr 06/25/18 23:00 06/26/18 23:30 Sodium Chloride IV 100 mls/hr Q24H DACIA Administration Protocol Oxycodone HCl 5 mg 06/22/18 20:30 Oxycodone Immediate Release Tab PO Q6 PRN Pain, moderate (4-7) Oxycodone HCl 10 mg 06/26/18 12:26 Oxycodone Immediate Release Tab PO Q6 PRN Pain, severe (8-10) Pantoprazole Sodium 40 mg 06/27/18 10:00 06/27/18 09:53 Protonix Ec Tab PO 40 mg DAILY DACIA Administration Potassium Chloride 40 meq 06/26/18 12:30 06/27/18 09:54 K-Dur 20 Meq Er Tab PO 40 meq DAILY DACIA Administration - Patient Studies Lab Studies: Lab Studies 06/27/18 06/27/18 06/27/18 Range/Units 17:03 07:10 07:10 WBC 15.5 H (4.8-10.8) K/uL RBC 2.90 L (4.40-5.90) Mil/uL Hgb 8.8 L (12.0-18.0) g/dL Hct 26.3 L (35.0-51.0) % MCV 90.7 (80.0-94.0) fL MCH 30.3 (27.0-31.0) pg MCHC 33.5 (33.0-37.0) g/dL RDW 14.0 (11.5-14.5) % Plt Count 850 H (130-400) K/uL MPV 7.3 (7.2-11.7) fL Neut % (Auto) 78.2 H (50.0-75.0) % Lymph % (Auto) 12.6 L (20.0-40.0) % [place] % (Auto) 7.0 (0.0-10.0) % Eos % (Auto) 1.6 (0.0-4.0) % Baso % (Auto) 0.6 (0.0-2.0) % Neut # (Auto) 12.1 H (1.8-7.0) K/uL Lymph # (Auto) 2.0 (1.0-4.3) K/uL [place] # (Auto) 1.1 H (0.0-0.8) K/uL Eos # (Auto) 0.2 (0.0-0.7) K/uL Baso # (Auto) 0.1 (0.0-0.2) K/uL Sodium 134 (132-148) mmol/L Potassium 3.3 L (3.6-5.2) mmol/L Chloride 102 (98-107) mmol/L Carbon Dioxide 25 (22-30) mmol/L Anion Gap 12 (10-20) BUN 10 (9-20) mg/dL Creatinine 0.5 L (0.8-1.5) mg/dL Est GFR ( Amer) > 60 Est GFR (Non-Af Amer) > 60 POC Glucose (mg/dL) 115 H (65-110) mg/dL Random Glucose 100 (75-110) mg/dL Calcium 7.9 L (8.6-10.4) mg/dl Phosphorus 3.2 (2.5-4.5) mg/dL Magnesium 2.2 (1.6-2.3) mg/dL Total Bilirubin 0.3 (0.2-1.3) mg/dL AST 66 H (17-59) U/L ALT 27 (21-72) U/L Alkaline Phosphatase 270 H (38-126) U/L Total Protein 6.8 (6.3-8.3) g/dL Albumin 2.9 L (3.5-5.0) g/dL Globulin 3.9 (2.2-3.9) gm/dL Albumin/Globulin Ratio 0.8 L (1.0-2.1) 06/26/18 Range/Units 21:06 WBC (4.8-10.8) K/uL RBC (4.40-5.90) Mil/uL Hgb (12.0-18.0) g/dL Hct (35.0-51.0) % MCV (80.0-94.0) fL MCH (27.0-31.0) pg MCHC (33.0-37.0) g/dL RDW (11.5-14.5) % Plt Count (130-400) K/uL MPV (7.2-11.7) fL Neut % (Auto) (50.0-75.0) % Lymph % (Auto) (20.0-40.0) % [place] % (Auto) (0.0-10.0) % Eos % (Auto) (0.0-4.0) % Baso % (Auto) (0.0-2.0) % Neut # (Auto) (1.8-7.0) K/uL Lymph # (Auto) (1.0-4.3) K/uL [place] # (Auto) (0.0-0.8) K/uL Eos # (Auto) (0.0-0.7) K/uL Baso # (Auto) (0.0-0.2) K/uL Sodium (132-148) mmol/L Potassium (3.6-5.2) mmol/L Chloride (98-107) mmol/L Carbon Dioxide (22-30) mmol/L Anion Gap (10-20) BUN (9-20) mg/dL Creatinine (0.8-1.5) mg/dL Est GFR ( Amer) Est GFR (Non-Af Amer) POC Glucose (mg/dL) 113 H (65-110) mg/dL Random Glucose (75-110) mg/dL Calcium (8.6-10.4) mg/dl Phosphorus (2.5-4.5) mg/dL Magnesium (1.6-2.3) mg/dL Total Bilirubin (0.2-1.3) mg/dL AST (17-59) U/L ALT (21-72) U/L Alkaline Phosphatase (38-126) U/L Total Protein (6.3-8.3) g/dL Albumin (3.5-5.0) g/dL Globulin (2.2-3.9) gm/dL Albumin/Globulin Ratio (1.0-2.1) Laboratory Results - last 24 hr 06/26/18 06/27/18 06/27/18 21:06 07:10 07:10 WBC 15.5 H RBC 2.90 L Hgb 8.8 L Hct 26.3 L MCV 90.7 MCH 30.3 MCHC 33.5 RDW 14.0 Plt Count 850 H MPV 7.3 Neut % (Auto) 78.2 H Lymph % (Auto) 12.6 L [place] % (Auto) 7.0 Eos % (Auto) 1.6 Baso % (Auto) 0.6 Neut # (Auto) 12.1 H Lymph # (Auto) 2.0 [place] # (Auto) 1.1 H Eos # (Auto) 0.2 Baso # (Auto) 0.1 Sodium 134 Potassium 3.3 L Chloride 102 Carbon Dioxide 25 Anion Gap 12 BUN 10 Creatinine 0.5 L Est GFR ( Amer) > 60 Est GFR (Non-Af Amer) > 60 POC Glucose (mg/dL) 113 H Random Glucose 100 Calcium 7.9 L Phosphorus 3.2 Magnesium 2.2 Total Bilirubin 0.3 AST 66 H ALT 27 Alkaline Phosphatase 270 H Total Protein 6.8 Albumin 2.9 L Globulin 3.9 Albumin/Globulin Ratio 0.8 L 06/27/18 17:03 WBC RBC Hgb Hct MCV MCH MCHC RDW Plt Count MPV Neut % (Auto) Lymph % (Auto) [place] % (Auto) Eos % (Auto) Baso % (Auto) Neut # (Auto) Lymph # (Auto) [place] # (Auto) Eos # (Auto) Baso # (Auto) Sodium Potassium Chloride Carbon Dioxide Anion Gap BUN Creatinine Est GFR ( Amer) Est GFR (Non-Af Amer) POC Glucose (mg/dL) 115 H Random Glucose Calcium Phosphorus Magnesium Total Bilirubin AST ALT Alkaline Phosphatase Total Protein Albumin Globulin Albumin/Globulin Ratio Critical Care Progress Note - Nutrition Nutrition: Nutrition Category Date Time Status Regular Diet [DIET] Diets 06/23/18 Dinner Active Attending/Attestation - Attestation I have personally seen and examined this patient.: Yes I have fully participated in the care of the patient.: Yes I have reviewed all pertinent clinical information: Yes Notes (Text): Today: , June 23, 2018 The Patient was seen and examined at the bedside, Medical records reviewed, and management issues were discussed and formulated with the house staff. I have reviewed all the relevant clinical, laboratory, hemodynamic, radiographic data and medications Events reviewed Pain issues, skin care, head of the bed elevation, glycemic control were addressed. Agree with above resident's assessment and treatment plans of care as transcribed in Dr. Roman's note.
[2018-06-23] MEDS ORDERED: Potassium Chloride 20 mEq ER Tab PO ONE (16:00)
--- NOTE | 2018-06-23 18:29 | CP.PCM.PN ---
Subjective - Date & Time of Evaluation Date of Evaluation: 06/23/18 Time of Evaluation: 06:30 - Subjective Subjective: Patient seen and examined. No acute events over night. Denies nausea/vomiting. Tolerating liquid diet. TONY drain 15cc serosanguinous. Objective - Vital Signs/Intake and Output Vital Signs (last 24 hours): Temp Pulse Resp BP Pulse Ox 99.3 F 88 17 119/77 96 06/23/18 16:00 06/23/18 17:02 06/23/18 17:02 06/23/18 17:02 06/23/18 17:02 Intake and Output: 06/23/18 06/23/18 06:59 18:59 Intake Total 1276 1137.5 Output Total 1605 750 Balance -329 387.5 - Medications Medications: Current Medications Acetaminophen (Tylenol 325mg Tab) 650 mg PO Q6 [facility] Last Admin: 06/23/18 18:21 Dose: 650 mg Enoxaparin Sodium (Lovenox) 40 mg SC DAILY [facility] Last Admin: 06/23/18 09:16 Dose: 40 mg Hydromorphone HCl (Dilaudid) 1 mg IVP Q4H PRN PRN Reason: Pain, severe (8-10) Last Admin: 06/22/18 19:40 Dose: 1 mg Metronidazole (Flagyl) 500 mg in 100 mls @ 100 mls/hr IVPB Q8H [facility]; Protocol Last Admin: 06/23/18 16:46 Dose: 100 mls/hr Meropenem 1 gm/ Sodium (Chloride) 100 mls @ 100 mls/hr IVPB Q8H [facility]; Protocol Last Admin: 06/23/18 16:45 Dose: 100 mls/hr Micafungin Sodium 100 mg/ (Sodium Chloride) 100 mls @ 100 mls/hr IV Q24H [facility]; Protocol Last Admin: 06/22/18 21:28 Dose: 100 mls/hr Dextrose/Sodium Chloride (Dextrose 5%/0.9% Ns 1000 Ml) 1,000 mls @ 75 mls/hr IV .[id number] [facility] Last Admin: 06/23/18 13:08 Dose: 75 mls/hr Oxycodone HCl (Oxycodone Immediate Release Tab) 5 mg PO Q6 PRN PRN Reason: Pain, moderate (4-7) Pantoprazole Sodium (Protonix Inj) 40 mg IVP DAILY [facility] Last Admin: 06/23/18 09:15 Dose: 40 mg - Labs Labs: 06/23/18 06:02 06/23/18 06:02 PT 18.1 SECONDS (9.7-12.2) H 06/19/18 14:28 INR 1.7 06/19/18 14:28 APTT 29 SECONDS (21-34) 06/19/18 14:28 - Constitutional Appears: No Acute Distress - Head Exam Head Exam: NORMOCEPHALIC - Eye Exam Eye Exam: EOMI, Normal appearance - ENT Exam ENT Exam: Mucous Membranes Moist - Neck Exam Neck Exam: Normal Inspection - Cardiovascular Exam Cardiovascular Exam: +S1, +S2 - GI/Abdominal Exam GI & Abdominal Exam: Soft, Tenderness Additional comments: incision site tenderness - Neurological Exam Neurological Exam: Alert, Awake, Oriented x3 - Psychiatric Exam Psychiatric exam: Normal Mood - Skin Skin Exam: Dry, Intact, Warm Assessment and Plan - Assessment and Plan (Free Text) Assessment: 37M s/p lap [facility] [place] [facility] course complicated by intra-abdominal sepsis s/p ex lap x2 for bowel injury POD6 Plan: Pain control PRN Keep O2 > 92% Aggressive Incentive spirometer use D/C NGT D/c TLC Adv to regular diet chemical DVT ppx OOB and ambulate Physical therapy Monitor I/O d/w Dr. Monreal surgical attending [place] PGY3
[2018-06-23] MEDS: Micafungin 100 MG in Sodium Chloride 0.9% 100 ML IV SCH (21:41)
--- NOTE | 2018-06-23 21:41 | CP.PCM.PN ---
Subjective - Date & Time of Evaluation Date of Evaluation: 06/23/18 Time of Evaluation: 15:00 - Subjective Subjective: dictated Objective - Vital Signs/Intake and Output Vital Signs (last 24 hours): Temp Pulse Resp BP Pulse Ox 99.3 F 102 H 24 122/80 96 06/23/18 16:00 06/23/18 19:00 06/23/18 19:00 06/23/18 18:01 06/23/18 18:01 Intake and Output: 06/23/18 06/24/18 18:59 06:59 Intake Total 1332.5 125 Output Total 1050 21 Balance 282.5 104 - Medications Medications: Current Medications Acetaminophen (Tylenol 325mg Tab) 650 mg PO Q6 [facility] Last Admin: 06/23/18 18:21 Dose: 650 mg Enoxaparin Sodium (Lovenox) 40 mg SC DAILY [facility] Last Admin: 06/23/18 09:16 Dose: 40 mg Hydromorphone HCl (Dilaudid) 1 mg IVP Q4H PRN PRN Reason: Pain, severe (8-10) Last Admin: 06/22/18 19:40 Dose: 1 mg Metronidazole (Flagyl) 500 mg in 100 mls @ 100 mls/hr IVPB Q8H [facility]; Protocol Last Admin: 06/23/18 16:46 Dose: 100 mls/hr Meropenem 1 gm/ Sodium (Chloride) 100 mls @ 100 mls/hr IVPB Q8H [facility]; Protocol Last Admin: 06/23/18 16:45 Dose: 100 mls/hr Micafungin Sodium 100 mg/ (Sodium Chloride) 100 mls @ 100 mls/hr IV Q24H [facility]; Protocol Last Admin: 06/22/18 21:28 Dose: 100 mls/hr Oxycodone HCl (Oxycodone Immediate Release Tab) 5 mg PO Q6 PRN PRN Reason: Pain, moderate (4-7) Pantoprazole Sodium (Protonix Inj) 40 mg IVP DAILY [facility] Last Admin: 06/23/18 09:15 Dose: 40 mg - Labs Labs: 06/23/18 06:02 06/23/18 06:02 PT 18.1 SECONDS (9.7-12.2) H 06/19/18 14:28 INR 1.7 06/19/18 14:28 APTT 29 SECONDS (21-34) 06/19/18 14:28
[2018-06-24] MEDS: metroNIDAZOLE IV 500 mg/100 ml 500 MG/100 ML BAG IVPB SCH ×2 (01:25→09:00)
--- NOTE | 2018-06-24 01:46 | PN ---
DATE: 06/23/2018 SUBJECTIVE: The patient a neck, was sent and the patient was seen today. He had been extubated. He was able to communicate. He said that he feels better. He denied abdominal pain, but he said last night he could not sleep. He tried to sleep and today he told the termite technician and they were going to give him some sleeping pills today. PHYSICAL EXAMINATION: VITAL SIGNS: He remains extubated. T-max 99.3, pulse 88, blood pressure 113/76, respirations 13. HEAD: Atraumatic, normocephalic. NECK: Supple. LUNGS: Clear. HEART: S1, S2 is regular. ABDOMEN: Remains with a surgical scar which has tension sutures. It is intact and has Hussein drain and with some serous fluid. Otherwise, extremities have no edema. LABORATORY DATA: Labs are noted. White count is 19.1 today. Hemoglobin 8.7, hematocrit 25.8, platelet count remains 583. Neutrophils 83. Micro phipps, stool culture was negative. C. diff was negative. Wound had showed Liliana albicans before and we have discontinued vancomycin and continuing Merrem as well as the micafungin and he is on Flagyl. So he is on 3 antibiotics. At this time we will continue the same and will follow and the patient's abdomen is less distended and the white count is coming down, which is a good prognosis. Vernon Hendricks MD
[2018-06-24 06:22] LABS: BASO # 0.1 K/uL (0.0-0.2); BASO % 0.7 % (0.0-2.0); EOS # 0.2 K/uL (0.0-0.7); EOS % 1.2 % (0.0-4.0); HEMOGLOBIN 8.1 g/dL (12.0-18.0); LYMPH # 1.9 K/uL (1.0-4.3); LYMPH % 10.3 % (20.0-40.0); MEAN CELL VOLUME 91.7 fL (80.0-94.0); MEAN CORPUSCULAR HEMOGLOBIN 30.5 pg (27.0-31.0); MEAN CORPUSCULAR HGB CONC 33.3 g/dL (33.0-37.0); MEAN PLATELET VOLUME 8.2 fL (7.2-11.7); MONO # 1.2 K/uL (0.0-0.8); MONO % 6.8 % (0.0-10.0); NEUT # 14.8 K/uL (1.8-7.0); RBC 2.67 Mil/uL (4.40-5.90); RED CELL DISTRIBUTION WIDTH 14.1 % (11.5-14.5); WHITE BLOOD COUNT 18.3 K/uL (4.8-10.8)
[2018-06-24 06:45] LABS: ALB/GLOB RATIO 0.7 (1.0-2.1); ALBUMIN 2.4 g/dL (3.5-5.0); ALT/SGPT 21 U/L (21-72); AST/SGOT 46 U/L (17-59); BLOOD UREA NITROGEN 4 mg/dL (9-20); GFR NON-AFRICAN AMERICAN > 60
[2018-06-24] MEDS: Meropenem 1 GM in Sodium Chloride 0.9% 100 ML IVPB SCH ×2 (08:30→15:51)
[2018-06-24] MEDS: Potassium Chloride 20 mEq/15 ml LIQ UD PO SCH ×3 (09:09→14:25)
[2018-06-24] MEDS: Enoxaparin 40 mg Syringe SC SCH (09:29)
[2018-06-24] MEDS ORDERED: Potassium Chloride 20 mEq ER Tab PO ONE (16:00)
--- NOTE | 2018-06-24 17:21 | CP.PCM.PN ---
Subjective - Date & Time of Evaluation Date of Evaluation: 06/24/18 Time of Evaluation: 06:45 - Subjective Subjective: General Surgery Note for Dr. Monreal Patient seen and examined. No acute events overnight. Patient states pain is controlled. Denies fever/chill and nausea/vomiting. Tolerating diet. He reports flatus and BMS. TONY drain 20cc/24 hrs of serosanguinous output. He has been OOB to chair and ambulating. Objective - Vital Signs/Intake and Output Vital Signs (last 24 hours): Temp Pulse Resp BP Pulse Ox 98.6 F 96 H 25 H 113/72 94 L 06/24/18 08:00 06/24/18 10:01 06/24/18 10:01 06/24/18 10:01 06/24/18 10:01 Intake and Output: 06/24/18 06/24/18 06:59 18:59 Intake Total 845 1870 Output Total 921 4 Balance -76 1866 - Medications Medications: Current Medications Acetaminophen (Tylenol 325mg Tab) 650 mg PO Q6 [facility] Last Admin: 06/24/18 12:14 Dose: 650 mg Enoxaparin Sodium (Lovenox) 40 mg SC DAILY [facility] Last Admin: 06/24/18 09:29 Dose: 40 mg Hydromorphone HCl (Dilaudid) 1 mg IVP Q4H PRN PRN Reason: Pain, severe (8-10) Last Admin: 06/22/18 19:40 Dose: 1 mg Meropenem 1 gm/ Sodium (Chloride) 100 mls @ 100 mls/hr IVPB Q8H [facility]; Protocol Last Admin: 06/24/18 15:51 Dose: 100 mls/hr Micafungin Sodium 100 mg/ (Sodium Chloride) 100 mls @ 100 mls/hr IV Q24H [facility]; Protocol Last Admin: 06/23/18 21:41 Dose: 100 mls/hr Oxycodone HCl (Oxycodone Immediate Release Tab) 5 mg PO Q6 PRN PRN Reason: Pain, moderate (4-7) Pantoprazole Sodium (Protonix Inj) 40 mg IVP DAILY [facility] Last Admin: 06/24/18 11:20 Dose: 40 mg - Labs Labs: 06/24/18 06:15 06/24/18 06:15 PT 18.1 SECONDS (9.7-12.2) H 06/19/18 14:28 INR 1.7 06/19/18 14:28 APTT 29 SECONDS (21-34) 06/19/18 14:28 - Additional Findings Additional findings: - Constitutional Appears: No Acute Distress - Head Exam Head Exam: NORMOCEPHALIC - Eye Exam Eye Exam: EOMI, Normal appearance - ENT Exam ENT Exam: Mucous Membranes Moist - Neck Exam Neck Exam: Normal Inspection - Cardiovascular Exam Cardiovascular Exam: +S1, +S2 - GI/Abdominal Exam GI & Abdominal Exam: Soft, Tenderness Additional comments: incision site with rodrigo and retention sutures - Neurological Exam Neurological Exam: Alert, Awake, Oriented x3 - Psychiatric Exam Psychiatric exam: Normal Mood - Skin Skin Exam: Dry, Intact, Warm Assessment and Plan - Assessment and Plan (Free Text) Assessment: 37M s/p lap kevin hospital course complicated by intra-abdominal sepsis s/p ex lap x2 for bowel injury POD#7 Plan: Pain control PRN Keep O2 > 92% Aggressive Incentive spirometer use D/c TLC regular diet chemical DVT ppx OOB and ambulate Physical therapy Monitor I/O d/w Dr. Jocelin Huynh PGY2
[2018-06-24] MEDS: Micafungin 100 MG in Sodium Chloride 0.9% 100 ML IV SCH (21:50)
[2018-06-25] MEDS: Meropenem 1 GM in Sodium Chloride 0.9% 100 ML IVPB SCH ×2 (00:30→09:00)
[2018-06-25 07:16] LABS: BASO # 0.1 K/uL (0.0-0.2); BASO % 0.6 % (0.0-2.0); EOS # 0.3 K/uL (0.0-0.7); EOS % 1.2 % (0.0-4.0); HEMOGLOBIN 8.9 g/dL (12.0-18.0); LYMPH # 2.5 K/uL (1.0-4.3); LYMPH % 12.2 % (20.0-40.0); MEAN CELL VOLUME 90.7 fL (80.0-94.0); MEAN CORPUSCULAR HEMOGLOBIN 30.9 pg (27.0-31.0); MEAN PLATELET VOLUME 8.1 fL (7.2-11.7); MONO # 1.2 K/uL (0.0-0.8); MONO % 6.1 % (0.0-10.0); NEUT # 16.2 K/uL (1.8-7.0); NEUT % 79.9 % (50.0-75.0); NRBC % 0.1 % (0.0-2.0); RBC 2.88 Mil/uL (4.40-5.90); RED CELL DISTRIBUTION WIDTH 14.2 % (11.5-14.5)
[2018-06-25 07:28] LABS: ALB/GLOB RATIO 0.7 (1.0-2.1); ALBUMIN 2.7 g/dL (3.5-5.0); ALT/SGPT 22 U/L (21-72); AST/SGOT 49 U/L (17-59); BLOOD UREA NITROGEN 5 mg/dL (9-20); CALCIUM 7.8 mg/dl (8.6-10.4); GFR NON-AFRICAN AMERICAN > 60
[2018-06-25 07:34] LABS: WHITE BLOOD COUNT 20.3 K/uL (4.8-10.8)
[2018-06-25] MEDS: Enoxaparin 40 mg Syringe SC SCH (09:34)
--- NOTE | 2018-06-25 17:50 | CP.PCM.PN ---
Subjective - Date & Time of Evaluation Date of Evaluation: 06/25/18 Time of Evaluation: 07:50 - Subjective Subjective: General Surgery Note for Dr. Monreal Patient seen and examined. No acute events overnight. Patient states pain is controlled. Denies fever/chill and nausea/vomiting. Tolerating diet. He reports flatus and BMs. TONY drain with minimal serrous output. He has been OOB to chair and ambulating. Patient was transferred to floor from ICU yesterday. He is feeling much better. Objective - Vital Signs/Intake and Output Vital Signs (last 24 hours): Temp Pulse Resp BP Pulse Ox 97.5 F L 94 H 20 120/79 100 06/25/18 15:43 06/25/18 15:43 06/25/18 15:43 06/25/18 15:43 06/25/18 15:43 Intake and Output: 06/25/18 06/25/18 06:59 18:59 Intake Total 500 Output Total 5 Balance 495 - Medications Medications: Current Medications Acetaminophen (Tylenol 325mg Tab) 650 mg PO Q6 [facility] Last Admin: 06/25/18 11:47 Dose: 650 mg Enoxaparin Sodium (Lovenox) 40 mg SC DAILY [facility] Last Admin: 06/25/18 09:34 Dose: 40 mg Hydromorphone HCl (Dilaudid) 1 mg IVP Q4H PRN PRN Reason: Pain, severe (8-10) Last Admin: 06/22/18 19:40 Dose: 1 mg Oxycodone HCl (Oxycodone Immediate Release Tab) 5 mg PO Q6 PRN PRN Reason: Pain, moderate (4-7) Pantoprazole Sodium (Protonix Inj) 40 mg IVP DAILY [facility] Last Admin: 06/25/18 09:34 Dose: 40 mg - Labs Labs: 06/25/18 06:49 06/25/18 06:49 PT 18.1 SECONDS (9.7-12.2) H 06/19/18 14:28 INR 1.7 06/19/18 14:28 APTT 29 SECONDS (21-34) 06/19/18 14:28 - Additional Findings Additional findings: - Constitutional Appears: No Acute Distress - Head Exam Head Exam: NORMOCEPHALIC - Eye Exam Eye Exam: EOMI, Normal appearance - ENT Exam ENT Exam: Mucous Membranes Moist - Neck Exam Neck Exam: Normal Inspection - Cardiovascular Exam Cardiovascular Exam: +S1, +S2 - GI/Abdominal Exam GI & Abdominal Exam: Soft, Tenderness Additional comments: incision site with rodrigo and retention sutures - Neurological Exam Neurological Exam: Alert, Awake, Oriented x3 - Psychiatric Exam Psychiatric exam: Normal Mood - Skin Skin Exam: Dry, Intact, Warm Assessment and Plan - Assessment and Plan (Free Text) Assessment: 37M s/p lap kevin hospital course complicated by intra-abdominal sepsis s/p ex lap x2 for bowel injury POD#8 Plan: Pain control Aggressive Incentive spirometer use regular diet will remove murtaza drain chemical DVT ppx OOB and ambulate Physical therapy Monitor I/O Patient may shower d/w Dr. Jocelin Huynh PGY2
[2018-06-25] MEDS ORDERED: Micafungin 100 MG in Sodium Chloride 0.9% 100 ML IV SCH (21:00)
[2018-06-25] MEDS: Micafungin 100 MG in Sodium Chloride 0.9% 100 ML IV SCH (23:00)
[2018-06-26 07:46] LABS: BASO # 0.2 K/uL (0.0-0.2); BASO % 1.4 % (0.0-2.0); EOS # 0.3 K/uL (0.0-0.7); EOS % 1.6 % (0.0-4.0); HEMOGLOBIN 8.6 g/dL (12.0-18.0); LYMPH # 2.3 K/uL (1.0-4.3); LYMPH % 13.8 % (20.0-40.0); MEAN CELL VOLUME 90.6 fL (80.0-94.0); MEAN CORPUSCULAR HEMOGLOBIN 30.5 pg (27.0-31.0); MEAN CORPUSCULAR HGB CONC 33.7 g/dL (33.0-37.0); MEAN PLATELET VOLUME 7.6 fL (7.2-11.7); MONO # 1.1 K/uL (0.0-0.8); MONO % 6.5 % (0.0-10.0); NEUT # 12.7 K/uL (1.8-7.0); NEUT % 76.7 % (50.0-75.0); NRBC % 0.1 % (0.0-2.0); RBC 2.82 Mil/uL (4.40-5.90); RED CELL DISTRIBUTION WIDTH 14.1 % (11.5-14.5); WHITE BLOOD COUNT 16.5 K/uL (4.8-10.8)
[2018-06-26 08:07] LABS: ALB/GLOB RATIO 0.7 (1.0-2.1); ALBUMIN 2.7 g/dL (3.5-5.0); ALT/SGPT 25 U/L (21-72); AST/SGOT 64 U/L (17-59); BLOOD UREA NITROGEN 8 mg/dL (9-20); CALCIUM 7.7 mg/dl (8.6-10.4); GFR NON-AFRICAN AMERICAN > 60
--- NOTE | 2018-06-26 09:36 | CP.PCM.PN ---
Subjective - Date & Time of Evaluation Date of Evaluation: 06/26/18 Time of Evaluation: 07:10 - Subjective Subjective: General Surgery: Arago Patient seen and examined at bedside this am. Pt reports feeling well and is inquiring as to when he can go home. Patient is tolerating diet, ambulating and working with PT. He otherwise denies BUENROSTRO, SOB, CP, n/v, f/c. 12 point ROS otherwise negative Objective - Vital Signs/Intake and Output Vital Signs (last 24 hours): Temp Pulse Resp BP Pulse Ox 98.0 F 85 18 121/79 98 06/26/18 07:00 06/26/18 07:00 06/26/18 07:00 06/26/18 07:00 06/26/18 07:00 - Medications Medications: Current Medications Acetaminophen (Tylenol 325mg Tab) 650 mg PO Q6 [facility] Last Admin: 06/26/18 05:37 Dose: 650 mg Enoxaparin Sodium (Lovenox) 40 mg SC DAILY [facility] Last Admin: 06/25/18 09:34 Dose: 40 mg Hydromorphone HCl (Dilaudid) 1 mg IVP Q4H PRN PRN Reason: Pain, severe (8-10) Last Admin: 06/22/18 19:40 Dose: 1 mg Metronidazole (Flagyl) 500 mg in 100 mls @ 100 mls/hr IVPB Q8H [facility]; Protocol Meropenem 1 gm/ Sodium (Chloride) 100 mls @ 100 mls/hr IVPB Q8H [facility]; Protocol Micafungin Sodium 100 mg/ (Sodium Chloride) 100 mls @ 100 mls/hr IV Q24H [facility]; Protocol Last Admin: 06/25/18 23:00 Dose: 100 mls/hr Oxycodone HCl (Oxycodone Immediate Release Tab) 5 mg PO Q6 PRN PRN Reason: Pain, moderate (4-7) Pantoprazole Sodium (Protonix Inj) 40 mg IVP DAILY [facility] Last Admin: 06/25/18 09:34 Dose: 40 mg - Labs Labs: 06/26/18 07:39 06/26/18 07:39 PT 18.1 SECONDS (9.7-12.2) H 06/19/18 14:28 INR 1.7 06/19/18 14:28 APTT 29 SECONDS (21-34) 06/19/18 14:28 - Constitutional Appears: Well, Non-toxic, No Acute Distress - Head Exam Head Exam: ATRAUMATIC, NORMOCEPHALIC - Eye Exam Eye Exam: EOMI - ENT Exam ENT Exam: Mucous Membranes Moist - Respiratory Exam Respiratory Exam: NORMAL BREATHING PATTERN - Cardiovascular Exam Cardiovascular Exam: REGULAR RHYTHM - GI/Abdominal Exam GI & Abdominal Exam: Soft. absent: Guarding, Tenderness, Rebound Additional comments: incision cdi with rodrigo in place, retention sutures in place, no drainage - Extremities Exam Extremities Exam: absent: Calf Tenderness, Pedal Edema - Neurological Exam Neurological Exam: Alert, Awake, Oriented x3 - Psychiatric Exam Psychiatric exam: Normal Affect, Normal Mood - Skin Skin Exam: Dry, Intact, Normal Color, Warm Assessment and Plan - Assessment and Plan (Free Text) Assessment: 37 yr old male s/p lap cholecystectomy with two returns to the OR for re-e xploration Plan: Pain control Aggressive Incentive spirometer use regular diet chemical DVT ppx OOB and ambulate Physical therapy Monitor I/O Patient may shower f/u ID recs for PO ABX d/w Dr. Jocelin Luther, PGY 1
[2018-06-26] MEDS: metroNIDAZOLE IV 500 mg/100 ml 500 MG/100 ML BAG IVPB SCH ×2 (10:02→19:00)
[2018-06-26] MEDS: Enoxaparin 40 mg Syringe SC SCH (10:03)
[2018-06-26] MEDS: Meropenem 1 GM in Sodium Chloride 0.9% 100 ML IVPB SCH ×2 (11:52→20:45)
[2018-06-26] MEDS ORDERED: oxyCODONE 10 mg Immediate Release Tab PO PRN (12:26)
[2018-06-26] MEDS: Potassium Chloride 20 mEq ER Tab PO SCH (13:44)
[2018-06-26] MEDS: Micafungin 100 MG in Sodium Chloride 0.9% 100 ML IV SCH (23:30)
[2018-06-27] MEDS: metroNIDAZOLE IV 500 mg/100 ml 500 MG/100 ML BAG IVPB SCH ×3 (01:59→18:29)
[2018-06-27] MEDS: Meropenem 1 GM in Sodium Chloride 0.9% 100 ML IVPB SCH ×3 (04:20→21:47)
[2018-06-27 07:17] LABS: BASO # 0.1 K/uL (0.0-0.2); BASO % 0.6 % (0.0-2.0); EOS # 0.2 K/uL (0.0-0.7); EOS % 1.6 % (0.0-4.0); HEMOGLOBIN 8.8 g/dL (12.0-18.0); LYMPH % 12.6 % (20.0-40.0); MEAN CELL VOLUME 90.7 fL (80.0-94.0); MEAN CORPUSCULAR HEMOGLOBIN 30.3 pg (27.0-31.0); MEAN CORPUSCULAR HGB CONC 33.5 g/dL (33.0-37.0); MEAN PLATELET VOLUME 7.3 fL (7.2-11.7); MONO # 1.1 K/uL (0.0-0.8); NEUT # 12.1 K/uL (1.8-7.0); NEUT % 78.2 % (50.0-75.0); RBC 2.9 Mil/uL (4.40-5.90); WHITE BLOOD COUNT 15.5 K/uL (4.8-10.8)
--- NOTE | 2018-06-27 07:40 | OP ---
PROCEDURE DATE: 06/17/2018 PREOPERATIVE DIAGNOSIS: Intraabdominal sepsis. POSTOPERATIVE DIAGNOSES: Bowel perforation and subcutaneous abscesses. OPERATION PERFORMED: Exploratory laparotomy, lysis of adhesions, evacuation of intraabdominal and subcutaneous abscesses with stapled enterorrhaphy and abdominal washout. SURGEON: Danie Monreal MD [employer] OPERATOR: Boris Greco DO PGY-4 and Chantal Luther DO, PGY-1. TYPE OF ANESTHESIA: General endotracheal. PROCEDURE IN DETAIL: After informed consent was obtained, the patient was taken to the operative suite and placed in the supine position. The patient was placed with arms untucked and general anesthesia was induced. Abdomen was prepped and draped in the usual sterile fashion using chlorhexidine prep. Timeout was had identifying appropriate patient and appropriate procedure being performed. Using a 10 blade, a vertical midline incision was made. Upon incision of the inferior portion of the umbilicus, immediate purulent sulcus was noted draining from the subcutaneous tissues. This was then cultured immediately and suctioned. Care was then moved to the superior portion of the incision, and using sharp and electrocautery dissection, subcutaneous tissue was dissected down to the fascia. The fascia was then entered and fascial incision was then carried down using electrocautery. Upon approaching the inferior aspect of the midline vertical incision, it was noted that there were dense adhesions as well as bowel entrapped in the fascia. This was then dissected using Metzenbaum scissors to free the bowel from the anterior abdominal wall. Once this was achieved, further dense adhesions noted on the small bowel were then using blunt technique as well as Metzenbaum scissors. Sulcus like fluid was noted along the paracolic gutters of the abdomen on both the right and left side. This was suctioned using a pool suction. Once small bowel adhesions were appropriately lysed, the small bowel was ran looking for injury. A proximal small bowel perforation was noted and well contained within the mesentery. Using a PAMELA stapler, the perforation was repaired by placing both ends of the PAMELA stapler into the distal and proximal end of the bowel. This allowed for creation of a new lumen. The large perforation and necrotic edges were then taken with a TA stapler. The stapled enterorrhaphy lumen was noted to be open and the staple line appeared to be intact. The remainder of the bowel was then reinspected and a large serosal tear was noted. This was then repaired with silk interrupted Lembert sutures. No other bowel injuries were noted. The bowel was placed back into the abdomen using Irrisept irrigation solution as well as saline. The abdomen was thoroughly irrigated to ensure abscess evacuation was achieved. The midline fascial incision was closed using a looped PDS in a running type fashion, 1 cm starting from the inferior portion as well as a second looped PDS starting from the superior portion meeting in the middle. Prior to tying the suture, the incision was incised to ensure all bowel was free from abdominal closure. Once the fascia was closed, attention was carried to the subcutaneous abscess that was initially encountered. Necrotic tissue was debrided away from the wound and then midline subcutaneous tissue was irrigated with Irrisept solution as well as saline. Skin was closed using rodrigo. The abdomen was washed and dried and sterile gauze as well as island dressings were placed over the abdominal incision. The patient tolerated the procedure well. At the end of the case, all sponge and instrument counts were deemed correct. The patient was successfully extubated and transferred into PACU in stable condition. COMPLICATIONS: None. ESTIMATED BLOOD LOSS: Approximately 100 mL. SPECIMENS: A portion of small bowel. DRAINS: None. Boris Greco DO Danie Monreal MD
[2018-06-27 07:51] LABS: ALB/GLOB RATIO 0.8 (1.0-2.1); ALBUMIN 2.9 g/dL (3.5-5.0); ALT/SGPT 27 U/L (21-72); AST/SGOT 66 U/L (17-59); BLOOD UREA NITROGEN 10 mg/dL (9-20); CALCIUM 7.9 mg/dl (8.6-10.4); GFR NON-AFRICAN AMERICAN > 60
[2018-06-27] MEDS: Enoxaparin 40 mg Syringe SC SCH (09:53)
[2018-06-27] MEDS: Pantoprazole 40 mg EC Tab PO SCH (09:53)
[2018-06-27] MEDS: Potassium Chloride 20 mEq ER Tab PO SCH (09:54)
--- NOTE | 2018-06-27 11:20 | CP.PCM.PN ---
Subjective - Date & Time of Evaluation Date of Evaluation: 06/27/18 Time of Evaluation: 06:50 - Subjective Subjective: Patient seen and examined. No acute events night. Tolerating diet. Passing flatus and having BMs. Objective - Vital Signs/Intake and Output Vital Signs (last 24 hours): Temp Pulse Resp BP Pulse Ox 98 F 90 18 117/86 98 06/27/18 10:57 06/27/18 10:57 06/27/18 10:57 06/27/18 10:57 06/27/18 10:57 - Medications Medications: Current Medications Acetaminophen (Tylenol 325mg Tab) 650 mg PO Q6 [facility] Last Admin: 06/27/18 05:31 Dose: 650 mg Enoxaparin Sodium (Lovenox) 40 mg SC DAILY [facility] Last Admin: 06/27/18 09:53 Dose: 40 mg Metronidazole (Flagyl) 500 mg in 100 mls @ 100 mls/hr IVPB Q8H [facility]; Protocol Last Admin: 06/27/18 09:56 Dose: 100 mls/hr Meropenem 1 gm/ Sodium (Chloride) 100 mls @ 100 mls/hr IVPB Q8H [facility]; Protocol Last Admin: 06/27/18 04:20 Dose: 100 mls/hr Micafungin Sodium 100 mg/ (Sodium Chloride) 100 mls @ 100 mls/hr IV Q24H [facility]; Protocol Last Admin: 06/26/18 23:30 Dose: 100 mls/hr Oxycodone HCl (Oxycodone Immediate Release Tab) 5 mg PO Q6 PRN PRN Reason: Pain, moderate (4-7) Oxycodone HCl (Oxycodone Immediate Release Tab) 10 mg PO Q6 PRN PRN Reason: Pain, severe (8-10) Pantoprazole Sodium (Protonix Ec Tab) 40 mg PO DAILY [facility] Last Admin: 06/27/18 09:53 Dose: 40 mg Potassium Chloride (K-Dur 20 Meq Er Tab) 40 meq PO DAILY [facility] Last Admin: 06/27/18 09:54 Dose: 40 meq - Labs Labs: 06/27/18 07:10 06/27/18 07:10 PT 18.1 SECONDS (9.7-12.2) H 06/19/18 14:28 INR 1.7 06/19/18 14:28 APTT 29 SECONDS (21-34) 06/19/18 14:28 - Constitutional Appears: No Acute Distress - Head Exam Head Exam: NORMOCEPHALIC - Eye Exam Eye Exam: EOMI, Normal appearance - ENT Exam ENT Exam: Mucous Membranes Moist - Respiratory Exam Respiratory Exam: NORMAL BREATHING PATTERN - Cardiovascular Exam Cardiovascular Exam: +S1, +S2 - GI/Abdominal Exam GI & Abdominal Exam: Soft. absent: Distended, Firm, Guarding, Rigid, Tenderness Additional comments: Retention sutures intact - Neurological Exam Neurological Exam: Alert, Awake, Oriented x3 - Psychiatric Exam Psychiatric exam: Normal Mood - Skin Skin Exam: Dry, Intact, Warm Assessment and Plan - Assessment and Plan (Free Text) Assessment: 37 y/o male with intra-abdominal sepsis s/p ex lap x2 for bowel injury POD19 Plan: -cont abx per ID, recs appreciated -Leukocytosis downtrending -DVT ppx -appreciate applications consultant recs -Encourage ambulation -OK to shower -D/c planning -d/w Dr. Jocelin Salvador PGY3
[2018-06-27] MEDS ORDERED: Potassium Chloride 20 mEq ER Tab PO ONE ×2 (17:29→19:30)
[2018-06-27] MEDS: Micafungin 100 MG in Sodium Chloride 0.9% 100 ML IV SCH (22:05)
[2018-06-28] MEDS: metroNIDAZOLE IV 500 mg/100 ml 500 MG/100 ML BAG IVPB SCH ×2 (01:49→10:15)
[2018-06-28] MEDS: Meropenem 1 GM in Sodium Chloride 0.9% 100 ML IVPB SCH ×3 (03:41→19:27)
[2018-06-28 07:11] LABS: BASO # 0.1 K/uL (0.0-0.2); BASO % 0.6 % (0.0-2.0); EOS # 0.3 K/uL (0.0-0.7); EOS % 1.8 % (0.0-4.0); HEMOGLOBIN 9.2 g/dL (12.0-18.0); LYMPH # 2.1 K/uL (1.0-4.3); LYMPH % 13.9 % (20.0-40.0); MEAN CORPUSCULAR HEMOGLOBIN 30.1 pg (27.0-31.0); MEAN CORPUSCULAR HGB CONC 33.4 g/dL (33.0-37.0); MEAN PLATELET VOLUME 7.3 fL (7.2-11.7); MONO % 6.6 % (0.0-10.0); NEUT # 11.9 K/uL (1.8-7.0); NEUT % 77.1 % (50.0-75.0); RBC 3.05 Mil/uL (4.40-5.90); RED CELL DISTRIBUTION WIDTH 13.9 % (11.5-14.5); WHITE BLOOD COUNT 15.4 K/uL (4.8-10.8)
[2018-06-28 07:24] LABS: BLOOD UREA NITROGEN 11 mg/dL (9-20); CALCIUM 8.4 mg/dl (8.6-10.4); GFR NON-AFRICAN AMERICAN > 60
--- NOTE | 2018-06-28 08:21 | CP.PCM.PN ---
Subjective - Date & Time of Evaluation Date of Evaluation: 06/28/18 Time of Evaluation: 08:17 - Subjective Subjective: Surgery Progress Note for Dr. Monreal 37M seen and evaluated at bedside this morning. No acute events overnight. No complaints this morning. Patient feels better. Denies f/c, n/v/d, SOB, CP, or urinary symptoms. Objective - Vital Signs/Intake and Output Vital Signs (last 24 hours): Temp Pulse Resp BP Pulse Ox 98.7 F 102 H 20 113/78 98 06/27/18 23:05 06/27/18 23:05 06/27/18 23:05 06/27/18 23:05 06/27/18 23:05 Intake and Output: 06/28/18 06/28/18 06:59 18:59 Intake Total 400 Output Total 1200 Balance -800 - Medications Medications: Current Medications Acetaminophen (Tylenol 325mg Tab) 650 mg PO Q6 [facility] Last Admin: 06/28/18 06:10 Dose: Not Given Enoxaparin Sodium (Lovenox) 40 mg SC DAILY [facility] Last Admin: 06/27/18 09:53 Dose: 40 mg Metronidazole (Flagyl) 500 mg in 100 mls @ 100 mls/hr IVPB Q8H [facility]; Protocol Last Admin: 06/28/18 01:49 Dose: 100 mls/hr Meropenem 1 gm/ Sodium (Chloride) 100 mls @ 100 mls/hr IVPB Q8H [facility]; Protocol Last Admin: 06/28/18 03:41 Dose: 100 mls/hr Micafungin Sodium 100 mg/ (Sodium Chloride) 100 mls @ 100 mls/hr IV Q24H [facility]; Protocol Last Admin: 06/27/18 22:05 Dose: 100 mls/hr Oxycodone HCl (Oxycodone Immediate Release Tab) 5 mg PO Q6 PRN PRN Reason: Pain, moderate (4-7) Oxycodone HCl (Oxycodone Immediate Release Tab) 10 mg PO Q6 PRN PRN Reason: Pain, severe (8-10) Pantoprazole Sodium (Protonix Ec Tab) 40 mg PO DAILY [facility] Last Admin: 06/27/18 09:53 Dose: 40 mg Potassium Chloride (K-Dur 20 Meq Er Tab) 40 meq PO DAILY [facility] Last Admin: 06/27/18 09:54 Dose: 40 meq - Labs Labs: 06/28/18 06:58 06/28/18 06:58 PT 18.1 SECONDS (9.7-12.2) H 06/19/18 14:28 INR 1.7 06/19/18 14:28 APTT 29 SECONDS (21-34) 06/19/18 14:28 - Constitutional Appears: Non-toxic, No Acute Distress - Head Exam Head Exam: ATRAUMATIC, NORMAL INSPECTION, NORMOCEPHALIC - Eye Exam Eye Exam: EOMI - ENT Exam ENT Exam: Mucous Membranes Moist - Respiratory Exam Respiratory Exam: NORMAL BREATHING PATTERN. absent: Wheezes, Respiratory Distress - Cardiovascular Exam Cardiovascular Exam: REGULAR RHYTHM - GI/Abdominal Exam GI & Abdominal Exam: Soft, Normal Bowel Sounds. absent: Distended, Guarding, Rigid, Tenderness, Rebound - Neurological Exam Neurological Exam: Alert, Awake, Oriented x3 - Psychiatric Exam Psychiatric exam: Normal Affect, Normal Mood - Skin Skin Exam: Dry, Intact, Normal Color, Warm Assessment and Plan - Assessment and Plan (Free Text) Assessment: 37M with intra-abdominal sepsis s/p ex lap x2 for bowel injury POD20 Plan: Continue IV Abx per ID - pending further recommendations today for DC planning Encourage ambulation and OOBTC DC planning D/w Dr. Jocelin Sheth PGY1
[2018-06-28] MEDS: Pantoprazole 40 mg EC Tab PO SCH (10:10)
[2018-06-28] MEDS: Potassium Chloride 20 mEq ER Tab PO SCH (10:10)
[2018-06-28] MEDS: Enoxaparin 40 mg Syringe SC SCH (10:10)
--- NOTE | 2018-06-28 14:22 | CP.PCM.PN ---
Subjective - Date & Time of Evaluation Date of Evaluation: 06/28/18 Time of Evaluation: 14:00 - Subjective Subjective: dictated Objective - Vital Signs/Intake and Output Vital Signs (last 24 hours): Temp Pulse Resp BP Pulse Ox 98.2 F 96 H 20 112/79 97 06/28/18 07:35 06/28/18 07:35 06/28/18 07:35 06/28/18 07:35 06/28/18 07:35 Intake and Output: 06/28/18 06/28/18 06:59 18:59 Intake Total 400 Output Total 1200 Balance -800 - Medications Medications: Current Medications Acetaminophen (Tylenol 325mg Tab) 650 mg PO Q6 [facility] Last Admin: 06/28/18 13:00 Dose: 650 mg Enoxaparin Sodium (Lovenox) 40 mg SC DAILY [facility] Last Admin: 06/28/18 10:10 Dose: 40 mg Meropenem 1 gm/ Sodium (Chloride) 100 mls @ 100 mls/hr IVPB Q8H [facility]; Protocol Last Admin: 06/28/18 11:26 Dose: 100 mls/hr Micafungin Sodium 100 mg/ (Sodium Chloride) 100 mls @ 100 mls/hr IV Q24H [facility]; Protocol Last Admin: 06/27/18 22:05 Dose: 100 mls/hr Oxycodone HCl (Oxycodone Immediate Release Tab) 5 mg PO Q6 PRN PRN Reason: Pain, moderate (4-7) Oxycodone HCl (Oxycodone Immediate Release Tab) 10 mg PO Q6 PRN PRN Reason: Pain, severe (8-10) Pantoprazole Sodium (Protonix Ec Tab) 40 mg PO DAILY [facility] Last Admin: 06/28/18 10:10 Dose: 40 mg Potassium Chloride (K-Dur 20 Meq Er Tab) 40 meq PO DAILY [facility] Last Admin: 06/28/18 10:10 Dose: 40 meq - Labs Labs: 06/28/18 06:58 06/28/18 06:58 PT 18.1 SECONDS (9.7-12.2) H 06/19/18 14:28 INR 1.7 06/19/18 14:28 APTT 29 SECONDS (21-34) 06/19/18 14:28
--- NOTE | 2018-06-28 18:22 | PN ---
DATE: 06/28/2018 INFECTIOUS DISEASE FOLLOWUP SUBJECTIVE: The patient is feeling better. He, however is concerned about drainage from the tension sutures. It was moist and they were planning to discharge him. His white count has been decreasing; however, his platelets have increased and they are almost at 9000+ and I am concerned about it and Flagyl needs to be renewed which I will discontinue. He is on meropenem, Mycamine and Flagyl at this time. Dr. Soler has spoken to me in the past and he has been improving clinically. The patient denies any abdominal pain, but unable to sleep. He says he has only mild pain. He is able to tolerate. Denies any nausea or vomiting. He says his bowel movement is normal now. PHYSICAL EXAMINATION: VITAL SIGNS: T-max is 98.2, pulse 96, blood pressure 112/79, respirations are 20. HEENT: Head is atraumatic, normocephalic. NECK: Supple. LUNGS: Clear. HEART: S1, S2 are regular. ABDOMEN: Soft, nontender. There are tension sutures and there are rodrigo present and in the staple site, there is some scabbing and maybe some moisture. They are unable to evaluate much with minimal redness on the tension sutures. The belly is nondistended. Bowel sounds are present. EXTREMITIES: No edema. LABORATORY DATA: Labs are noted. Labs show white count is 15.4, hemoglobin 9.2, hematocrit 27.4, platelet count is 994. ASSESSMENT AND PLAN: White count has come down but the platelets are going up, maybe acute phase reactant; however, we will want to be sure, as this patient is going to be discharged and probably will not be seen much. I will make sure there is nothing else going on in the belly, as he did have multiple surgeries and at this time we will continue with the meropenem as well as Mycamine and get a CT scan done today and would get an ESR tomorrow and go with the labs and we will follow. Vernon Hendricks MD
[2018-06-28] MEDS: Micafungin 100 MG in Sodium Chloride 0.9% 100 ML IV SCH (22:40)
[2018-06-29] MEDS: Meropenem 1 GM in Sodium Chloride 0.9% 100 ML IVPB SCH ×2 (04:05→12:22)
[2018-06-29 08:00] LABS: ALB/GLOB RATIO 0.7 (1.0-2.1); ALBUMIN 3.4 g/dL (3.5-5.0); ALT/SGPT 27 U/L (21-72); AST/SGOT 51 U/L (17-59); BLOOD UREA NITROGEN 14 mg/dL (9-20); CALCIUM 8.7 mg/dl (8.6-10.4); GFR NON-AFRICAN AMERICAN > 60
[2018-06-29 08:18] LABS: BASO # 0.1 K/uL (0.0-0.2); BASO % 0.6 % (0.0-2.0); EOS # 0.3 K/uL (0.0-0.7); EOS % 1.8 % (0.0-4.0); HEMOGLOBIN 9.6 g/dL (12.0-18.0); LYMPH # 2.5 K/uL (1.0-4.3); LYMPH % 13.6 % (20.0-40.0); MEAN CELL VOLUME 90.5 fL (80.0-94.0); MEAN CORPUSCULAR HEMOGLOBIN 29.9 pg (27.0-31.0); MEAN CORPUSCULAR HGB CONC 33.1 g/dL (33.0-37.0); MEAN PLATELET VOLUME 7.3 fL (7.2-11.7); MONO # 1.1 K/uL (0.0-0.8); MONO % 6.1 % (0.0-10.0); NEUT # 14.4 K/uL (1.8-7.0); NEUT % 77.9 % (50.0-75.0); RBC 3.2 Mil/uL (4.40-5.90); RED CELL DISTRIBUTION WIDTH 14.1 % (11.5-14.5); WHITE BLOOD COUNT 18.5 K/uL (4.8-10.8)
[2018-06-29] MEDS: Enoxaparin 40 mg Syringe SC SCH (09:17)
[2018-06-29] MEDS: Potassium Chloride 20 mEq ER Tab PO SCH (09:17)
[2018-06-29] MEDS: Pantoprazole 40 mg EC Tab PO SCH (09:17)
[2018-06-29] MEDS ORDERED: Iohexol 240 (50 ml) PO ONE (10:30)
[2018-06-29] MEDS ORDERED: Iodixanol 320 MG/ML 100 ML BOTTLE IV ONE (13:16)
--- NOTE | 2018-06-29 16:08 | CP.PCM.PN ---
Subjective - Date & Time of Evaluation Date of Evaluation: 06/29/18 Time of Evaluation: 10:00 - Subjective Subjective: Surgery Progress note- Dr. Monreal Patient seen and examined at bedside. No acute events overnight. Patient states he is concerned w/ incision line. Retention sutures in place. incision w/ some drainage. + OOB and ambulating. Tolerating diet. Denies fevers, chills, chest pain, shortness of breath. Objective - Vital Signs/Intake and Output Vital Signs (last 24 hours): Temp Pulse Resp BP Pulse Ox 99.6 F 90 18 105/69 98 06/29/18 07:30 06/29/18 07:30 06/29/18 07:30 06/29/18 07:30 06/29/18 07:30 - Medications Medications: Current Medications Acetaminophen (Tylenol 325mg Tab) 650 mg PO Q6 [facility] Last Admin: 06/29/18 12:21 Dose: 650 mg Aspirin (Ecotrin) 81 mg PO DAILY [facility] Last Admin: 06/29/18 09:17 Dose: 81 mg Enoxaparin Sodium (Lovenox) 40 mg SC DAILY [facility] Last Admin: 06/29/18 09:17 Dose: 40 mg Meropenem 1 gm/ Sodium (Chloride) 100 mls @ 100 mls/hr IVPB Q8H [facility]; Protocol Last Admin: 06/29/18 12:22 Dose: 100 mls/hr Micafungin Sodium 100 mg/ (Sodium Chloride) 100 mls @ 100 mls/hr IV Q24H [facility]; Protocol Last Admin: 06/28/18 22:40 Dose: 100 mls/hr Oxycodone HCl (Oxycodone Immediate Release Tab) 5 mg PO Q6 PRN PRN Reason: Pain, moderate (4-7) Oxycodone HCl (Oxycodone Immediate Release Tab) 10 mg PO Q6 PRN PRN Reason: Pain, severe (8-10) Pantoprazole Sodium (Protonix Ec Tab) 40 mg PO DAILY [facility] Last Admin: 06/29/18 09:17 Dose: 40 mg Potassium Chloride (K-Dur 20 Meq Er Tab) 40 meq PO DAILY [facility] Last Admin: 06/29/18 09:17 Dose: 40 meq - Labs Labs: 06/29/18 08:14 06/29/18 07:17 PT 18.1 SECONDS (9.7-12.2) H 06/19/18 14:28 INR 1.7 06/19/18 14:28 APTT 29 SECONDS (21-34) 06/19/18 14:28 - Constitutional Appears: Non-toxic, No Acute Distress - Head Exam Head Exam: ATRAUMATIC - Eye Exam Eye Exam: EOMI, PERRL - ENT Exam ENT Exam: Mucous Membranes Moist - Respiratory Exam Respiratory Exam: NORMAL BREATHING PATTERN. absent: Accessory Muscle Use, Respiratory Distress - Cardiovascular Exam Cardiovascular Exam: REGULAR RHYTHM. absent: Bradycardia, Tachycardia - GI/Abdominal Exam GI & Abdominal Exam: Soft, Tenderness (midly tender around incision). absent: Distended, Rigid Additional comments: mild drainage through incision. Retention sutures in place. No erythema noted around incision - Neurological Exam Neurological Exam: Alert, Awake, Oriented x3 - Psychiatric Exam Psychiatric exam: Normal Affect - Skin Skin Exam: Normal Color, Warm Assessment and Plan - Assessment and Plan (Free Text) Assessment: 37M s/p Lap Heather POD 21 complicated w/ intra-abdominal sepsis s/p ex lap x2 for bowel injury POD11 Plan: f/u CT scan w/ PO and IV contrast c/s ID; all recs appreciated continuing IVAbx; plan for deescalation pending ID recs OOB and ambulate diet as tolerated IS use discussed w/ Dr. Monreal surgical attending PGY2
[2018-06-30] MEDS: Meropenem 1 GM in Sodium Chloride 0.9% 100 ML IVPB SCH ×3 (04:45→23:28)
[2018-06-30] MEDS: Enoxaparin 40 mg Syringe SC SCH (09:08)
[2018-06-30] MEDS: Pantoprazole 40 mg EC Tab PO SCH (09:10)
[2018-06-30] MEDS: Potassium Chloride 20 mEq ER Tab PO SCH (09:10)
--- NOTE | 2018-06-30 13:03 | CT ---
Date of service: 06/29/2018 PROCEDURE: CT Abdomen and Pelvis with contrast HISTORY: thrombocytosis s/p multiple surgeries abdomen COMPARISON: 06/16/18 TECHNIQUE: Contrast dose: Radiation dose: Total exam DLP = 819.76 mGy-cm. This CT exam was performed using one or more of the following dose reduction techniques: Automated exposure control, adjustment of the mA and/or kV according to patient size, and/or use of iterative reconstruction technique. FINDINGS: LOWER THORAX: Left pleural effusion with consolidation at the left base. LIVER: Unremarkable. No gross lesion or ductal dilatation. GALLBLADDER AND BILE DUCTS: Cholecystectomy. PANCREAS: Unremarkable. No gross lesion or ductal dilatation. SPLEEN: Unremarkable. ADRENALS: Unremarkable. No mass. KIDNEYS AND URETERS: 1.3 centimeter left renal cyst. No hydronephrosis. No solid mass. VASCULATURE: Unremarkable. No aortic aneurysm. No aortic atherosclerotic calcification or mural plaque present. BOWEL: Unremarkable. No obstruction. No gross mural thickening. APPENDIX: Normal appendix. PERITONEUM: Slight decrease but persistent intraperitoneal fluid collections as well as subcapsular collections along the left hepatic lobe and lateral spleen. The fluid collection measuring roughly 6 centimeters in the left paracolic gutter with additional loculated areas of fluid in the left paracolic gutter and intimate association with the descending colon. 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 LYMPH NODES: Unremarkable. No enlarged lymph nodes. BLADDER: Unremarkable. REPRODUCTIVE: Unremarkable. BONES: No acute fracture. OTHER FINDINGS: None. IMPRESSION: Slight decrease but persistent intraperitoneal fluid collections as well as subcapsular collections along the left hepatic lobe and lateral spleen. The fluid collection measuring roughly 6 centimeters in the left paracolic gutter with additional loculated areas of fluid in the left paracolic gutter and intimate association with the descending colon. 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
--- NOTE | 2018-06-30 13:11 | CP.PCM.PN ---
Subjective - Date & Time of Evaluation Date of Evaluation: 06/30/18 Time of Evaluation: 08:05 - Subjective Subjective: General Surgery Progress note for Dr. Monreal Patient seen and examined at bedside. No acute events overnight. Patient states is still concerned w/ incision drainage. Retention sutures in place. Incision w/ some bile stained drainage possible ECF forming. He is NPO but requesting to eat/drink. Patient reports fatigue and malaise. + OOB and ambulating. Denies fevers, chills, chest pain, shortness of breath. Objective - Vital Signs/Intake and Output Vital Signs (last 24 hours): Temp Pulse Resp BP Pulse Ox 99.6 F 90 18 105/69 98 06/29/18 07:30 06/29/18 07:30 06/29/18 07:30 06/29/18 07:30 06/29/18 07:30 - Medications Medications: Current Medications Acetaminophen (Tylenol 325mg Tab) 650 mg PO Q6 [facility] Last Admin: 06/30/18 00:33 Dose: Not Given Aspirin (Ecotrin) 81 mg PO DAILY [facility] Last Admin: 06/30/18 09:10 Dose: Not Given Enoxaparin Sodium (Lovenox) 40 mg SC DAILY [facility] Last Admin: 06/30/18 09:08 Dose: 40 mg Meropenem 1 gm/ Sodium (Chloride) 100 mls @ 100 mls/hr IVPB Q8H [facility]; Protocol Micafungin Sodium 100 mg/ (Sodium Chloride) 100 mls @ 100 mls/hr IV Q24H [facility] Oxycodone HCl (Oxycodone Immediate Release Tab) 5 mg PO Q6 PRN PRN Reason: Pain, moderate (4-7) Oxycodone HCl (Oxycodone Immediate Release Tab) 10 mg PO Q6 PRN PRN Reason: Pain, severe (8-10) Pantoprazole Sodium (Protonix Ec Tab) 40 mg PO DAILY [facility] Last Admin: 06/30/18 09:10 Dose: Not Given Potassium Chloride (K-Dur 20 Meq Er Tab) 40 meq PO DAILY [facility] Last Admin: 06/30/18 09:10 Dose: Not Given - Labs Labs: 06/29/18 08:14 06/29/18 07:17 PT 18.1 SECONDS (9.7-12.2) H 06/19/18 14:28 INR 1.7 04/07/19 14:28 APTT 29 SECONDS (21-34) 06/19/18 14:28 - Additional Findings Additional findings: - Constitutional Appears: Non-toxic, No Acute Distress - Head Exam Head Exam: ATRAUMATIC - Eye Exam Eye Exam: EOMI, PERRL - ENT Exam ENT Exam: Mucous Membranes Moist - Respiratory Exam Respiratory Exam: NORMAL BREATHING PATTERN. absent: Accessory Muscle Use, Respiratory Distress - Cardiovascular Exam Cardiovascular Exam: REGULAR RHYTHM. absent: Bradycardia, Tachycardia - GI/Abdominal Exam GI & Abdominal Exam: Soft. absent: Distended, Rigid, Tenderness. Additional comments: mild bilious drainage through incision. Retention sutures in place. No erythema noted around incision - Neurological Exam Neurological Exam: Alert, Awake, Oriented x3 - Psychiatric Exam Psychiatric exam: Normal Affect - Skin Skin Exam: Normal Color, Warm Assessment and Plan - Assessment and Plan (Free Text) Assessment: 37M s/p Lap Heather POD 22 complicated w/ intra-abdominal sepsis s/p ex lap x2 for bowel injury POD12 now with suspected ECF Plan: f/u ID, recs appreciated continuing IV Abx OOB and ambulate diet as tolerated Ensure and prostat IS use PT discussed w/ Dr. Jocelin Huynh PGY2
--- NOTE | 2018-06-30 13:36 | CP.PCM.PN ---
Subjective - Date & Time of Evaluation Date of Evaluation: 06/30/18 Time of Evaluation: 13:33 - Subjective Subjective: present findings are suggestive of another fistula formation. surprising ten days after surgery. he is now a good candidate for another procedure. plan- keep npo and starrt on tpn. hopefully fistula closes Objective - Vital Signs/Intake and Output Vital Signs (last 24 hours): Temp Pulse Resp BP Pulse Ox 99.6 F 90 18 105/69 98 06/29/18 07:30 06/29/18 07:30 06/29/18 07:30 06/29/18 07:30 06/29/18 07:30 - Medications Medications: Current Medications Acetaminophen (Tylenol 325mg Tab) 650 mg PO Q6 [facility] Last Admin: 06/30/18 00:33 Dose: Not Given Aspirin (Ecotrin) 81 mg PO DAILY [facility] Last Admin: 06/30/18 09:10 Dose: Not Given Enoxaparin Sodium (Lovenox) 40 mg SC DAILY [facility] Last Admin: 06/30/18 09:08 Dose: 40 mg Meropenem 1 gm/ Sodium (Chloride) 100 mls @ 100 mls/hr IVPB Q8H [facility]; Protocol Micafungin Sodium 100 mg/ (Sodium Chloride) 100 mls @ 100 mls/hr IV Q24H [facility] Oxycodone HCl (Oxycodone Immediate Release Tab) 5 mg PO Q6 PRN PRN Reason: Pain, moderate (4-7) Oxycodone HCl (Oxycodone Immediate Release Tab) 10 mg PO Q6 PRN PRN Reason: Pain, severe (8-10) Pantoprazole Sodium (Protonix Ec Tab) 40 mg PO DAILY [facility] Last Admin: 06/30/18 09:10 Dose: Not Given Potassium Chloride (K-Dur 20 Meq Er Tab) 40 meq PO DAILY [facility] Last Admin: 06/30/18 09:10 Dose: Not Given - Labs Labs: 06/29/18 08:14 06/29/18 07:17 PT 18.1 SECONDS (9.7-12.2) H 06/19/18 14:28 INR 1.7 06/19/18 14:28 APTT 29 SECONDS (21-34) 06/19/18 14:28
--- NOTE | 2018-06-30 15:04 | CP.PCM.PN ---
Subjective - Date & Time of Evaluation Date of Evaluation: 06/30/18 Time of Evaluation: 15:00 - Subjective Subjective: dictated Objective - Vital Signs/Intake and Output Vital Signs (last 24 hours): Temp Pulse Resp BP Pulse Ox 99.6 F 90 18 105/69 98 06/29/18 07:30 06/29/18 07:30 06/29/18 07:30 06/29/18 07:30 06/29/18 07:30 - Medications Medications: Current Medications Acetaminophen (Tylenol 325mg Tab) 650 mg PO Q6 [facility] Last Admin: 06/30/18 12:00 Dose: Not Given Aspirin (Ecotrin) 81 mg PO DAILY [facility] Last Admin: 06/30/18 09:10 Dose: Not Given Enoxaparin Sodium (Lovenox) 40 mg SC DAILY [facility] Last Admin: 06/30/18 09:08 Dose: 40 mg Meropenem 1 gm/ Sodium (Chloride) 100 mls @ 100 mls/hr IVPB Q8H [facility]; Protocol Last Admin: 06/30/18 13:37 Dose: 100 mls/hr Micafungin Sodium 100 mg/ (Sodium Chloride) 100 mls @ 100 mls/hr IV Q24H [facility] Octreotide Acetate (Sandostatin) 50 mcg SC Q8H [facility] Oxycodone HCl (Oxycodone Immediate Release Tab) 5 mg PO Q6 PRN PRN Reason: Pain, moderate (4-7) Oxycodone HCl (Oxycodone Immediate Release Tab) 10 mg PO Q6 PRN PRN Reason: Pain, severe (8-10) Pantoprazole Sodium (Protonix Ec Tab) 40 mg PO DAILY [facility] Last Admin: 06/30/18 09:10 Dose: Not Given Potassium Chloride (K-Dur 20 Meq Er Tab) 40 meq PO DAILY [facility] Last Admin: 06/30/18 09:10 Dose: Not Given - Labs Labs: 06/29/18 08:14 06/29/18 07:17 PT 18.1 SECONDS (9.7-12.2) H 06/19/18 14:28 INR 1.7 06/19/18 14:28 APTT 29 SECONDS (21-34) 06/19/18 14:28
--- NOTE | 2018-06-30 16:34 | RAD ---
Date of service: 06/30/2018 PROCEDURE: CHEST RADIOGRAPH, 1 VIEW HISTORY: verify right PICC COMPARISON: 06/23/1999. FINDINGS: LUNGS: Improved aeration of the left lower lobe. PLEURA: Decrease in left pleural effusion CARDIOVASCULAR: Removal of support apparatus since the prior study: Right IJ line. PICC line in satisfactory position inserted via right upper extremity approach, the tip is in the SVC. OSSEOUS STRUCTURES: No significant abnormalities. VISUALIZED UPPER ABDOMEN: Normal. OTHER FINDINGS: None. IMPRESSION: Satisfactory position recently placed PICC line. No adverse findings common no pneumothorax. Decrease in left pleural effusion with re-expansion of left lower lobe.
[2018-06-30] MEDS: Micafungin 100 MG in Sodium Chloride 0.9% 100 ML IV SCH ×2 (23:29)
--- NOTE | 2018-07-01 02:48 | PN ---
DATE: 06/30/2018 SUBJECTIVE: I went to see send him as he has been having low grade temperature and his white count was increasing, and the outside residential sales professional were at the bedside. They was trying to take consent for PICC line as they said he has a fistula on the CAT scan, so I asked them to how to communicate, and we had a shade bander on the ipad, and she has explained to him reasoning as he will be n.p.o. and will be on TPN as they want to dry up the fistula so that would decrease it from getting worse and causing infection. OBJECTIVE: VITAL SIGNS: T-max today was 99.6, pulse 90, blood pressure 105/69, respirations 18. GENERAL: The patient is alert, awake, oriented. HEENT: Head is atraumatic. NECK: Supple. LUNGS: Clear. HEART: S1, S2, regular. ABDOMEN: Has tension sutures and has been seeping. EXTREMITIES: Have no edema. Culture was sent as I had told the nurse to send it over, and as I am dictating, I would like to see the abdominal pelvis CT report which shows slight decreased but persistent intraperitoneal fluid collection as well as subcapsular collection along the left hepatic lobe and lateral spleen. The fluid collection measuring roughly 6 cm in the left paracolic gutter with additional loculated area of fluid in the left paracolic and intimate association with the descending colon, probable fistula at the anterior abdominal wall extending to loops of small bowel with associated adhesions. That is why they are planning to keep him n.p.o. and they were going to give TPN and Sandostatin. His labs shows white count is 18.5, hemoglobin 9.6, hematocrit 29, platelet count is 1101 and they have put him on aspirin for it. May be he is going to get a PICC line, and he remains on meropenem and micafungin, and he will be on octreotide, and the resident took the consent for a PICC line. The patient has had multiple abdominal surgeries and is forming a fistula now and to prevent the further deterioration and to decrease the secretions into the fistula, the planning is to get him a PICC line and IV TPN instead of oral feedings. The patient and his family were satisfied after all the questions were answered while I was present by the resident, and we will continue to take care of him. Vernon Hendricks MD [facility] # [id number]
[2018-07-01] MEDS: Meropenem 1 GM in Sodium Chloride 0.9% 100 ML IVPB SCH ×3 (05:10→21:16)
[2018-07-01] MEDS ORDERED: Lactated Ringer's 1,000 ML IV ONE (06:36)
[2018-07-01 06:52] LABS: BASO # 0.1 K/uL (0.0-0.2); BASO % 1.1 % (0.0-2.0); EOS # 0.2 K/uL (0.0-0.7); EOS % 1.6 % (0.0-4.0); HEMOGLOBIN 9.9 g/dL (12.0-18.0); LYMPH # 1.6 K/uL (1.0-4.3); LYMPH % 12.1 % (20.0-40.0); MEAN CORPUSCULAR HEMOGLOBIN 30.4 pg (27.0-31.0); MEAN CORPUSCULAR HGB CONC 33.8 g/dL (33.0-37.0); MEAN PLATELET VOLUME 7.1 fL (7.2-11.7); MONO % 7.3 % (0.0-10.0); NEUT # 10.4 K/uL (1.8-7.0); NEUT % 77.9 % (50.0-75.0); NRBC % 0.1 % (0.0-2.0); RBC 3.27 Mil/uL (4.40-5.90); RED CELL DISTRIBUTION WIDTH 14.1 % (11.5-14.5); WHITE BLOOD COUNT 13.4 K/uL (4.8-10.8)
[2018-07-01 06:58] LABS: INR 1.4; PROTHROMBIN TIME 14.8 SECONDS (9.7-12.2)
[2018-07-01 07:49] LABS: ALB/GLOB RATIO 0.8 (1.0-2.1); ALBUMIN 3.7 g/dL (3.5-5.0); ALT/SGPT 87 U/L (21-72); AST/SGOT 238 U/L (17-59); BLOOD UREA NITROGEN 18 mg/dL (9-20); CALCIUM 8.6 mg/dl (8.6-10.4); GFR NON-AFRICAN AMERICAN > 60
[2018-07-01 08:06] LABS: HDL CHOLESTEROL 22 mg/dL (30-70)
--- NOTE | 2018-07-01 08:08 | CP.PCM.PN ---
Subjective - Date & Time of Evaluation Date of Evaluation: 07/01/18 Time of Evaluation: 08:05 - Subjective Subjective: Surgery: Dr. Monreal Patient feeling ok today. Denies f/c/n/v. Reports BM. Complains of coughing and sputum production. Has been oob but overall activity has been poor. Objective - Vital Signs/Intake and Output Vital Signs (last 24 hours): Temp Pulse Resp BP Pulse Ox 99.1 F 90 20 103/71 100 07/01/18 07:00 07/01/18 07:00 07/01/18 07:00 07/01/18 07:00 07/01/18 07:00 - Medications Medications: Current Medications Acetaminophen (Tylenol 325mg Tab) 650 mg PO Q6 [facility] Last Admin: 07/01/18 06:52 Dose: Not Given Aspirin (Ecotrin) 81 mg PO DAILY [facility] Last Admin: 06/30/18 09:10 Dose: Not Given Enoxaparin Sodium (Lovenox) 40 mg SC DAILY [facility] Last Admin: 06/30/18 09:08 Dose: 40 mg Meropenem 1 gm/ Sodium (Chloride) 100 mls @ 100 mls/hr IVPB Q8H [facility]; Protocol Last Admin: 07/01/18 05:10 Dose: 100 mls/hr Micafungin Sodium 100 mg/ (Sodium Chloride) 100 mls @ 100 mls/hr IV Q24H [facility] Last Admin: 06/30/18 23:29 Dose: 100 mls/hr Octreotide Acetate (Sandostatin) 50 mcg SC Q8H [facility] Last Admin: 07/01/18 05:15 Dose: 50 mcg Oxycodone HCl (Oxycodone Immediate Release Tab) 5 mg PO Q6 PRN PRN Reason: Pain, moderate (4-7) Oxycodone HCl (Oxycodone Immediate Release Tab) 10 mg PO Q6 PRN PRN Reason: Pain, severe (8-10) Pantoprazole Sodium (Protonix Ec Tab) 40 mg PO DAILY [facility] Last Admin: 06/30/18 09:10 Dose: Not Given Potassium Chloride (K-Dur 20 Meq Er Tab) 40 meq PO DAILY [facility] Last Admin: 06/30/18 09:10 Dose: Not Given - Labs Labs: 07/01/18 06:36 07/01/18 06:36 PT 14.8 SECONDS (9.7-12.2) H 07/01/18 06:36 INR 1.4 07/01/18 06:36 APTT 34 SECONDS (21-34) 07/01/18 06:36 - Constitutional Appears: Non-toxic, No Acute Distress - Head Exam Head Exam: ATRAUMATIC, NORMOCEPHALIC - Eye Exam Eye Exam: EOMI, Normal appearance - ENT Exam ENT Exam: Mucous Membranes Moist - Respiratory Exam Respiratory Exam: NORMAL BREATHING PATTERN. absent: Respiratory Distress - Cardiovascular Exam Cardiovascular Exam: REGULAR RHYTHM. absent: Tachycardia - GI/Abdominal Exam GI & Abdominal Exam: Soft, Tenderness (karyna-incisional appropriate. retentions sutures intact as well as staple line. No drainage expressable with palpation, movement or valsalva) - Extremities Exam Extremities Exam: Normal Inspection. absent: Calf Tenderness - Neurological Exam Neurological Exam: Alert, Awake - Psychiatric Exam Psychiatric exam: Flat Affect, Normal Mood - Skin Skin Exam: Normal Color, Warm Assessment and Plan - Assessment and Plan (Free Text) Assessment: 37M s/p Lap Heather on 06/08 complicated w/ intra-abdominal sepsis s/p ex lap x2 for bowel injury POD13 now with suspected ECF Plan: -PICC line placed, NPO, TPN to start today -daily labs, Leukocytosis improving -nutrition consult -follow wound output -wound care consult, may need Eakins dressing if output from wound increases -patient should be OOB -IS use -thrombocytosis most likely related to recent sepsis - aspirin started will obtain heme/onc evaluation for further recs -appreciate ID recs -d/w Dr. Jennifer Bustos PGY4
[2018-07-01 08:24] LABS: LDL CHOLESTEROL 75 mg/dL (0-129)
[2018-07-01] MEDS: Potassium Chloride 20 mEq ER Tab PO SCH (10:03)
[2018-07-01] MEDS: Pantoprazole 40 mg EC Tab PO SCH (10:04)
[2018-07-01] MEDS: Enoxaparin 40 mg Syringe SC SCH (10:19)
[2018-07-01 14:22] LABS: ALB/GLOB RATIO 0.8 (1.0-2.1); ALBUMIN 3.6 g/dL (3.5-5.0); ALT/SGPT 67 U/L (21-72); AST/SGOT 123 U/L (17-59); BLOOD UREA NITROGEN 18 mg/dL (9-20); CALCIUM 8.9 mg/dl (8.6-10.4); GFR NON-AFRICAN AMERICAN > 60
[2018-07-01] MEDS ORDERED: Fat Emulsion 20% IV 500 ML IV ONE (18:00)
[2018-07-01] MEDS ORDERED: TPN IV SCH (18:00)
--- NOTE | 2018-07-01 20:35 | CP.PCM.PN ---
Subjective - Date & Time of Evaluation Date of Evaluation: 07/01/18 Time of Evaluation: 20:34 - Subjective Subjective: drainge is less. will continue tpn for now Objective - Vital Signs/Intake and Output Vital Signs (last 24 hours): Temp Pulse Resp BP Pulse Ox 98.2 F 104 H 20 102/71 98 07/01/18 15:28 07/01/18 15:28 07/01/18 15:28 07/01/18 15:28 07/01/18 15:28 - Medications Medications: Current Medications Acetaminophen (Tylenol 325mg Tab) 650 mg PO Q6 [facility] Last Admin: 07/01/18 17:05 Dose: Not Given Aspirin (Ecotrin) 81 mg PO DAILY [facility] Last Admin: 07/01/18 10:03 Dose: Not Given Enoxaparin Sodium (Lovenox) 40 mg SC DAILY [facility] Last Admin: 07/01/18 10:19 Dose: 40 mg Meropenem 1 gm/ Sodium (Chloride) 100 mls @ 100 mls/hr IVPB Q8H [facility]; Protocol Last Admin: 07/01/18 13:13 Dose: 100 mls/hr Micafungin Sodium 100 mg/ (Sodium Chloride) 100 mls @ 100 mls/hr IV Q24H [facility] Last Admin: 06/30/18 23:29 Dose: 100 mls/hr Multivitamins/Vitamin C 10 ml/Chromium/Copper/Manganese/Zinc 1 ml/ Amino Acids/Electrolytes/Dextrose 1,011 mls @ 42 mls/hr IV .Q24H [facility] Stop: 07/02/18 17:59 Last Admin: 07/01/18 17:30 Dose: 42 mls/hr Fat Emulsion Intravenous (Intralipid 20%) 500 mls @ 42 mls/hr IV ONCE ONE Stop: 07/02/18 05:54 Last Admin: 07/01/18 17:30 Dose: 42 mls/hr Octreotide Acetate (Sandostatin) 50 mcg SC Q8H [facility] Last Admin: 07/01/18 13:12 Dose: 50 mcg Oxycodone HCl (Oxycodone Immediate Release Tab) 5 mg PO Q6 PRN PRN Reason: Pain, moderate (4-7) Oxycodone HCl (Oxycodone Immediate Release Tab) 10 mg PO Q6 PRN PRN Reason: Pain, severe (8-10) Pantoprazole Sodium (Protonix Ec Tab) 40 mg PO DAILY [facility] Last Admin: 07/01/18 10:04 Dose: Not Given Potassium Chloride (K-Dur 20 Meq Er Tab) 40 meq PO DAILY [facility] Last Admin: 07/01/18 10:03 Dose: Not Given - Labs Labs: 07/01/18 06:36 07/01/18 13:58 PT 14.8 SECONDS (9.7-12.2) H 07/01/18 06:36 INR 1.4 07/01/18 06:36 APTT 34 SECONDS (21-34) 07/01/18 06:36
[2018-07-01] MEDS: Micafungin 100 MG in Sodium Chloride 0.9% 100 ML IV SCH (22:42)
[2018-07-02] MEDS: Meropenem 1 GM in Sodium Chloride 0.9% 100 ML IVPB SCH ×3 (05:15→21:41)
[2018-07-02 08:42] LABS: BASO % 0.2 % (0.0-2.0); EOS # 0.3 K/uL (0.0-0.7); EOS % 2.1 % (0.0-4.0); LYMPH # 1.4 K/uL (1.0-4.3); LYMPH % 11.8 % (20.0-40.0); MEAN CELL VOLUME 89.6 fL (80.0-94.0); MEAN CORPUSCULAR HEMOGLOBIN 30.2 pg (27.0-31.0); MEAN CORPUSCULAR HGB CONC 33.7 g/dL (33.0-37.0); MEAN PLATELET VOLUME 6.7 fL (7.2-11.7); MONO # 0.7 K/uL (0.0-0.8); NEUT # 9.8 K/uL (1.8-7.0); NEUT % 79.9 % (50.0-75.0); NRBC % 0.1 % (0.0-2.0); RBC 3.31 Mil/uL (4.40-5.90); RED CELL DISTRIBUTION WIDTH 13.8 % (11.5-14.5); WHITE BLOOD COUNT 12.2 K/uL (4.8-10.8)
[2018-07-02 09:04] LABS: ALB/GLOB RATIO 0.8 (1.0-2.1); ALBUMIN 3.7 g/dL (3.5-5.0); ALT/SGPT 42 U/L (21-72); AST/SGOT 67 U/L (17-59); BLOOD UREA NITROGEN 18 mg/dL (9-20); GFR NON-AFRICAN AMERICAN > 60
--- NOTE | 2018-07-02 09:25 | CP.PCM.PN ---
Subjective - Date & Time of Evaluation Date of Evaluation: 07/02/18 Time of Evaluation: 05:50 - Subjective Subjective: Surgery Progress note- Dr. Monreal patient seen and examined. Midline dressing changed at bedside w/ bilious and succus stained. Denies abdominal pain. + OOB and ambulating. TPN running via PICC. Objective - Vital Signs/Intake and Output Vital Signs (last 24 hours): Temp Pulse Resp BP Pulse Ox 98.3 F 85 20 113/72 97 07/02/18 07:00 07/02/18 07:00 07/02/18 07:00 07/02/18 07:00 07/02/18 07:00 - Medications Medications: Current Medications Acetaminophen (Tylenol 325mg Tab) 650 mg PO Q6 [facility] Last Admin: 07/02/18 06:01 Dose: Not Given Aspirin (Ecotrin) 81 mg PO DAILY [facility] Last Admin: 07/01/18 10:03 Dose: Not Given Enoxaparin Sodium (Lovenox) 40 mg SC DAILY [facility] Last Admin: 07/01/18 10:19 Dose: 40 mg Meropenem 1 gm/ Sodium (Chloride) 100 mls @ 100 mls/hr IVPB Q8H [facility]; Protocol Last Admin: 07/02/18 05:15 Dose: 100 mls/hr Micafungin Sodium 100 mg/ (Sodium Chloride) 100 mls @ 100 mls/hr IV Q24H [facility] Last Admin: 07/01/18 22:42 Dose: 100 mls/hr Multivitamins/Vitamin C 10 ml/Chromium/Copper/Manganese/Zinc 1 ml/ Amino Acids/Electrolytes/Dextrose 1,011 mls @ 42 mls/hr IV .Q24H [facility] Stop: 07/02/18 17:59 Last Admin: 07/01/18 17:30 Dose: 42 mls/hr Octreotide Acetate (Sandostatin) 50 mcg SC Q8H [facility] Last Admin: 07/02/18 06:00 Dose: 50 mcg Oxycodone HCl (Oxycodone Immediate Release Tab) 5 mg PO Q6 PRN PRN Reason: Pain, moderate (4-7) Oxycodone HCl (Oxycodone Immediate Release Tab) 10 mg PO Q6 PRN PRN Reason: Pain, severe (8-10) Pantoprazole Sodium (Protonix Ec Tab) 40 mg PO DAILY [facility] Last Admin: 07/01/18 10:04 Dose: Not Given Potassium Chloride (K-Dur 20 Meq Er Tab) 40 meq PO DAILY [facility] Last Admin: 07/01/18 10:03 Dose: Not Given - Labs Labs: 07/02/18 08:37 07/02/18 08:37 PT 14.8 SECONDS (9.7-12.2) H 07/01/18 06:36 INR 1.4 07/01/18 06:36 APTT 34 SECONDS (21-34) 07/01/18 06:36 - Constitutional Appears: Non-toxic, No Acute Distress - Head Exam Head Exam: ATRAUMATIC - Eye Exam Eye Exam: EOMI - ENT Exam ENT Exam: Mucous Membranes Moist - Respiratory Exam Respiratory Exam: NORMAL BREATHING PATTERN. absent: Accessory Muscle Use, Respiratory Distress - Cardiovascular Exam Cardiovascular Exam: REGULAR RHYTHM. absent: Bradycardia, Tachycardia - GI/Abdominal Exam GI & Abdominal Exam: Soft. absent: Distended, Firm, Guarding, Rigid, Tenderness Additional comments: Midline incision w/ retention suture. Bilious and succus drainage from superior portion of the incision. - Extremities Exam Extremities Exam: absent: Calf Tenderness - Neurological Exam Neurological Exam: Alert, Awake, Oriented x3 - Psychiatric Exam Psychiatric exam: Normal Affect - Skin Skin Exam: Intact, Warm Assessment and Plan - Assessment and Plan (Free Text) Assessment: 37M s/p Lap Heather on 06/08 complicated w/ intra-abdominal sepsis s/p ex lap x2 for bowel injury POD14 now with suspected ECF Plan: - continue dressing changes - NPO, TPN - no eakins dressing needed at this time - will monitor output - OOB and ambulate - continue ASA-81 for thrombocytosis - c/w Abx- c/s ID; all recs appreciated - further recs per Dr. Monreal Surgical attending PGY2
[2018-07-02] MEDS: Enoxaparin 40 mg Syringe SC SCH (09:54)
[2018-07-02] MEDS: Pantoprazole 40 mg EC Tab PO SCH (09:55)
[2018-07-02] MEDS: Potassium Chloride 20 mEq ER Tab PO SCH (09:55)
[2018-07-02 15:17] LABS: FOLATE 6.9 ng/mL
[2018-07-02] MEDS ORDERED: **TPN #2 IV SCH (18:00)
[2018-07-02] MEDS: Micafungin 100 MG in Sodium Chloride 0.9% 100 ML IV SCH (22:58)
--- NOTE | 2018-07-03 02:02 | CP.PCM.CON ---
History of Present Illness - History of Present Illness History of Present Illness: 37 year old male with no past medical history, presenting with abdominal pain, found to have acute cholecystitis s/p laparoscopic cholecystectomy, complicated by intra abdominal abscess, bowel perforation, with anemia, and thrombocytosis. The patient is unaware of blood problems in the past. He had a normal platelet count on admission. Past medical history: None Past surgical history: Denies Family history: Denies hematologic and oncologic problems Social history: Denies tobacco, alcohol, and illicit drug use. Allergies: NKA Review of systems: All remaining review of systems including HEENT, cardiovascular, respiratory, gastrointestinal, genitourinary, musculoskeletal, dermatologic, neurologic, and psychiatric are negative unless mentioned in the HPI. Past Patient History - Infectious Disease Hx of Infectious Diseases: None - Past Medical History & Family History Past Medical History?: Yes - Past Social History Smoking Status: Never Smoked - CARDIAC Hx Pacemaker: No - HEMATOLOGICAL/ONCOLOGICAL Hx Cancer: No - MUSCULOSKELETAL/RHEUMATOLOGICAL Hx Falls: No - GASTROINTESTINAL Hx Gall Bladder Disease: Yes (Cholelithiasis) - PSYCHIATRIC Hx Substance Use: No - SURGICAL HISTORY Hx Mastectomy: No - ANESTHESIA Hx Anesthesia: No Hx Anesthesia Reactions: No Meds Home Medications: Home Medication List Medication Instructions Recorded Confirmed Type Acetaminophen [Tylenol 325mg tab] 975 mg PO Q8 tab 06/12/18 Rx Docusate [Colace] 100 mg PO TID cap 06/12/18 Rx Allergies/Adverse Reactions: Allergies Allergy/AdvReac Type Severity Reaction Status Date / Time No Known Allergies Allergy Verified 03/16/18 11:01 - Medications Medications: Current Medications Acetaminophen (Tylenol 325mg Tab) 650 mg PO Q6 [facility] Last Admin: 07/02/18 17:54 Dose: Not Given Aspirin (Ecotrin) 81 mg PO DAILY [facility] Last Admin: 07/02/18 09:54 Dose: Not Given Enoxaparin Sodium (Lovenox) 40 mg SC DAILY [facility] Last Admin: 07/02/18 09:54 Dose: 40 mg Meropenem 1 gm/ Sodium (Chloride) 100 mls @ 100 mls/hr IVPB Q8H [facility]; Protocol Last Admin: 07/02/18 21:41 Dose: 100 mls/hr Micafungin Sodium 100 mg/ (Sodium Chloride) 100 mls @ 100 mls/hr IV Q24H [facility] Last Admin: 07/02/18 22:58 Dose: 100 mls/hr Multivitamins/Vitamin C 10 ml/Chromium/Copper/Manganese/Zinc 1 ml/ Amino Acids/Electrolytes/Dextrose 1,011 mls @ 83 mls/hr IV .[id number] [facility] Stop: 07/03/18 06:10 Last Admin: 07/02/18 17:54 Dose: 83 mls/hr Amino Acids/Electrolytes/Dextrose (Clinimix 5/20 % "E" (1000 Ml)) 1,000 mls @ 83 mls/hr IV .Q12H3M [facility] Stop: 07/03/18 18:13 Octreotide Acetate (Sandostatin) 50 mcg SC Q8H [facility] Last Admin: 07/02/18 21:46 Dose: 50 mcg Oxycodone HCl (Oxycodone Immediate Release Tab) 5 mg PO Q6 PRN PRN Reason: Pain, moderate (4-7) Oxycodone HCl (Oxycodone Immediate Release Tab) 10 mg PO Q6 PRN PRN Reason: Pain, severe (8-10) Pantoprazole Sodium (Protonix Ec Tab) 40 mg PO DAILY [facility] Last Admin: 07/02/18 09:55 Dose: Not Given Potassium Chloride (K-Dur 20 Meq Er Tab) 40 meq PO DAILY [facility] Last Admin: 07/02/18 09:55 Dose: Not Given Physical Exam - Head Exam Head Exam: ATRAUMATIC - Eye Exam Eye Exam: Normal appearance - ENT Exam ENT Exam: Mucous Membranes Dry - Respiratory Exam Respiratory Exam: NORMAL BREATHING PATTERN - Cardiovascular Exam Cardiovascular Exam: +S1, +S2 - GI/Abdominal Exam GI & Abdominal Exam: Normal Bowel Sounds - Extremities Exam Extremities exam: Positive for: normal inspection - Neurological Exam Neurological exam: Oriented x3 - Psychiatric Exam Psychiatric exam: Normal Affect, Normal Mood - Skin Skin Exam: Warm Results - Vital Signs Recent Vital Signs: Last Vital Signs Temp 98 F 07/02/18 23:05 Pulse 88 07/02/18 23:05 Resp 20 07/02/18 23:05 BP 115/70 07/02/18 23:05 Pulse Ox 99 07/02/18 23:05 - Labs Result Diagrams: 07/02/18 08:37 07/02/18 08:37 Labs: Laboratory Results - last 24 hr 04/18/19 04/18/19 04/19/19 16:33 21:09 06:04 WBC RBC Hgb Hct MCV MCH MCHC RDW Plt Count MPV Neut % (Auto) Lymph % (Auto) Eaton % (Auto) Eos % (Auto) Baso % (Auto) Neut # (Auto) Lymph # (Auto) Eaton # (Auto) Eos # (Auto) Baso # (Auto) Retic Count Sodium Potassium Chloride Carbon Dioxide Anion Gap BUN Creatinine Est GFR ( Amer) Est GFR (Non-Af Amer) POC Glucose (mg/dL) 96 107 88 Random Glucose Calcium Phosphorus Magnesium Ferritin Total Bilirubin AST ALT Alkaline Phosphatase Total Protein Albumin Globulin Albumin/Globulin Ratio Vitamin B12 Folate 07/01/18 07/02/18 07/02/18 10:56 06:26 08:37 WBC 12.2 H RBC 3.31 L Hgb 10.0 L Hct 29.6 L MCV 89.6 MCH 30.2 MCHC 33.7 RDW 13.8 Plt Count 1200 H* MPV 6.7 L Neut % (Auto) 79.9 H Lymph % (Auto) 11.8 L Eaton % (Auto) 6.0 Eos % (Auto) 2.1 Baso % (Auto) 0.2 Neut # (Auto) 9.8 H Lymph # (Auto) 1.4 Eaton # (Auto) 0.7 Eos # (Auto) 0.3 Baso # (Auto) 0.0 Retic Count Sodium Potassium Chloride Carbon Dioxide Anion Gap BUN Creatinine Est GFR ( Amer) Est GFR (Non-Af Amer) POC Glucose (mg/dL) 113 H 146 H Random Glucose Calcium Phosphorus Magnesium Ferritin Total Bilirubin AST ALT Alkaline Phosphatase Total Protein Albumin Globulin Albumin/Globulin Ratio Vitamin B12 Folate 07/02/18 07/02/18 07/02/18 08:37 10:57 13:52 WBC RBC Hgb Hct MCV MCH MCHC RDW Plt Count MPV Neut % (Auto) Lymph % (Auto) Eaton % (Auto) Eos % (Auto) Baso % (Auto) Neut # (Auto) Lymph # (Auto) Eaton # (Auto) Eos # (Auto) Baso # (Auto) Retic Count 3.3 H Sodium 137 Potassium 4.0 Chloride 100 Carbon Dioxide 26 Anion Gap 14 BUN 18 Creatinine 0.6 L Est GFR ( Amer) > 60 Est GFR (Non-Af Amer) > 60 POC Glucose (mg/dL) 126 H Random Glucose 153 H D Calcium 9.0 Phosphorus 3.7 Magnesium 2.5 H Ferritin Total Bilirubin 0.3 AST 67 H D ALT 42 Alkaline Phosphatase 710 H D Total Protein 8.2 Albumin 3.7 Globulin 4.5 H Albumin/Globulin Ratio 0.8 L Vitamin B12 Folate 07/02/18 13:52 WBC RBC Hgb Hct MCV MCH MCHC RDW Plt Count MPV Neut % (Auto) Lymph % (Auto) Eaton % (Auto) Eos % (Auto) Baso % (Auto) Neut # (Auto) Lymph # (Auto) Eaton # (Auto) Eos # (Auto) Baso # (Auto) Retic Count Sodium Potassium Chloride Carbon Dioxide Anion Gap BUN Creatinine Est GFR ( Amer) Est GFR (Non-Af Amer) POC Glucose (mg/dL) Random Glucose Calcium Phosphorus Magnesium Ferritin 373.0 Total Bilirubin AST ALT Alkaline Phosphatase Total Protein Albumin Globulin Albumin/Globulin Ratio Vitamin B12 > 1000 H Folate 6.9 Assessment & Plan (1) Thrombocytosis Assessment and Plan: likely reactive to acute illness admitted with normal platelet count JAK2 added agree with aspirin 81mg daily Status: Acute (2) Anemia Assessment and Plan: anemia of chronic disease Status: Acute (3) Leukocytosis Assessment and Plan: on antibiotics Thank you for this interesting consult. Status: Acute
[2018-07-03] MEDS: Meropenem 1 GM in Sodium Chloride 0.9% 100 ML IVPB SCH ×2 (05:51→12:50)
[2018-07-03] MEDS ORDERED: TPN IV SCH ×2 (06:11→18:00)
--- NOTE | 2018-07-03 07:18 | CP.PCM.PN ---
Subjective - Date & Time of Evaluation Date of Evaluation: 07/03/18 Time of Evaluation: 07:16 - Subjective Subjective: Surgery: Dr. Monreal NO acute events overnight. Patient remains NPO status. NO n/v/f/c. +flatus. +ambulation. cough and sputum production decreased with IS use. Objective - Vital Signs/Intake and Output Vital Signs (last 24 hours): Temp Pulse Resp BP Pulse Ox 98 F 88 20 115/70 99 07/02/18 23:05 07/02/18 23:05 07/02/18 23:05 07/02/18 23:05 07/02/18 23:05 Intake and Output: 07/03/18 07/03/18 06:59 18:59 Intake Total 1389 Output Total 800 Balance 589 - Medications Medications: Current Medications Acetaminophen (Tylenol 325mg Tab) 650 mg PO Q6 [facility] Last Admin: 07/03/18 05:26 Dose: Not Given Aspirin (Ecotrin) 81 mg PO DAILY [facility] Last Admin: 07/02/18 09:54 Dose: Not Given Enoxaparin Sodium (Lovenox) 40 mg SC DAILY [facility] Last Admin: 07/02/18 09:54 Dose: 40 mg Meropenem 1 gm/ Sodium (Chloride) 100 mls @ 100 mls/hr IVPB Q8H [facility]; Protocol Last Admin: 07/03/18 05:51 Dose: 100 mls/hr Micafungin Sodium 100 mg/ (Sodium Chloride) 100 mls @ 100 mls/hr IV Q24H [facility] Last Admin: 07/02/18 22:58 Dose: 100 mls/hr Amino Acids/Electrolytes/Dextrose (Clinimix 5/20 % "E" (1000 Ml)) 1,000 mls @ 83 mls/hr IV .Q12H3M [facility] Stop: 07/03/18 18:13 Last Admin: 07/03/18 05:52 Dose: 83 mls/hr Octreotide Acetate (Sandostatin) 50 mcg SC Q8H [facility] Last Admin: 07/03/18 05:52 Dose: 50 mcg Oxycodone HCl (Oxycodone Immediate Release Tab) 5 mg PO Q6 PRN PRN Reason: Pain, moderate (4-7) Oxycodone HCl (Oxycodone Immediate Release Tab) 10 mg PO Q6 PRN PRN Reason: Pain, severe (8-10) Pantoprazole Sodium (Protonix Ec Tab) 40 mg PO DAILY [facility] Last Admin: 07/02/18 09:55 Dose: Not Given Potassium Chloride (K-Dur 20 Meq Er Tab) 40 meq PO DAILY [facility] Last Admin: 07/02/18 09:55 Dose: Not Given - Labs Labs: 07/02/18 08:37 07/02/18 08:37 PT 14.8 SECONDS (9.7-12.2) H 07/01/18 06:36 INR 1.4 07/01/18 06:36 APTT 34 SECONDS (21-34) 07/01/18 06:36 - Constitutional Appears: Non-toxic, No Acute Distress - Head Exam Head Exam: ATRAUMATIC, NORMOCEPHALIC - Eye Exam Eye Exam: EOMI, Normal appearance - ENT Exam ENT Exam: Mucous Membranes Dry - Respiratory Exam Respiratory Exam: NORMAL BREATHING PATTERN - Cardiovascular Exam Cardiovascular Exam: REGULAR RHYTHM - GI/Abdominal Exam GI & Abdominal Exam: Soft. absent: Guarding, Tenderness, Rebound Additional comments: midline wound with retention sutures and rodrigo minimal bilious drainage from superior portion of wound Assessment and Plan - Assessment and Plan (Free Text) Assessment: 37M s/p Lap Heather on 06/08 complicated w/ intra-abdominal sepsis s/p ex lap x2 for bowel injury now with suspected ECF Plan: - continue dressing changes - NPO, TPN - no eakins dressing needed at this time - will monitor output - OOB and ambulate - continue ASA-81 for thrombocytosis - c/w Abx- c/s ID; all recs appreciated - further recs per Dr. Jocelin pham PGY4
[2018-07-03 07:44] LABS: BASO # 0.1 K/uL (0.0-0.2); EOS # 0.3 K/uL (0.0-0.7); EOS % 2.1 % (0.0-4.0); HEMOGLOBIN 9.5 g/dL (12.0-18.0); LYMPH # 1.5 K/uL (1.0-4.3); LYMPH % 12.1 % (20.0-40.0); MEAN CELL VOLUME 90.2 fL (80.0-94.0); MEAN CORPUSCULAR HGB CONC 33.2 g/dL (33.0-37.0); MEAN PLATELET VOLUME 7.2 fL (7.2-11.7); MONO # 0.9 K/uL (0.0-0.8); MONO % 7.1 % (0.0-10.0); NEUT # 9.5 K/uL (1.8-7.0); NEUT % 77.7 % (50.0-75.0); RBC 3.19 Mil/uL (4.40-5.90); WHITE BLOOD COUNT 12.3 K/uL (4.8-10.8)
[2018-07-03 08:02] LABS: ALB/GLOB RATIO 0.8 (1.0-2.1); ALBUMIN 3.4 g/dL (3.5-5.0); ALT/SGPT 31 U/L (21-72); AST/SGOT 38 U/L (17-59); BLOOD UREA NITROGEN 17 mg/dL (9-20); CALCIUM 8.6 mg/dl (8.6-10.4); GFR NON-AFRICAN AMERICAN > 60
[2018-07-03] MEDS: Enoxaparin 40 mg Syringe SC SCH (10:12)
[2018-07-03] MEDS: Pantoprazole 40 mg EC Tab PO SCH (10:14)
[2018-07-03] MEDS: Potassium Chloride 20 mEq ER Tab PO SCH (10:14)
[2018-07-03] MEDS ORDERED: Tigecycline 100 MG in Dextrose 5% In Water 100 ML IVPB ONE (14:42)
[2018-07-03] MEDS ORDERED: Fat Emulsion 20% IV 500 ML IV ONE (18:00)
[2018-07-03] MEDS: Micafungin 100 MG in Sodium Chloride 0.9% 100 ML IV SCH (22:27)
[2018-07-04] MEDS ORDERED: Tigecycline 50 MG in Dextrose 5% In Water 100 ML IVPB SCH (02:00)
[2018-07-04] MEDS ORDERED: TPN # 5 IV SCH (06:30)
--- NOTE | 2018-07-04 08:00 | CP.PCM.PN ---
Subjective - Date & Time of Evaluation Date of Evaluation: 07/04/18 Time of Evaluation: 07:56 - Subjective Subjective: Surgery: Dr. Monreal Patient doing well. Denies f/c/n/v. Drainage from midline wound almost none. Patient in good spirits this am. Objective - Vital Signs/Intake and Output Vital Signs (last 24 hours): Temp Pulse Resp BP Pulse Ox 98.0 F 84 20 103/69 97 07/04/18 07:10 07/04/18 07:10 07/04/18 07:10 07/04/18 07:10 07/04/18 07:10 Intake and Output: 07/04/18 07/04/18 06:59 18:59 Intake Total 974 Balance 974 - Medications Medications: Current Medications Acetaminophen (Tylenol 325mg Tab) 650 mg PO Q6 [facility] Last Admin: 07/04/18 05:31 Dose: Not Given Aspirin (Ecotrin) 81 mg PO DAILY [facility] Last Admin: 07/03/18 10:14 Dose: Not Given Enoxaparin Sodium (Lovenox) 40 mg SC DAILY [facility] Last Admin: 07/03/18 10:12 Dose: 40 mg Micafungin Sodium 100 mg/ (Sodium Chloride) 100 mls @ 100 mls/hr IV Q24H [facility] Last Admin: 07/03/18 22:27 Dose: 100 mls/hr Sodium Chloride 35 meq/Potassium Chloride 30 meq/Calcium Gluconate 4.5 meq/Potassium Phosphate 15 mmole/Amino Acids 1,038.4274 mls @ 83 mls/hr IV .[id number] [facility] Stop: 07/04/18 19:00 Last Admin: 07/04/18 05:30 Dose: 83 mls/hr Tigecycline 50 mg/ Dextrose 100 mls @ 100 mls/hr IVPB Q12H [facility]; Protocol Last Admin: 07/04/18 02:21 Dose: 100 mls/hr Octreotide Acetate (Sandostatin) 50 mcg SC Q8H [facility] Last Admin: 07/04/18 05:24 Dose: 50 mcg Oxycodone HCl (Oxycodone Immediate Release Tab) 5 mg PO Q6 PRN PRN Reason: Pain, moderate (4-7) Pantoprazole Sodium (Protonix Ec Tab) 40 mg PO DAILY [facility] Last Admin: 07/03/18 10:14 Dose: Not Given Potassium Chloride (K-Dur 20 Meq Er Tab) 40 meq PO DAILY [facility] Last Admin: 07/03/18 10:14 Dose: Not Given - Labs Labs: 07/03/18 07:26 07/03/18 07:26 PT 14.8 SECONDS (9.7-12.2) H 07/01/18 06:36 INR 1.4 07/01/18 06:36 APTT 34 SECONDS (21-34) 07/01/18 06:36 - Constitutional Appears: Non-toxic, No Acute Distress - Head Exam Head Exam: ATRAUMATIC, NORMOCEPHALIC - Eye Exam Eye Exam: EOMI, Normal appearance - ENT Exam ENT Exam: Mucous Membranes Moist - Respiratory Exam Respiratory Exam: NORMAL BREATHING PATTERN. absent: Respiratory Distress - Cardiovascular Exam Cardiovascular Exam: REGULAR RHYTHM. absent: Tachycardia - GI/Abdominal Exam GI & Abdominal Exam: Soft. absent: Distended, Guarding, Tenderness, Rebound Additional comments: midline abdominal wound with rentention sutures and rodrigo no drainage expressible from the midline wound no cellulitic changes Assessment and Plan - Assessment and Plan (Free Text) Assessment: 37M s/p Lap Heather on 06/08 complicated w/ intra-abdominal sepsis s/p ex lap x2 for bowel injury now with suspected ECF Plan: - continue dressing changes, drainage cont to decrease - almost resolved - NPO, TPN - no eakins dressing needed at this time - will monitor output - OOB and ambulate - continue ASA-81 for thrombocytosis - c/w Abx- c/s ID; all recs appreciated - further recs per Dr. Jocelin Greco PGY4
[2018-07-04 08:04] LABS: BASO # 0.2 K/uL (0.0-0.2); BASO % 1.4 % (0.0-2.0); EOS # 0.3 K/uL (0.0-0.7); EOS % 2.4 % (0.0-4.0); HEMOGLOBIN 10.3 g/dL (12.0-18.0); LYMPH # 1.5 K/uL (1.0-4.3); LYMPH % 10.5 % (20.0-40.0); MEAN CELL VOLUME 90.7 fL (80.0-94.0); MEAN CORPUSCULAR HEMOGLOBIN 30.2 pg (27.0-31.0); MEAN CORPUSCULAR HGB CONC 33.3 g/dL (33.0-37.0); MEAN PLATELET VOLUME 7.2 fL (7.2-11.7); MONO # 0.7 K/uL (0.0-0.8); MONO % 5.2 % (0.0-10.0); NEUT # 11.2 K/uL (1.8-7.0); NEUT % 80.5 % (50.0-75.0); RBC 3.42 Mil/uL (4.40-5.90); RED CELL DISTRIBUTION WIDTH 14.4 % (11.5-14.5)
[2018-07-04 08:34] LABS: ALB/GLOB RATIO 0.8 (1.0-2.1); ALBUMIN 3.6 g/dL (3.5-5.0); ALT/SGPT 120 U/L (21-72); AST/SGOT 198 U/L (17-59); BLOOD UREA NITROGEN 26 mg/dL (9-20); CALCIUM 8.9 mg/dl (8.6-10.4); GFR NON-AFRICAN AMERICAN > 60
[2018-07-04] MEDS: Potassium Chloride 20 mEq ER Tab PO SCH (10:14)
[2018-07-04] MEDS: Enoxaparin 40 mg Syringe SC SCH (10:15)
[2018-07-04] MEDS: Pantoprazole 40 mg EC Tab PO SCH (10:15)
[2018-07-04] MEDS ORDERED: Fat Emulsion 20% IV 500 ML IV SCH (18:00)
[2018-07-04] MEDS ORDERED: TPN #6 IV ONE (18:00)
--- NOTE | 2018-07-04 18:13 | CP.PCM.PN ---
Subjective - Date & Time of Evaluation Date of Evaluation: 07/04/18 Time of Evaluation: 18:00 - Subjective Subjective: dictated Objective - Vital Signs/Intake and Output Vital Signs (last 24 hours): Temp Pulse Resp BP Pulse Ox 98.1 F 87 20 100/65 100 07/04/18 15:00 07/04/18 15:00 07/04/18 15:00 07/04/18 15:00 07/04/18 15:00 Intake and Output: 07/04/18 07/04/18 06:59 18:59 Intake Total 974 640 Balance 974 640 - Medications Medications: Current Medications Acetaminophen (Tylenol 325mg Tab) 650 mg PO Q6 [facility] Last Admin: 07/04/18 18:09 Dose: 650 mg Aspirin (Ecotrin) 81 mg PO DAILY [facility] Last Admin: 07/04/18 10:20 Dose: 81 mg Enoxaparin Sodium (Lovenox) 40 mg SC DAILY [facility] Last Admin: 07/04/18 10:15 Dose: 40 mg Sodium Chloride 35 meq/Potassium Chloride 30 meq/Calcium Gluconate 4.5 meq/Potassium Phosphate 15 mmole/Amino Acids 1,038.4274 mls @ 83 mls/hr IV .[id number] [facility] Stop: 07/04/18 19:00 Last Admin: 07/04/18 05:30 Dose: 83 mls/hr Tigecycline 50 mg/ Sodium (Chloride) 100 mls @ 100 mls/hr IVPB Q12H [facility]; Protocol Last Admin: 07/04/18 14:07 Dose: 100 mls/hr Multivitamins/Vitamin C 10 ml/Chromium/Copper/Manganese/Zinc 1 ml/ Amino Acids/Electrolytes/Dextrose 1,011 mls @ 83 mls/hr IV .[id number] [facility] Stop: 07/05/18 06:10 Amino Acids/Electrolytes/Dextrose (Clinimix 5/20 % "E" (1000 Ml)) 1,000 mls @ 83 mls/hr IV .Q12H3M [facility] Stop: 07/05/18 18:12 Fat Emulsion Intravenous (Intralipid 20%) 500 mls @ 50 mls/hr IV MWF@1800 [facility] Stop: 07/09/18 03:59 Last Admin: 07/04/18 18:00 Dose: 50 mls/hr Octreotide Acetate (Sandostatin) 50 mcg SC Q8H [facility] Last Admin: 07/04/18 14:55 Dose: 50 mcg Oxycodone HCl (Oxycodone Immediate Release Tab) 5 mg PO Q6 PRN PRN Reason: Pain, moderate (4-7) Pantoprazole Sodium (Protonix Ec Tab) 40 mg PO DAILY [facility] Last Admin: 07/04/18 10:15 Dose: 40 mg Potassium Chloride (K-Dur 20 Meq Er Tab) 40 meq PO DAILY [facility] Last Admin: 07/04/18 10:14 Dose: 40 meq - Labs Labs: 07/04/18 07:44 07/04/18 07:44 PT 14.8 SECONDS (9.7-12.2) H 07/01/18 06:36 INR 1.4 07/01/18 06:36 APTT 34 SECONDS (21-34) 07/01/18 06:36
--- NOTE | 2018-07-04 23:04 | PN ---
DATE: 07/04/2018 The patient was seen today. 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 The culture came out VRE at this time and this VRE was only sensitive to Tygacil. So, I have changed the antibiotic at this time to Tygacil and discontinued meropenem. Of note, his LFT's are climbing up. He is on TPN and he is NPO. He says the drainage is decreasing little bit which may be helping him. So, at this time we will discontinue the micafungin as he has been on this for a long time and only thing that grew from the wound culture was VRE. So, we will entertain that VRE at this time and keep him on IV Tygacil but need to monitor LFT's as they are increasing. He has had multiple surgeries on his abdomen. At this time, he has thrombocytosis, Dr. Membreno is following at this time and will continue to see the patient. Vernon Hendricks MD
[2018-07-05] MEDS ORDERED: TPN #7 IV ONE (06:10)
[2018-07-05 07:54] LABS: BASO # 0.1 K/uL (0.0-0.2); BASO % 0.4 % (0.0-2.0); EOS # 0.3 K/uL (0.0-0.7); EOS % 2.1 % (0.0-4.0); LYMPH # 1.8 K/uL (1.0-4.3); LYMPH % 13.7 % (20.0-40.0); MEAN CELL VOLUME 89.5 fL (80.0-94.0); MEAN CORPUSCULAR HEMOGLOBIN 30.6 pg (27.0-31.0); MEAN CORPUSCULAR HGB CONC 34.2 g/dL (33.0-37.0); MEAN PLATELET VOLUME 7.4 fL (7.2-11.7); MONO # 0.7 K/uL (0.0-0.8); MONO % 5.6 % (0.0-10.0); NEUT # 10.3 K/uL (1.8-7.0); NEUT % 78.2 % (50.0-75.0); RBC 3.27 Mil/uL (4.40-5.90); RED CELL DISTRIBUTION WIDTH 13.6 % (11.5-14.5); WHITE BLOOD COUNT 13.1 K/uL (4.8-10.8)
[2018-07-05 08:04] LABS: ALB/GLOB RATIO 0.7 (1.0-2.1); ALBUMIN 3.3 g/dL (3.5-5.0); ALT/SGPT 96 U/L (21-72); AST/SGOT 101 U/L (17-59); BLOOD UREA NITROGEN 25 mg/dL (9-20); CALCIUM 8.4 mg/dl (8.6-10.4); GFR NON-AFRICAN AMERICAN > 60
--- NOTE | 2018-07-05 09:41 | CP.PCM.PN ---
Subjective - Date & Time of Evaluation Date of Evaluation: 07/05/18 Time of Evaluation: 09:40 - Subjective Subjective: Surgery Progress note- Dr. Monreal Patient seen and examined at bedside. Clinically improving. Dressing changed twice yesterday. Midline incision continues w/ succus drainage however decreasing. On Abx and TPN. Denies f/c/cp/sob. Objective - Vital Signs/Intake and Output Vital Signs (last 24 hours): Temp Pulse Resp BP Pulse Ox 98.3 F 78 20 104/68 99 07/05/18 07:10 07/05/18 07:10 07/05/18 07:10 07/05/18 07:10 07/05/18 07:10 Intake and Output: 07/05/18 07/05/18 06:59 18:59 Intake Total 1064 Output Total 350 Balance 714 - Medications Medications: Current Medications Acetaminophen (Tylenol 325mg Tab) 650 mg PO Q6 [facility] Last Admin: 07/05/18 05:42 Dose: Not Given Aspirin (Ecotrin) 81 mg PO DAILY [facility] Last Admin: 07/04/18 10:20 Dose: 81 mg Enoxaparin Sodium (Lovenox) 40 mg SC DAILY [facility] Last Admin: 07/04/18 10:15 Dose: 40 mg Tigecycline 50 mg/ Sodium (Chloride) 100 mls @ 100 mls/hr IVPB Q12H [facility]; Protocol Last Admin: 07/05/18 02:01 Dose: 100 mls/hr Amino Acids/Electrolytes/Dextrose (Clinimix 5/20 % "E" (1000 Ml)) 1,000 mls @ 83 mls/hr IV .Q12H3M [facility] Stop: 07/05/18 18:12 Last Admin: 07/05/18 06:35 Dose: 83 mls/hr Multivitamins/Vitamin C 10 ml/Chromium/Copper/Manganese/Zinc 1 ml/ Amino Acids/Electrolytes/Dextrose 1,011 mls @ 83 mls/hr IV .[id number] [facility] Stop: 07/06/18 06:10 Amino Acids/Electrolytes/Dextrose (Clinimix 5/20 % "E" (1000 Ml)) 1,000 mls @ 83 mls/hr IV .Q12H3M [facility] Stop: 07/06/18 18:12 Fat Emulsion Intravenous (Intralipid 20%) 250 mls @ 83 mls/hr IV MWF@1800 [facility] Stop: 07/07/18 18:01 Octreotide Acetate (Sandostatin) 50 mcg SC Q8H [facility] Last Admin: 07/05/18 05:36 Dose: 50 mcg Oxycodone HCl (Oxycodone Immediate Release Tab) 5 mg PO Q6 PRN PRN Reason: Pain, moderate (4-7) Pantoprazole Sodium (Protonix Ec Tab) 40 mg PO DAILY [facility] Last Admin: 07/04/18 10:15 Dose: 40 mg Potassium Chloride (K-Dur 20 Meq Er Tab) 40 meq PO DAILY [facility] Last Admin: 07/04/18 10:14 Dose: 40 meq - Labs Labs: 07/05/18 07:16 07/05/18 07:16 PT 14.8 SECONDS (9.7-12.2) H 07/01/18 06:36 INR 1.4 07/01/18 06:36 APTT 34 SECONDS (21-34) 07/01/18 06:36 - Constitutional Appears: Non-toxic, No Acute Distress - Head Exam Head Exam: ATRAUMATIC - Eye Exam Eye Exam: EOMI. absent: Scleral icterus - ENT Exam ENT Exam: Mucous Membranes Moist - Respiratory Exam Respiratory Exam: NORMAL BREATHING PATTERN. absent: Accessory Muscle Use, Respiratory Distress - Cardiovascular Exam Cardiovascular Exam: REGULAR RHYTHM. absent: Bradycardia, Tachycardia - GI/Abdominal Exam GI & Abdominal Exam: Soft. absent: Distended, Guarding, Rigid, Tenderness Additional comments: succus drainage from superior midline incision retention sutures in place abd soft non-distended - Extremities Exam Extremities Exam: absent: Calf Tenderness - Neurological Exam Neurological Exam: Alert, Awake, Oriented x3 - Skin Skin Exam: Intact, Warm Assessment and Plan - Assessment and Plan (Free Text) Assessment: 37M s/p Lap Heather on 06/08 complicated w/ intra-abdominal sepsis s/p ex lap x2 for bowel injury now with suspected ECF Plan: - continue dressing changes, drainage cont to decrease - almost resolved - NPO, TPN - no eakins dressing needed at this time - will monitor output - OOB and ambulate - continue ASA-81 for thrombocytosis; Improved - c/w Abx- c/s ID; all recs appreciated- currently on Tigecycline - further recs per Dr. Jocelin Soler PGY2
[2018-07-05] MEDS: Pantoprazole 40 mg EC Tab PO SCH (10:20)
[2018-07-05] MEDS: Potassium Chloride 20 mEq ER Tab PO SCH (10:20)
[2018-07-05] MEDS: Enoxaparin 40 mg Syringe SC SCH (10:21)
--- NOTE | 2018-07-05 10:45 | CP.PCM.PN ---
Subjective - Date & Time of Evaluation Date of Evaluation: 07/05/18 Time of Evaluation: 10:44 - Subjective Subjective: drainage is scanty brownish color. having bms rectally. will consider oral feedings soon. Objective - Vital Signs/Intake and Output Vital Signs (last 24 hours): Temp Pulse Resp BP Pulse Ox 98.3 F 78 20 104/68 99 07/05/18 07:10 07/05/18 07:10 07/05/18 07:10 07/05/18 07:10 07/05/18 07:10 Intake and Output: 07/05/18 07/05/18 06:59 18:59 Intake Total 1064 Output Total 350 Balance 714 - Medications Medications: Current Medications Acetaminophen (Tylenol 325mg Tab) 650 mg PO Q6 [facility] Last Admin: 07/05/18 05:42 Dose: Not Given Aspirin (Ecotrin) 81 mg PO DAILY [facility] Last Admin: 07/05/18 10:20 Dose: 81 mg Enoxaparin Sodium (Lovenox) 40 mg SC DAILY [facility] Last Admin: 07/05/18 10:21 Dose: 40 mg Tigecycline 50 mg/ Sodium (Chloride) 100 mls @ 100 mls/hr IVPB Q12H [facility]; Protocol Last Admin: 07/05/18 02:01 Dose: 100 mls/hr Amino Acids/Electrolytes/Dextrose (Clinimix 5/20 % "E" (1000 Ml)) 1,000 mls @ 83 mls/hr IV .Q12H3M [facility] Stop: 07/05/18 18:12 Last Admin: 07/05/18 06:35 Dose: 83 mls/hr Multivitamins/Vitamin C 10 ml/Chromium/Copper/Manganese/Zinc 1 ml/ Amino Acids/Electrolytes/Dextrose 1,011 mls @ 83 mls/hr IV .[id number] [facility] Stop: 07/06/18 06:10 Amino Acids/Electrolytes/Dextrose (Clinimix 5/20 % "E" (1000 Ml)) 1,000 mls @ 83 mls/hr IV .Q12H3M [facility] Stop: 07/06/18 18:12 Fat Emulsion Intravenous (Intralipid 20%) 250 mls @ 83 mls/hr IV MWF@1800 [facility] Stop: 07/07/18 18:01 Octreotide Acetate (Sandostatin) 50 mcg SC Q8H [facility] Last Admin: 07/05/18 05:36 Dose: 50 mcg Oxycodone HCl (Oxycodone Immediate Release Tab) 5 mg PO Q6 PRN PRN Reason: Pain, moderate (4-7) Pantoprazole Sodium (Protonix Ec Tab) 40 mg PO DAILY [facility] Last Admin: 07/05/18 10:20 Dose: 40 mg Potassium Chloride (K-Dur 20 Meq Er Tab) 40 meq PO DAILY [facility] Last Admin: 07/05/18 10:20 Dose: 40 meq - Labs Labs: 07/05/18 07:16 07/05/18 07:16 PT 14.8 SECONDS (9.7-12.2) H 07/01/18 06:36 INR 1.4 07/01/18 06:36 APTT 34 SECONDS (21-34) 07/01/18 06:36
[2018-07-05] MEDS ORDERED: TPN IV ONE (18:00)
--- NOTE | 2018-07-05 23:50 | CP.PCM.PN ---
Subjective - Date & Time of Evaluation Date of Evaluation: 07/05/18 Time of Evaluation: 20:00 - Subjective Subjective: Has abdominal discomfort. Objective - Vital Signs/Intake and Output Vital Signs (last 24 hours): Temp Pulse Resp BP Pulse Ox 97.4 F L 73 20 105/70 97 07/05/18 15:47 07/05/18 15:47 07/05/18 15:47 07/05/18 15:47 07/05/18 15:47 - Medications Medications: Current Medications Acetaminophen (Tylenol 325mg Tab) 650 mg PO Q6 [facility] Last Admin: 07/05/18 17:46 Dose: 650 mg Aspirin (Ecotrin) 81 mg PO DAILY [facility] Last Admin: 07/05/18 10:20 Dose: 81 mg Enoxaparin Sodium (Lovenox) 40 mg SC DAILY [facility] Last Admin: 07/05/18 10:21 Dose: 40 mg Tigecycline 50 mg/ Sodium (Chloride) 100 mls @ 100 mls/hr IVPB Q12H [facility]; Protocol Last Admin: 07/05/18 13:46 Dose: 100 mls/hr Multivitamins/Vitamin C 10 ml/Chromium/Copper/Manganese/Zinc 1 ml/ Amino Acids/Electrolytes/Dextrose 1,011 mls @ 83 mls/hr IV .[id number] ONE Stop: 07/06/18 06:10 Last Admin: 07/05/18 17:43 Dose: 83 mls/hr Amino Acids/Electrolytes/Dextrose (Clinimix 5/20 % "E" (1000 Ml)) 1,000 mls @ 83 mls/hr IV .Q12H3M ONE Stop: 07/06/18 18:12 Fat Emulsion Intravenous (Intralipid 20%) 250 mls @ 83 mls/hr IV MWF@1800 [facility] Stop: 07/07/18 18:01 Octreotide Acetate (Sandostatin) 50 mcg SC Q8H [facility] Last Admin: 07/05/18 22:05 Dose: 50 mcg Oxycodone HCl (Oxycodone Immediate Release Tab) 5 mg PO Q6 PRN PRN Reason: Pain, moderate (4-7) Pantoprazole Sodium (Protonix Ec Tab) 40 mg PO DAILY [facility] Last Admin: 07/05/18 10:20 Dose: 40 mg Potassium Chloride (K-Dur 20 Meq Er Tab) 40 meq PO DAILY [facility] Last Admin: 07/05/18 10:20 Dose: 40 meq - Labs Labs: 07/05/18 07:16 07/05/18 07:16 PT 14.8 SECONDS (9.7-12.2) H 07/01/18 06:36 INR 1.4 07/01/18 06:36 APTT 34 SECONDS (21-34) 07/01/18 06:36 - Head Exam Head Exam: ATRAUMATIC - Eye Exam Eye Exam: Normal appearance - ENT Exam ENT Exam: Mucous Membranes Dry - Respiratory Exam Respiratory Exam: NORMAL BREATHING PATTERN - Cardiovascular Exam Cardiovascular Exam: +S1, +S2 - GI/Abdominal Exam GI & Abdominal Exam: Normal Bowel Sounds Assessment and Plan (1) Thrombocytosis Assessment & Plan: likely reactive to acute illness JAK2 mutation pending aspirin 81mg daily. Status: Acute (2) Anemia Assessment & Plan: anemia of chronic disease Status: Acute (3) Leukocytosis Assessment & Plan: on antibiotics Status: Acute
[2018-07-06] MEDS ORDERED: TPN IV ONE ×2 (06:10→18:00)
--- NOTE | 2018-07-06 08:20 | CP.PCM.PN ---
Subjective - Date & Time of Evaluation Date of Evaluation: 07/06/18 Time of Evaluation: 05:15 - Subjective Subjective: Surgery Progress note- Dr. Monreal Clinically improving. Midline incision continues w/ succus drainage however significantly decreasing. + BM from rectum. On Abx and TPN. + OOB and ambulating. Denies f/c/cp/sob. Objective - Vital Signs/Intake and Output Vital Signs (last 24 hours): Temp Pulse Resp BP Pulse Ox 98.6 F 89 20 97/63 L 98 07/06/18 07:20 07/06/18 07:20 07/06/18 07:20 07/06/18 07:20 07/06/18 07:20 Intake and Output: 07/06/18 07/06/18 06:59 18:59 Intake Total 1428 Balance 1428 - Medications Medications: Current Medications Acetaminophen (Tylenol 325mg Tab) 650 mg PO Q6 [facility] Last Admin: 07/06/18 05:25 Dose: Not Given Aspirin (Ecotrin) 81 mg PO DAILY [facility] Last Admin: 07/05/18 10:20 Dose: 81 mg Enoxaparin Sodium (Lovenox) 40 mg SC DAILY [facility] Last Admin: 07/05/18 10:21 Dose: 40 mg Tigecycline 50 mg/ Sodium (Chloride) 100 mls @ 100 mls/hr IVPB Q12H [facility]; Protocol Last Admin: 07/06/18 02:12 Dose: 100 mls/hr Amino Acids/Electrolytes/Dextrose (Clinimix 5/20 % "E" (1000 Ml)) 1,000 mls @ 83 mls/hr IV .Q12H3M ONE Stop: 07/06/18 18:12 Last Admin: 07/06/18 06:17 Dose: 83 mls/hr Fat Emulsion Intravenous (Intralipid 20%) 250 mls @ 83 mls/hr IV MWF@1800 [facility] Stop: 07/07/18 18:01 Octreotide Acetate (Sandostatin) 50 mcg SC Q8H [facility] Last Admin: 07/06/18 05:26 Dose: 50 mcg Oxycodone HCl (Oxycodone Immediate Release Tab) 5 mg PO Q6 PRN PRN Reason: Pain, moderate (4-7) Pantoprazole Sodium (Protonix Ec Tab) 40 mg PO DAILY [facility] Last Admin: 07/05/18 10:20 Dose: 40 mg Potassium Chloride (K-Dur 20 Meq Er Tab) 40 meq PO DAILY [facility] Last Admin: 07/05/18 10:20 Dose: 40 meq - Labs Labs: 07/05/18 07:16 07/05/18 07:16 PT 14.8 SECONDS (9.7-12.2) H 07/01/18 06:36 INR 1.4 07/01/18 06:36 APTT 34 SECONDS (21-34) 07/01/18 06:36 - Constitutional Appears: Non-toxic, No Acute Distress - Eye Exam Eye Exam: EOMI. absent: Scleral icterus - ENT Exam ENT Exam: Mucous Membranes Moist - Respiratory Exam Respiratory Exam: NORMAL BREATHING PATTERN. absent: Accessory Muscle Use, Respiratory Distress - Cardiovascular Exam Cardiovascular Exam: REGULAR RHYTHM. absent: Bradycardia, Tachycardia - GI/Abdominal Exam GI & Abdominal Exam: Soft. absent: Distended, Firm, Guarding, Rigid, Tenderness Additional comments: Retention sutures in place mild scant succus drainage from superior portion of the incision Dressing changed this AM abd non=-distended, non-tender - Extremities Exam Extremities Exam: absent: Calf Tenderness - Neurological Exam Neurological Exam: Alert, Awake, Oriented x3 - Psychiatric Exam Psychiatric exam: Normal Affect - Skin Skin Exam: Intact, Normal Color Assessment and Plan - Assessment and Plan (Free Text) Assessment: 37M s/p Lap Heather on 06/08 complicated w/ intra-abdominal sepsis s/p ex lap x2 for bowel injury now with suspected ECF Plan: - continue dressing changes, drainage cont to decrease - almost resolved - NPO, TPN - as patient continues to clinically improve will consider starting PO feeds soon - no eakins dressing needed at this time - will monitor output - OOB and ambulate - c/s HemOnc- all recs appreciated; continue ASA-81 for thrombocytosis; Improved - c/w Abx- c/s ID; all recs appreciated- currently on Tigecycline - further recs per Dr. Jocelin Soler PGY2
[2018-07-06] MEDS: Pantoprazole 40 mg EC Tab PO SCH (09:46)
[2018-07-06] MEDS: Potassium Chloride 20 mEq ER Tab PO SCH (09:46)
[2018-07-06] MEDS: Enoxaparin 40 mg Syringe SC SCH (09:46)
[2018-07-06] MEDS: Fat Emulsion 20% IV 500 ML IV SCH (17:48)
[2018-07-06] MEDS ORDERED: Fat Emulsion 20% IV 250 ML IV SCH (18:00)
--- NOTE | 2018-07-06 20:56 | CP.PCM.PN ---
Subjective - Date & Time of Evaluation Date of Evaluation: 07/06/18 Time of Evaluation: 14:20 - Subjective Subjective: dictated Objective - Vital Signs/Intake and Output Vital Signs (last 24 hours): Temp Pulse Resp BP Pulse Ox 99.8 F H 95 H 20 104/68 98 07/06/18 15:20 07/06/18 15:20 07/06/18 15:20 07/06/18 15:20 07/06/18 15:20 - Medications Medications: Current Medications Acetaminophen (Tylenol 325mg Tab) 650 mg PO Q6 [facility] Last Admin: 07/06/18 17:51 Dose: 650 mg Aspirin (Ecotrin) 81 mg PO DAILY [facility] Last Admin: 07/06/18 09:46 Dose: 81 mg Enoxaparin Sodium (Lovenox) 40 mg SC DAILY [facility] Last Admin: 07/06/18 09:46 Dose: 40 mg Tigecycline 50 mg/ Sodium (Chloride) 100 mls @ 100 mls/hr IVPB Q12H [facility]; Protocol Last Admin: 07/06/18 13:43 Dose: 100 mls/hr Multivitamins/Vitamin C 10 ml/Chromium/Copper/Manganese/Zinc 1 ml/ Amino Acids/Electrolytes/Dextrose 1,011 mls @ 83 mls/hr IV .[id number] ONE Stop: 07/07/18 06:10 Last Admin: 07/06/18 17:50 Dose: 83 mls/hr Amino Acids/Electrolytes/Dextrose (Clinimix 5/20 % "E" (1000 Ml)) 1,000 mls @ 83 mls/hr IV .Q12H3M ONE Stop: 07/07/18 18:12 Fat Emulsion Intravenous (Intralipid 20%) 500 mls @ 50 mls/hr IV MWF@1800 [facility] Stop: 07/09/18 18:01 Last Admin: 07/06/18 17:48 Dose: 50 mls/hr Octreotide Acetate (Sandostatin) 50 mcg SC Q8H [facility] Last Admin: 07/06/18 14:47 Dose: Not Given Oxycodone HCl (Oxycodone Immediate Release Tab) 5 mg PO Q6 PRN PRN Reason: Pain, moderate (4-7) Pantoprazole Sodium (Protonix Ec Tab) 40 mg PO DAILY [facility] Last Admin: 07/06/18 09:46 Dose: 40 mg Potassium Chloride (K-Dur 20 Meq Er Tab) 40 meq PO DAILY [facility] Last Admin: 07/06/18 09:46 Dose: 40 meq - Labs Labs: 07/05/18 07:16 07/05/18 07:16 PT 14.8 SECONDS (9.7-12.2) H 07/01/18 06:36 INR 1.4 07/01/18 06:36 APTT 34 SECONDS (21-34) 07/01/18 06:36
--- NOTE | 2018-07-07 02:16 | PN ---
DATE: 07/06/2018 SUBJECTIVE: The patient is afebrile. He was seen this morning by Dr. Monreal, and he continues to be on Tygacil. He said his drainage is decreasing. He is on TPN at this time. PHYSICAL EXAMINATION: VITAL SIGNS: T-max is 98.6, pulse 89, blood pressure 97/63, respirations are 20. HEENT: Head is atraumatic, normocephalic. NECK: Supple. He is alert, oriented. LUNGS: Clear. HEART: S1, S2, regular. ABDOMEN: Remains less distended. There is minimal drainage on the dressing at this time. 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 Vernon Hendricks MD
[2018-07-07] MEDS ORDERED: TPN IV ONE (06:10)
[2018-07-07 07:49] LABS: BASO # 0.2 K/uL (0.0-0.2); BASO % 1.4 % (0.0-2.0); EOS # 0.2 K/uL (0.0-0.7); EOS % 1.4 % (0.0-4.0); HEMOGLOBIN 10.2 g/dL (12.0-18.0); MEAN CELL VOLUME 88.9 fL (80.0-94.0); MEAN CORPUSCULAR HEMOGLOBIN 29.7 pg (27.0-31.0); MEAN CORPUSCULAR HGB CONC 33.4 g/dL (33.0-37.0); MEAN PLATELET VOLUME 7.4 fL (7.2-11.7); MONO # 0.8 K/uL (0.0-0.8); MONO % 6.7 % (0.0-10.0); NEUT # 9.4 K/uL (1.8-7.0); NEUT % 74.5 % (50.0-75.0); NRBC % 0.1 % (0.0-2.0); RBC 3.43 Mil/uL (4.40-5.90); RED CELL DISTRIBUTION WIDTH 13.8 % (11.5-14.5); WHITE BLOOD COUNT 12.6 K/uL (4.8-10.8)
--- NOTE | 2018-07-07 08:01 | CP.PCM.PN ---
Subjective - Date & Time of Evaluation Date of Evaluation: 07/07/18 Time of Evaluation: 07:58 - Subjective Subjective: Surgery Progress Note- Dr. Monreal No new complaints. Dressing changed. w/ scant succus stained dressing. NPO, TPN. + OOB and ambulating. Denies fevers, chills chest pain, shortness of breath. on IV Abx Objective - Vital Signs/Intake and Output Vital Signs (last 24 hours): Temp Pulse Resp BP Pulse Ox 97.9 F 78 20 103/69 98 07/06/18 23:25 07/06/18 23:25 07/06/18 23:25 07/06/18 23:25 07/06/18 23:25 Intake and Output: 07/07/18 07/07/18 06:59 18:59 Intake Total 1578 Output Total 400 Balance 1178 - Medications Medications: Current Medications Acetaminophen (Tylenol 325mg Tab) 650 mg PO Q6 [facility] Last Admin: 07/07/18 06:05 Dose: Not Given Aspirin (Ecotrin) 81 mg PO DAILY [facility] Last Admin: 07/06/18 09:46 Dose: 81 mg Enoxaparin Sodium (Lovenox) 40 mg SC DAILY [facility] Last Admin: 07/06/18 09:46 Dose: 40 mg Tigecycline 50 mg/ Sodium (Chloride) 100 mls @ 100 mls/hr IVPB Q12H [facility]; Protocol Last Admin: 07/07/18 01:32 Dose: 100 mls/hr Amino Acids/Electrolytes/Dextrose (Clinimix 5/20 % "E" (1000 Ml)) 1,000 mls @ 83 mls/hr IV .Q12H3M ONE Stop: 07/07/18 18:12 Last Admin: 07/07/18 06:11 Dose: 83 mls/hr Fat Emulsion Intravenous (Intralipid 20%) 500 mls @ 50 mls/hr IV MWF@1800 [facility] Stop: 07/09/18 18:01 Last Admin: 07/06/18 17:48 Dose: 50 mls/hr Octreotide Acetate (Sandostatin) 50 mcg SC Q8H [facility] Last Admin: 07/07/18 06:06 Dose: 50 mcg Oxycodone HCl (Oxycodone Immediate Release Tab) 5 mg PO Q6 PRN PRN Reason: Pain, moderate (4-7) Pantoprazole Sodium (Protonix Ec Tab) 40 mg PO DAILY [facility] Last Admin: 07/06/18 09:46 Dose: 40 mg Potassium Chloride (K-Dur 20 Meq Er Tab) 40 meq PO DAILY [facility] Last Admin: 07/06/18 09:46 Dose: 40 meq - Labs Labs: 07/07/18 07:35 07/05/18 07:16 PT 14.8 SECONDS (9.7-12.2) H 07/01/18 06:36 INR 1.4 07/01/18 06:36 APTT 34 SECONDS (21-34) 07/01/18 06:36 - Constitutional Appears: Non-toxic, No Acute Distress - Head Exam Head Exam: ATRAUMATIC - Eye Exam Eye Exam: EOMI. absent: Scleral icterus - ENT Exam ENT Exam: Mucous Membranes Moist - Respiratory Exam Respiratory Exam: NORMAL BREATHING PATTERN. absent: Accessory Muscle Use, Respiratory Distress - Cardiovascular Exam Cardiovascular Exam: absent: Bradycardia, Tachycardia - GI/Abdominal Exam GI & Abdominal Exam: Soft. absent: Distended, Firm, Guarding, Rigid, Tenderness - Neurological Exam Neurological Exam: Alert, Awake, Oriented x3 - Psychiatric Exam Psychiatric exam: Normal Affect - Skin Skin Exam: Intact, Warm Assessment and Plan - Assessment and Plan (Free Text) Assessment: 37M s/p Lap Heather on 06/08 complicated w/ intra-abdominal sepsis s/p ex lap x2 for bowel injury now with suspected ECF Plan: - continue dressing changes, drainage cont to decrease - almost resolved - NPO, TPN - as patient continues to clinically improve will consider starting PO feeds soon - no eakins dressing needed at this time - will monitor output - OOB and ambulate - c/s HemOnc- all recs appreciated; continue ASA-81 for thrombocytosis; Improved - c/w Abx- c/s ID; all recs appreciated- currently on Tigecycline - further recs per Dr. Jocelin Soler PGY2
[2018-07-07 08:10] LABS: ALB/GLOB RATIO 0.8 (1.0-2.1); ALBUMIN 3.2 g/dL (3.5-5.0); ALT/SGPT 121 U/L (21-72); AST/SGOT 119 U/L (17-59); BLOOD UREA NITROGEN 21 mg/dL (9-20); CALCIUM 8.2 mg/dl (8.6-10.4); GFR NON-AFRICAN AMERICAN > 60
[2018-07-07] MEDS: Pantoprazole 40 mg EC Tab PO SCH (09:19)
[2018-07-07] MEDS: Enoxaparin 40 mg Syringe SC SCH (09:19)
[2018-07-07] MEDS: Potassium Chloride 20 mEq ER Tab PO SCH (09:20)
[2018-07-07] MEDS ORDERED: Iohexol 240 (50 ml) PO ONE (14:00)
[2018-07-07] MEDS ORDERED: TPN IV SCH (18:00)
[2018-07-08] MEDS ORDERED: Iohexol 240 (50 ml) PO ONE (03:30)
--- NOTE | 2018-07-08 08:19 | CP.PCM.PN ---
Subjective - Date & Time of Evaluation Date of Evaluation: 07/08/18 Time of Evaluation: 08:17 - Subjective Subjective: Surgery: Dr. Monreal Patient feeling in good spirits today. almost no drainage from the midline abdominal wound. Cough still persistent. Tolerating oral contrast for CT study today. Objective - Vital Signs/Intake and Output Vital Signs (last 24 hours): Temp Pulse Resp BP Pulse Ox 98.5 F 85 20 98/67 L 100 07/08/18 07:00 07/08/18 07:00 07/08/18 07:00 07/08/18 07:00 07/08/18 07:00 Intake and Output: 07/08/18 07/08/18 06:59 18:59 Intake Total 1174.2 Balance 1174.2 - Medications Medications: Current Medications Aspirin (Ecotrin) 81 mg PO DAILY [facility] Last Admin: 07/07/18 09:19 Dose: 81 mg Enoxaparin Sodium (Lovenox) 40 mg SC DAILY [facility] Last Admin: 07/07/18 09:19 Dose: 40 mg Tigecycline 50 mg/ Sodium (Chloride) 100 mls @ 100 mls/hr IVPB Q12H [facility]; Prot ocol Last Admin: 07/08/18 01:36 Dose: 100 mls/hr Fat Emulsion Intravenous (Intralipid 20%) 500 mls @ 50 mls/hr IV MWF@1800 [facility] Stop: 07/09/18 18:01 Last Admin: 07/06/18 17:48 Dose: 50 mls/hr Multivitamins/Vitamin C 10 ml/Chromium/Copper/Manganese/Zinc 1 ml/ Amino Acids/Electrolytes/Dextrose 1,011 mls @ 63 mls/hr IV .Q16H3M [facility] Stop: 07/08/18 10:02 Last Admin: 07/07/18 17:46 Dose: 63 mls/hr Amino Acids/Electrolytes/Dextrose (Clinimix 5/20 % "E" (1000 Ml)) 1,000 mls @ 63 mls/hr IV .[id number] [facility] Stop: 07/08/18 18:00 Octreotide Acetate (Sandostatin) 50 mcg SC Q8H [facility] Last Admin: 07/08/18 05:37 Dose: 50 mcg Pantoprazole Sodium (Protonix Ec Tab) 40 mg PO DAILY [facility] Last Admin: 07/07/18 09:19 Dose: 40 mg Potassium Chloride (K-Dur 20 Meq Er Tab) 40 meq PO DAILY [facility] Last Admin: 07/07/18 09:20 Dose: 40 meq - Labs Labs: 07/07/18 07:35 07/07/18 07:35 PT 14.8 SECONDS (9.7-12.2) H 07/01/18 06:36 INR 1.4 07/01/18 06:36 APTT 34 SECONDS (21-34) 07/01/18 06:36 - Constitutional Appears: Non-toxic, No Acute Distress - Head Exam Head Exam: ATRAUMATIC, NORMOCEPHALIC - Eye Exam Eye Exam: EOMI, Normal appearance - ENT Exam ENT Exam: Mucous Membranes Moist - Respiratory Exam Respiratory Exam: NORMAL BREATHING PATTERN. absent: Respiratory Distress - Cardiovascular Exam Cardiovascular Exam: REGULAR RHYTHM. absent: Tachycardia - GI/Abdominal Exam GI & Abdominal Exam: Soft. absent: Distended, Guarding, Tenderness Additional comments: staple and retention sutures in place dressing clean and dry upon removal no cellulitis around incision no expressible fluid with palpation or valsalva Assessment and Plan - Assessment and Plan (Free Text) Assessment: 37M s/p Lap Heather on 06/08 complicated w/ intra-abdominal sepsis s/p ex lap x2 for bowel injury now with suspected ECF Plan: -for CT abd/pelvis this am - if no fistula evident on imaging, will trial po liquids and monitor output. If fistula evident, will cont NPO and TPN with plans to repeat imaging in future as clinically patient much improved - continue dressing changes prn - NPO, TPN - OOB and ambulate - c/s HemOnc- all recs appreciated; continue ASA-81 for thrombocytosis; Improved - c/w Abx- c/s ID; all recs appreciated- currently on Tigecycline - further recs per Dr. Jocelin Greco PGY4
[2018-07-08 08:47] LABS: BASO # 0.2 K/uL (0.0-0.2); BASO % 1.2 % (0.0-2.0); EOS # 0.1 K/uL (0.0-0.7); HEMOGLOBIN 11.5 g/dL (12.0-18.0); LYMPH # 2.2 K/uL (1.0-4.3); MEAN CELL VOLUME 88.6 fL (80.0-94.0); MEAN CORPUSCULAR HEMOGLOBIN 28.6 pg (27.0-31.0); MEAN CORPUSCULAR HGB CONC 32.3 g/dL (33.0-37.0); MEAN PLATELET VOLUME 7.1 fL (7.2-11.7); MONO # 0.8 K/uL (0.0-0.8); MONO % 6.1 % (0.0-10.0); NEUT # 9.5 K/uL (1.8-7.0); NEUT % 74.7 % (50.0-75.0); RBC 4.03 Mil/uL (4.40-5.90); RED CELL DISTRIBUTION WIDTH 13.6 % (11.5-14.5); WHITE BLOOD COUNT 12.7 K/uL (4.8-10.8)
[2018-07-08] MEDS ORDERED: Iodixanol 320 MG/ML 100 ML BOTTLE IV ONE (08:57)
[2018-07-08 09:29] LABS: ALB/GLOB RATIO 0.8 (1.0-2.1); ALBUMIN 3.8 g/dL (3.5-5.0); ALT/SGPT 111 U/L (21-72); AST/SGOT 104 U/L (17-59); BLOOD UREA NITROGEN 23 mg/dL (9-20); CALCIUM 8.5 mg/dl (8.6-10.4); GFR NON-AFRICAN AMERICAN > 60
--- NOTE | 2018-07-08 10:27 | CT ---
Date of service: 07/08/2018 PROCEDURE: CT Abdomen and Pelvis with contrast HISTORY: comparison, small bowel fistula COMPARISON: 06/29/2018 TECHNIQUE: Contrast dose: 100 mL Visipaque 320 Radiation dose: Total exam DLP = 1265.18 mGy-cm. This CT exam was performed using one or more of the following dose reduction techniques: Automated exposure control, adjustment of the mA and/or kV according to patient size, and/or use of iterative reconstruction technique. FINDINGS: LOWER THORAX: Unremarkable. LIVER: Unremarkable. No gross lesion or ductal dilatation. GALLBLADDER AND BILE DUCTS: Cholecystectomy PANCREAS: Unremarkable. No gross lesion or ductal dilatation. SPLEEN: Unremarkable. ADRENALS: Unremarkable. No mass. KIDNEYS AND URETERS: 1.9 cm mid left renal cortical cyst. No other mass. No calculus or hydronephrosis. VASCULATURE: Unremarkable. No aortic aneurysm. There is atherosclerotic calcification of the abdominal aorta. BOWEL: There are non distended loops of small bowel inherent to the anterior abdominal wall. Postoperative changes are seen with probable anastomosis in these adherent anterior small bowel loops. Previously identified fistulous connection to the anterior abdominal wall is not clearly evident. There is persistent fluid collection in the left parasagittal left lower anterior abdominal wall. However, fluid and gas seen in the subcutaneous soft tissues of the supraumbilical midline anterior abdominal wall do not contain oral contrast as they did on prior CT. This does not rule out persistent fistula, however. APPENDIX: Normal appendix. PERITONEUM: Numerous intraperitoneal fluid collections are again identified. There is a collection adjacent to the lateral segment of the left hepatic lobe. There is a perisplenic collection. There is a left lower quadrant abdominal collection measuring 4.2 x 4.2 by 5.7 cm, decreased in size from previous. There are numerous small collections along the parietal peritoneal surface in the left abdomen. There is a multilocular pelvic collection the largest component of which measures roughly 5.0 x 2.9 cm, previously approximately 5.2 x 3.0 cm. Minimal decrease in size. The collection within the left rectus abdominus muscle at the level of the umbilicus is essentially unchanged. LYMPH NODES: Unremarkable. No enlarged lymph nodes. BLADDER: Bladder is thick-walled. It is poorly distended. Nevertheless, the possibility of cystitis must be considered and correlation with urinalysis is suggested. REPRODUCTIVE: Normal prostate BONES: No acute fracture. OTHER FINDINGS: None. IMPRESSION: Multiple intraperitoneal fluid collections most or all of which are decreased mildly in size when compared to the prior CT examination of 06/29/2018. No definite fistulous connection of bowel to the anterior abdominal wall though there is persistent fluid and gas within the anterior abdominal wall. Cannot rule out persistent fistulous connection. Status post cholecystectomy. Thick walled urinary bladder. Correlate with urinalysis to rule out cystitis. No bowel obstruction. No pneumoperitoneum. Postoperative changes are noted in a loop of small bowel abutting and likely adherent to the anterior abdominal wall as on prior examination.
[2018-07-08] MEDS ORDERED: TPN IV SCH ×2 (10:30→18:00)
[2018-07-08] MEDS: Pantoprazole 40 mg EC Tab PO SCH (10:56)
[2018-07-08] MEDS: Enoxaparin 40 mg Syringe SC SCH (10:56)
[2018-07-08] MEDS: Potassium Chloride 20 mEq ER Tab PO SCH (11:05)
[2018-07-08 12:10] LABS: SOURCE Blood
[2018-07-08] MEDS: Fat Emulsion 20% IV 500 ML IV SCH (17:19)
--- NOTE | 2018-07-09 06:12 | CP.PCM.PN ---
Subjective - Date & Time of Evaluation Date of Evaluation: 07/11/18 Time of Evaluation: 10:32 - Subjective Subjective: Surgery: Dr. Monreal Patient seen and examined at bedside. No acute event overnight. Patient feeling well. No acute event overnight. Minimal drainage from the midline abdominal wound. Patient denies pain, fever/chills, n/v/d. Patient tolerating CLD. Admits flatus and BM. Objective - Vital Signs/Intake and Output Vital Signs (last 24 hours): Temp Pulse Resp BP Pulse Ox 98.1 F 76 20 97/65 L 97 07/08/18 23:19 07/08/18 23:19 07/08/18 23:19 07/08/18 23:19 07/08/18 23:19 Intake and Output: 07/08/18 07/09/18 18:59 06:59 Intake Total 250 1072 Balance 250 1072 - Medications Medications: Current Medications Aspirin (Ecotrin) 81 mg PO DAILY [facility] Last Admin: 07/08/18 10:56 Dose: 81 mg Enoxaparin Sodium (Lovenox) 40 mg SC DAILY [facility] Last Admin: 07/08/18 10:56 Dose: 40 mg Tigecycline 50 mg/ Sodium (Chloride) 100 mls @ 100 mls/hr IVPB Q12H [facility]; Protocol Last Admin: 07/09/18 02:03 Dose: 100 mls/hr Sodium Chloride 35 meq/Potassium Chloride 30 meq/Magnesium Sulfate 5 meq/Calcium Gluconate 4.5 meq/Chromium/Copper/Manganese/Zinc 1 ml/ Multivitamins/Vitamin C 10 ml/ Amino Acids 1,045.6589 mls @ 62 mls/hr IV .[id number] [facility] Stop: 07/09/18 10:30 Last Admin: 07/08/18 17:18 Dose: 62 mls/hr Sodium Chloride 35 meq/Potassium Chloride 30 meq/Magnesium Sulfate 5 meq/Calcium Gluconate 4.5 meq/Amino Acids 1,034.6589 mls @ 62 mls/hr IV .[id number] [facility] Stop: 07/09/18 18:00 Octreotide Acetate (Sandostatin) 50 mcg SC Q8H [facility] Last Admin: 07/09/18 05:40 Dose: 50 mcg Pantoprazole Sodium (Protonix Ec Tab) 40 mg PO DAILY [facility] Last Admin: 07/08/18 10:56 Dose: 40 mg Potassium Chloride (K-Dur 20 Meq Er Tab) 40 meq PO DAILY [facility] Last Admin: 07/08/18 11:05 Dose: Not Given - Labs Labs: 07/08/18 08:42 07/08/18 08:42 PT 14.8 SECONDS (9.7-12.2) H 07/01/18 06:36 INR 1.4 07/01/18 06:36 APTT 34 SECONDS (21-34) 07/01/18 06:36 - Additional Findings Additional findings: - Constitutional Appears: Non-toxic, No Acute Distress - Head Exam Head Exam: ATRAUMATIC, NORMOCEPHALIC - Eye Exam Eye Exam: EOMI, Normal appearance - ENT Exam ENT Exam: Mucous Membranes Moist - Respiratory Exam Respiratory Exam: NORMAL BREATHING PATTERN. absent: Respiratory Distress - Cardiovascular Exam Cardiovascular Exam: REGULAR RHYTHM. absent: Tachycardia - GI/Abdominal Exam GI & Abdominal Exam: Soft. absent: Distended, Guarding, Tenderness Additional comments: staple and retention sutures in place dressing clean and dry upon removal no cellulitis around incision no expressible fluid with palpation or valsalva Assessment and Plan - Assessment and Plan (Free Text) Assessment: 37M s/p Lap Heather on 06/08 complicated w/ intra-abdominal sepsis s/p ex lap x2 for bowel injury now with suspected ECF Plan: - dressing changes prn - CLD - TPN - Monitor output from wound - OOB and ambulate - HemOnc, all recs appreciated - continue ASA 81 for thrombocytosis - IV Abx - ID, all recs appreciated - further recs per Dr. Jocelin Huynh PGY2
[2018-07-09 08:23] LABS: BASO % 0.3 % (0.0-2.0); EOS # 0.2 K/uL (0.0-0.7); EOS % 1.4 % (0.0-4.0); HEMOGLOBIN 10.5 g/dL (12.0-18.0); LYMPH # 2.4 K/uL (1.0-4.3); LYMPH % 21.4 % (20.0-40.0); MEAN CELL VOLUME 88.1 fL (80.0-94.0); MEAN CORPUSCULAR HEMOGLOBIN 29.3 pg (27.0-31.0); MEAN CORPUSCULAR HGB CONC 33.3 g/dL (33.0-37.0); MEAN PLATELET VOLUME 7.6 fL (7.2-11.7); MONO # 0.6 K/uL (0.0-0.8); MONO % 5.6 % (0.0-10.0); NEUT # 7.9 K/uL (1.8-7.0); NEUT % 71.3 % (50.0-75.0); RBC 3.59 Mil/uL (4.40-5.90); RED CELL DISTRIBUTION WIDTH 13.8 % (11.5-14.5); WHITE BLOOD COUNT 11.1 K/uL (4.8-10.8)
[2018-07-09 08:38] LABS: ALB/GLOB RATIO 0.7 (1.0-2.1); ALBUMIN 3.3 g/dL (3.5-5.0); ALT/SGPT 85 U/L (21-72); AST/SGOT 60 U/L (17-59); BLOOD UREA NITROGEN 23 mg/dL (9-20); CALCIUM 8.4 mg/dl (8.6-10.4); GFR NON-AFRICAN AMERICAN > 60
[2018-07-09] MEDS: Enoxaparin 40 mg Syringe SC SCH (09:38)
[2018-07-09] MEDS: Potassium Chloride 20 mEq ER Tab PO SCH (09:39)
[2018-07-09] MEDS: Pantoprazole 40 mg EC Tab PO SCH (09:39)
[2018-07-09] MEDS ORDERED: TPN IV SCH (10:30)
[2018-07-09] MEDS ORDERED: TPN IV ONE (18:00)
[2018-07-10 08:54] LABS: BASO # 0.1 K/uL (0.0-0.2); BASO % 1.4 % (0.0-2.0); EOS # 0.2 K/uL (0.0-0.7); EOS % 1.7 % (0.0-4.0); HEMOGLOBIN 10.5 g/dL (12.0-18.0); LYMPH # 1.9 K/uL (1.0-4.3); LYMPH % 21.9 % (20.0-40.0); MEAN CELL VOLUME 87.5 fL (80.0-94.0); MEAN CORPUSCULAR HEMOGLOBIN 29.6 pg (27.0-31.0); MEAN CORPUSCULAR HGB CONC 33.8 g/dL (33.0-37.0); MEAN PLATELET VOLUME 7.7 fL (7.2-11.7); MONO # 0.6 K/uL (0.0-0.8); MONO % 6.8 % (0.0-10.0); NEUT % 68.2 % (50.0-75.0); RBC 3.56 Mil/uL (4.40-5.90); RED CELL DISTRIBUTION WIDTH 13.8 % (11.5-14.5); WHITE BLOOD COUNT 8.7 K/uL (4.8-10.8)
--- NOTE | 2018-07-10 09:06 | CP.PCM.PN ---
Subjective - Date & Time of Evaluation Date of Evaluation: 07/10/18 Time of Evaluation: 09:03 - Subjective Subjective: Surgery: Dr. Monreal Patient doing well, tolerating CLD. Reports increase appetite and requesting more to eat. Dressing has not been changed since yesterday morning. Patient denies n/v/f/c. +flatus and BM. has been OOB and ambulating. In good spirits. Objective - Vital Signs/Intake and Output Vital Signs (last 24 hours): Temp Pulse Resp BP Pulse Ox 98.0 F 75 20 101/69 97 07/10/18 07:20 07/10/18 07:20 07/10/18 07:20 07/10/18 07:20 07/10/18 07:20 Intake and Output: 07/10/18 07/10/18 06:59 18:59 Intake Total 606 Output Total 400 Balance 206 - Medications Medications: Current Medications Aspirin (Ecotrin) 81 mg PO DAILY [facility] Last Admin: 07/09/18 09:39 Dose: 81 mg Enoxaparin Sodium (Lovenox) 40 mg SC DAILY [facility] Last Admin: 07/09/18 09:38 Dose: 40 mg Tigecycline 50 mg/ Sodium (Chloride) 100 mls @ 100 mls/hr IVPB Q12H [facility]; Protocol Last Admin: 07/10/18 01:49 Dose: 100 mls/hr Multivitamins/Vitamin C 10 ml/Chromium/Copper/Manganese/Zinc 1 ml/ Amino Acids/Electrolytes/Dextrose 1,011 mls @ 62 mls/hr IV .[id number] ONE Stop: 07/10/18 10:18 Last Admin: 07/09/18 17:19 Dose: 62 mls/hr Amino Acids/Electrolytes/Dextrose (Clinimix 5/20 % "E" (1000 Ml)) 1,000 mls @ 62 mls/hr IV .Q16H8M [facility] Stop: 07/10/18 18:00 Fat Emulsion Intravenous (Intralipid 20%) 500 mls @ 50 mls/hr IV MWF@1800 [facility] Stop: 07/12/18 18:01 Octreotide Acetate (Sandostatin) 50 mcg SC Q8H [facility] Last Admin: 07/10/18 05:22 Dose: 50 mcg Pantoprazole Sodium (Protonix Ec Tab) 40 mg PO DAILY [facility] Last Admin: 07/09/18 09:39 Dose: 40 mg Potassium Chloride (K-Dur 20 Meq Er Tab) 40 meq PO DAILY [facility] Last Admin: 07/09/18 09:39 Dose: 40 meq - Labs Labs: 07/10/18 08:40 07/09/18 08:00 PT 14.8 SECONDS (9.7-12.2) H 07/01/18 06:36 INR 1.4 07/01/18 06:36 APTT 34 SECONDS (21-34) 07/01/18 06:36 - Constitutional Appears: Non-toxic, No Acute Distress - Head Exam Head Exam: NORMAL INSPECTION - Eye Exam Eye Exam: Normal appearance - ENT Exam ENT Exam: Mucous Membranes Moist - Respiratory Exam Respiratory Exam: NORMAL BREATHING PATTERN. absent: Respiratory Distress - Cardiovascular Exam Cardiovascular Exam: REGULAR RHYTHM. absent: Tachycardia - GI/Abdominal Exam GI & Abdominal Exam: Soft. absent: Distended, Guarding, Tenderness, Rebound Additional comments: troncoso mucous like discharge from midline, minimal strike through on dressing no bilious output dressing changed retention sutures and rodrigo in place no erythema around incision Assessment and Plan - Assessment and Plan (Free Text) Assessment: 37M s/p Lap Heather on 06/08 complicated w/ intra-abdominal sepsis s/p ex lap x2 for bowel injury now with suspected ECF Plan: -advance to FLD today and half rate of TPN with plans for discontinuing in the next 2 days as long as no bilious output from midline is observed - continue dressing changes prn - OOB and ambulate - c/s HemOnc- all recs appreciated; continue ASA-81 for thrombocytosis; Improved - c/w Abx- c/s ID; all recs appreciated- currently on Tigecycline. Leukocytosis resolved - further recs per Dr. Jocelin Greco PGY4
[2018-07-10 09:12] LABS: ALB/GLOB RATIO 0.7 (1.0-2.1); ALBUMIN 3.2 g/dL (3.5-5.0); ALT/SGPT 62 U/L (21-72); AST/SGOT 50 U/L (17-59); BLOOD UREA NITROGEN 20 mg/dL (9-20); CALCIUM 8.2 mg/dl (8.6-10.4); GFR NON-AFRICAN AMERICAN > 60
[2018-07-10] MEDS ORDERED: TPN IV SCH ×2 (10:19→18:00)
[2018-07-10] MEDS: Pantoprazole 40 mg EC Tab PO SCH (10:24)
[2018-07-10] MEDS: Enoxaparin 40 mg Syringe SC SCH (10:24)
[2018-07-10] MEDS: Potassium Chloride 20 mEq ER Tab PO SCH (10:25)
[2018-07-11 08:08] VITALS: RESP 20
[2018-07-11 08:55] LABS: BASO # 0.1 K/uL (0.0-0.2); BASO % 1.2 % (0.0-2.0); EOS # 0.2 K/uL (0.0-0.7); EOS % 1.6 % (0.0-4.0); HEMOGLOBIN 11.3 g/dL (12.0-18.0); LYMPH # 2.6 K/uL (1.0-4.3); LYMPH % 26.3 % (20.0-40.0); MEAN CELL VOLUME 87.2 fL (80.0-94.0); MEAN CORPUSCULAR HEMOGLOBIN 29.9 pg (27.0-31.0); MEAN CORPUSCULAR HGB CONC 34.3 g/dL (33.0-37.0); MONO # 0.7 K/uL (0.0-0.8); MONO % 6.8 % (0.0-10.0); NEUT # 6.4 K/uL (1.8-7.0); NEUT % 64.1 % (50.0-75.0); NRBC % 0.1 % (0.0-2.0); RBC 3.78 Mil/uL (4.40-5.90)
[2018-07-11 09:12] LABS: ALB/GLOB RATIO 0.7 (1.0-2.1); ALBUMIN 3.5 g/dL (3.5-5.0); ALT/SGPT 60 U/L (21-72); AST/SGOT 42 U/L (17-59); BLOOD UREA NITROGEN 17 mg/dL (9-20); CALCIUM 8.6 mg/dl (8.6-10.4); GFR NON-AFRICAN AMERICAN > 60; HDL CHOLESTEROL 12 mg/dL (30-70)
[2018-07-11 09:23] LABS: LDL CHOLESTEROL 37 mg/dL (0-129)
[2018-07-11] MEDS: Enoxaparin 40 mg Syringe SC SCH (10:03)
[2018-07-11] MEDS: Pantoprazole 40 mg EC Tab PO SCH (10:03)
--- NOTE | 2018-07-11 10:32 | CP.PCM.PN ---
Subjective - Date & Time of Evaluation Date of Evaluation: 07/11/18 Time of Evaluation: 06:30 - Subjective Subjective: Surgery: Dr. Monreal Patient seen and examined at bedside. No acute event overnight. Patient has no complaints Minimal drainage from the midline abdominal wound. Patient denies pain, fever/chills, n/v/d. Patient tolerating full liquid diet. Admits flatus and BM. TPN was cut in half and will remain until this bag runs out. Patient to be given soft diet. Objective - Vital Signs/Intake and Output Vital Signs (last 24 hours): Temp Pulse Resp BP Pulse Ox 98.9 F 81 20 99/71 L 96 07/11/18 07:00 07/11/18 07:00 07/11/18 07:00 07/11/18 07:00 07/11/18 07:00 Intake and Output: 07/11/18 07/11/18 06:59 18:59 Intake Total 290 Balance 290 - Medications Medications: Current Medications Aspirin (Ecotrin) 81 mg PO DAILY [facility] Last Admin: 07/11/18 10:03 Dose: 81 mg Enoxaparin Sodium (Lovenox) 40 mg SC DAILY [facility] Last Admin: 07/11/18 10:03 Dose: 40 mg Tigecycline 50 mg/ Sodium (Chloride) 100 mls @ 100 mls/hr IVPB Q12H [facility]; Protocol Last Admin: 07/11/18 01:43 Dose: 100 mls/hr Fat Emulsion Intravenous (Intralipid 20%) 500 mls @ 50 mls/hr IV MWF@1800 [facility] Stop: 07/12/18 18:01 Multivitamins/Vitamin C 10 ml/Chromium/Copper/Manganese/Zinc 1 ml/ Amino Acids/Electrolytes/Dextrose 1,011 mls @ 30 mls/hr IV .Q24H [facility] Stop: 07/11/18 17:59 Last Admin: 07/10/18 17:39 Dose: 30 mls/hr Octreotide Acetate (Sandostatin) 50 mcg SC Q8H [facility] Last Admin: 07/11/18 05:48 Dose: 50 mcg Pantoprazole Sodium (Protonix Ec Tab) 40 mg PO DAILY [facility] Last Admin: 07/11/18 10:03 Dose: 40 mg - Labs Labs: 07/11/18 08:42 07/11/18 08:42 PT 14.8 SECONDS (9.7-12.2) H 07/01/18 06:36 INR 1.4 07/01/18 06:36 APTT 34 SECONDS (21-34) 07/01/18 06:36 - Additional Findings Additional findings: - Constitutional Appears: Non-toxic, No Acute Distress - Head Exam Head Exam: ATRAUMATIC, NORMOCEPHALIC - Eye Exam Eye Exam: EOMI, Normal appearance - ENT Exam ENT Exam: Mucous Membranes Moist - Respiratory Exam Respiratory Exam: NORMAL BREATHING PATTERN. absent: Respiratory Distress - Cardiovascular Exam Cardiovascular Exam: REGULAR RHYTHM. absent: Tachycardia - GI/Abdominal Exam GI & Abdominal Exam: Soft. absent: Distended, Guarding, Tenderness Additional comments: staple and retention sutures in place dressing clean and dry upon removal no cellulitis around incision no expressible fluid with palpation or valsalva Assessment and Plan - Assessment and Plan (Free Text) Assessment: 37M s/p Lap Heather on 06/08 complicated w/ intra-abdominal sepsis s/p ex lap x2 for bowel injury now with suspected ECF Plan: - dressing changes prn - soft diet - TPN rate was cut in half and when bag runs out it will not be renewed - Monitor output from wound - OOB and ambulate - HemOnc, all recs appreciated - continue ASA 81 for thrombocytosis - IV Abx - ID, all recs appreciated - further recs per Dr. Jocelin Huynh PGY2
[2018-07-11] MEDS ORDERED: Fat Emulsion 20% IV 500 ML IV SCH (18:00)
[2018-07-12 07:26] LABS: BASO # 0.1 K/uL (0.0-0.2); BASO % 1.2 % (0.0-2.0); EOS # 0.2 K/uL (0.0-0.7); LYMPH # 2.1 K/uL (1.0-4.3); LYMPH % 23.5 % (20.0-40.0); MEAN CELL VOLUME 87.1 fL (80.0-94.0); MEAN CORPUSCULAR HEMOGLOBIN 29.5 pg (27.0-31.0); MEAN CORPUSCULAR HGB CONC 33.8 g/dL (33.0-37.0); MEAN PLATELET VOLUME 7.3 fL (7.2-11.7); MONO # 0.7 K/uL (0.0-0.8); NEUT # 5.8 K/uL (1.8-7.0); NEUT % 65.3 % (50.0-75.0); RBC 3.4 Mil/uL (4.40-5.90); RED CELL DISTRIBUTION WIDTH 13.9 % (11.5-14.5); WHITE BLOOD COUNT 8.9 K/uL (4.8-10.8)
[2018-07-12 08:22] LABS: ALB/GLOB RATIO 0.7 (1.0-2.1); ALBUMIN 2.9 g/dL (3.5-5.0); ALT/SGPT 48 U/L (21-72); AST/SGOT 48 U/L (17-59); BLOOD UREA NITROGEN 14 mg/dL (9-20); CALCIUM 8.2 mg/dl (8.6-10.4); GFR NON-AFRICAN AMERICAN > 60
[2018-07-12] MEDS: Enoxaparin 40 mg Syringe SC SCH (09:27)
[2018-07-12] MEDS: Pantoprazole 40 mg EC Tab PO SCH (09:27)
--- NOTE | 2018-07-12 10:38 | CP.PCM.PN ---
Subjective - Date & Time of Evaluation Date of Evaluation: 07/12/18 Time of Evaluation: 10:37 - Subjective Subjective: hardly any drainage. tolerating feedinds and having bms. will remove rodrigo and retentions, and plan dc Objective - Vital Signs/Intake and Output Vital Signs (last 24 hours): Temp Pulse Resp BP Pulse Ox 98.4 F 70 20 99/65 L 96 07/12/18 07:20 07/12/18 07:20 07/12/18 07:20 07/12/18 07:20 07/12/18 07:20 - Medications Medications: Current Medications Aspirin (Ecotrin) 81 mg PO DAILY [facility] Last Admin: 07/12/18 09:27 Dose: 81 mg Enoxaparin Sodium (Lovenox) 40 mg SC DAILY [facility] Last Admin: 07/12/18 09:27 Dose: 40 mg Tigecycline 50 mg/ Sodium (Chloride) 100 mls @ 100 mls/hr IVPB Q12H [facility]; Protocol Last Admin: 07/12/18 02:14 Dose: 100 mls/hr Fat Emulsion Intravenous (Intralipid 20%) 500 mls @ 50 mls/hr IV MWF@1800 [facility] Stop: 07/12/18 18:01 Last Admin: 07/11/18 17:38 Dose: 50 mls/hr Octreotide Acetate (Sandostatin) 50 mcg SC Q8H [facility] Last Admin: 07/12/18 05:40 Dose: 50 mcg - Labs Labs: 07/12/18 07:14 07/12/18 07:14 PT 14.8 SECONDS (9.7-12.2) H 07/01/18 06:36 INR 1.4 07/01/18 06:36 APTT 34 SECONDS (21-34) 07/01/18 06:36
--- NOTE | 2018-07-12 22:16 | CP.PCM.PN ---
Subjective - Date & Time of Evaluation Date of Evaluation: 07/12/18 Time of Evaluation: 19:00 - Subjective Subjective: Feeling better Objective - Vital Signs/Intake and Output Vital Signs (last 24 hours): Temp Pulse Resp BP Pulse Ox 98.3 F 72 20 102/66 99 07/12/18 15:52 07/12/18 15:52 07/12/18 15:52 07/12/18 15:52 07/12/18 15:52 - Medications Medications: Current Medications Aspirin (Ecotrin) 81 mg PO DAILY [facility] Last Admin: 07/12/18 09:27 Dose: 81 mg Enoxaparin Sodium (Lovenox) 40 mg SC DAILY [facility] Last Admin: 07/12/18 09:27 Dose: 40 mg Tigecycline 50 mg/ Sodium (Chloride) 100 mls @ 100 mls/hr IVPB Q12H [facility]; Protocol Last Admin: 07/12/18 14:46 Dose: 100 mls/hr Octreotide Acetate (Sandostatin) 50 mcg SC Q8H [facility] Last Admin: 07/12/18 21:23 Dose: 50 mcg Pantoprazole Sodium (Protonix Ec Tab) 40 mg PO DAILY [facility] - Labs Labs: 07/12/18 07:14 07/12/18 07:14 PT 14.8 SECONDS (9.7-12.2) H 07/01/18 06:36 INR 1.4 07/01/18 06:36 APTT 34 SECONDS (21-34) 07/01/18 06:36 - Head Exam Head Exam: ATRAUMATIC - Eye Exam Eye Exam: Normal appearance - ENT Exam ENT Exam: Mucous Membranes Dry - Respiratory Exam Respiratory Exam: NORMAL BREATHING PATTERN - Cardiovascular Exam Cardiovascular Exam: +S1, +S2 - GI/Abdominal Exam GI & Abdominal Exam: Normal Bowel Sounds Assessment and Plan (1) Thrombocytosis Assessment & Plan: reactive improving JAK2 negative on aspirin 81mg daily Status: Acute (2) Anemia Assessment & Plan: chronic disease Status: Acute
[2018-07-13] MEDS ORDERED: ePHEDrine 50 mg/ml Inj ONE (08:20)
[2018-07-13] MEDS: Enoxaparin 40 mg Syringe SC SCH (09:39)
[2018-07-13] MEDS ORDERED: Pantoprazole 40 mg EC Tab PO SCH (10:00)
--- NOTE | 2018-07-13 14:27 | CP.PCM.DIS ---
Provider - Provider Date of Admission: 06/09/18 14:39 Attending physician: Danie Monreal MD Primary care physician: Jocelin Hendricks Consults: 06/14/18 11:43 Infectious Disease Consult Routine Comment: Consulting Provider: Vernon Hendricks Consulting Physician: Vernon Hendricks Reason for Consult: Increasing Leukocytosis s/p Cholecystectomy 06/16/18 09:07 Physician Consult Routine Comment: Consulting Provider: Angelina Andrew Consulting Physician: Angelina Andrew Reason for Consult: hyponatremia 06/16/18 09:57 Physician Consult Routine Comment: Consulting Provider: José Miguel Camp Consulting Physician: José Miguel Camp Reason for Consult: leukocytosis, hyponatremia, status post cholecystectomy 07/01/18 06:36 Wound Care [Nursing Referral for Wound Care] Routine Comment: Physician Instructions: Reason For Exam: ECF from midline incision 07/01/18 08:17 Hematology Oncology Consult Routine Comment: Consulting Provider: Willy Membreno Consulting Physician: Willy Membreno Reason for Consult: thrombocytosis 1200 Time Spent in preparation of Discharge (in minutes): 45 Hospital Course - Lab Results Lab Results: Micro Results 06/30/18 19:38 Abdomen Gram Stain - Final 06/30/18 19:38 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 06/19/18 04:45 Nose MRSA Culture (Admit) - Final MRSA NOT DETECTED 06/16/18 10:15 Blood-Venous Blood Culture - Final NO GROWTH AFTER 5 DAYS 06/16/18 10:15 Blood-Venous Gram Stain - Final TEST NOT PERFORMED 06/16/18 09:00 Blood-Venous Blood Culture - Final NO GROWTH AFTER 5 DAYS 06/16/18 09:00 Blood-Venous Gram Stain - Final TEST NOT PERFORMED 06/17/18 15:33 Abdomen Gram Stain - Final 06/17/18 15:33 Abdomen Wound Culture - Final Liliana Albicans 06/13/18 11:05 Blood Blood Culture - Final NO GROWTH AFTER 5 DAYS 06/13/18 11:05 Blood Gram Stain - Final TEST NOT PERFORMED 06/13/18 10:35 Blood Blood Culture - Final NO GROWTH AFTER 5 DAYS 06/13/18 10:35 Blood Gram Stain - Final TEST NOT PERFORMED 06/16/18 09:46 Urine Random Urine Culture - Final No Growth (<1,000 CFU/ML) 06/13/18 11:46 Sputum Gram Stain - Final 06/13/18 11:46 Sputum Sputum Culture - Final NORMAL ORAL JERI 06/13/18 16:49 Stool Stool Culture - Final NO SALMONELLA, SHIGELLA OR CAMPYLOBACTER ISOLATED. 06/13/18 11:46 Urine Random Urine Culture - Final No Growth (<1,000 CFU/ML) 06/08/18 15:54 Bile Gram Stain - Final 06/08/18 15:54 Bile Body Fluid Culture - Final No growth. 06/06/18 05:15 Blood Blood Culture - Final NO GROWTH AFTER 5 DAYS 06/06/18 05:15 Blood Gram Stain - Final TEST NOT PERFORMED 06/06/18 05:15 Blood Blood Culture - Final NO GROWTH AFTER 5 DAYS 06/06/18 05:15 Blood Gram Stain - Final TEST NOT PERFORMED Most Recent Lab Values WBC 8.9 K/uL (4.8-10.8) 07/12/18 07:14 RBC 3.40 Mil/uL (4.40-5.90) L 07/12/18 07:14 Hgb 10.0 g/dL (12.0-18.0) L 07/12/18 07:14 Hct 29.6 % (35.0-51.0) L 07/12/18 07:14 MCV 87.1 fL (80.0-94.0) 07/12/18 07:14 MCH 29.5 pg (27.0-31.0) 07/12/18 07:14 MCHC 33.8 g/dL (33.0-37.0) 07/12/18 07:14 RDW 13.9 % (11.5-14.5) 07/12/18 07:14 Plt Count 629 K/uL (130-400) H D 07/12/18 07:14 MPV 7.3 fL (7.2-11.7) 07/12/18 07:14 Neut % (Auto) 65.3 % (50.0-75.0) 07/12/18 07:14 Lymph % (Auto) 23.5 % (20.0-40.0) 07/12/18 07:14 [place] % (Auto) 8.0 % (0.0-10.0) 07/12/18 07:14 Eos % (Auto) 2.0 % (0.0-4.0) 07/12/18 07:14 Baso % (Auto) 1.2 % (0.0-2.0) 07/12/18 07:14 Neut # (Auto) 5.8 K/uL (1.8-7.0) 07/12/18 07:14 Lymph # (Auto) 2.1 K/uL (1.0-4.3) 07/12/18 07:14 [place] # (Auto) 0.7 K/uL (0.0-0.8) 07/12/18 07:14 Eos # (Auto) 0.2 K/uL (0.0-0.7) 07/12/18 07:14 Baso # (Auto) 0.1 K/uL (0.0-0.2) 07/12/18 07:14 Neutrophils % (Manual) 83 % (50-75) H 06/23/18 06:02 Band Neutrophils % 3 % (0-2) H 06/23/18 06:02 Lymphocytes % (Manual) 7 % (20-40) L 06/23/18 06:02 Reactive Lymphs % 1 % (0-0) H 06/23/18 06:02 Monocytes % (Manual) 5 % (0-10) 06/23/18 06:02 Eosinophils % (Manual) 1 % (0-4) 06/23/18 06:02 Basophils % (Manual) 1 % (0-2) 06/22/18 05:54 Myelocytes % 2 % (0-0) H 06/14/18 07:04 Plasma Cell % (Manual) 1 (0-0) H 06/12/18 08:15 Differential Comment 06/28/18 06:58 Toxic Granulation Present 06/18/18 06:54 Platelet Estimate Increased (NORMAL) H 06/23/18 06:02 Large Platelets Present 06/20/18 06:15 Giant Platelets Present 06/18/18 06:54 RBC Morphology Normal 06/17/18 13:42 Polychromasia Slight 06/18/18 06:54 Hypochromasia (manual) Slight 06/23/18 06:02 Poikilocytosis (manual Slight 06/22/18 05:54 Anisocytosis (manual) Slight 06/22/18 05:54 Target Cells Slight 06/23/18 06:02 Smear Path Review 06/28/18 06:58 ESR 126 mm/hr (0-15) H 06/29/18 08:14 Retic Count 3.3 % (0.5-1.5) H 07/02/18 13:52 PT 14.8 SECONDS (9.7-12.2) H 07/01/18 06:36 INR 1.4 07/01/18 06:36 APTT 34 SECONDS (21-34) 07/01/18 06:36 D-Dimer, Quantitative 3849 ng/mlDDU (0-243) H 06/16/18 11:06 Puncture Site Rb 06/21/18 05:21 pCO2 39 mm/Hg (35-45) 06/21/18 05:21 pO2 114 mm/Hg (80-100) H 06/21/18 05:21 HCO3 28.4 mmol/L (21-28) H 06/21/18 05:21 ABG pH 7.47 (7.35-7.45) H 06/21/18 05:21 ABG Total CO2 29.6 mmol/L (22-28) H 06/21/18 05:21 ABG O2 Saturation 100.1 % (95-98) H 06/21/18 05:21 ABG Base Excess 4.4 mmol/L (-2.0-3.0) H 06/21/18 05:21 ABG Hemoglobin 8.1 g/dL (11.7-17.4) L 06/21/18 05:21 ABG Carboxyhemoglobin 1.9 % (0.5-1.5) H 06/21/18 05:21 POC ABG HHb (Measured) -0.1 % (0.0-5.0) L 06/21/18 05:21 ABG Methemoglobin 1.3 % (0.0-3.0) 06/21/18 05:21 Abe Test Na 06/21/18 05:21 ABG Potassium 2.9 mmol/L (3.6-5.2) L 06/18/18 22:04 A-a O2 Difference 265.0 mm/Hg 06/21/18 05:21 Respiratory Index 2.3 06/21/18 05:21 Hgb O2 Saturation 96.9 % (95.0-98.0) 06/21/18 05:21 Sodium 135.0 mmol/l (132-148) 06/18/18 22:04 Chloride 110.0 mmol/L (98-107) H 06/18/18 22:04 Glucose 92 mg/dl (75-110) 06/18/18 22:04 Lactate 1.4 mmol/L (0.7-2.1) 06/18/18 22:04 Vent Mode Prvc 06/21/18 05:21 Mechanical Rate 12 06/21/18 05:21 FiO2 60.0 % 06/21/18 05:21 Tidal Volume 500 06/21/18 05:21 PEEP 5 06/21/18 05:21 Sodium 144 mmol/L (132-148) 07/12/18 07:14 Potassium 4.0 mmol/L (3.6-5.2) 07/12/18 07:14 Chloride 100 mmol/L (98-107) 07/12/18 07:14 Carbon Dioxide 24 mmol/L (22-30) 07/12/18 07:14 Anion Gap 23 (10-20) H 07/12/18 07:14 BUN 14 mg/dL (9-20) 07/12/18 07:14 Creatinine 0.6 mg/dL (0.8-1.5) L 07/12/18 07:14 Est GFR ( Amer) > 60 07/12/18 07:14 Est GFR (Non-Af Amer) > 60 07/12/18 07:14 POC Glucose (mg/dL) 85 mg/dL (65-110) 07/13/18 06:22 Random Glucose 90 mg/dL (75-110) 07/12/18 07:14 Serum Osmolality 264 mosm/kg (272-300) L 06/16/18 13:54 Lactic Acid 1.3 mmol/L (0.7-2.1) 06/17/18 13:42 Calcium 8.2 mg/dl (8.6-10.4) L 07/12/18 07:14 Phosphorus 5.0 mg/dL (2.5-4.5) H 07/12/18 07:14 Magnesium 1.9 mg/dL (1.6-2.3) 07/12/18 07:14 Ferritin 373.0 ng/mL 07/02/18 13:52 Total Bilirubin 0.3 mg/dL (0.2-1.3) 07/12/18 07:14 AST 48 U/L (17-59) 07/12/18 07:14 ALT 48 U/L (21-72) 07/12/18 07:14 Alkaline Phosphatase 332 U/L (38-126) H D 07/12/18 07:14 Total Creatine Kinase 36 U/L (55-170) L 06/15/18 06:30 Troponin I < 0.0120 ng/mL (0.00-0.120) 06/06/18 01:14 Total Protein 7.1 g/dL (6.3-8.3) 07/12/18 07:14 Albumin 2.9 g/dL (3.5-5.0) L 07/12/18 07:14 Globulin 4.3 gm/dL (2.2-3.9) H 07/12/18 07:14 Albumin/Globulin Ratio 0.7 (1.0-2.1) L 07/12/18 07:14 Prealbumin 9.7 mg/dL (17.6-36.0) L 07/11/18 08:42 Triglycerides 115 mg/dL (0-149) D 07/11/18 08:42 Cholesterol 53 mg/dL (0-199) 07/11/18 08:42 LDL Cholesterol Direct 37 mg/dL (0-129) 07/11/18 08:42 HDL Cholesterol 12 mg/dL (30-70) L 07/11/18 08:42 Lipase 507 U/L (23-300) H 06/16/18 06:10 Vitamin B12 > 1000 pg/mL (239-931) H 07/02/18 13:52 Folate 6.9 ng/mL 07/02/18 13:52 Procalcitonin 0.33 NG/ML (0.19-0.49) 06/16/18 13:54 Arterial Blood Potassium 2.9 mmol/L (3.6-5.2) L 06/18/18 22:04 Urine Color Mckenna (YELLOW) 06/16/18 09:46 Urine Clarity Hazy (Clear) 06/16/18 09:46 Urine pH 6.0 (5.0-8.0) 06/16/18 09:46 Ur Specific [place] 1.020 (1.003-1.030) 06/16/18 09:46 Urine Protein Negative mg/dL (NEGATIVE) 06/16/18 09:46 Urine Glucose (UA) Normal mg/dL (Normal) 06/16/18 09:46 Urine Ketones 1+ mg/dL (NEGATIVE) H 06/16/18 09:46 Urine Blood Negative (NEGATIVE) 06/16/18 09:46 Urine Nitrate Negative (NEGATIVE) 06/16/18 09:46 Urine Bilirubin Negative (NEGATIVE) 06/16/18 09:46 Urine Urobilinogen 2.0 mg/dL (0.2-1.0) 06/16/18 09:46 Ur Leukocyte Esterase Trace Tommy/uL (Negative) 06/16/18 09:46 Urine WBC (Auto) 2 /hpf (0-5) 06/16/18 09:46 Urine RBC (Auto) 1 /hpf (0-3) 06/16/18 09:46 Amorphous Sediment Rare /ul (<OCC) H 06/06/18 01:28 Hyaline Casts 3-5 /lpf (0-2) H 06/16/18 09:46 Urine Osmolality 629 mosm/kg (300-1000) 06/16/18 09:46 Ur Random Sodium 39 mmol/L 06/16/18 09:46 Ur Random Potassium 38.6 mmol/L 06/16/18 09:46 Vancomycin Peak 10.2 ug/mL (30.0-40.0) L 06/18/18 11:25 Vancomycin Trough 5.5 ug/mL (5.0-10.0) 06/20/18 16:59 C.trachomatis RNA (TMA) Not detected (Not Detected) 06/16/18 09:46 C. difficile Ag & Toxin Negative (NEGATIVE) 06/22/18 23:18 Hepatitis A IgM Ab Negative (NEGATIVE) 06/08/18 07:19 Hep Bs Antigen Negative (NEGATIVE) 06/08/18 07:19 Hep B Core IgM Ab Negative (NEGATIVE) 06/08/18 07:19 Hepatitis C Antibody Negative (NEGATIVE) 06/08/18 07:19 HIV 1&2 Ag/Ab, 4th Gen Nonreactive (Nonreactive) 06/15/18 06:30 Ur L.pneumophila Ag Negative (NEGATIVE) 06/16/18 09:46 N.gonorrhoeae RNA (TMA) Not detected (Not Detected) 06/16/18 09:46 JAK2 Accession Number Not given 07/02/18 13:52 JAK2 V617F Specimen Blood 07/02/18 13:52 JAK2 V617F Method see note 07/02/18 13:52 JAK2 V617F Mut Indic Not given 07/02/18 13:52 JAK2 V617F Mutation Not detected (Not Detected) 07/02/18 13:52 JAK2 Interpret/Report see note 07/02/18 13:52 Blood Type O POSITIVE 06/17/18 07:52 Antibody Screen Negative 06/17/18 07:52 - Hospital Course Hospital Course: 37M presents with abdominal pain that began yesterday. Pain is currently in the epigastric and RUQ region. He states he had pain like this last week but it is much severe now. Pain not controlled with medication. He admits to nausea and vomiting with pain. He denies fevers or chills and admits to anorexia also. Patient taken to OR on hospital day 2 for lap cholecystectomy. HIDA scan done post op negative for bile leak afte evaluation. Pt without bowel function post op. Post op day 5 pt had leukocytosis, CXR w/left lower lobe infiltrate, started treatment for pneumonia. Pt also treated for hyponatremia. CT abdomen done with findings of fluid collections, IR consulted on hospital day 8 - no drainable collections noted. ID saw/evaluated pt for antibiotic therapy. Patient taken back to OR due to sepsis on hospital day 12. due to bowel perforation Taken back to OR on hospital day 14 due to anastomotic leak and sepsis. Patient with prolonged recovery due to long period of time before bowel function returned and patient was able to tolerate PO intake. Pt was kept for nutritional support and close monitoring in the post operative period. Patient had complication of pneumonia and requiring IV antibiotics with ID consult. Patient had progressive recovery over time and increasingly tolerated PO diet. Patient stable and ready for discharge home on PO antibiotics as recommended by ID. Patient instructed to follow up with Dr. Monreal in the next week. - Date & Time of H&P Date of H&P: 06/06/17 Time of H&P: 05:11 Discharge Exam - Head Exam Head Exam: ATRAUMATIC, NORMAL INSPECTION, NORMOCEPHALIC - Eye Exam Eye Exam: EOMI, Normal appearance - ENT Exam ENT Exam: Mucous Membranes Moist, Normal Exam - Neck Exam Neck exam: Full Rom, Normal Inspection - Respiratory Exam Respiratory Exam: UNREMARKABLE - Cardiovascular Exam Cardiovascular Exam: REGULAR RHYTHM, +S1, +S2 - GI/Abdominal Exam GI & Abdominal Exam: Soft. absent: Distended, Tenderness Additional comments: Midline incision well healed, remaining rodrigo removed - Extremities Exam Extremities exam: normal inspection - Neurological Exam Neurological exam: Alert, CN II-XII Intact, Oriented x3 - Psychiatric Exam Psychiatric exam: Normal Affect, Normal Mood - Skin Skin Exam: Dry, Intact, Normal Color, Warm Discharge Plan - Discharge Medications Prescriptions: Doxycycline Hyclate 100 mg PO BID #14 capsule Lactobacillus Acidophilus [ACIDOPHILUS 200 MG-1 Billion U] 1 ctb PO DAILY #7 ctb - Follow Up Plan Condition: STABLE Disposition: HOME/ ROUTINE Instructions: Exploratory Laparotomy, Cholecystectomy, Laparoscopic Surgery, Doxycycline, Lactobacillus, Cholecystitis (DC) Additional Instructions: Follow up w/ Dr. Monreal in 7-10 days, call to make an appointment Patient may take Tylenol/Ibuprofen for pain No dietary restrictions No heavy lifting for 4-6weeks (nothing heavier than 10lbs) Patient may shower however do not scrub/soak incisions No pools, tubs, baths Monitor drain output, Dr. Monreal will remove the drain in the office Call Dr. Monreal, return to the ED if fever >101, redness, swelling, drainage of incisions Karin un seguimiento con el Dr. Monreal en 7-10 abebe, llame para hacer preeti lnydon. El paciente puede leydi Tylenol / Ibuprofen para el dolor No hay restricciones dietticas. No levantar objetos pesados ??mini 4-6 semanas (nada ms de 10 lb) El paciente puede ducharse, sin embargo, no frote ni remoje las incisiones No hay piscinas, baeras, baos. Monitorear la salida del drenaje, el Dr. Monreal eliminar el drenaje en la oficina Llame al Dr. Monreal, regrese a la yessy de emergencias si tiene fiebre> 101, enrojecimiento, hincrazzn, drenaje de incisiones Referrals: Danie Monreal MD [Staff Provider] -
[2018-07-13 17:01] VITALS: BP 100/68; PULSE 81; TEMP 98.5; O2SAT 99
== END 2018-07-13 18:55 | disposition home or self-care (01) | DRG 263 ==
LOC: C.ER 00:18 → C.5S 05:02 → C.3T 23:19 → OBSVTOIN 06-09 14:39 → C.6T 06-17 18:55 → C.9I 06-19 01:31 → C.6T 06-24 18:55
PROVIDERS: ADMIT Surgery; ATTEND Surgery
PROC: 0FT44ZZ Resection of Gallbladder, Percutaneous Endoscopic Approach (ICD-10-PCS; principal; 2018-06-09)
PROC: 0DQ80ZZ Repair Small Intestine, Open Approach (ICD-10-PCS; 2018-06-17)
PROC: 0W9F0ZX Drainage of Abdominal Wall, Open Approach, Diagnostic (ICD-10-PCS; 2018-06-17)
PROC: 0HB7XZZ Excision of Abdomen Skin, External Approach (ICD-10-PCS; 2018-06-17)
PROC: 0DN80ZZ Release Small Intestine, Open Approach (ICD-10-PCS; 2018-06-17)
PROC: 02HV33Z Insertion of Infusion Device into Superior Vena Cava, Percutaneous Approach (ICD-10-PCS; 2018-06-19)
DX: K80.12 Calculus of gallbladder with acute and chronic cholecystitis without obstruction (principal); K65.1 Peritoneal abscess; K63.1 Perforation of intestine (nontraumatic); A41.9 Sepsis, unspecified organism; J90 Pleural effusion, not elsewhere classified; D68.9 Coagulation defect, unspecified; R18.8 Other ascites; S36.439A Laceration of unspecified part of small intestine, initial encounter; T81.43XA Infection following a procedure, organ and space surgical site, initial encounter; K66.0 Peritoneal adhesions (postprocedural) (postinfection); D63.8 Anemia in other chronic diseases classified elsewhere; E87.6 Hypokalemia; E87.1 Hypo-osmolality and hyponatremia; E83.51 Hypocalcemia; J95.89 Other postprocedural complications and disorders of respiratory system, not elsewhere classified; Y83.8 Other surgical procedures as the cause of abnormal reaction of the patient, or of later complication, without mention of misadventure at the time of the procedure; K91.89 Other postprocedural complications and disorders of digestive system

== ENCOUNTER 2018-07-14 21:37 | Emergency (ER) | payer MEDICAID, OTHER ==
[2018-07-14 22:07] VITALS: BP 100/60; PULSE 84; TEMP 98.8; O2SAT 99
--- NOTE | 2018-07-14 23:04 | C.PDOC ---
History Of Present Illness 37 year old male s/p ex lap s/p cholecystitis 3 weeks ago, discharged yesterday. Patient states today he noticed some drainage on his t-shirt which concerned him prompting visit. Denies bleeding, foul odor, or fever. Time Seen by Provider: 07/14/18 22:22 Chief Complaint (Nursing): Wound Check History Per: Patient History/Exam Limitations: no limitations Onset/Duration Of Symptoms: Hrs Current Symptoms Are (Timing): Still Present Location Of Injury: Anterior: Abdomen Quality Of Symptoms: Draining Recent travel outside of the [place]: No Past Medical History Reviewed: Historical Data, Nursing Documentation, Vital Signs Vital Signs: Last Vital Signs Temp 98.8 F 07/14/18 22:02 Pulse 84 07/14/18 22:02 Resp 14 07/14/18 22:02 BP 100/60 07/14/18 22:02 Pulse Ox 99 07/14/18 22:02 Primary Care Provider: Fabrizio Vela - Medical History PMH: Gall Bladder Disease (Cholelithiasis) Denies: Deep Vein Thrombosis Surgical History: Denies: Pacemaker - [facility] Procedures DRAINAGE OF ABDOMINAL WALL, OPEN APPROACH, DIAGNOSTIC (06/09/18) EXCISION OF ABDOMEN SKIN, EXTERNAL APPROACH (06/09/18) INSERTION OF INFUSION DEV INTO SUP VENA CAVA, PERC APPROACH (06/09/18) RELEASE SMALL INTESTINE, OPEN APPROACH (06/09/18) REPAIR SMALL INTESTINE, OPEN APPROACH (06/09/18) RESECTION OF GALLBLADDER, PERCUTANEOUS ENDOSCOPIC APPROACH (06/09/18) Family History: States: Hypertension - Social History Hx Tobacco Use: Yes Hx Alcohol Use: Yes Hx Substance Use: No - Immunization History Hx Tetanus Toxoid Vaccination: No Hx Influenza Vaccination: No Hx Pneumococcal Vaccination: No Review Of Systems Constitutional: Negative for: Fever, Chills Skin: Positive for: Other (Drainage from incision site) Physical Exam - Physical Exam Appears: Non-toxic Skin: Warm, Dry Head: Atraumatic, Normacephalic Eye(s): bilateral: Normal Inspection Gastrointestinal/Abdominal: Soft, No Tenderness, No Distention, Other (Mid incision well appearing, healing. No obvious open wound, no induration, no erythema, no active draining.) Neurological/Psych: Oriented x3, Normal Speech ED Course And Treatment O2 Sat by Pulse Oximetry: 99 (Room air) Pulse Ox Interpretation: Normal Progress Note: Patient is resting comfortably in no acute distress, vitals are stable, patient advised to continue wound care instructions as given at time of hospital discharge and follow up with Dr. Monreal. Disposition Counseled Patient/Family Regarding: Diagnosis, Need For Followup, Rx Given - Disposition Referrals: Danie Monreal MD [Staff Provider] - Disposition: HOME/ ROUTINE Disposition Time: 23:00 Condition: STABLE Additional Instructions: Please keep appointment with Dr Monreal as schedules Please shower, do not rub the incisions Return to ER if persistent moderate draining, fevewr, pain, redness to incision or worse Instructions: Surgical Wound (DC) Forms: Tour Raiser (Wolof), Tour Raiser (Yemeni) Print Language: SINHALA - Clinical Impression Clinical Impression: Encounter for postoperative wound care - PA / NOCTURNIST PHYSICIAN / Resident Statement / has reviewed & agrees with the documentation as recorded. - Scribe Statement The provider has reviewed the documentation as recorded by the Scribe Dhaval Olmos All medical record entries made by the Scribe were at my direction and personally dictated by me. I have reviewed the chart and agree that the record accurately reflects my personal performance of the history, physical exam, medical decision making, and the department course for this patient. I have also personally directed, reviewed, and agree with the discharge instructions and disposition.
[2018-07-14 23:14] VITALS: RESP 20
== END 2018-07-14 23:12 | disposition home or self-care (01) ==
LOC: C.ER 21:37
DX: Z48.01 Encounter for change or removal of surgical wound dressing (principal)

== ENCOUNTER 2018-07-19 09:33 | Emergency (ER) | payer OTHER ==
--- NOTE | 2018-07-19 12:34 | C.PDOC ---
History Of Present Illness 37 y/o male presents to the ER for evaluation of abdominal wound.Patient states that he had seeping from the wound.Patient was admitted for cholecystectomy in [facility] from 06/06/18-07/13/18. During his admission, he had leukocytosis and prolonged course of pneumonia. He also had anastomotic leak so he was transferred to the OR. Denies having fever,chills, CP,SOB, nausea, vomiting, and abdominal pain. Chief Complaint (Nursing): Wound Check History Per: Patient History/Exam Limitations: no limitations Onset/Duration Of Symptoms: Days Ago Current Symptoms Are (Timing): Still Present Severity: Moderate Past Medical History Reviewed: Historical Data, Nursing Documentation, Vital Signs Vital Signs: Last Vital Signs Temp 98.7 F 07/19/18 09:54 Pulse 93 H 07/19/18 09:54 Resp 18 07/19/18 09:54 BP 108/65 07/19/18 09:54 Pulse Ox 100 07/19/18 09:54 Primary Care Provider: Danie Monreal O - Medical History PMH: Gall Bladder Disease (Cholelithiasis) Denies: Deep Vein Thrombosis Surgical History: Cholecystectomy Denies: Pacemaker - [facility] Procedures DRAINAGE OF ABDOMINAL WALL, OPEN APPROACH, DIAGNOSTIC (06/09/18) EXCISION OF ABDOMEN SKIN, EXTERNAL APPROACH (06/09/18) INSERTION OF INFUSION DEV INTO SUP VENA CAVA, PERC APPROACH (06/09/18) RELEASE SMALL INTESTINE, OPEN APPROACH (06/09/18) REPAIR SMALL INTESTINE, OPEN APPROACH (06/09/18) RESECTION OF GALLBLADDER, PERCUTANEOUS ENDOSCOPIC APPROACH (06/09/18) Family History: States: Hypertension - Social History Hx Tobacco Use: Yes Hx Alcohol Use: Yes Hx Substance Use: No - Immunization History Hx Tetanus Toxoid Vaccination: No Hx Influenza Vaccination: No Hx Pneumococcal Vaccination: No Review Of Systems Except As Marked, All Systems Reviewed And Found Negative. Constitutional: Negative for: Fever, Chills Gastrointestinal: Negative for: Nausea, Vomiting, Abdominal Pain Skin: Positive for: Other (abdominal wound) Physical Exam - Physical Exam Appears: Non-toxic, No Acute Distress Skin: Normal Color, Warm, Dry Head: Atraumatic, Normacephalic Eye(s): bilateral: Normal Inspection Oral Mucosa: Moist Neck: Supple Chest: Symmetrical Cardiovascular: Rhythm Regular Respiratory: Normal Breath Sounds, No Rales, No Rhonchi, No Wheezing Gastrointestinal/Abdominal: Bowel Sounds (normal bowel sounds), Soft, No Tenderness, No Guarding, No Rebound, Other (laporoscopic wound to abdomen, skin intact with some grayish discharge, no foul smell) Neurological/Psych: Oriented x3, Normal Speech ED Course And Treatment O2 Sat by Pulse Oximetry: 100 (RA) Pulse Ox Interpretation: Normal Medical Decision Making Medical Decision Making: Plan: 10:50 Cigarette Examiner paged. Pending call back. 11:10 Cigarette Examiner paged 2nd time. Pending call back. 11:25 's service contacted.Pending call back. 11:47 's service contacted 2nd time. Still Pending call back 12:10 Case discussed with surgical services coordinator. Resident will come to evaluate patient. 12:17 Case discussed with . He stated that resident will come to evaluate patient. 12:45 Cigarette Examiner evaluated patient. He packed the wound and called . As per resident, advised that patient be discharged home. Patient has been discharged home and instructed to follow up with . Disposition Counseled Patient/Family Regarding: Diagnosis, Need For Followup - Disposition Referrals: Danie Monreal MD [Staff Provider] - Disposition Time: 12:48 Prescriptions: Amoxicillin/Clavulanate [Augmentin 875 MG-125 MG] 1 tab PO BID #13 tab Lactobacillus Acidophilus [Acidophilus Lactobacilli] 1 each PO DAILY #14 capsule Instructions: Wound Infection Forms: Gen Discharge Inst Turkish, [employer] (Turkish) Print Language: BULGARIAN - POA Present On Arrival: Surgical Site Infection - Clinical Impression Clinical Impression: Wound infection - Scribe Statement The provider has reviewed the documentation as recorded by the Scribe Daylin Gillette Provider Attestation: All medical record entries made by the Scribe were at my direction and personally dictated by me. I have reviewed the chart and agree that the record accurately reflects my personal performance of the history, physical exam, medical decision making, and the department course for this patient. I have also personally directed, reviewed, and agree with the discharge instructions and disposition.
[2018-07-19 12:48] VITALS: BP 107/72; PULSE 72; RESP 20; TEMP 98.9
[2018-07-19 12:51] VITALS: O2SAT 100
[2018-07-19] MEDS ORDERED: Amoxicillin-Clav 875-125 mg Tab PO STA (13:02)
[2018-07-19] MEDS ORDERED: Amoxicillin-Clav 875-125 mg Tab PO ONE (13:07)
--- NOTE | 2018-07-19 14:57 | CP.PCM.CON ---
History of Present Illness - History of Present Illness History of Present Illness: General Surgery Consult for Dr. Monreal Reason for consult: drainage from midline wound 37 M who recently had prolonged hospital course s/p three procedures presents to [facility] with drainage from midline wound. Patient states that it began 2 days ago. He had notice some drainage then it stopped. Earlier today, he was on the toliet when more liquid came out. Patient became worried and decided to come in. Patient says he has appointment with Dr. Jocelin wilburn for 07/20. Patient had no other complaints. PMH: ECF, cholecystitis s/p lap kevin with complicated sepsis and extended hospital stay PSH: lap kevin, ex-lap x 2 ALL: NKDA Review of Systems - Review of Systems All systems: reviewed and no additional remarkable complaints except (as per HPI) Past Patient History - Infectious Disease Hx of Infectious Diseases: None - Past Medical History & Family History Past Medical History?: Yes - Past Social History Smoking Status: Never Smoked - CARDIAC Hx Pacemaker: No - HEMATOLOGICAL/ONCOLOGICAL Hx Cancer: No - MUSCULOSKELETAL/RHEUMATOLOGICAL Hx Falls: No - GASTROINTESTINAL Hx Gall Bladder Disease: Yes (Cholelithiasis) - PSYCHIATRIC Hx Substance Use: No - SURGICAL HISTORY Hx Cholecystectomy: Yes - ANESTHESIA Hx Anesthesia: Yes Hx Anesthesia Reactions: No Hx Malignant Hyperthermia: No Meds Home Medications: Home Medication List Medication Instructions Recorded Confirmed Type Amoxicillin/Clavulanate [Augmentin 1 tab PO BID #13 tab 07/19/18 Rx 875 MG-125 MG] Lactobacillus Acidophilus 1 each PO DAILY #14 capsule 07/19/18 Rx [Acidophilus Lactobacilli] Allergies/Adverse Reactions: Allergies Allergy/AdvReac Type Severity Reaction Status Date / Time No Known Allergies Allergy Verified 07/19/18 09:52 Physical Exam - Constitutional Appears: No Acute Distress - Head Exam Head Exam: ATRAUMATIC, NORMOCEPHALIC - Eye Exam Eye Exam: EOMI, Normal appearance Pupil Exam: PERRL - ENT Exam ENT Exam: Mucous Membranes Moist - Respiratory Exam Respiratory Exam: NORMAL BREATHING PATTERN - Cardiovascular Exam Cardiovascular Exam: REGULAR RHYTHM - GI/Abdominal Exam GI & Abdominal Exam: Normal Bowel Sounds, Soft. absent: Distended, Firm, Guarding, Rebound, Rigid, Tenderness Additional comments: midline wound with small 0.5 cm opening with purulent drainage - Extremities Exam Extremities exam: Positive for: normal capillary refill, pedal pulses present. Negative for: calf tenderness - Back Exam Back exam: absent: CVA tenderness (L), CVA tenderness (R) - Neurological Exam Neurological exam: Alert, CN II-XII Intact, Oriented x3 - Psychiatric Exam Psychiatric exam: Normal Affect, Normal Mood - Skin Skin Exam: Dry, Warm Additional comments: midline wound with small opening and drainage Results - Vital Signs Recent Vital Signs: Last Vital Signs Temp 98.9 F 07/19/18 12:48 Pulse 72 07/19/18 12:48 Resp 20 07/19/18 12:48 BP 107/72 07/19/18 12:48 Pulse Ox 100 07/19/18 13:26 Assessment & Plan - Assessment and Plan (Free Text) Assessment: 37 M who presents with wound infection Plan: -Skin infection -Wound cx taken -Wound irrigated cleaned and packed -Patient follow up tomorrow adam Monreal in office -Oral abx for 7 days on discharge -Discussed with Dr. Jocelin Huynh PGY2 - Date & Time Date: 07/19/18 Time: 12:30
== END 2018-07-19 13:10 | disposition home or self-care (01) ==
LOC: C.ER 09:33
DX: T81.49XA Infection following a procedure, other surgical site, initial encounter (principal); Y83.9 Surgical procedure, unspecified as the cause of abnormal reaction of the patient, or of later complication, without mention of misadventure at the time of the procedure